=== PATIENT | male | born 1960 | race Caucasian/White ===

== ENCOUNTER 2023-10-31 11:24 | Outpatient (CLI) | payer OTHER, SELFPAY ==
--- OUTSIDE RECORDS SUMMARY | 2023-11-15 22:20 | XMS_ITS | Clinical Summary ---
Author Organization [facility] [employer] Address [address] 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 Last update 11/09/08.Embotics Allergies Active Allergy Reactions Criticality Noted Date Comments Lisinopril Angioedema High 10/31/2023 Penicillins Anaphylaxis High 10/31/2023 Medications * Be aware that medications may not be up to date as of this document. Always verify current medications with patient. Medication Sig Dispensed Refills Start Date End Date Status albuterol (VENTOLIN HFA;PROVENTIL HFA;PROAIR) 108 (90 BASE) mcg/act inhalation inhaler Inhale 2 puffs every 4 hours as needed. 08/24/2023 Suspended amLODIPine (NORVASC) 5 mg oral TABS Take 1 tablet (5 mg) by mouth daily. 08/24/2023 Suspende d metoprolol succinate (TOPROL XL) 50 mg oral XL tablet Take 1 tablet (50 mg) by mouth daily. Suspende d albuterol-ipratrop ium (DUONEB) 2.5-0.5 mg/3 mL inhalation solution vial 3 mL by Nebulization route every 4 hours as needed. Suspended Active Problems Problem Noted Date Diagnosed Date Multiple trauma to chest, initial encounter 10/06 Encounters Date Type Department Care Team Description 11/15/2023 11:59 PM CDT Anesthesia Event OR [facility] [address] [place] [address] Lavon Veliz MD 11/14/2023 Orders Only Unspecified Department [place] Unknown, Provider 11/13/2023 Orders Only Unspecified Department [place] Unknown, Provider 11/12/2023 Orders Only Unspecified Department [place] Unknown, Provider 11/05/2023 Orders Only Unspecified Department [place] Unknown, Provider 11/04/2023 Orders Only Unspecified Department [place] Unknown, Provider 11/03/2023 Orders Only Unspecified Department [place], Provider 11/03/2023 Orders Only Unspecified Department [place], Provider 11/03/2023 Orders Only Unspecified Department [place], Provider 11/02/2023 12:15 PM CDT Anesthesia Event OR [facility] [address] [place] [address] Uvaldo Bryant MD 11/02/2023 12:15 PM CDT - 11/02/2023 12:35 PM CDT Surgery OR [facility] [address] [place], [place] [address] Service, Anesthesia EPIDURAL LUMBAR INJECTION 11/02/2023 Orders Only Unspecified Department [place] Unknown, Provider 11/02/2023 Orders Only [facility] Film Room Radiology Department [facility] [address] [place], [place] [id number] Provider, Outside Referral of patient (Primary Dx) 11/01/2023 Orders Only Unspecified Department [place] Unknown, Provider 10/31/2023 1:08 PM CDT - Present Hospital Encounter [facility] Surgical ICU-[address] [place], [place] [address] Patrice Marcial MD Endorf, MD Tianna Roldan, Yuriy Maxwell MD Multiple trauma to chest, initial encounter 10/31/2023 Travel from Last 3 Months Social History Tobacco Use Types Packs/Day Years Used Date Smoking Tobacco: Never Assessed Humiliation, Afraid, Rape, and Kick questionnair e Answer Date Recorded Within the last year, have y ou been afraid of your partner or ex-partner? No 10/31/2023 Within the last year, have y ou been humiliated or emotionally abused in other ways by your partner or ex-partner? No Within the last year, have y ou been kicked, hit, slapped, or otherwise physically hurt by your partner or ex-partner? No 10/31/2023 Within the last year, have y ou been raped or forced to have any kind of sexual activity by your partner or ex-partner? No 10/31/2023 Overall Financial Resource Strain (CARDIA) Answe r Date Recorded How hard is it for you to pa y for the very basics like food, housing, medical care, and heating? Not hard at all 10/31/2023 Hunger Vital Sign Answer Date Recorded Within the past 12 months, y ou worried that your food would run out before you got the money to buy more. Never true 10/31/19 24 Within the past 12 months, t he food you bought just didn't last and you didn't have money to get more. Never true 10/31/2023 PRAPARE - Transportation Answer Date Re corded In the past 12 months, has l ack of transportation kept you from medical appointments or from getting medications? No 10/06 In the past 12 months, has l ack of transportation kept you from meetings, work, or from getting things needed for daily living? No 10/31/2023 Housing Stability Answer Date Recorded What is your housing situation today? 3 - I have housing 10/31/2023 Sex and Gender Information Value Date Recorded Sex Assigned at Not on file Gender Identity Not on file Sexual Orientation Not on file Last Filed Vital Signs Vital Sign Reading Time Taken Comments Blood Pressure 126/56 11/15/2023 9:00 PM CDT Pulse 92 11/15/2023 9:19 PM CDT Temperature 38 ??C (100.4 ??F) 11/15/2023 9:00 PM CDT Respiratory Rate 19 11/15/2023 9:19 PM CDT Oxygen Saturation 93% 11/15/2023 9:19 PM CDT Inhaled Oxygen Concentration - - Weight 116.7 kg (257 lb 4.4 oz) 11/13/2023 2:00 AM CDT Height 175.3 cm (5' 9.02) 11/15/2023 8:40 AM CD T Body Mass Index 37.98 11/13/2023 2:00 AM CDT Plan of Treatment Upcoming Encounters Date Type Department Care Team (Late st Contact Info) Description 11/17/2023 1:30 PM CDT Nurse Only [facility] [address] [address] Scheduled Discharge Disposition: Discharged to home or self care (routine discharge) Scheduled Procedures Name Priority Associated Diagnoses Date/Ti me THORACOSCOPY Urgent (< 48 hrs) Multiple trauma to chest, initial encounter Health Maintenance Due Date Last Done Comments Asthma Action Plan 1958 Asthma Control Test 1958 CT Colonography 1958 Colonoscopy 1958 Colorectal Cancer Screening 1958 Dental Oral Exam 1958 Dental Prophylaxis 1958 Dental X-Ray: Bitewings 1958 FIT/Cologuard 1958 Hepatitis C Screening 1958 Sigmoidoscopy 1958 iFOB/FIT 1958 Periodontal Maintenance 1972 HIV Screening 1973 Medicare Annual Wellness 1976 HEALTH MAINTENANCE PROTOCOL 1977 COVID-19 Vaccine ( season) 2023 05/12/2023, 03/03/2022, 04/29/2021, Additional history exists Abdominal Aortic Aneurysm (AAA) Screening 2023 PREVENTATIVE VISIT 08/23/2024 08/24/2023, 0 09/18/2021, 02/09/2020 TD/TDAP ADULTS 06/21/2028 06/21/2018, 01/05, 01/15/2009, Additional history exists Lipid Screening 08/23/2028 08/24/2023, 12/05, 09/18/2021, Additional history exists Imm: Pneumonia greater than 65 years Completed 12/22/2022, 03/22/2012 INFLUENZA VACCINE Completed 05/12/2023, , 03/06/2021, Additional history exists HIB Aged Out No longer eligi ble based on patient's age to complete this topic HPV Aged Out No longer eligi ble based on patient's age to complete this topic Imm: HepB Aged Out No longer eligi ble based on patient's age to complete this topic RSV Infant Immunoglobulin Aged Out No longer eligible based on patient's age to complete this topic Medical Devices Implanted Type Area Clinical Research Analyst Device Identifier Shelf Expiration Date Model / Serial / Lot Non-Locking Drainage Catheter- 4 Implanted:Qty: 1 on 11/09/2023 by Rudy Cortez MBBS [facility] 09/18/2026 / / [id number] Procedures The patient is currently admitted. The information in this section might not be complete until the patient is discharged. Procedure Name Priority Date/Time Associated Diagnosis Comments POC GLUCOSE Routine 11/15/2023 6:26 PM CDT POC GLUCOSE Routine 11/15/2023 2:22 PM CDT POC GLUCOSE Routine 11/15/2023 11:35 AM CDT ICU BLOOD GAS Routine 11/15/2023 9:20 AM CDT POC GLUCOSE Routine 11/15/2023 6:46 AM CDT ICU PANEL BASIC METABOLIC (BMP) Routine 11/15/2023 6:31 AM CDT TRIGLYCERIDE Routine 11/15/2023 6:31 AM CDT ICU PHOSPHORUS Routine 11/15/2023 6:31 AM CDT ICU MAGNESIUM Routine 11/15/2023 6:31 AM CDT ICU CBC WITH PLATELET Routine 11/15/2023 6:31 AM CDT CPAP Routine 11/15/2023 5:[address] CHEST WITH IV CONTRAST Timed 11/15/2023 5:11 AM CDT XR CHEST 1 VIEW AP OR PA* Timed 11/15/2023 3:44 AM CDT POC GLUCOSE Routine 11/15/2023 12:22 AM CDT PC BASIC MET PANEL Routine 11/14/2023 10 :36 PM CDT POC GLUCOSE Routine 11/14/2023 5:56 PM CDT POC GLUCOSE Routine 11/14/2023 11:03 AM CDT TELEMETRY STRIPS 11/14/2023 6:10 AM CDT CPAP Routine 11/14/2023 5:30 AM CDT PC GASES,BLOOD,ANY COMB OF PH,PCD2,PO2,CO2,HCO2 Routine 11/14/2023 4:44 AM CDT PC BASIC MET PANEL Routine 11/14/2023 4: 44 AM CDT PC PHOSPHORUS INORGANIC(PHOSPHATE) Routine 11/14/2023 4:44 AM CDT PC MAGNESIUM, SERUM Routine 11/14/2023 4 :44 AM CDT PC LAB CBC/PLT Routine 11/14/2023 4:44 AM CDT PC CREATINE KINASE(CK)CPK;TOTAL Routine 11/14/2023 4:44 AM CDT TC LAB BLOOD DRAW BY VENIPUNCTURE Routine 11/14/2023 4:44 AM CDT XR CHEST 1 VIEW AP OR PA* Routine 11/14/2023 3:56 AM CDT POC GLUCOSE Routine 11/13/2023 11:57 PM CDT POC GLUCOSE Routine 11/13/2023 5:34 PM CDT PC CULTURE,BACTERIAL,DEF INATIVE,AEROBIC;BLOOD Routine 11/13/2023 5:10 PM CDT PC CULTURE,BACTERIAL,DEF INATIVE,AEROBIC;BLOOD Routine 11/13/2023 5:04 PM CDT PC BASIC MET PANEL Routine 11/13/2023 5: 04 PM CDT PC CELL COUNT,MICS.BODY FLUIDS,EXCEPT BLOOD,W-DIFF. CT. Routine 11/13/2023 1:08 PM CDT MISCELLANEOUS BODY FLUID Routine 11/13/2023 1:08 PM CDT MISCELLANEOUS BODY FLUID Routine 11/13/2023 1:08 PM CDT MISCELLANEOUS BODY FLUID Routine 11/13/2023 1:08 PM CDT PC SMEAR, VALDO SOURCE, WITH INTERPRETATION (GRAM STAIN) Routine 11/13/2023 1:08 PM CDT PC CULTURE SPECIMEN, ANAEROBIC Routine 11/13/2023 1:08 PM CDT XR CHEST 1 VIEW AP OR PA* STAT 11/13/2023 11:43 AM CDT POC GLUCOSE Routine 11/13/2023 11:32 AM CDT TELEMETRY STRIPS 11/13/2023 6:25 AM CDT POC GLUCOSE Routine 11/13/2023 6:06 AM CDT CPAP Routine 11/13/2023 5:30 AM CDT XR CHEST 1 VIEW AP OR PA* Routine 11/13/2023 5:16 AM CDT LD (LDH) Routine 11/13/2023 4:06 AM CDT PROTEIN, TOTAL SERUM Routine 11/13/2023 4:06 AM CDT PC GASES,BLOOD,ANY COMB OF PH,PCD2,PO2,CO2,HCO2 Routine 11/13/2023 4:06 AM CDT PC PROCALCITONIN (PCT) Routine 11/13/2023 4:06 AM CDT PC BASIC MET PANEL Routine 11/13/2023 4: 06 AM CDT PC PHOSPHORUS INORGANIC(PHOSPHATE) Routine 11/13/2023 4:06 AM CDT PC MAGNESIUM, SERUM Routine 11/13/2023 4 :06 AM CDT TC LAB BLOOD DRAW BY VENIPUNCTURE Routine 11/13/2023 4:06 AM CDT POC GLUCOSE Routine 11/12/2023 11:42 PM CDT XR ABDOMEN 1 VIEW* Timed 11/12/2023 10 :21 PM CDT PHOSPHORUS Routine 11/12/2023 6:40 PM CDT PC GASES,BLOOD,ANY COMB OF PH,PCD2,PO2,CO2,HCO2 Routine 11/12/2023 6:40 PM CDT TC LAB BLOOD DRAW BY VENIPUNCTURE Routine 11/12/2023 6:40 PM CDT POC GLUCOSE Routine 11/12/2023 6:11 PM CDT POC GLUCOSE Routine 11/12/2023 11:35 AM CDT ECH TRANSTHOR (TTE) COMPLETE WITH CONTRAST Routine 11/12/2023 11:08 AM CDT PC CULTURE,BACTERIAL,DEF INATIVE,AEROBIC;BLOOD Routine 11/12/2023 10:55 AM CDT PC CULTURE,BACTERIAL,DEF INATIVE,AEROBIC;BLOOD Routine 11/12/2023 10:[address] CHEST WITH IV CONTRAST Today 11/12/2023 10:41 AM CDT TELEMETRY STRIPS 11/12/2023 9:39 AM CDT PC PROCALCITONIN (PCT) Routine 11/12/2023 5:40 AM CDT PC BASIC MET PANEL Routine 11/12/2023 5: 40 AM CDT PC PHOSPHORUS INORGANIC(PHOSPHATE) Routine 11/12/2023 5:40 AM CDT PC MAGNESIUM, SERUM Routine 11/12/2023 5 :40 AM CDT PC LAB CBC/PLT Routine 11/12/2023 5:40 AM CDT CPAP Routine 11/12/2023 5:30 AM CDT POC GLUCOSE Routine 11/12/2023 5:23 AM CDT XR CHEST 1 VIEW AP OR PA* Routine 11/12/2023 4:43 AM CDT POC GLUCOSE Routine 11/11/2023 11:47 PM CDT PC BASIC MET PANEL Routine 11/11/2023 7: 03 PM CDT POC GLUCOSE Routine 11/11/2023 5:38 PM CDT POC GLUCOSE Routine 11/11/2023 11:48 AM CDT XR ABDOMEN 1 VIEW* Routine 11/11/2023 9: 41 AM CDT PC GASES,BLOOD,ANY COMB OF PH,PCD2,PO2,CO2,HCO2 Routine 11/11/2023 9:23 AM CDT PC PROCALCITONIN (PCT) Routine 11/11/2023 6:08 AM CDT CPAP Routine 11/11/2023 5:30 AM CDT PC BASIC MET PANEL Routine 11/11/2023 5: 25 AM CDT PC PHOSPHORUS INORGANIC(PHOSPHATE) Routine 11/11/2023 5:25 AM CDT PC MAGNESIUM, SERUM Routine 11/11/2023 5 :25 AM CDT PC LAB CBC/PLT Routine 11/11/2023 5:25 AM CDT PC CREATINE KINASE(CK)CPK;TOTAL Routine 11/11/2023 5:25 AM CDT TC LAB BLOOD DRAW BY VENIPUNCTURE Routine 11/11/2023 5:25 AM CDT XR CHEST 1 VIEW AP OR PA* Routine 11/11/2023 3:54 AM CDT ARTERIAL LINE Routine 11/10/2023 9:56 PM CDT POC GLUCOSE Routine 11/10/2023 8:55 PM CDT PC BASIC MET PANEL Routine 11/10/2023 6: 17 PM CDT POC GLUCOSE Routine 11/10/2023 6:07 PM CDT PC LAB MB MRSA SURVEILLANCE SCREEN Routine 11/10/2023 4:39 PM CDT XR ABDOMEN 1 VIEW* STAT 11/10/2023 3: 46 PM CDT PC CULTURE,BACTERIAL,DEF INATIVE,AEROBIC;BLOOD Routine 11/10/2023 3:27 PM CDT PC CULTURE,BACTERIAL,DEF INATIVE,AEROBIC;BLOOD Routine 11/10/2023 3:24 PM CDT PC LAB MB MRSA SURVEILLANCE SCREEN Routine 11/10/2023 12:58 PM CDT PC GASES,BLOOD,ANY COMB OF PH,PCD2,PO2,CO2,HCO2 Routine 11/10/2023 12:58 PM CDT PC PROCALCITONIN (PCT) Routine 11/10/2023 12:58 PM CDT POC GLUCOSE Routine 11/10/2023 11:55 AM CDT PC LAB RESPIRATORY CULTURE Routine 11/10/2023 9:19 AM CDT NON-BRONCHOSCOPIC ALVEOLAR LAVAGE(BLIND BAL) Routine 11/10/2023 8:58 AM CDT NON-BRONCHOSCOPIC ALVEOLAR LAVAGE(BLIND BAL) Routine 11/10/2023 8:50 AM CDT PANEL HEPATIC FUNCTION Routine 11/10/2023 6:21 AM CDT PC PHOSPHORUS INORGANIC(PHOSPHATE) Routine 11/10/2023 6:21 AM CDT PC MAGNESIUM, SERUM Routine 11/10/2023 6 :21 AM CDT PC LAB CBC/PLT Routine 11/10/2023 6:21 AM CDT PC BASIC MET PANEL Routine 11/10/2023 6: 21 AM CDT POC GLUCOSE Routine 11/10/2023 5:48 AM CDT XR CHEST 1 VIEW AP OR PA* Routine 11/10/2023 5:34 AM CDT CPAP Routine 11/10/2023 5:30 AM CDT POTASSIUM Timed 11/10/2023 2:35 AM CDT POC GLUCOSE Routine 11/09/2023 11:45 PM CDT POTASSIUM STAT 11/09/2023 8:59 PM CDT XR ABDOMEN 1 VIEW* Timed 11/09/2023 8: 58 PM CDT XR CHEST 1 VIEW AP OR PA* STAT 11/09/2023 8:57 PM CDT CENTRAL LINE Routine 11/09/2023 8:35 PM CDT POC GLUCOSE Routine 11/09/2023 6:40 PM CDT PC CULTURE,BACTERIAL,DEF INATIVE,AEROBIC;BLOOD Routine 11/09/2023 6:22 PM CDT PC CULTURE,BACTERIAL,DEF INATIVE,AEROBIC;BLOOD Routine 11/09/2023 6:05 PM CDT PC LAB CBC/PLT STAT 11/09/2023 3:43 PM CDT PANEL BASIC METABOLIC (BMP) STAT 11/09/2023 3:43 PM CDT PROTHROMBIN (PT) & INR STAT 11/09/2023 3:43 PM CDT PC GASES,BLOOD,ANY COMB OF PH,PCD2,PO2,CO2,HCO2 STAT 11/09/2023 3:43 PM CDT MAGNESIUM STAT 11/09/2023 3:43 PM CDT PHOSPHORUS STAT 11/09/2023 3:43 PM CDT PC LACTATE (LACTIC ACID) STAT 11/09/2023 3:43 PM CDT XR CHEST 1 VIEW AP OR PA* STAT 11/09/2023 3:38 PM CDT XR CHEST 1 VIEW AP OR PA* STAT 11/09/2023 3:01 PM CDT XR ABDOMEN 1 VIEW* Routine 11/09/2023 2: 08 PM CDT XR CHEST 1 VIEW AP OR PA* STAT 11/09/2023 2:07 PM CDT PC GASES,BLOOD,ANY COMB OF PH,PCD2,PO2,CO2,HCO2 Routine 11/09/2023 2:07 PM CDT PC LAB CBC/PLT STAT 11/09/2023 2:07 PM CDT PC TROPONIN QUANTITATIVE STAT 11/09/2023 2:07 PM CDT EKG ADULT (12-LEAD) STAT 11/09/2023 2 :04 PM CDT IR CHEST TUBE Routine 11/09/2023 1:07 PM CDT GENERIC HCMC Routine 11/09/2023 1:02 PM CDT ANTI XA ASSAY LMW HEPARIN Timed 11/09/2023 12:22 PM CDT PC LAB COMPLETE UA Routine 11/09/2023 11 :[address] CHEST WITH IV CONTRAST Routine 11/09/2023 11:10 AM CDT XR CHEST 1 VIEW AP OR PA* Routine 11/09/2023 9:37 AM CDT PC LACTATE (LACTIC ACID) STAT 11/09/2023 8:12 AM CDT TC LAB BLOOD DRAW BY VENIPUNCTURE Routine 11/09/2023 8:12 AM CDT CPAP Routine 11/09/2023 5:30 AM CDT POTASSIUM Routine 11/08/2023 7:20 AM CDT PC LAB CBC/PLT Routine 11/08/2023 7:20 AM CDT CPAP Routine 11/08/2023 5:30 AM CDT ANTI XA ASSAY LMW HEPARIN Timed 11/07/2023 1:17 PM CDT TC LAB BLOOD DRAW BY VENIPUNCTURE Routine 11/07/2023 6:44 AM CDT CPAP Routine 11/07/2023 5:30 AM CDT ULT SCROTUM WITH DUPLEX Routine 11/06/2023 7:19 PM CDT PC LAB COMPLETE UA Routine 11/06/2023 3: 59 PM CDT ULT VENOUS UPPER EXT LEFT Routine 11/06/2023 1:42 PM CDT POTASSIUM Routine 11/06/2023 6:52 AM CDT PC LAB CBC/PLT Routine 11/06/2023 6:52 AM CDT CPAP Routine 11/06/2023 5:30 AM CDT MR ABDOMEN W/O + W/CONTRAST Routine 11/05/2023 11:26 PM CDT POC GLUCOSE Routine 11/05/2023 4:27 PM CDT PHOSPHORUS Routine 11/05/2023 6:18 AM CDT MAGNESIUM Routine 11/05/2023 6:18 AM CDT PANEL BASIC METABOLIC (BMP) Routine 11/05/2023 6:18 AM CDT TC LAB BLOOD DRAW BY VENIPUNCTURE Routine 11/05/2023 6:18 AM CDT POC GLUCOSE Routine 11/05/2023 6:11 AM CDT CPAP Routine 11/05/2023 5:30 AM CDT TELEMETRY STRIPS 11/05/2023 2:01 AM CDT POC GLUCOSE Routine 11/04/2023 10:06 PM CDT XR CHEST 1 VIEW AP OR PA* Timed 11/04/2023 4:57 PM CDT POC GLUCOSE Routine 11/04/2023 3:30 PM CDT POC GLUCOSE Routine 11/04/2023 11:13 AM CDT PHOSPHORUS Routine 11/04/2023 8:14 AM CDT MAGNESIUM Routine 11/04/2023 8:14 AM CDT PANEL BASIC METABOLIC (BMP) Routine 11/04/2023 8:14 AM CDT TC LAB BLOOD DRAW BY VENIPUNCTURE Routine 11/04/2023 8:14 AM CDT XR CHEST 1 VIEW AP OR PA* Timed 11/04/2023 6:26 AM CDT POC GLUCOSE Routine 11/04/2023 6:08 AM CDT CPAP Routine 11/04/2023 5:30 AM CDT TELEMETRY STRIPS 11/04/2023 3:49 AM CDT PANEL BASIC METABOLIC (BMP) Routine 11/03/2023 9:30 PM CDT POC GLUCOSE Routine 11/03/2023 9:22 PM CDT TELEMETRY STRIPS 11/03/2023 8:35 PM CDT POC GLUCOSE Routine 11/03/2023 4:45 PM CDT XR CHEST 1 VIEW AP OR PA* Today 11/03/2023 4:30 PM CDT EKG ADULT (12-LEAD) STAT 11/03/2023 3 :59 PM CDT POC GLUCOSE Routine 11/03/2023 11:10 AM CDT POTASSIUM Routine 11/03/2023 9:16 AM CDT TELEMETRY STRIPS 11/03/2023 8:31 AM CDT POC GLUCOSE Routine 11/03/2023 7:50 AM CDT XR CHEST 1 VIEW AP OR PA* Routine 11/03/2023 7:00 AM CDT CPAP Routine 11/03/2023 5:30 AM CDT PHOSPHORUS Routine 11/03/2023 5:09 AM CDT MAGNESIUM Routine 11/03/2023 5:09 AM CDT PANEL BASIC METABOLIC (BMP) Routine 11/03/2023 5:09 AM CDT PC LAB CBC W/DIFF & PLT Routine 11/03/2023 5:09 AM CDT TELEMETRY STRIPS 11/03/2023 3:12 AM CDT TELEMETRY STRIPS 11/02/2023 10:2 2 PM CDT POC GLUCOSE Routine 11/02/2023 8:41 PM CDT POC GLUCOSE Routine 11/02/2023 5:42 PM CDT PF INJX INDWEL CATH DX/THER SBST, INTRLMNR CRV/THRC W/O IMG GDN Routine 11/02/2023 1:17 PM CDT EPIDURAL LUMBAR INJECTION Urgent (< 48 hrs) 11/02/2023 12:15 PM CDT Rib fracture POC GLUCOSE Routine 11/02/2023 11:56 AM CDT POC GLUCOSE Routine 11/02/2023 7:24 AM CDT PC MAGNESIUM, SERUM Routine 11/02/2023 7 :20 AM CDT PC PHOSPHORUS INORGANIC(PHOSPHATE) Routine 11/02/2023 7:20 AM CDT PC BASIC MET PANEL Routine 11/02/2023 7: 20 AM CDT PC LAB CBC/PLT Routine 11/02/2023 7:20 AM CDT PC LAB MB MRSA SURVEILLANCE SCREEN Routine 11/02/2023 5:51 AM CDT CPAP Routine 11/02/2023 5:30 AM CDT XR CHEST 1 VIEW AP OR PA* Routine 11/02/2023 4:57 AM CDT POC GLUCOSE Routine 11/01/2023 8:12 PM CDT TELEMETRY STRIPS 11/01/2023 8:06 PM CDT ULT VENOUS LOWER EXT BILAT Routine 11/01/2023 7:07 PM CDT POC GLUCOSE Routine 11/01/2023 4:49 PM CDT POC GLUCOSE Routine 11/01/2023 3:27 PM CDT POC GLUCOSE Routine 11/01/2023 11:[address] RECONSTRUCT MULTIPLANAR-3D Routine 11/01/2023 6:12 AM CDT POC GLUCOSE Routine 11/01/2023 6:09 AM CDT PC LACTATE (LACTIC ACID) STAT 11/01/2023 5:49 AM CDT PC MAGNESIUM, SERUM Routine 11/01/2023 5 :49 AM CDT PC PHOSPHORUS INORGANIC(PHOSPHATE) Routine 11/01/2023 5:49 AM CDT TC LAB BLOOD DRAW BY VENIPUNCTURE Routine 11/01/2023 5:49 AM CDT PC LAB CBC/PLT Routine 11/01/2023 5:48 AM CDT CPAP Routine 11/01/2023 5:30 AM CDT XR CHEST 1 VIEW AP OR PA* Routine 11/01/2023 3:12 AM CDT POC GLUCOSE Routine 11/01/2023 12:10 AM CDT CPAP Routine 10/31/2023 6:10 PM CDT POC GLUCOSE Routine 10/31/2023 5:58 PM CDT PC LAB CBC/PLT STAT 10/31/2023 5:42 PM CDT PANEL BASIC METABOLIC (BMP) STAT 10/31/2023 5:42 PM CDT PROTHROMBIN (PT) & INR STAT 10/31/2023 5:42 PM CDT MAGNESIUM STAT 10/31/2023 5:42 PM CDT PHOSPHORUS STAT 10/31/2023 5:42 PM CDT PC LACTATE (LACTIC ACID) STAT 10/31/2023 5:42 PM CDT PC TROPONIN QUANTITATIVE Timed 10/31/2023 5:42 PM CDT LUNG AIRWAY CLEARANCE EXPANSION PROTOCOL Routine 10/31/2023 4:[address] CHEST/ABD/PELVIS W/IV CONT STAT 10/31/2023 4:30 PM CDT XR CHEST 1 VIEW AP OR PA* STAT 10/31/2023 3:59 PM CDT XR ELBOW LEFT 2 VIEWS STAT 10/31/2023 3:11 PM CDT XR HAND RIGHT 3 V PA/OBL/LAT* STAT 10/31/2023 3:10 PM CDT XR HAND LEFT 3 V PA/OBL/LAT* STAT 10/31/2023 3:10 PM CDT XR WRIST LEFT 3+ PA/OB/LAT/MT* STAT 10/31/2023 3:10 PM CDT XR CHEST 1 VIEW AP OR PA* STAT 10/31/2023 3:09 PM CDT ED US GUIDED NERVE BLOCK STAT 10/31/2023 3:08 PM CDT ED EKG (12-LEAD) Routine 10/31/2023 2:54 PM CDT EXTRA TUBE - SST Routine 10/31/2023 2:01 PM CDT EXTRA TUBE - LIGHT GREEN Routine 10/31/2023 2:01 PM CDT ETHANOL (ETOH) LEVEL, BLOOD STAT 10/31/2023 2:00 PM CDT PC LAB CBC W/DIFF & PLT STAT 10/31/2023 2:00 PM CDT PRECAUTIONARY TUBE STAT 10/31/2023 1: [address] SPINE LUMBAR NO IV CON STAT 10/31/2023 1:[address] SPINE THORACIC NO IV CON STAT 10/31/2023 1:[address] CHEST/ABD/PELVIS W/IV CONT STAT 10/31/2023 1:[address] SPINE CERVICAL NO IV CON STAT 10/31/2023 1:[address] HEAD NO IV CONTRAST STAT 10/31/2023 1:44 PM CDT XR PELVIS AP* STAT 10/31/2023 1:33 PM CDT XR CHEST 1 VIEW AP OR PA* STAT 10/31/2023 1:33 PM CDT PC TROPONIN QUANTITATIVE STAT 10/31/2023 1:25 PM CDT PC LAB PTT STAT 10/31/2023 1:25 PM CDT PC LAB ED INR STAT 10/31/2023 1:25 PM CDT PC LACTATE (LACTIC ACID) STAT 10/31/2023 1:25 PM CDT FIBRINOGEN STAT 10/31/2023 1:25 PM CDT PANEL HEPATIC FUNCTION STAT 10/31/2023 1:25 PM CDT TC LAB ER STAT TOTAL HGB STAT 10/31/2023 1:25 PM CDT PC ELECTROLYTES PANEL STAT 10/31/2023 1:25 PM CDT PC GASES,BLOOD,ANY COMB OF PH,PCD2,PO2,CO2,HCO2 STAT 10/31/2023 1:25 PM CDT ED US CRITICAL CARE STAT 10/31/2023 1 :09 PM CDT XR CHEST OUTSIDE FILMS Routine 10/31/2023 12:03 PM CDT Referral of patient PANEL LIPID Routine 08/24/2023 7:58 AM CDT from Last 3 Months or Most Recently Relevant to Health Maintenance Results * (ABNORMAL) POC GLUCOSE (11/15/2023 6:26 PM CDT) Only the most recent of45 resultswithin the time period is included. [facility] POC Glucose 135(H) 70 - 100 mg/dL [facility] [facility] Blood 11/15/2023 6:26 PM CDT Patrice Marcial MD LABORATORY [facility] [place] [facility] [facility]INT [facility] CARE [address] [place] [address], * (ABNORMAL) ICU BLOOD GAS (11/15/2023 9:20 AM CDT) Only the most recent of5 resultswithin the time period is included. [facility] Art 7.44 7.35 - 7.45 [facility] PCO2 Art 43 35 - 45 mmHG [facility] PO2 Art 67(L) 75 - 85 mmHG [facility] Bicarb Art 29(H) 22 - 26 mEq/L [facility] O2 Sat Art 94(L) 96 - 99 % [facility] Base Exc Art 4.4(H) -10.0 - 2.0 mmol/L [facility] Blood Arterial 11/15/2023 9: 20 AM CDT 11/15/2023 9:39 AM CDT Carole Montoya APRN, [employer] LABORATORY Performing Organization Address City/[facility]/ZIP Co de Phone Number [address] [address] * ICU MAGNESIUM (11/15/2023 6:31 AM CDT) Only the most recent of8 resultswithin the time period is included. Magnesium 2.4 1.6 - 2.4 mg/dL [facility] Blood 11/15/2023 6:31 AM CDT 11/15/2023 6:40 AM CDT Yuriy Wynn MD LABORATORY Performing Organization Address City/[facility] Co de Phone Number [facility] [address] [address] * ICU PHOSPHORUS (11/15/2023 6:31 AM CDT) Only the most recent of8 resultswithin the time period is included. Phosphorus 3.1 2.5 - 4.5 mg/dL [facility] Blood 11/15/2023 6:31 AM CDT 11/15/2023 6:40 AM CDT Yuriy Wynn MD LABORATORY Performing Organization Address City/[facility] Co de Phone Number [facility] [address] [address] * (ABNORMAL) ICU CBC WITH PLATELET (11/15/2023 6:31 AM CDT) Only the most recent of8 resultswithin the time period is included. WBC 15.39(H) 4.00 - 10.00 k/cmm [facility] RBC 3.46(L) 4.60 - 6.00 m/cmm [facility] Hgb 10.0(L) 13.1 - 17.5 g/dL [facility] Hematocrit 30.9(L) 40.0 - 51.0 % [facility] MCV 89.3 80.0 - 100.0 fL [facility] MCH 28.9 25.0 - 32.0 pg [facility] MCHC 32.4 31.0 - 36.0 g/dL [facility] RDW 13.5 11.5 - 14.5 % [facility] Plt 329 150 - 400 k/cmm [facility] MPV 10.3 6.5 - 12.5 fL [facility] NRBC 0.1(H) 0.0 - 0.0 /100WBC [facility] Blood 11/15/2023 6:31 AM CDT 11/15/2023 6:40 AM CDT Yuriy Wynn MD LABORATORY [facility] [address] [address] * (ABNORMAL) ICU PANEL BASIC METABOLIC (BMP) (11/15/2023 6:31 AM CDT) Only the most recent of13 resultswithin the time period is included. CO2 29 22 - 30 mmol/L [facility] Glucose 144(H) 70 - 100 mg/dL [facility] BUN 33(H) 8 - 23 mg/dL [facility] Creatinine 0.71 0.70 - 1.25 mg/dL [facility] Calcium 8.3(L) 8.8 - 10.2 mg/dL [facility] Sodium 137 135 - 148 mmol/L [facility] Potassium 4.3 3.5 - 5.3 mmol/L [facility] Chloride 100 92 - 108 mmol/L [facility] AnGap 8 8 - 16 mmol/L [facility] eGFR (2020 CKD-EPI) 102 >=60 ml/min/1.7 3m2 [facility] Comment: The estimated glomerular filtration rate (eGFR) was calculated using the CKD-EPI 2020 creatinine equation, which does not include race as a factor. This equation is validated in individuals 18 years of age and older, and eGFR is normalized to a body surface area of 1.73m^2. Blood 11/15/2023 6:31 AM CDT 11/15/2023 6:40 AM CDT Yuriy Wynn MD LABORATORY Performing Organization Address City/[facility] Co de Phone Number [facility] [address] [address] * (ABNORMAL) TRIGLYCERIDE (11/15/2023 6:31 AM CDT) Triglyceride 299(H) <=150 mg/dL [facility] Comment: Interpretive Data <150 Normal 150-199 Borderline high 200-499 High >=500 Very high Blood 11/15/2023 6:31 AM CDT 11/15/2023 6:40 AM CDT Yuriy Wynn MD LABORATORY Performing Organization Address [facility] de Phone Number [address] [address] * CT CHEST WITH IV CONTRAST (11/15/2023 5:11 AM CDT) Only the most recent of3 resultswithin the time period is included. Anatomical Region Laterality Modality Chest Computed Tomogra phy 11/15/2023 5:35 AM CDT Impressions 11/15/2023 11:37 AM CDT IMPRESSION: 1. Decreased size of the small, hyperdense loculated left pleural effusion with basilar chest tube in place. Unchanged small right pleural effusion. 2. Continued basilar atelectasis, decreased in the left lower lobe compared to prior. 3. Slightly increased patchy groundglass opacities in the right upper and middle lobes, suspicious for infectious process. 4. Redemonstration of left-sided rib fractures with slightly increased displacement compared to prior. I have personally reviewed the image(s) and initial interpretation, and I agree with the findings as documented by the resident/fellow. Reading Radiologist: Rudy Cortez Reading Resident: Lucy Patel 11/15/2023 11:37 AM CDT COMPARISON: Chest radiograph from same day, CT chest 11/12/2023 Indication: ??follow up following lytic therapy ? TECHNIQUE: Volumetric helical acquisition of CT images of the chest from the clavicles to the kidneys were acquired after the administration of IV contrast. DOSE: ?Total DLP = 415.2 mGy.cm. ?? FINDINGS: Lungs: ?? Airway: Endotracheal tube tip terminates in the mid thoracic trachea. Lungs: Left posterior lateral approach basilar pigtail chest tube. Decreased size of the small hyperdense left pleural effusion with a few residual foci of gas within the collection and loculated fluid within the fissures. There is subtle left pleural enhancement at the lung base. Small right pleural effusion, similar compared to prior. Streaky opacities in the lower lobes with crowding of the vasculature and airways with homogeneous enhancement, favored to represent atelectasis, decreased in the left lower lobe compared to prior. Redemonstration of patchy groundglass opacity is in the right upper and middle lobes, slightly increased compared to prior. Mediastinum: ?? Thyroid: Normal Vessels: Normal caliber of the aorta and main pulmonary artery. Heart and pericardium: Cardiac size is normal. No pericardial effusion. No significant coronary artery calcium. Lymph nodes: No enlarged thoracic lymph nodes Esophagus: Unremarkable Upper Abdomen: Enteric tube tip terminates in the stomach. Feeding tube tip terminates below the field of view. Bones/Soft tissues: Skeletal structures: Redemonstration of multiple displaced left anterolateral and posterior rib fracture with slightly increased displacement of the anterior fracture segments compared to prior. Degenerative changes of the aorta right shoulder. Soft tissue: Anasarca within the abdominal wall soft tissues. Focal fat stranding and fluid collection of the left lateral chest wall subcutaneous fat, similar compared to prior. Procedure Note Rudy Cortez MBBS - 11/15/2023 COMPARISON: Chest radiograph from same day, CT chest 11/12/2023 Indication: follow up following lytic therapy TECHNIQUE: Volumetric helical acquisition of CT images of the chest fromthe clavicles to the kidneys were acquired after the administration of IVcontrast. DOSE: Total DLP = 415.2 mGy.cm. FINDINGS: Lungs: Airway: Endotracheal tube tip terminates in the mid thoracic trachea. Lungs: Left posterior lateral approach basilar pigtail chest tube.Decreased size of the small hyperdense left pleural effusion with a fewresidual foci of gas within the collection and loculated fluid within thefissures. There is subtle left pleural enhancement at the lung base. Smallright pleural effusion, similar compared to prior. Streaky opacities inthe lower lobes with crowding of the vasculature and airways withhomogeneous enhancement, favored to represent atelectasis, decreased inthe left lower lobe compared to prior. Redemonstration of patchygroundglass opacity is in the right upper and middle lobes, slightlyincreased compared to prior. Mediastinum: Thyroid: Normal Vessels: Normal caliber of the aorta and main pulmonary artery. Heart and pericardium: Cardiac size is normal. No pericardial effusion. Nosignificant coronary artery calcium. Lymph nodes: No enlarged thoracic lymph nodes Esophagus: Unremarkable Upper Abdomen: Enteric tube tip terminates in the stomach. Feeding tube tip terminatesbelow the field of view. Bones/Soft tissues: Skeletal structures: Redemonstration of multiple displaced leftanterolateral and posterior rib fracture with slightly increaseddisplacement of the anterior fracture segments compared to prior.Degenerative changes of the aorta right shoulder. Soft tissue: Anasarca within the abdominal wall soft tissues. Focal fatstranding and fluid collection of the left lateral chest wall subcutaneousfat, similar compared to prior. IMPRESSION IMPRESSION: 1. Decreased size of the small, hyperdense loculated left pleural effusionwith basilar chest tube in place. Unchanged small right pleuraleffusion. 2. Continued basilar atelectasis, decreased in the left lower lobecompared to prior. 3. Slightly increased patchy groundglass opacities in the right upper andmiddle lobes, suspicious for infectious process. 4. Redemonstration of left-sided rib fractures with slightly increaseddisplacement compared to prior. I have personally reviewed the image(s) and initial interpretation, and Iagree with the findings as documented by the resident/fellow. Reading Radiologist: Rudy Cortez Reading Resident: Lucy Patel Yuriy Wynn MD RAD CT BODY * XR CHEST 1 VIEW AP OR PA* (11/15/2023 3:44 AM CDT) Only the most recent of21 resultswithin the time period is included. Anatomical Region Laterality Modality Chest Computed Radiogr aphy 11/15/2023 4:48 AM CDT Impressions 11/15/2023 7:15 AM CDT Impression: 1. Stable support devices. 2. Continued diffuse patchy pulmonary opacities, not significantly changed compared to prior. 3. Bilateral pleural effusions, slightly increased on the right compared to prior. I have personally reviewed the image(s) and initial interpretation, and I agree with the findings as documented by the resident/fellow. Reading Radiologist: Rudy Cortez Reading Resident: Lucy Patel Narrative 11/15/2023 7:15 AM CDT Technique: XR CHEST 1 VIEW AP OR PA* Indication: monitor pleural effusion ?? Comparison: Chest radiograph 11/14/2023 Findings: Single portable upright view of the chest was obtained. Cervical ACDF hardware. Endotracheal tube terminates in the mid thoracic trachea. Feeding tube and enteric tube tips terminate below the field of view. Stable cardiomediastinal silhouette. Continued blunting of the costophrenic angles. Small bilateral pleural effusions, minimally increased on the right compared to prior. Diffuse patchy pulmonary opacities, similar compared to prior with silhouetting of the left hemidiaphragm. Procedure Note Rudy Cortez, RODRI - 11/15/2023 Technique: XR CHEST 1 VIEW AP OR PA* Indication: monitor pleural effusion Comparison: Chest radiograph 11/14/2023 Findings: Single portable upright view of the chest was obtained. CervicalACDF hardware. Endotracheal tube terminates in the mid thoracic trachea.Feeding tube and enteric tube tips terminate below the field of view. Stable cardiomediastinal silhouette. Continued blunting of thecostophrenic angles. Small bilateral pleural effusions, minimallyincreased on the right compared to prior. Diffuse patchy pulmonaryopacities, similar compared to prior with silhouetting of the lefthemidiaphragm. IMPRESSION Impression: 1. Stable support devices. 2. Continued diffuse patchy pulmonary opacities, not significantly changedcompared to prior. 3. Bilateral pleural effusions, slightly increased on the right comparedto prior. I have personally reviewed the image(s) and initial interpretation, and Iagree with the findings as documented by the resident/fellow. Reading Radiologist: Rudy Cortez Reading Resident: Lucy Patel Yuriy Wynn MD RAD XRAY * TELEMETRY STRIPS (11/14/2023 6:10 AM CDT) Only the most recent of10 resultswithin the time period is included. Narrative 11/14/2023 6:10 AM CDT Ordered by an unspecified provider. Provider Unknown RAD ECHO * ICU CK, TOTAL (11/14/2023 4:44 AM CDT) Only the most recent of2 resultswithin the time period is included. Pathologist [facility] CK 51 39 - 308 IU/L [facility] Blood 11/14/2023 4:44 AM CDT 11/14/2023 5:01 AM CDT Yuriy Wynn MD LABORATORY Performing Organization Address [facility] Co de Phone Number [facility] [address] [address] * (ABNORMAL) ICU TRIGLYCERIDE (11/14/2023 4:44 AM CDT) Only the most recent of2 resultswithin the time period is included. [facility] Triglyceride 352(H) <=150 mg/dL [facility] Comment: Interpretive Data <150 Normal 150-199 Borderline high 200-499 High >=500 Very high Blood 11/14/2023 4:44 AM CDT 11/14/2023 5:01 AM CDT Yuriy Wynn MD LABORATORY Performing Organization Address City/[facility]/ZIP Co de Phone Number [facility] [address] [address] * MISCELLANEOUS BODY FLUID (11/13/2023 1:08 PM CDT) Only the most recent of3 resultswithin the time period is included. [facility] Result [id number] [facility] Units BF U/L [facility] Comment:The reference interv al(s) and other method performance specifications have not been established for this body fluid. The test result must be integrated into the clinical context for interpretation. Fluid 11/13/2023 1:08 PM CDT 11/13/2023 2:15 PM CDT Narrative [facility] - 11/13/2023 3:56 PM CDT Left Chest Pleural Fluid Send out test name: LDH Specimen Source->Other- Please comment Yuriy Wynn MD LABORATORY Performing Organization Address [facility] Co de Phone Number [facility] [address] [address] * BODY FLUID CELL COUNT/DIFF (11/13/2023 1:08 PM CDT) Fluid Type PF Pleural [facility] Comment:Normal reference ran ges have not been determined; clinical correlation is recommended. Volume PF 2 mL [facility] Appearance PF Cloudy [facility] Color bf Bloody [facility] RBC PF 60,000 cells/ul [facility] Nuc Ct PF 99,130 cells/ul [facility] Neutrophils PF 81 % [facility] MONO/MACS FL 19 % [facility] Pleural fluid 11/13/2023 1:0 8 PM CDT 11/13/2023 2:47 PM CDT Patrice Marcial MD LABORATORY Performing Organization Address [facility] Co de Phone Number [facility] [address] [address] * (ABNORMAL) BODY FLUID CULTURE:INCLUDES GRAM STAIN (11/13/2023 1:08 PM CDT) Final Report Positive Culture Few Methicillin sensitive Staphylococcus aureus (MSSA) isolated. Methicillin susceptible by PBP2a. Results electronically reported to and acknowledged by: Naheed Blood MD for SICU @ NOV 14, 2023 8:35 AM by Krissy Portillo [place] (POS) [facility] Organism METHICILLIN SENSITIVE STAPHYLOCOCCUS AUREUS (MSSA)(POS) [facility] Gram Stain Report PMN's seen. No organisms seen. [facility] Pleural fluid 11/13/2023 1:0 8 PM CDT 11/13/2023 2:22 PM CDT Narrative Organism Antibiotic Method Susceptibility Methicillin sensitive staphylococcus aureus (mssa) Clindamycin VITEK ANIL NA: Resistant Comment:This isolate is presumed to be resistant based on detection of inducible clindamycin resistance. Methicillin sensitive staphylococcus aureus (mssa) Erythromycin VITEK ANIL >=8: Resistant Methicillin sensitive staphylococcus aureus (mssa) Levofloxacin VITEK ANIL 0.25: Sensitive Methicillin sensitive staphylococcus aureus (mssa) Linezolid VITEK ANIL 1: Sensitive Methicillin sensitive staphylococcus aureus (mssa) Oxacillin VITEK ANIL 0.5: Sensitive Methicillin sensitive staphylococcus aureus (mssa) Tetracycline VITEK ANIL <=1: Sensitive Methicillin sensitive staphylococcus aureus (mssa) Trimethoprim/Sulfamethoxazo le VITEK ANIL <=10: Sensitive Methicillin sensitive staphylococcus aureus (mssa) Vancomycin VITEK ANIL 1: Sensitive Yuriy Wynn MD LAB MICROBIOLOGY Performing Organization Address [facility] Co de Phone Number [facility] [address] [address] * PROCALCITONIN (11/13/2023 4:06 AM CDT) Only the most recent of4 resultswithin the time period is included. Procalcitonin 2.05 ng/mL [facility] Comment: Results <0.50 ng/mL represent a low risk of severe sepsis and/or septic shock. Results >2.0 ng/mL represent a high risk of severe sepsis and/or septic shock. Blood 11/13/2023 4:06 AM CDT 11/13/2023 4:41 AM CDT Carole Montoya APRN, DAYCARE WORKER LABORATORY Performing Organization Address [facility] Co de Phone Number [facility] [address] [address] * (ABNORMAL) PROTEIN, TOTAL SERUM (11/13/2023 4:06 AM CDT) Total Protein 5.7(L) 6.4 - 8.3 g/dL [facility] Blood 11/13/2023 4:06 AM CDT 11/13/2023 2:12 PM CDT Yuriy Wynn MD LABORATORY Performing Organization Address City/[facility]/ZIP Co de Phone Number [facility] [address] [address] * (ABNORMAL) LD (LDH) (11/13/2023 4:06 AM CDT) LD 261(H) 135 - 225 IU/L [facility] Blood 11/13/2023 4:06 AM CDT 11/13/2023 2:12 PM CDT Yuriy Wynn MD LABORATORY Performing Organization Address [facility] Co de Phone Number [facility] [address] [address] * XR ABDOMEN 1 VIEW* (11/12/2023 10:21 PM CDT) Only the most recent of5 resultswithin the time period is included. Anatomical Region Laterality Modality Abdomen Computed Radiogr aphy 11/12/2023 10:2 3 PM CDT Impressions 11/12/2023 10:24 PM CDT Impression: Gaseous distention of the colon which can be seen related to ileus without wall thickening. Reading Radiologist: Main Feliz Narrative 11/12/2023 10:24 PM CDT Technique: XR ABDOMEN 1 VIEW* Indication: Eval bowel gas pattern ?? Comparison: 11/11/2023 Findings: Supine views of the abdomen demonstrate gaseous distention of the colon. No wall thickening is seen. Feeding tube projects in similar position. Procedure Note Main Feliz DO - 11/12/2023 Technique: XR ABDOMEN 1 VIEW* Indication: Eval bowel gas pattern Comparison: 11/11/2023 Findings: Supine views of the abdomen demonstrate gaseous distention ofthe colon. No wall thickening is seen. Feeding tube projects in similarposition. IMPRESSION Impression: Gaseous distention of the colon which can be seen related toileus without wall thickening. Reading Radiologist: Main Feliz Yuriy Wynn MD RAD XRAY * PHOSPHORUS (11/12/2023 6:40 PM CDT) Only the most recent of6 resultswithin the time period is included. Phosphorus 2.7 2.5 - 4.5 mg/dL [facility] Blood 11/12/2023 6:40 PM CDT 11/12/2023 7:14 PM CDT Yuriy Wynn MD LABORATORY [facility] [address] [place] [id number] * ECH TRANSTHOR (TTE) COMPLETE WITH CONTRAST (11/12/2023 11:08 AM CDT) AoV root 3.1 cm [facility] I.elicia sept. 1.61 cm [facility] left atri. 2.3 cm [facility] LV E diast 3.91 cm [facility] LV wall 1.38 cm [facility] LV E syst 2.48 cm [facility] LVEF Calc 59.74 % [facility] LVOT diam 2 cm [facility] LVOT int 24.2 m/s [facility] E wave / A wave 1.14 [facility] MV T 1/2 67 msec [facility] MVA tabatha 0.892 m/s [facility] MVE tabatha 1.02 m/s [facility] mitrl area 3.28 cm2 [facility] TDI E' tabatha 0.087 m/s [facility] FS 36.57 % [facility] LVOT peak 8 mmHg [facility] LVOT mn 4 mmHg [facility] heart rate 84 bpm [facility] BPS 106 mmHg [facility] BPD 56 mmHg [facility] LAvol IDX 21 ml/m2 [facility] 255 True [facility] 480NO True [facility] 456 True [facility] 012SF True [facility] 013 True [facility] 017 True [facility] 009 True [facility] 025 True [facility] 014SF True [facility] 902NO True [facility] 920NO True [facility] PVNWV True [facility] 880NO True [facility] 026SF True [facility] 024SF True [facility] 11/12/2023 Narrative [facility] - 11/12/2023 12:00 AM CDT Report Status:Finalized Transthoracic Echocardiography Report (TTE) Demographics Patient Name ?HAYLEY HERNANDEZ ??Height ?69.02 Inches C Patient Number ?[id number] ? Weight ?255.74 Pounds Date of ? 1960 ?BSA ? 2.29 m^2 Age ? 63 ?Tape Number Gender ?Male ?Study Date ?11/12/2023 09:13 AM Travel Money Advisor ? RB ?Ordering Provider ?? TIANNA Maxwell Referring ? Interpreting ?Ahmet Suarez MD Physician ? Physician ? [id number] Type of Study: TTE procedure: 2D echocardiogram, M-Mode, Doppler , Color Doppler, Contrast study, ECH TRANSTHORACIC ECHO (TTE) HR: 84 bpmBP: 106/56 mmHgPatient Status: Routine Study Location: [id number] Quality: Adequate visualization Contrast Medium: Optison. Amount - 0.5 ml Indications Indications for Study:Endocarditis. CONCLUSIONS SUMMARY The estimated left ventricular ejection fraction is 65 %. Tricuspid regurgitation jet is not adequate for estimation of PA systolic pressure. Normal left ventricular cavity size. Left ventricular hypertrophy concentric Normal estimated left ventricular ejection fraction . Pulmonary vein doppler is normal . Doppler tissue imaging is normal . No wall motion abnormality . Right ventricular prominence Normal right ventricular systolic performance lower limits of normal. ADDITIONAL REMARKS No previous echocardiogram for comparison. No significant valve disease is identified Diastolic indices are c/w normal LV diastolic function Based on IVC geometry, the right atrial pressure is probably normal or low normal (IVC not enlarged in a mechanically ventilated patient) No valvular vegetations were detected on this fair quality transthoracic echocardiogram. There is no evidence of bacterial endocarditis on this transthoracic echocardiogram, but if clinically indicated, transesophageal echo is a more sensitive test. Signature Valves Mitral Valve Area (PHT): 3.28 cm^2 Peak E-Wave: 1 m/s ?Deceleration Time: 228 msec Peak A-Wave: 0.9 m/s Peak Gradient: 4.16 mmHg ?E/A Ratio: 1.14 P1/2t: 67 msec Tissue Doppler E' Medial Velocity: 0.087 m/s E' Lateral Velocity: 0.102 m/s Mitral Valve Summary Normal mitral valve structure without evidence for significant regurgitation. Aortic Valve Aortic Valve Summary Tricuspid Aortic Valve. No evidence for aortic valve insufficiency. The visualized portion of the proximal aorta is normal in size. Nonspecific aortic valve abnormality . Tricuspid Valve Tricuspid Valve Summary Normal tricuspid valve structure with no evidence for significant regurgitation. Pulmonic Valve Pulmonic Valve Summary Pulmonic valve not well visualized. No evidence for pulmonary valve insufficiency. LVOT Peak Velocity: 1.4 m/s ?Mean Velocity: 1 m/s Peak Gradient: 8 mmHg ? Mean Gradient: 4 mmHg LVOT Diameter: 2 cm ? LVOT VTI: 24.2cm Structures Left Atrium LA Dimension: 2.3 cm ?LA Area: 18.1 cm^2 LA/Aorta: 0.74 ?LA Volume Index: 21ml/m^2 Left Atrium Summary Normal left atrial size. Left Ventricle Diastolic Dimension: 3.91 cm ?Systolic Dimension: 2.48 cm Septum Diastolic: 1.61 cm PW Diastolic: 1.38 cm ? Area Systolic: 16.2 cm^2 Area Diastolic: 27 cm^2 EF Calculated: 59.74% ? CI: 2.79 l/min*m^2 CO: 6.38 l/min LV EDV/LV EDV Index: 83.7 ml/37 m^2 FS: 36.57 % ? LV ESV/LV ESV Index: 33.7 ml/15 m^2 LV Length: 6.88 cm LVOT Diameter: 2 cm Stroke Volume: 75.99 ml Left Ventricle Summary Normal left ventricular cavity size. Left ventricular hypertrophy concentric Normal estimated left ventricular ejection fraction . Pulmonary vein doppler is normal . Doppler tissue imaging is normal . No wall motion abnormality . Right Atrium Right Atrium Summary Normal right atrial size. Right Ventricle Right Ventricle Summary Right ventricular prominence Normal right ventricular systolic performance lower limits of normal. Miscellaneous Aorta Aortic Root: 3.1 cm Ascending Aorta: 3.1 cm Asc. Aorta Index:1.35 cm/m^2 LVOT Diameter: 2 cm Vena Cava IVC Maximum: 1.67 cm ? IVC Minimum: 1.5 cm Miscellaneous Summary Inferior vena cava is normal in size without respiratory variation . Pt mechanically ventilated Pericardium Pericardial Effusion Summary No evidence for pericardial effusion. Pleura Pleural Effusion Summary No evidence for pleural effusion. True True True True True Procedure Note Ahmet Suarez MD - 11/12/2023 Report Status:Finalized Transthoracic Echocardiography Report (TTE) Demographics Patient Name HAYLEY HERNANDEZ Height 69.02 Inches C Patient Number [id number] Weight 255.74 Pounds Date of 1960 BSA 2.29 m^2 Age 63 Tape Number Gender Male Study Date 11/12/2023 09:13 AM Travel Money Advisor RB Ordering Provider TIANNA Maxwell Referring Interpreting Ahmet Suarez MD Physician Physician [id number] Type of Study: TTE procedure: 2D echocardiogram, M-Mode, Doppler , Color Doppler, Contrast study, ECH TRANSTHORACIC ECHO (TTE) HR: 84 bpmBP: 106/56 mmHgPatient Status: Routine Study Location: [address] Quality: Adequate visualization Contrast Medium: Optison. Amount - 0.5 ml Indications Indications for Study:Endocarditis. CONCLUSIONS SUMMARY The estimated left ventricular ejection fraction is 65 %. Tricuspid regurgitation jet is not adequate for estimation of PAsystolic pressure. Normal left ventricular cavity size. Left ventricular hypertrophy concentric Normal estimated left ventricular ejection fraction . Pulmonary vein doppler is normal . Doppler tissue imaging is normal . No wall motion abnormality . Right ventricular prominence Normal right ventricular systolic performance lower limits of normal. ADDITIONAL REMARKS No previous echocardiogram for comparison. No significant valve disease is identified Diastolic indices are c/w normal LV diastolic function Based on IVC geometry, the right atrial pressure is probably normal orlow normal (IVC not enlarged in a mechanically ventilated patient) No valvular vegetations were detected on this fair quality transthoracic echocardiogram. There is no evidence of bacterial endocarditis on this transthoracic echocardiogram, but if clinically indicated, transesophageal echo is a more sensitive test. Signature Valves Mitral Valve Area (PHT): 3.28 cm^2 Peak E-Wave: 1 m/s Deceleration Time: 228 msec Peak A-Wave: 0.9 m/s Peak Gradient: 4.16 mmHg E/A Ratio: 1.14 P1/2t: 67 msec Tissue Doppler E' Medial Velocity: 0.087 m/s E' Lateral Velocity: 0.102 m/s Mitral Valve Summary Normal mitral valve structure without evidence for significant regurgitation. Aortic Valve Aortic Valve Summary Tricuspid Aortic Valve. No evidence for aortic valve insufficiency. The visualized portion of the proximal aorta is normal in size. Nonspecific aortic valve abnormality . Tricuspid Valve Tricuspid Valve Summary Normal tricuspid valve structure with no evidence for significant regurgitation. Pulmonic Valve Pulmonic Valve Summary Pulmonic valve not well visualized. No evidence for pulmonary valve insufficiency. LVOT Peak Velocity: 1.4 m/s Mean Velocity: 1 m/s Peak Gradient: 8 mmHg Mean Gradient: 4 mmHg LVOT Diameter: 2 cm LVOT VTI: 24.2cm Structures Left Atrium LA Dimension: 2.3 cm LA Area: 18.1 cm^2 LA/Aorta: 0.74 LA Volume Index: 21ml/m^2 Left Atrium Summary Normal left atrial size. Left Ventricle Diastolic Dimension: 3.91 cm Systolic Dimension: 2.48 cm Septum Diastolic: 1.61 cm PW Diastolic: 1.38 cm Area Systolic: 16.2 cm^2 Area Diastolic: 27 cm^2 EF Calculated: 59.74% CI: 2.79 l/min*m^2 CO: 6.38 l/min LV EDV/LV EDV Index: 83.7 ml/37 m^2 FS: 36.57 % LV ESV/LV ESV Index: 33.7 ml/15 m^2 LV Length: 6.88 cm LVOT Diameter: 2 cm Stroke Volume: 75.99 ml Left Ventricle Summary Normal left ventricular cavity size. Left ventricular hypertrophy concentric Normal estimated left ventricular ejection fraction . Pulmonary vein doppler is normal . Doppler tissue imaging is normal . No wall motion abnormality . Right Atrium Right Atrium Summary Normal right atrial size. Right Ventricle Right Ventricle Summary Right ventricular prominence Normal right ventricular systolic performance lower limits of normal. Miscellaneous Aorta Aortic Root: 3.1 cm Ascending Aorta: 3.1 cm Asc. Aorta Index:1.35 cm/m^2 LVOT Diameter: 2 cm Vena Cava IVC Maximum: 1.67 cm IVC Minimum: 1.5 cm Miscellaneous Summary Inferior vena cava is normal in size without respiratory variation . Pt mechanically ventilated Pericardium Pericardial Effusion Summary No evidence for pericardial effusion. Pleura Pleural Effusion Summary No evidence for pleural effusion. True True True True True Yuriy Wynn MD RAD ECHO [facility] * Arterial Line Rewire (11/10/2023 9:56 PM CDT) Narrative Robe Gracia MD - 11/10/2023 9:56 PM CDT Alejandra Flores MD ? 11/10/2023 ??9:56 PM Arterial Line Rewire Date/Time: 11/10/2023 9:56 PM Performed by: Alejandra Flores MD Authorized by: Robe Gracia MD ??Required items: required blood products, implants, devices, and special equipment available Patient identity confirmed: arm band Time out: Immediately prior to procedure a time out was called to verify the correct patient, procedure, equipment, network support analyst and site/side marked as required. Preparation: Patient was prepped and draped in the usual sterile fashion. Indications: hemodynamic monitoring Location: right radial Anesthesia: local infiltration Anesthesia: Local Anesthetic: lidocaine 1% without epinephrine Anesthetic total: 1 mL Sedation: Patient sedated: yes Sedatives: propofol and see MAR for details Analgesia: fentanyl and see MAR for details Vitals: Vital signs were monitored during sedation. Needle gauge: 20 Seldinger technique: Seldinger technique used Number of attempts: 1 Post-procedure: line sutured and dressing applied Patient tolerance: patient tolerated the procedure well with no immediate complications Robe Gracia MD PROCEDURES * MRSA SURVEILLANCE SCREEN (11/10/2023 4:39 PM CDT) Only the most recent of3 resultswithin the time period is included. Final Report No MRSA isolated. [facility] Swab NASAL STRUCTURE / Unknown 11/10/2023 4:39 PM CDT 11/10/2023 5:00 PM CDT Yuriy Wynn MD LAB MICROBIOLOGY [facility] [address] [address] * (ABNORMAL) BLOOD GASES (11/10/2023 12:58 PM CDT) Only the most recent of4 resultswithin the time period is included. PH Art 7.42 7.35 - 7.45 [facility] PCO2 Art 44 35 - 45 mmHG [facility] PO2 Art 77 75 - 85 mmHG [facility] Bicarb Art 28(H) 22 - 26 mEq/L [facility] O2 Sat Art 96 96 - 99 % [facility] Base Exc Art 3.9(H) -10.0 - 2.0 mmol/L [facility] Blood Arterial 11/10/2023 12 :58 PM CDT 11/10/2023 1:08 PM CDT Carole Montoya APRN, DAYCARE WORKER LABORATORY Performing Organization Address [facility]/ZIP Co de Phone Number [facility] [address] [address] * (ABNORMAL) RESPIRATORY CULTURE (11/10/2023 9:19 AM CDT) Final Report Rare Methicillin sensitive Staphylococcus aureus (MSSA) isolated. Methicillin susceptible by PBP2a. Rare normal oral cain. (POS) [facility] Organism METHICILLIN SENSITIVE STAPHYLOCOCCUS AUREUS (MSSA)(POS) [facility] Gram Stain Report PMN's seen. Gram positive cocci Gram negative bacilli [facility] Bronch Wash 11/10/2023 9:19 AM CDT 11/10/2023 9:34 AM CDT Narrative Organism Antibiotic Method Susceptibility Methicillin sensitive staphylococcus aureus (mssa) Clindamycin VITEK ANIL 0.25: Sensitive Methicillin sensitive staphylococcus aureus (mssa) Erythromycin VITEK ANIL <=0.25: Sensitive Methicillin sensitive staphylococcus aureus (mssa) Levofloxacin VITEK ANIL <=0.12: Sensitive Methicillin sensitive staphylococcus aureus (mssa) Linezolid VITEK ANIL 2: Sensitive Methicillin sensitive staphylococcus aureus (mssa) Oxacillin VITEK ANIL <=0.25: Sensitive Methicillin sensitive staphylococcus aureus (mssa) Tetracycline VITEK ANIL <=1: Sensitive Methicillin sensitive staphylococcus aureus (mssa) Trimethoprim/Sulfamethoxaz ole VITEK ANIL <=10: Sensitive Methicillin sensitive staphylococcus aureus (mssa) Vancomycin VITEK ANIL 1: Sensitive Wendy Mcfarland APRN, CNP LAB MICROBI OLOGY Performing Organization Address [facility] Co de Phone Number [facility] [address] [address] * (ABNORMAL) PANEL HEPATIC FUNCTION (11/10/2023 6:21 AM CDT) Only the most recent of2 resultswithin the time period is included. Total Protein 5.6(L) 6.4 - 8.3 g/dL [facility] Albumin 2.9(L) 3.8 - 5.1 g/dL [facility] Bili Total 1.0 <=1.2 mg/dL [facility] Bili Direct 0.7(H) <=0.3 mg/dL [facility] Alk Phos 79 40 - 129 IU/L [facility] Comment:No reference range e stablished for patients <18 years old. ALT (SGPT) 16 <=41 IU/L [facility] AST(SGOT) 17 5 - 40 IU/L [facility] Blood 11/10/2023 6:21 AM CDT 11/10/2023 6:35 AM CDT Yuriy Wynn MD LABORATORY Performing Organization Address [facility] Co de Phone Number [facility] [address] [address] * POTASSIUM (11/10/2023 2:35 AM CDT) Only the most recent of5 resultswithin the time period is included. Potassium 5.0 3.5 - 5.3 mmol/L [facility] Blood 11/10/2023 2:35 AM CDT 11/10/2023 2:39 AM CDT Yuriy Wynn MD LABORATORY [facility] [address] [address] * Central Line (11/09/2023 8:35 PM CDT) Narrative Tim Steinberg MD - 11/09/2023 8:35 PM CDT Tim Steinberg MD ? 11/10/2023 11:25 AM Central Line Date/Time: 11/09/2023 8:35 PM Performed by: Alejandra Flores MD Authorized by: Tim Steinberg MD ?? Mallory Protocol: ??Required items: Required blood products, implants, devices and special equipment available ?Patient identity confirmed: ??Arm band ??Time out: Immediately prior to the procedure a time out was called to verify the correct patient, procedure, equipment, network support analyst and sit/side marked as required. ?? Indications: ??Indications: ??Vascular access and central pressure monitoring Anesthesia: ??Patient sedated?: Yes ?Sedation: ??See MAR for details and propofol ??Analgesia: ??See MAR for details and fentanyl Procedure details: ??Preparation: ??Skin prepped with 2% chlorhexidine ??Skin prep agent dried: Skin prep agent completely dried prior to procedure ?Sterile barriers: All five maximal sterile barriers used - gloves, gown, cap, mask and large sterile sheet ?Hand hygiene: Hand hygiene performed prior to central venous catheter insertion ?Location: ??Right internal jugular ??Patient position: ??Reverse Trendelenburg ??Catheter type: ??Triple lumen ??Catheter size: ??7 Fr ??Ultrasound guidance: Yes ?Number of attempts: ??1 ??Successful placement: Yes ?? Insertion Checklist: ??Checklist completed: ??No ??Does line need to be changed within 48 hours of insertion: ??No Post-procedure: ??Post-procedure: ??Line sutured and dressing applied ??Assessment: ??Blood return through all parts and free fluid flow ??Patient tolerance: ??Patient tolerated the procedure well with no immediate complications Tim Steinberg MD PROCEDURES * (ABNORMAL) BLOOD AEROBIC/ANAEROBIC CULTURE (11/09/2023 6:22 PM CDT) Only the most recent of2 resultswithin the time period is included. Final Report Positive Blood Culture Gram stain electronically reported to and acknowledged by: Dr. Dyllan Berumen on SICU @ ??11/10/2023 13:30:42 by Jaden Jarvis Methicillin sensitive Staphylococcus aureus (MSSA) isolated. Organism identified 11/10/2023 16:44:38 Methodology: Solid Phase Array Results electronically reported to and acknowledged by: Jacinta Ocampo MD in SICU at 11/10/2023 16:55:58 by Nidia Resendiz MLS Results electronically reported to and acknowledged by: Dr. Opal Ruth, ID, 11/11/2023 08:04:49 by Jaguar Patterson MLS (POS) [facility] Organism METHICILLIN SENSITIVE STAPHYLOCOCCUS AUREUS (MSSA)(POS) [facility] Blood (Peripheral) 11/09/2023 6:22 PM CDT 11/09/2023 7:09 PM CDT Narrative [facility] - 11/12/2023 8:19 AM CDT The Gram positive solid phase array tests for the following organisms and resistance markers: Staphylococcus species ? Staphylococcus aureus ? Staphylococcus epidermidis ? Staphylococcus lugdunensis ? mecA gene ? Streptococcus species ? Group A Streptococcus Group B Streptococcus Streptococcus pneumoniae Streptococcus anginosus group Enterococcus faecalis Enterococcus faecium Fabiola gene vanB gene Listeria species Organism Antibiotic Method Susceptibility Methicillin sensitive staphylococcus aureus (mssa) Clindamycin VITEK ANIL NA: Resistant Comment:This isolate is presumed to be resistant based on detection of inducible clindamycin resistance. Methicillin sensitive staphylococcus aureus (mssa) Erythromycin VITEK ANIL >=8: Resistant Methicillin sensitive staphylococcus aureus (mssa) Levofloxacin VITEK ANIL 0.25: Sensitive Methicillin sensitive staphylococcus aureus (mssa) Linezolid VITEK ANIL 2: Sensitive Methicillin sensitive staphylococcus aureus (mssa) Oxacillin VITEK ANIL 0.5: Sensitive Methicillin sensitive staphylococcus aureus (mssa) Trimethoprim/Sulfamethoxazo le VITEK ANIL <=10: Sensitive Methicillin sensitive staphylococcus aureus (mssa) Vancomycin VITEK ANIL 1: Sensitive Charmaine Anne NIGHT MONITOR, DAYCARE WORKER LAB MICROBIOL OGY Performing Organization Address [facility] Co de Phone Number [facility] [address] [address] * (ABNORMAL) PROTHROMBIN (PT) & INR (11/09/2023 3:43 PM CDT) Only the most recent of2 resultswithin the time period is included. [facility] PT 15.4(H) 9.0 - 12.5 sec [facility] INR 1.4(H) 0.8 - 1.1 [facility] Comment: Warfarin Therapeutic Range: Standard Intensity: 2.0 - 3.0 High Intensity: 2.5 - 3.5 Blood 11/09/2023 3:43 PM CDT 11/09/2023 4:10 PM CDT Yuriy Wynn MD LABORATORY Performing Organization Address [facility] Co de Phone Number [facility] [address] [address] * (ABNORMAL) PANEL BASIC METABOLIC (BMP) (11/09/2023 3:43 PM CDT) Only the most recent of6 resultswithin the time period is included. Pathologist [facility] Calcium 8.9 8.8 - 10.2 mg/dL [facility] Sodium 130(L) 135 - 148 mmol/L [facility] Potassium 5.6(H) 3.5 - 5.3 mmol/L [facility] Chloride 94 92 - 108 mmol/L [facility] CO2 25 22 - 30 mmol/L [facility] AnGap 11 8 - 16 mmol/L [facility] Glucose 140(H) 70 - 100 mg/dL [facility] BUN 28(H) 8 - 23 mg/dL [facility] Creatinine 1.29(H) 0.70 - 1.25 mg/dL [facility] eGFR (2020 CKD-EPI) 62 >=60 ml/min/1.7 3m2 [facility] Comment: The estimated glomerular filtration rate (eGFR) was calculated using the CKD-EPI 2020 creatinine equation, which does not include race as a factor. This equation is validated in individuals 18 years of age and older, and eGFR is normalized to a body surface area of 1.73m^2. Blood 11/09/2023 3:43 PM CDT 11/09/2023 4:10 PM CDT Yuriy Wynn MD LABORATORY Performing Organization Address [facility] Co de Phone Number [address] [address] * MAGNESIUM (11/09/2023 3:43 PM CDT) Only the most recent of5 resultswithin the time period is included. Magnesium 2.0 1.6 - 2.4 mg/dL [facility] Blood 11/09/2023 3:43 PM CDT 11/09/2023 4:10 PM CDT Yuriy Wynn MD LABORATORY Performing Organization Address City/[facility] Co de Phone Number [facility] [address] [address] * LACTATE (LACTIC ACID) (11/09/2023 3:43 PM CDT) Only the most recent of5 resultswithin the time period is included. Lactate 1.5 0.7 - 2.1 mmol/L [facility] Blood 11/09/2023 3:43 PM CDT 11/09/2023 4:09 PM CDT Narrative [facility] - 11/09/2023 4:17 PM CDT Send specimen on ice! Yuriy Wynn MD LABORATORY Performing Organization Address [place]/[facility]/ZIP Co de Phone Number [facility] [address] [address] * (ABNORMAL) CBC WITH PLATELET (11/09/2023 3:43 PM CDT) Only the most recent of6 resultswithin the time period is included. WBC 15.68(H) 4.00 - 10.00 k/cmm [facility] RBC 3.61(L) 4.60 - 6.00 m/cmm [facility] Hgb 10.5(L) 13.1 - 17.5 g/dL [facility] Hematocrit 32.0(L) 40.0 - 51.0 % [facility] MCV 88.6 80.0 - 100.0 fL [facility] MCH 29.1 25.0 - 32.0 pg [facility] MCHC 32.8 31.0 - 36.0 g/dL [facility] RDW 13.0 11.5 - 14.5 % [facility] Plt 169 150 - 400 k/cmm [facility] MPV 11.0 6.5 - 12.5 fL [facility] Blood 11/09/2023 3:43 PM CDT 11/09/2023 4:10 PM CDT Yuriy Wynn MD LABORATORY Performing Organization Address [place]/[facility] Co de Phone Number [facility] [address] [address] * HS TROPONIN (11/09/2023 2:07 PM CDT) Only the most recent of2 resultswithin the time period is included. HS Troponin I <3 <=35 ng/L [facility] Blood 11/09/2023 2:07 PM CDT 11/09/2023 2:20 PM CDT Narrative [facility] - 11/09/2023 2:57 PM CDT First Occurrence of the Troponin order is to be drawn Stat by Nursing staff on the unit. Charmaine Anne APRN, CNP LABORATORY Performing Organization Address [place]/[facility]/ZIP Co de Phone Number [facility] [address] [place] [address] * EKG ADULT (12-LEAD) (11/09/2023 2:04 PM CDT) Only the most recent of2 resultswithin the time period is included. 11/09/2023 2:04 PM CDT Impressions [facility] EKG ORDERS - 11/09/2023 2:04 PM CDT SINUS TACHYCARDIA WITH OCCASIONAL VENTRICULAR PREMATURE COMPLEXES NONSPECIFIC ST & T-WAVE ABNORMALITY ABNORMAL RHYTHM ECG Compared with: 11/03/2023 3:59 PM P-R Interval 152 ms QRS Interval 99 ms QT Interval 305 ms QTC Interval 369 ms P [place] 0 QRS [place] 37 T Wave [place] 74 Narrative Procedure Note Norm Ro III, MD - 11/09/2023 IMPRESSION SINUS TACHYCARDIA WITH OCCASIONAL VENTRICULAR PREMATURE COMPLEXES NONSPECIFIC ST & T-WAVE ABNORMALITY ABNORMAL RHYTHM ECG Compared with: 11/03/2023 3:59 PM P-R Interval 152 ms QRS Interval 99 ms QT Interval 305 ms QTC Interval 369 ms P [place] 0 QRS [place] 37 T Wave [place] 74 Charmaine Anne APRN, CNP EKG Performing Organization Address [facility] Co de Phone Number [facility] EKG ORDERS * IR CHEST TUBE (11/09/2023 1:07 PM CDT) Anatomical Region Laterality Modality Chest X-Ray Angiograph y 11/09/2023 1:11 PM CDT Impressions 11/09/2023 2:18 PM CDT Impression: Successful placement of a 10 belgian J-tipped nonlocking pleural catheter into the left pleural space. Serosanguinous pleural fluid aspirated. My signature attests that I was present for the melchor or critical portion of this procedure. I was immediately available or had arranged immediate staff availability for all the non-critical or non-melchor portions of the entire procedure. I have personally reviewed the image(s) and initial interpretation, and I agree with the findings as documented by the resident/fellow. Reading Radiologist: Rudy Cortez Reading Resident: Radha De La Rosa Narrative 11/09/2023 2:18 PM CDT Procedure 11/09/2023 1:11 PM: 1. Left chest tube placement under ultrasound guidance. Indication: ??large left hemothorax ?? Sedation: No sedation Comparison: Same-day CT chest 11/09/2023 Attending: Ross Cortez MD Fellow: Radha De La Rosa DO Findings/procedure: The patient was brought to the procedural suite and placed upright on the bed. The left flank was prepped and draped in standard sterile fashion. 1% lidocaine was used for local anesthesia of the overlying soft tissues. A small skin incision was made with an 11 blade. A 5 Welsh Yueh centesis needle was advanced into the left pleural space under ultrasound guidance. Once entry into the pleural space was confirmed, the stylet was removed, and a stiff Amplatz guidewire was inserted through the catheter. The catheter was removed over the guidewire. The tract was dilated to 10 Welsh. The dilator was removed and an 10 Welsh J-tipped nonlocking pleural catheter was advanced over the wire. The wire and dilator removed. The tube was placed to an atrium waterseal chamber. There were no immediate complications. Procedure Note Rudy Crotez, RODRI - 11/09/2023 Procedure 11/09/2023 1:11 PM: 1. Left chest tube placement under ultrasound guidance. Indication: large left hemothorax Sedation: No sedation Comparison: Same-day CT chest 11/09/2023 Attending: Ross Cortez MD Fellow: Radha De La Rosa DO Findings/procedure: The patient was brought to the procedural suite and placed upright on thebed. The left flank was prepped and draped in standard sterile fashion. 1%lidocaine was used for local anesthesia of the overlying soft tissues. Asmall skin incision was made with an 11 blade. A 5 Welsh Yueh centesisneedle was advanced into the left pleural space under ultrasound guidance.Once entry into the pleural space was confirmed, the stylet was removed,and a stiff Amplatz guidewire was inserted through the catheter. Thecatheter was removed over the guidewire. The tract was dilated to 10French. The dilator was removed and an 10 Welsh J-tipped nonlockingpleural catheter was advanced over the wire. The wire and dilator removed.The tube was placed to an atrium waterseal chamber. There were noimmediate complications. IMPRESSION Impression: Successful placement of a 10 belgian J-tipped nonlocking pleural catheterinto the left pleural space. Serosanguinous pleural fluid aspirated. My signature attests that I was present for the melchor or critical portion ofthis procedure. I was immediately available or had arranged immediatestaff availability for all the non-critical or non-melchor portions of theentire procedure. I have personally reviewed the image(s) and initial interpretation, and Iagree with the findings as documented by the resident/fellow. Reading Radiologist: Rudy Cortez Reading Resident: Radha De La Rosa Leeanne Montgomery PA-C RAD IR * Generic [facility] (11/09/2023 1:02 PM CDT) Narrative Rudy Cortez MBBS - 11/09/2023 1:02 PM CDT Radha De La Rosa DO ? 11/09/2023 ??1:03 PM [facility] Date/Time: 11/09/2023 1:02 PM Performed by: Radha De La Rosa DO Authorized by: Rudy Cortez MBBS ??Consent: Verbal consent obtained. Written consent obtained. Risks and benefits: risks, benefits and alternatives were discussed Consent given by: patient Patient understanding: patient states understanding of the procedure being performed Patient consent: the patient's understanding of the procedure matches consent given Procedure consent: procedure consent matches procedure scheduled Relevant documents: relevant documents present and verified Test results: test results available and properly labeled Site marked: the operative site was marked Imaging studies: imaging studies available Required items: required blood products, implants, devices, and special equipment available Patient identity confirmed: verbally with patient and arm band Time out: Immediately prior to procedure a time out was called to verify the correct patient, procedure, equipment, network support analyst and site/side marked as required. Preparation: Patient was prepped and draped in the usual sterile fashion. Local anesthesia used: yes Anesthesia: local infiltration Anesthesia: Local anesthesia used: yes Local Anesthetic: lidocaine 1% without epinephrine Anesthetic total: 8 mL Sedation: Patient sedated: no Pre Procedure Diagnosis: Pleural effusion Post Procedure Diagnosis: same 10 Fr left chest tube placed. No immediate complications. Plan -chest tube to -20 cmH2O wall suction -clamp, if >1000ml output in 1 hour No specimens needed to be collected. There were no procedural complications. The estimated blood loss during this procedure was: 0mL Rudy Diego MBBS PROCEDURES * ANTI XA ASSAY LMW HEPARIN (11/09/2023 12:22 PM CDT) Only the most recent of2 resultswithin the time period is included. [facility] Anti XA LMW 0.22 IU/mL [facility] Comment: Anti Xa Assay LMW Heparin Therapeutic Ranges: 0.4-1.1 IU/mL for twice daily 1.0-2.0 IU/mL for once daily Blood 11/09/2023 12:2 2 PM CDT 11/09/2023 12:34 PM CDT Nevaeh EdwardsD LABORATORY [facility] [address] [address] * (ABNORMAL) URINALYSIS,TOTAL (11/09/2023 11:49 AM CDT) Only the most recent of2 resultswithin the time period is included. [facility] Trans Epith 0-5 0 - 5 perHPF [facility] Urinalysis Performed at: [facility] Color YELLOW YELLOW [facility] Appearance CLOUDY(A) CLEAR [facility] Urine Glucose NEGATIVE NEGATIVE mg/dL [facility] Bili UA NEGATIVE NEGATIVE [facility] Ketones NEGATIVE NEGATIVE [facility] Blood Ur LARGE(A) Neg-Trace [facility] PH Urine 5.5 5.0 - 7.0 [facility] Protein Ur 30(A) Neg-Trace [facility] Urobilinogen NORMAL NORMAL EU/dL [facility] Nitrite Ur NEGATIVE NEGATIVE [facility] Leuk Est TRACE Neg-Trace [facility] WBC Ur 21-50(A) 0 - 5 perHPF [facility] RBC Ur >20(A) 0 - 3 perHPF [facility] SQ EPITH 0-5 0 - 5 perHPF [facility] Mucus 1+ perLPF [facility] Hyaline Casts 11-20(A) 0 - 5 perLPF [facility] Cell Cast 0-5(A) perLPF [facility] Specific Bradford 1.020 1.003 - 1.030 [facility] Urine 11/09/2023 11:4 9 AM CDT 11/09/2023 12:07 PM CDT Charmaine Beltran Omid NIGHT MONITOR, DAYCARE WORKER LABORATORY [facility] [address] [address] * (ABNORMAL) CBC WITH PLTS/AUTO DIFF (11/09/2023 8:12 AM CDT) Only the most recent of5 resultswithin the time period is included. WBC 19.60(H) 4.00 - 10.00 k/cmm [facility] RBC 3.99(L) 4.60 - 6.00 m/cmm [facility] Hgb 11.5(L) 13.1 - 17.5 g/dL [facility] Hematocrit 35.9(L) 40.0 - 51.0 % [facility] MCV 90.0 80.0 - 100.0 fL [facility] MCH 28.8 25.0 - 32.0 pg [facility] MCHC 32.0 31.0 - 36.0 g/dL [facility] RDW 13.1 11.5 - 14.5 % [facility] Plt 189 150 - 400 k/cmm [facility] MPV 10.5 6.5 - 12.5 fL [facility] Automated Abs Neutrophil 17.47(H) 1.70 - 6.50 k/cmm [facility] Comment:Preliminary ANC, Fin al Result to Follow Abs Immature Granulocyte 0.15(H) 0.00 - 0.09 k/cmm [facility] Comment:The Immature Granulo cyte Absolute count contains metamyelocytes and myelocytes. Abs Neutrophil 17.47(H) 1.70 - 6.50 k/cmm [facility] Abs Lymphocyte 0.47(L) 0.80 - 4.00 k/cmm [facility] Abs Monocyte 1.42(H) 0.20 - 1.00 k/cmm [facility] Abs Eosinophil 0.05 0.00 - 0.60 k/cmm [facility] Abs Basophil 0.04 0.00 - 0.20 k/cmm [facility] Stippling Slight [facility] Polychromasia Slight [facility] Blood 11/09/2023 8:12 AM CDT 11/09/2023 8:34 AM CDT Chivo Robins MD LABORATORY [facility] [address] [address] * ULT SCROTUM WITH DUPLEX (11/06/2023 7:19 PM CDT) Anatomical Region Laterality Modality Pelvis Ultrasound 11/06/2023 7:16 PM CDT Impressions 11/06/2023 8:01 PM CDT Impression: Normal appearance of the testicles and epididymides bilaterally without post traumatic injury of scrotal contents or torsion. There are small hydroceles of simple fluid echogenicity. Edematous thickening of the scrotum up to 1.2 cm. I have personally reviewed the image(s) and initial interpretation, and I agree with the findings as documented by the resident/fellow. Reading Radiologist: Robert Tamayo Reading Resident: Cole Delgado Narrative 11/06/2023 8:01 PM CDT Indication: new scrotal edema after trauma ?? Comparison: No comparison Technique: ?? 1. ??Marcial-scale imaging of the scrotal contents 2. ??Doppler waveform analysis of arterial flow to the testes. 3. ??Documentation of blood flow within, into and out of the testes. Findings: Right testis: 3.7 x 2.8 x 2.7 cm with normal homogeneous parenchyma and arterial blood flow. Left testis: ??3.6 x 2.6 x 3.4 cm with normal homogeneous parenchyma and low resistance arterial waveforms. There are small hydroceles bilaterally. Normal-appearing right epididymis without hyperemia or edema. The left epididymal head is normal aside from a small 3 mm cyst. Appendix testes on the left. No overt varicocele. Edematous thickening of the scrotal wall measuring nearly 1.2 cm. Procedure Note Robert Tamayo MD - 11/06/2023 Indication: new scrotal edema after trauma Comparison: No comparison Technique: 1. Marcial-scale imaging of the scrotal contents 2. Doppler waveform analysis of arterial flow to the testes. 3. Documentation of blood flow within, into and out of the testes. Findings: Right testis: 3.7 x 2.8 x 2.7 cm with normal homogeneous parenchyma andarterial blood flow. Left testis: 3.6 x 2.6 x 3.4 cm with normal homogeneous parenchyma andlow resistance arterial waveforms. There are small hydroceles bilaterally. Normal-appearing right epididymiswithout hyperemia or edema. The left epididymal head is normal aside froma small 3 mm cyst. Appendix testes on the left. No overt varicocele. Edematous thickening of the scrotal wall measuringnearly 1.2 cm. IMPRESSION Impression: Normal appearance of the testicles and epididymides bilaterally withoutpost traumatic injury of scrotal contents or torsion. There are smallhydroceles of simple fluid echogenicity. Edematous thickening of thescrotum up to 1.2 cm. I have personally reviewed the image(s) and initial interpretation, and Iagree with the findings as documented by the resident/fellow. Reading Radiologist: Robert Tamayo Resident: Cloe Delgado Chivo Robins MD RAD ULT * ULT VENOUS UPPER EXTREMITY LEFT (11/06/2023 1:42 PM CDT) Anatomical Region Laterality Modality Upper Arm Ultrasound 11/06/2023 2:49 PM CDT Impressions 11/06/2023 2:52 PM CDT Impression: ?? 1.No deep vein thrombosis in the left upper extremity. 2.Superficial venous thrombosis of the cephalic vein at the left upper extremity antecubital space. I have personally reviewed the image(s) and initial interpretation, and I agree with the findings as documented by the resident/fellow. Reading Radiologist: Robert Tamayo Resident: Robert Matute Narrative 11/06/2023 2:52 PM CDT Indication: role out DVT ?? Comparison: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 are as follows: T12-L1: No spinal canal or neural foraminal narrowing. L1-L2: ??No spinal canal or neural foraminal narrowing. L2-3: ??No spinal canal or neural foraminal narrowing. ?? L3-4: ??Suspect at least pyhl-fg-kjpflfdp spinal canal/thecal sac narrowing, at least in part related to prominent dorsal epidural fat. There may be mild bilateral neural foraminal narrowing L4-5: Prominent circumferential dural fat results in mild thecal sac narrowing. No neural foraminal narrowing. ?? L5-S1: No spinal canal or neural foraminal narrowing. Degenerative changes of the sacroiliac joints. Benign-appearing foci of sclerosis in the sacrum and left iliac bone Procedure Note Dennis Hernandes, DO - 10/31/2023 Exam: Thoracic and Lumbar Spine CT Reconstructions, 10/31/2023 Indication: Trauma. Comparison: None. Technique: Images of the thoracic and lumbar spine with axial, sagittaland coronal reconstructions were obtained from a CT examination of thechest, abdomen, and pelvis. Images were reviewed in a bone window. This isnot additional radiation; these images are reconstructed from thechest/abdomen/pelvis CT. Findings: Please refer to the chest/abdomen/pelvis CT report for the findings onthose examinations. Multiple left rib fractures. Bilateral parenchymalopacities. Left hemopneumothorax. Thoracic spine: There are 12 rib-bearing thoracic vertebral bodies. No acute fracture ordislocation. ACDF hardware from C5-C7, more fully characterized on theseparately dictated report of a concurrently acquired cervical spine CT.The alignment is unremarkable. Multilevel spondylosis. Benign-appearingfocus of sclerosis in the T10 vertebral body. Presumably degenerativeendplate changes at T10-11. No suspected high-grade spinal canal or neuralforaminal narrowing. Lumbar spine: There are 4 typical lumbar-type vertebral bodies with presumedsacralization of L5. No acute fracture or dislocation. The alignment isunremarkable. There may be mild multilevel disc space narrowing.Multilevel endplate spurring and multilevel degenerative changes of thefacet joints. The findings on a level by level basis are as follows: T12-L1: No spinal canal or neural foraminal narrowing. L1-L2: No spinal canal or neural foraminal narrowing. L2-3: No spinal canal or neural foraminal narrowing. L3-4: Suspect at least vzpb-vc-ocuagalt spinal canal/thecal sacnarrowing, at least in part related to prominent dorsal epidural fat.There may be mild bilateral neural foraminal narrowing L4-5: Prominent circumferential dural fat results in mild thecal sacnarrowing. No neural foraminal narrowing. L5-S1: No spinal canal or neural foraminal narrowing. Degenerative changes of the sacroiliac joints. Benign-appearing foci ofsclerosis in the sacrum and left iliac bone IMPRESSION Impression: No acute fracture or dislocation of the thoracic or lumbar spine. Please refer to the separately dictated report of the CT of the chest,abdomen, pelvis for further details regarding the presence of acutefindings outside of the spine. Reading Radiologist: Dennis Hernandes Patrice Marcial MD RAD CT NEURO * CT SPINE LUMBAR NO IV CON (10/31/2023 1:44 PM CDT) Anatomical Region Laterality Modality Lumbar Spine Computed Tomogra phy 10/31/2023 1:52 PM CDT Impressions 10/31/2023 2:10 PM CDT Impression: No acute fracture or dislocation of the thoracic or lumbar spine. Please refer to the separately dictated report of the CT of the chest, abdomen, pelvis for further details regarding the presence of acute findings outside of the spine. Reading Radiologist: Dennis Hernandes 10/31/2023 2:10 PM CDT Exam: Thoracic and Lumbar Spine CT Reconstructions, 10/31/2023 Indication: ??Trauma. Comparison: ??None. Technique: Images of the thoracic and lumbar spine with axial, sagittal and coronal reconstructions were obtained from a CT examination of the chest, abdomen, and pelvis. Images were reviewed in a bone window. This is not additional radiation; these images are reconstructed from the chest/abdomen/pelvis CT. Findings: Please refer to the chest/abdomen/pelvis CT report for the findings on those examinations. Multiple left rib fractures. Bilateral parenchymal opacities. Left hemopneumothorax. Thoracic spine: There are 12 rib-bearing thoracic vertebral bodies. No acute fracture or dislocation. ACDF hardware from C5-C7, more fully characterized on the separately dictated report of a concurrently acquired cervical spine CT. The alignment is unremarkable. Multilevel spondylosis. Benign-appearing focus of sclerosis in the T10 vertebral body. Presumably degenerative endplate changes at T10-11. No suspected high- grade spinal canal or neural foraminal narrowing. Lumbar spine: There are 4 typical lumbar-type vertebral bodies with presumed sacralization of L5. No acute fracture or dislocation. The alignment is unremarkable. There may be mild multilevel disc space narrowing. Multilevel endplate spurring and multilevel degenerative changes of the facet joints. The findings on a level by level basis are as follows: T12-L1: No spinal canal or neural foraminal narrowing. L1-L2: ??No spinal canal or neural foraminal narrowing. L2-3: ??No spinal canal or neural foraminal narrowing. ?? L3-4: ??Suspect at least bweu-bs-nveoejso spinal canal/thecal sac narrowing, at least in part related to prominent dorsal epidural fat. There may be mild bilateral neural foraminal narrowing L4-5: Prominent circumferential dural fat results in mild thecal sac narrowing. No neural foraminal narrowing. ?? L5-S1: No spinal canal or neural foraminal narrowing. Degenerative changes of the sacroiliac joints. Benign-appearing foci of sclerosis in the sacrum and left iliac bone Procedure Note Dennis Hernandes, DO - 10/31/2023 Exam: Thoracic and Lumbar Spine CT Reconstructions, 10/31/2023 Indication: Trauma. Comparison: None. Technique: Images of the thoracic and lumbar spine with axial, sagittaland coronal reconstructions were obtained from a CT examination of thechest, abdomen, and pelvis. Images were reviewed in a bone window. This isnot additional radiation; these images are reconstructed from thechest/abdomen/pelvis CT. Findings: Please refer to the chest/abdomen/pelvis CT report for the findings onthose examinations. Multiple left rib fractures. Bilateral parenchymalopacities. Left hemopneumothorax. Thoracic spine: There are 12 rib-bearing thoracic vertebral bodies. No acute fracture ordislocation. ACDF hardware from C5-C7, more fully characterized on theseparately dictated report of a concurrently acquired cervical spine CT.The alignment is unremarkable. Multilevel spondylosis. Benign-appearingfocus of sclerosis in the T10 vertebral body. Presumably degenerativeendplate changes at T10-11. No suspected high-grade spinal canal or neuralforaminal narrowing. Lumbar spine: There are 4 typical lumbar-type vertebral bodies with presumedsacralization of L5. No acute fracture or dislocation. The alignment isunremarkable. There may be mild multilevel disc space narrowing.Multilevel endplate spurring and multilevel degenerative changes of thefacet joints. The findings on a level by level basis are as follows: T12-L1: No spinal canal or neural foraminal narrowing. L1-L2: No spinal canal or neural foraminal narrowing. L2-3: No spinal canal or neural foraminal narrowing. L3-4: Suspect at least ldyg-ef-vpowcumw spinal canal/thecal sacnarrowing, at least in part related to prominent dorsal epidural fat.There may be mild bilateral neural foraminal narrowing L4-5: Prominent circumferential dural fat results in mild thecal sacnarrowing. No neural foraminal narrowing. L5-S1: No spinal canal or neural foraminal narrowing. Degenerative changes of the sacroiliac joints. Benign-appearing foci ofsclerosis in the sacrum and left iliac bone IMPRESSION Impression: No acute fracture or dislocation of the thoracic or lumbar spine. Please refer to the separately dictated report of the CT of the chest,abdomen, pelvis for further details regarding the presence of acutefindings outside of the spine. Reading Radiologist: Dennis Hernandes Patrice Marcial MD RAD CT NEURO * CT SPINE CERVICAL NO IV CON (10/31/2023 1:44 PM CDT) Anatomical Region Laterality Modality Cervical Spine Computed Tomogra phy 10/31/2023 1:44 PM CDT Impressions 10/31/2023 2:03 PM CDT Impression: ?? 1. No acute fracture or subluxation of the cervical vertebrae. 2. Multilevel spondylosis results in multilevel spinal canal and neural foraminal narrowing of varying degrees of significance, as described. 3. Mature ACDF at C5-C7. The hardware is intact. Reading Radiologist: Dennis Hernandes Narrative 10/31/2023 2:03 PM CDT Exam: Cervical spine CT without contrast, 10/31/2023 Indication: Trauma. Comparison: ??None. Technique: Using multidetector thin collimation helical acquisition technique, axial, coronal and sagittal reconstructed CT images were obtained through the cervical spine without intravenous contrast. Images were reviewed in bone and soft tissue windows. Radiation dose: ??Total DLP = 306 mGy*cm. ?? Findings: No acute fracture, traumatic malalignment, or abnormal prevertebral soft tissue swelling. Mature ACDF from C5-C7 with anterior plate and screws and interbody grafts and solid interbody fusion. Additional scattered endplate spurring, uncovertebral spurring, and degenerative changes of the facet joints. Atlantodental spurring. Nuchal ligament calcification at the level of C5-6. The findings on a level by level basis are as follows: C2-3: ??Mild right and moderate left neural foraminal narrowing. No convincing spinal canal narrowing. C3-4: ??Mild spinal canal narrowing and at least moderate bilateral neural foraminal narrowing. C4-5: Mwdv-ya-awajjici bilateral neural foraminal narrowing. At least mild, potentially ldcs-av-xaqtwzoj, spinal canal narrowing. C5-6: ??Mild bilateral neural foraminal narrowing. At least mild spinal canal narrowing. C6-7: ??Qpro-kd-msgmbgwj bilateral neural foraminal narrowing, on the left. At least mild spinal canal narrowing. C7-T1: No substantial spinal canal or neural foraminal narrowing. Scattered calcific atherosclerosis. Retropharyngeal course of the bilateral distal common carotid artery. Left first, second, and third rib fractures with adjacent extrapleural hemorrhage. Subcutaneous emphysema about the left neck and left chest wall. Procedure Note Dennis Hernandes, DO - 10/31/2023 Exam: Cervical spine CT without contrast, 10/31/2023 Indication: Trauma. Comparison: None. Technique: Using multidetector thin collimation helical acquisitiontechnique, axial, coronal and sagittal reconstructed CT images wereobtained through the cervical spine without intravenous contrast. Imageswere reviewed in bone and soft tissue windows. Radiation dose: Total DLP = 306 mGy*cm. Findings: No acute fracture, traumatic malalignment, or abnormalprevertebral soft tissue swelling. Mature ACDF from C5-C7 with anteriorplate and screws and interbody grafts and solid interbody fusion.Additional scattered endplate spurring, uncovertebral spurring, anddegenerative changes of the facet joints. Atlantodental spurring. Nuchalligament calcification at the level of C5-6. The findings on a level by level basis are as follows: C2-3: Mild right and moderate left neural foraminal narrowing. Noconvincing spinal canal narrowing. C3-4: Mild spinal canal narrowing and at least moderate bilateral neuralforaminal narrowing. C4-5: Ytbg-uf-xhpixqew bilateral neural foraminal narrowing. At leastmild, potentially ppsx-ic-nrgoiblo, spinal canal narrowing. C5-6: Mild bilateral neural foraminal narrowing. At least mild spinalcanal narrowing. C6-7: Mtqy-ll-lndicuvc bilateral neural foraminal narrowing, on the left.At least mild spinal canal narrowing. C7-T1: No substantial spinal canal or neural foraminal narrowing. Scattered calcific atherosclerosis. Retropharyngeal course of thebilateral distal common carotid artery. Left first, second, and third rib fractures with adjacent extrapleuralhemorrhage. Subcutaneous emphysema about the left neck and left chestwall. IMPRESSION Impression: 1. No acute fracture or subluxation of the cervical vertebrae. 2. Multilevel spondylosis results in multilevel spinal canal and neuralforaminal narrowing of varying degrees of significance, as described. 3. Mature ACDF at C5-C7. The hardware is intact. Reading Radiologist: Dennis Hernandes Patrice Marcial MD RAD CT NEURO * CT HEAD NO IV CONTRAST (10/31/2023 1:44 PM CDT) Anatomical Region Laterality Modality Skull Computed Tomogra phy 10/31/2023 2:03 PM CDT Impressions 10/31/2023 2:08 PM CDT Impression: No acute intracranial pathology. Daniel Traumatic Brain Injury Scale: Diffuse Injury 1 DANIEL DIAGNOSTIC CATEGORIES OF ABNORMALITIES VISUALIZED ON CT SCANNING FOR TRAUMATIC BRAIN INJURY: Diffuse Injury 1: No visible intracranial pathology seen on CT scan. Diffuse Injury 2: Cisterns are present with shift 0-5 mm and/or lesion densities present. No high or mixed density lesion >25ml. May include bone fragments and foreign bodies. Diffuse Injury 3 (swelling): Cisterns compressed or absent with shift 0-5mm. No high or mixed density lesion > 25ml. ? Diffuse Injury 4 (shift): Shift > 5mm. No high or mixed density lesion > 25ml. Evacuated mass lesion: Any surgically evacuated lesion. ?? Non evacuated mass lesion: High or mixed-density lesion > 25ml. Not surgically evacuated. Reading Radiologist: Dennis Hernandes 10/31/2023 2:08 PM CDT Exam: Head CT without contrast, 10/31/2023 Indication: Trauma. Comparison: None. Technique: Thin-section CT images through the brain were obtained from the base of the skull through the vertex without intravenous contrast, reconstructed in axial, coronal, and sagittal planes, and reviewed in brain, bone and subdural windows. Radiation dose: Total DLP = 1021 mGy*cm. Findings: No acute intracranial hemorrhage, mass effect, or abnormal extraaxial fluid collection. The parenchymal volume is probably appropriate for age; the ventricles and sulci are proportional. The marcial-white matter differentiation appears preserved. Asymmetric mineralization of the left globus pallidus, of uncertain etiology and significance. No substantial external soft tissue swelling. The bones of the calvaria and skull base are intact. The paranasal sinuses and mastoid air cells appear clear. No acute or suspicious intraorbital finding. No significant periapical dental disease of the visualized dentition. Calcific atherosclerosis of the carotid siphons. Procedure Note Dennis Hernandes, - 10/31/2023 Exam: Head CT without contrast, 10/31/2023 Indication: Trauma. Comparison: None. Technique: Thin-section CT images through the brain were obtained from thebase of the skull through the vertex without intravenous contrast,reconstructed in axial, coronal, and sagittal planes, and reviewed inbrain, bone and subdural windows. Radiation dose: Total DLP = 1021 mGy*cm. Findings: No acute intracranial hemorrhage, mass effect, or abnormalextraaxial fluid collection. The parenchymal volume is probablyappropriate for age; the ventricles and sulci are proportional. Thegray-white matter differentiation appears preserved. Asymmetricmineralization of the left globus pallidus, of uncertain etiology andsignificance. No substantial external soft tissue swelling. The bones of the calvariaand skull base are intact. The paranasal sinuses and mastoid air cellsappear clear. No acute or suspicious intraorbital finding. No significantperiapical dental disease of the visualized dentition. Calcificatherosclerosis of the carotid siphons. IMPRESSION Impression: No acute intracranial pathology. Daniel Traumatic Brain Injury Scale: Diffuse Injury 1 DANIEL DIAGNOSTIC CATEGORIES OF ABNORMALITIES VISUALIZED ON CT SCANNINGFOR TRAUMATIC BRAIN INJURY: Diffuse Injury 1: No visible intracranial pathology seen on CT scan. Diffuse Injury 2: Cisterns are present with shift 0-5 mm and/or lesiondensities present. No high or mixed density lesion >25ml. May include bonefragments and foreign bodies. Diffuse Injury 3 (swelling): Cisterns compressed or absent with shift0-5mm. No high or mixed density lesion > 25ml. Diffuse Injury 4 (shift): Shift > 5mm. No high or mixed density lesion >25ml. Evacuated mass lesion: Any surgically evacuated lesion. Non evacuated mass lesion: High or mixed-density lesion > 25ml. Notsurgically evacuated. Reading Radiologist: Dennis Hernandes Patrice Marcial MD RAD CT NEURO * XR PELVIS AP* (10/31/2023 1:33 PM CDT) Anatomical Region Laterality Modality Pelvis Computed Radiogr aphy 10/31/2023 1:57 PM CDT Impressions 10/31/2023 1:57 PM CDT Impression: No fracture. Reading Radiologist: Main Feliz 10/31/2023 1:57 PM CDT Technique: XR PELVIS AP* Indication: pi ro fx ?? Comparison: None Findings: Single view the pelvis is negative for fracture. The femoroacetabular and sacroiliac joints are symmetric. The pubic symphysis is within normal limits. Mild degenerative changes involving both hips. Procedure Note Main Feliz, DO - 10/31/2023 Technique: XR PELVIS AP* Indication: pi ro fx Comparison: None Findings: Single view the pelvis is negative for fracture. Thefemoroacetabular and sacroiliac joints are symmetric. The pubic symphysisis within normal limits. Mild degenerative changes involving both hips. IMPRESSION Impression: No fracture. Reading Radiologist: Main Feliz Patrice Marcial MD RAD XRAY * ED INR (10/31/2023 1:25 PM CDT) Pathologist [facility] [place] ED INR 1.0 0.8 - 1.1 [facility] Comment: Warfarin Therapeutic Range: Standard Intensity: 2.0 - 3.0 High Intensity: 2.5 - 3.5 This is a rapid INR screening test which uses whole blood; results may infrequently differ from plasma INR results. If medication adjustments/dosing are required a PT/INR test ([id number]) should be ordered and performed in the main laboratory. Blood 10/31/2023 1:25 PM CDT 10/31/2023 1:36 PM CDT Patrice Marcial MD LABORATORY [facility] [address] [address] * (ABNORMAL) ED CHEMISTRY LABS(NA,K,CL,CO2,GLU,CREAT,CA-IONIZED,ANION GAP) (10/31/2023 1:25 PM CDT) Pathologist [facility] [place] Sodium 141 135 - 148 mmol/L [facility] Chloride 109(H) 92 - 108 mmol/L [facility] AnGap 10 8 - 16 mmol/L [facility] Glucose 211(H) 70 - 100 mg/dL [facility] ICA, Actual 4.74 4.40 - 5.20 mg/dL [facility] ICA, pH Corrected 4.44 4.40 - 5.20 mg/dL [facility] Creatinine 1.00 0.70 - 1.25 mg/dL [facility] BICARB 22 22 - 26 mEq/L [facility] eGFR (2020 CKD-EPI) 84 >=60 ml/min/1.7 3m2 [facility] Comment: The estimated glomerular filtration rate (eGFR) was calculated using the CKD-EPI 2020 creatinine equation, which does not include race as a factor. This equation is validated in individuals 18 years of age and older, and eGFR is normalized to a body surface area of 1.73m^2. Potassium 5.1 3.5 - 5.3 mmol/L [facility] Blood 10/31/2023 1:25 PM CDT 10/31/2023 1:30 PM CDT Patrice Marcial MD LABORATORY Performing Organization Address [facility] Co de Phone Number [address] [address] * ED HEMOGLOBIN TOTAL (ED ONLY) (10/31/2023 1:25 PM CDT) Hgb 15.5 13.1 - 17.5 g/dL [facility] Blood 10/31/2023 1:25 PM CDT 10/31/2023 1:30 PM CDT Patrice Marcial MD LABORATORY Performing Organization Address [facility] Co de Phone Number [facility] [address] [address] * FIBRINOGEN (10/31/2023 1:25 PM CDT) Fibrinogen 311 200 - 400 mg/dL [facility] Blood 10/31/2023 1:25 PM CDT 10/31/2023 2:02 PM CDT Patrice Marcial MD LABORATORY Performing Organization Address [facility] Co de Phone Number [facility] [address] [address] * (ABNORMAL) PTT (APTT) (10/31/2023 1:25 PM CDT) APTT 22.2(L) 25.0 - 37.0 sec [facility] Blood 10/31/2023 1:25 PM CDT 10/31/2023 2:02 PM CDT Patrice Marcial MD LABORATORY [facility] [address] [address] * ED US CRITICAL CARE (10/31/2023 1:09 PM CDT) Anatomical Region Laterality Modality Ultrasound Narrative 10/31/2023 2:26 PM CDT ED Critical Care Resuscitative Ultrasound ED Trauma eFAST Ultrasound Indications: Suspicion of Abdomen Fluid/Blood, Suspicion of Pneumothorax/Hemothorax, and Other general symptoms and signs Window: Cardiac Window, Heptorenal Window, Perisplenic Window, Pelvic Window, and Thoracic Window Findings: No Pericardial Effusion identified, No Free Intraperitoneal Fluid identified, No Pleural Effusion identified, and Lung Sliding Present Bilaterally Impression: No Pericardial Effusion identified though limited views, No Free Intraperitoneal Fluid identified, No Pleural Effusion identified, and No Pneumothorax Identified Sam Silver MD, 10/31/2023 2:18 PM ED Attending Ultrasound Note: I have personally reviewed the image(s) and initial interpretation, and I agree with the findings as documented. Patrice Marcial MD, 10/31/2023 2:26 PM Patrice Marcial MD RAD ED ULT * XR CHEST OUTSIDE FILMS (10/31/2023 12:03 PM CDT) Nabor Garcia-Scheduler - 11/02/2023 6:27 AM CDT Outside Film Only Outside Provider RAD OUTSIDE FILMS from Last 3 Months Advance Directives For more information, please contact: [phone] * Full Code (Latest Code Status on File) Date Activated Date Inactivated Comments 10/31/2023 4:41 PM Question Answer Comments Does the Patient have prefer ences regarding life sustaining measures (these options only apply when the patient has a pulse): No Discussed Code Status With Whom? Not discussed Care Teams Bean Sprout Grower Relationship Specialty Start Date End Date June Hernandez, NIGHT MONITOR, DAYCARE WORKER [address] [place] [address] [place] [id number] PCP - General Family Medicine 11/03/23
--- OUTSIDE RECORDS SUMMARY | 2023-11-15 22:21 | XMS_ITS | Encounter Summary ---
Author Organization [facility] Address [address] [place] [phone] Phone Care Team Providers Care Ladle Repairman Name Role Phone June Hernandez APRN, SUPERVISOR BEATER ROOM Primary Care [facility] Encounter Details Date Type Department Care Team (Late st Contact Info) Description 11/03/2023 Orders Only Unspecified Department [place] Unknown, Provider Social History Tobacco Use Types Packs/Day Years [...] on file Sexual Orientation Not on file documented as of this encounter Plan of Treatment Upcoming Encounters Date Type Department Care Team (Late st Contact Info) Description 11/17/2023 1:30 PM CDT Nurse Only [facility] [address] [place] [address] Scheduled Discharge Disposition: Discharged to home or self care (routine discharge) Scheduled Procedures Name Priority Associated Diagnoses Date/Ti me THORACOSCOPY Urgent (< 48 hrs) Multiple trauma to chest, initial encounter documented as of this encounter Procedures Procedure Name Priority Date/Time Associated Diagnosis Comments TELEMETRY STRIPS 11/03/2023 8:35 PM CDT documented in this encounter Results * TELEMETRY STRIPS (11/03/2023 8:35 PM CDT) Narrative 11/03/2023 8:35 PM CDT Ordered by an unspecified provider. Provider Unknown RAD ECHO documented in this encounter Visit Diagnoses Not on filedocumented in this encounter Care Teams Ladle Repairman Relationship Specialty Start Date End Date June Hernandez, TICKETING CLERK, SUPERVISOR BEATER ROOM [address] [place] [phone] PCP - General Family Medicine 11/03/23 documented as of this encounter
--- OUTSIDE RECORDS SUMMARY | 2023-11-15 22:21 | XMS_ITS | Encounter Summary ---
Author Organization [facility] Address [address] [place] [phone] Phone Care Team Providers Care Preboarder Name Role Phone June Hernandez APRN, SUPERINTENDENT POWER Primary Care [facility] Encounter Details Date Type Department Care Team (Late st Contact Info) Description 11/12/2023 Orders Only Unspecified Department [place] Unknown, [...] Only [facility] [address] [place] [address] Scheduled Discharge Disposition: Discharged to home or self care (routine discharge) Scheduled Procedures Name Priority Associated Diagnoses Date/Ti me THORACOSCOPY Urgent (< 48 hrs) Multiple trauma to chest, initial encounter documented as of this encounter Procedures Procedure Name Priority Date/Time Associated Diagnosis Comments TELEMETRY STRIPS 11/12/2023 9:39 AM CDT documented in this encounter Results * TELEMETRY STRIPS (11/12/2023 9:39 AM CDT) Narrative 11/12/2023 9:39 AM CDT Ordered by an unspecified provider. Provider Unknown RAD ECHO documented in this encounter Visit Diagnoses Not on filedocumented in this encounter Care Teams Preboarder Relationship Specialty Start Date End Date June Hernandez, THERAPEUTIC CONSULTANT, SUPERINTENDENT POWER [address] [place] [phone] PCP - General Family Medicine 11/03/23 documented as of this encounter
--- OUTSIDE RECORDS SUMMARY | 2023-11-15 22:21 | XMS_ITS | Encounter Summary ---
Author Organization [facility] Address [address] [place] [phone] Phone Care Team Providers Care Finisher [employer] Name Role Phone June Hernandez APRN, MOLD YARD SUPERVISOR Primary Care Pro[facility] Encounter Details Date Type Department Care Team (Late st Contact Info) Description 11/02/2023 Orders Only Unspecified Department [place] Unknown, [...] Only [facility] [address] [place] [address] Scheduled Discharge Disposition: Discharged to home or self care (routine discharge) Scheduled Procedures Name Priority Associated Diagnoses Date/Ti me THORACOSCOPY Urgent (< 48 hrs) Multiple trauma to chest, initial encounter documented as of this encounter Procedures Procedure Name Priority Date/Time Associated Diagnosis Comments TELEMETRY STRIPS 11/02/2023 10:2 2 PM CDT documented in this encounter Results * TELEMETRY STRIPS (11/02/2023 10:22 PM CDT) Narrative 11/02/2023 10:22 PM CDT Ordered by an unspecified provider. Provider Unknown RAD ECHO documented in this encounter Visit Diagnoses Not on filedocumented in this encounter Care Teams Finisher [employer] Relationship Specialty Start Date End Date June Hernandez, PRESS OPERATOR, MOLD YARD SUPERVISOR [address] [place] [address] PCP - General Family Medicine 11/03/23 documented as of this encounter
--- OUTSIDE RECORDS SUMMARY | 2023-11-15 22:21 | XMS_ITS | Encounter Summary ---
Author Organization [facility] Address [address] [place] [phone] Phone Care Team Providers Care Wood Chopper Name Role Phone June Hernandez APRN, ELEMENTARY SCHOOL SCIENCE TEACHER Primary Care [facility] Encounter Details Date Type Department Care Team [...] Only [facility] [address] [place] [phone] Scheduled Discharge Disposition: Discharged to home or self care (routine discharge) Scheduled Procedures Name Priority Associated Diagnoses Date/Ti me THORACOSCOPY Urgent (< 48 hrs) Multiple trauma to chest, initial encounter documented as of this encounter Procedures Procedure Name Priority Date/Time Associated Diagnosis Comments TELEMETRY STRIPS 11/03/2023 3:12 AM CDT documented in this encounter Results * TELEMETRY STRIPS (11/03/2023 3:12 AM CDT) Narrative 11/03/2023 3:12 AM CDT Ordered by an unspecified provider. Provider Unknown RAD ECHO documented in this encounter Visit Diagnoses Not on filedocumented in this encounter Care Teams Wood Chopper Relationship Specialty Start Date End Date June Hernandez, VENEER PRESS OPERATOR, ELEMENTARY SCHOOL SCIENCE TEACHER [address] [place] [phone] PCP - General Family Medicine 11/03/23 documented as of this encounter
--- OUTSIDE RECORDS SUMMARY | 2023-11-15 22:21 | XMS_ITS | Encounter Summary ---
Author Organization [facility] Address [address] [facility] [place] [address] Phone Care Team Providers Care Welt Wheeler Name Role Phone Unavailable Primary Care Provider Unavailabl e Reason for Visit * Auth/Cert (Routine) Specialty Diagnoses / Procedures Referred By Misty atkins Referred To Contact SURGICAL CRITICAL CARE Diagnoses Multiple trauma to chest, initial encounter Chivo Robins MD [address] [place] [address] Sicu 1 Surgical Icu [address] [facility] [address] [place] [address] Referral ID Status Reason Start Date Expiration Date Visits Re quested Visits Authorized [id number] 1 1 Encounter Details Date Type Department Care Team (Late st Contact Info) Description 11/02/2023 12:15 PM CDT Anesthesia Event OR P4 [address] [facility] [address] [place], [place] [phone] Uvaldo Bryant MD [address] [facility] [address] [place] [address] Anesthesia Record Procedure Summary Procedure Name Responsible Anesthesiologist Anesthesia Start Time Anesthesia Stop Time EPIDURAL LUMBAR INJECTION Events No events on file. Meds Name Total fentaNYL (SUBLIMAZE) 100 mcg/ 2 mL injec tion 50 mcg phenylephrine 100 mcg/mL syringe 200 mcg ePHEDrine 25 mg/5 mL syringe 10 mg lidocaine-EPINEPHrine (XYLOCAINE-MPF/EPI NEPHRINE) 1.5 %-1:487818 infiltration 5 mL * Agents No agents on file. * Blood No blood administrations on file. Lines, Drains, and Airways Type Details Placement Removal Urinary Catheter 11/05/23; 1427; Urin sandra Retention (Post void volume consistently greater than 350 mL); 10 mL; Placed in Unit; DANILO Rae 11/05/23 1427 by Caryn Winn RN Chest Tube 11/09/23; 1302; Left ; (10 fr); Placed in procedural area 11/09/23 1302 by Sundar Bowman RN Endotracheal Tube: 11/09/23; 1515; oral 11/09/23 1515 by Alf Leyva RT Feeding Tube 11/10/23; 1425; Nasoenteric; Post-pyloric tube in place; Nostril (left); Bedside; 10 Fr 11/10/[address], LD Wound 11/11/23; 1657; Penis 11/11/23 1 657 by Elza Miramontes RN Wound 11/12/23; 1621; Buttock 11/12/23 1621 by Elza Miramontes RN Peripheral IV 11/12/23; 1646; Yes; 20 gauge, 1 3/4 in length; Anterior, Left; Forearm; 1; Placed in Unit 11/12/23 1646 by Bere Dodd RN Naso/Oral Gastric Suction Tube 11/13/23; 0356; Oral; Orogastric; verified by aspirate characteristics; Placed in Unit 11/13/23 0356 by Pernell Tate RN Peripheral IV 11/15/23; 1727; Yes; 20 gauge, 1 3/4 in length; Anterior, Right; Upper Arm; 1; Placed in Unit 11/15/23 1727 by Yanely Lovelace RN documented in this encounter Social History Tobacco Use Types Packs/Day Years [...] on file documented as of this encounter OR Notes * Anesthesia Procedure Notes - Uvaldo Bryant MD - 11/02/2023 1:17 PM CDT Associated Order(s): Epidural/Spinal EPIDURAL (Type: Breen Call) Prep: Betadine, drape, mask and gloves Patient position: Sitting Anthony Precautions Completed: patient identified, surgical consent, pre-op evaluation, timeout performed, IV checked, risks and benefits discussed and monitors and equipment checked Medications lidocaine-EPINEPHrine (XYLOCAINE-MPF/EPINEPHRINE) 1.5 %-1:538205 infiltration - Infiltration 5 mL - 11/02/2023 12:41:00 PM Narrative The Catheter injection was placed at T9-T10 using a midline approach. A other (17G) needle was used. Loss of resistance was captured at 9cm. The catheter is at a skin depth of 15cm and was threaded easily. A test dose ofmL was given at. The test dose was negative Paresthesias: No . There was no blood or CSF return on aspiration Performed by: SCRIPT GIRL:Anesthesiologist: Uvaldo Bryant MD * Anesthesia Preprocedure Evaluation - Uvaldo Bryant MD - 11/02/2023 1:16 PM CDT Anesthesia Pre-Evaluation Summary Statement: This is a 63 y.o. year old patient scheduled for EPIDURAL LUMBAR INJECTION. Anesthesia Evaluation Internal or external H&P reviewed, patient examined and changes and/or additions made as needed Pulmonary - normal exam (+) , sleep apnea on CPAP, , , , , , , , , , Neurological - negative ROS Psychiatric - negative ROS Cardiovascular - negative ROS and normal exam Endo Musculoskeletal (+) fracture ROS comment: Multiple rib fractures HEENT - negative ROS GI (+) obesity Hematologic/Onc (-) anemia and thrombocytopenia ROS comment: Denies bleeding diathesis and/or taking oral anticoaculants /Renal/Lithograph Operator - negative ROS Airway Mallampati: III TM distance: >3 FB Neck ROM: limited Mouth Opening: good Dental - normal exam OB Other Physical Exam Anesthesia Plan ASA 3 epidural (Patient seen and evaluated. Risks, benefits and alternatives to thoracic epidural discussed. Risks include, but are not limited to, bleeding, infection, nerve damage, incomplete pain reliefand the possibility of having to have the epidural replaced. Patient states understanding and wishes to proceed.) Anesthetic plan and risks discussed with patient. Vitals: 11/02/23 1200 BP: Pulse: Resp: Temp: 36.6 ??C (97.8 ??F) SpO2: documented in this encounter Plan of Treatment Upcoming Encounters Date Type Department Care Team (Late st Contact Info) Description 11/17/2023 1:30 PM CDT Nurse Only [facility] [address] [place] [address] Scheduled Discharge Disposition: Discharged to home or self care (routine discharge) Scheduled Procedures Name Priority Associated Diagnoses Date/Ti me THORACOSCOPY Urgent (< 48 hrs) Multiple trauma to chest, initial encounter documented as of this encounter Procedures Procedure Name Priority Date/Time Associated Diagnosis Comments PF INJX INDWEL CATH DX/THER SBST, INTRLMNR CRV/THRC W/O IMG GDN Routine 11/02/2023 1:17 PM CDT documented in this encounter Results * PF INJX INDWEL CATH DX/THER SBST, INTRLMNR CRV/THRC W/O IMG GDN (11/02/2023 1:17 PM CDT) Narrative Uvaldo Bryant MD - 11/02/2023 1:17 PM CDT Uvaldo Bryant MD ? 11/02/2023 ??1:19 PM EPIDURAL (Type: Breen Call) Prep: Betadine, drape, mask and gloves Patient position: Sitting Anthony Precautions Completed: patient identified, surgical consent, pre-op evaluation, timeout performed, IV checked, risks and benefits discussed and monitors and equipment checked Medications lidocaine-EPINEPHrine (XYLOCAINE-MPF/EPINEPHRINE) 1.5 %-1:707341 infiltration - Infiltration 5 mL - 11/02/2023 [...] CSF return on aspiration ?? Performed by: SCRIPT GIRL:Anesthesiologist: Uvaldo Bryant MD Uvaldo Bryant MD PROCEDURES documented in this encounter Visit Diagnoses Not on filedocumented in this encounter Administered Medications Inactive Administered Medications - up to 3 most recent administrations Medication Order MAR Action Action Date Dose Rate Site ephedrine (EMERPHED) 50 mg/ 10 mL injection Intravenous, INTRA-OP PRN ONCE MAY REPEAT, Starting on Wed11/02/23 at 1309, Until Wed11/02/23 at 1329 Given 11/02/2023 1:09 PM CDT 10 mg fentaNYL (SUBLIMAZE) 100 mcg/2mL injection Intravenous, INTRA-OP PRN ONCE MAY REPEAT, Starting on Wed11/02/23 at 1228, Until Wed11/02/23 at 1329 Given 11/02/2023 12:28 PM CDT 50 mcg lidocaine-EPINEPHrine (XYLOCAINE-MPF/EPINEPHRINE) 1.5 %-1:295716 injection Infiltration, Starting on Wed11/02/23 at 1241, Until Wed11/02/23 at 1241 Given 11/02/2023 12:41 PM CDT 5 mL phenylephrine (LORENA-SYNEPHRINE) 1 mg/10mL injection IV Push, INTRA-OP PRN ONCE MAY REPEAT, Starting on Wed11/02/23 at 1302, Until Wed11/02/23 at 1329 Given 11/02/2023 1:06 PM CDT 100 mcg Given 11/02/2023 1:02 PM CDT 100 mcg documented in this encounter
--- OUTSIDE RECORDS SUMMARY | 2023-11-15 22:21 | XMS_ITS | Referral Summary ---
Author Organization [facility] Address [address] [place] [address] Phone Care Team Providers Care Carpet Renovator Name Role Phone June Hernandez APRN, POULTRY KILLER Primary Care Provi gabe Source Comments [employer] is fully rolled out on [employer]. Last update 11/09/08.[place] [facility] Encounters Date Type Department Care Team Description 11/15/2023 11:59 PM CDT Anesthesia Event OR P4 [address] [place] [address] Lavon Veliz MD 11/14/2023 Orders Only Unspecified [...] Department [place] Unknown, Provider 11/02/2023 Orders Only Unspecified Department [place] Unknown, Provider 11/02/2023 12:15 PM CDT Anesthesia Event OR P4 [address] [place], [place] [address] Uvaldo Bryant MD 11/02/2023 12:15 PM CDT - 11/02/2023 12:35 PM CDT Surgery OR [facility]4 [address] [place], [place] [phone] Service, Anesthesia EPIDURAL LUMBAR INJECTION 11/02/2023 Orders Only [facility] Radiology Department [place] [address] [place] [address] Provider, Outside Referral of patient (Primary Dx) 11/01/2023 Orders Only Unspecified Department [place] Unknown, Provider 10/31/2023 Travel 10/31/2023 1:08 PM CDT - Present Hospital Encounter [facility] ICU-[address] [place] [address] Patrice Marcial MD Endorf, Chivo Laughlin MD Lumbard, Yuriy Maxwell MD Multiple trauma to chest, initial encounter from Last 3 Months Allergies Active Allergy Reactions Criticality Noted Date [...] Multiple trauma to chest, initial encounter 10/06 Social History Tobacco Use Types Packs/Day Years [...] [facility] [address] [address] Scheduled Discharge Disposition: Discharged to home or self care (routine discharge) Scheduled Procedures Name Priority Associated Diagnoses Date/Ti me THORACOSCOPY Urgent (< 48 hrs) Multiple trauma to chest, initial encounter Medical Devices Implanted Type Area Banking Pin Adjuster Device Identifier Shelf Expiration Date Model / Serial / Lot Non-Locking Drainage Catheter- Implanted:Qty: 1 on 11/09/2023 by Rudy Cortez [employer] [facility] 09/18/2026 / / [id number] Procedures The patient is currently admitted. The [...] of45 resultswithin the time period is included. POC Glucose 135(H) 70 - 100 mg/dL [facility] Blood 11/15/2023 6:26 PM CDT Patrice Marcial MD LABORATORY Performing Organization Address City/State/[facility] Co de Phone Number [facility] [address] [place] [phone], * (ABNORMAL) ICU BLOOD GAS (11/15/2023 9:20 AM CDT) Only the most recent of5 resultswithin the time period is included. PH Art 7.44 7.35 - 7.45 [facility] PCO2 Art 43 35 - 45 mmHG [facility] PO2 Art 67(L) 75 - 85 mmHG [facility] Bicarb Art 29(H) 22 - 26 mEq/L [facility] O2 Sat Art 94(L) 96 - 99 % [facility] Base Exc Art 4.4(H) -10.0 - 2.0 mmol/L [facility] Blood Arterial 11/15/2023 9: 20 AM CDT 11/15/2023 9:39 AM CDT Carole Montoya APRN, CNP LABORATORY Performing Organization Address [facility] Co de Phone Number [address] [address] * ICU MAGNESIUM (11/15/2023 6:31 AM CDT) Only the most recent of8 resultswithin the time period is included. Magnesium 2.4 1.6 - 2.4 mg/dL [facility] Blood 11/15/2023 6:31 AM CDT 11/15/2023 6:40 AM CDT Yuriy Wynn MD LABORATORY Performing Organization Address [facility] Co de Phone Number [facility] [address] [address] * ICU PHOSPHORUS (11/15/2023 6:31 AM CDT) Only the most recent of8 resultswithin the time period is included. Phosphorus 3.1 2.5 - 4.5 mg/dL [facility] Blood 11/15/2023 6:31 AM CDT 11/15/2023 6:40 AM CDT Yuriy Wynn MD LABORATORY Performing Organization Address City/[facility] Co de Phone Number [facility] [address] [address] * (ABNORMAL) ICU CBC WITH PLATELET (11/15/2023 6:31 AM CDT) Only the most recent of8 resultswithin the time period is included. WBC 15.39(H) 4.00 - 10.00 k/cmm [facility] RBC 3.46(L) 4.60 - 6.00 m/cmm [facility] Hgb 10.0(L) 13.1 - 17.5 g/dL [facility] Hematocrit 30.9(L) 40.0 - 51.0 % [facility] MCV 89.3 80.0 - 100.0 fL [facility] MCH 28.9 25.0 - 32.0 pg [facility] MCHC 32.4 31.0 - 36.0 g/dL [facility] RDW 13.5 11.5 - 14.5 % [facility] Plt 329 150 - 400 k/cmm [facility] MPV 10.3 6.5 - 12.5 fL [facility] NRBC 0.1(H) 0.0 - 0.0 /100WBC [facility] Blood 11/15/2023 6:31 AM CDT 11/15/2023 6:40 AM CDT Yuriy Wynn MD LABORATORY Performing Organization Address City/[facility] Co de Phone Number [facility] [address] [address] * (ABNORMAL) ICU PANEL BASIC METABOLIC (BMP) (11/15/2023 6:31 AM CDT) Only the most recent of13 resultswithin the time period is included. CO2 29 22 - 30 mmol/L [facility] Glucose 144(H) 70 - 100 mg/dL [facility] BUN 33(H) 8 - 23 mg/dL [facility] Creatinine 0.71 0.70 - 1.25 mg/dL [facility] Calcium 8.3(L) 8.8 - 10.2 mg/dL [facility] Sodium 137 135 - 148 mmol/L [facility] Potassium 4.3 3.5 - 5.3 mmol/L [facility] Chloride 100 92 - 108 mmol/L [facility] AnGap 8 8 - 16 mmol/L [facility] eGFR (2020 CKD-EPI) 102 >=60 ml/min/1.7 3m2 [facility] Comment: The estimated glomerular filtration rate (eGFR) was calculated using the CKD-EPI 2020 creatinine equation, which does not include race as a factor. This equation is validated in individuals 18 years of age and older, and eGFR is normalized to a body surface area of 1.73m^2. Blood 11/15/2023 6:31 AM CDT 11/15/2023 6:40 AM CDT Yuriy Wynn MD LABORATORY Performing Organization Address City/[facility] Co de Phone Number [address] [address] * (ABNORMAL) TRIGLYCERIDE (11/15/2023 6:31 AM CDT) Triglyceride 299(H) <=150 mg/dL [facility] Comment: Interpretive Data <150 Normal 150-199 Borderline high 200-499 High >=500 Very high Blood 11/15/2023 6:31 AM CDT 11/15/2023 6:40 AM CDT Yuriy Wynn MD LABORATORY Performing Organization Address City/[facility] Co de Phone Number [address] [address] * CT CHEST WITH IV CONTRAST (11/15/2023 [...] Cortez Reading Resident: Lucy Patel Narrative 11/15/2023 11:37 AM CDT COMPARISON: Chest radiograph [...] fat, similar compared to prior. Procedure Note Diego Rudy, RODRI - 11/15/2023 COMPARISON: Chest radiograph from same [...] of2 resultswithin the time period is included. CK 51 39 - 308 IU/L [facility] Blood 11/14/2023 4:44 AM CDT 11/14/2023 5:01 AM CDT Yuriy Wynn MD LABORATORY Performing Organization Address City/[facility]/ZIP Co de Phone Number [facility] [address] [address] * (ABNORMAL) ICU TRIGLYCERIDE (11/14/2023 4:44 AM CDT) Only the most recent of2 resultswithin the time period is included. Triglyceride 352(H) <=150 mg/dL [facility] Comment: Interpretive Data <150 Normal 150-199 Borderline high 200-499 High >=500 Very high Blood 11/14/2023 4:44 AM CDT 11/14/2023 5:01 AM CDT Yuriy Wynn MD LABORATORY [facility] [address] [address] * MISCELLANEOUS BODY FLUID (11/13/2023 1:08 PM CDT) Only the most recent of3 resultswithin the time period is included. [facility] Result [id number] [facility] Units BF U/L [facility] Comment:The reference interv al(s) and other method performance specifications have not been established for this body fluid. The test result must be integrated into the clinical context for interpretation. Fluid 11/13/2023 1:08 PM CDT 11/13/2023 2:15 PM CDT Narrative [facility] - 11/13/2023 3:56 PM CDT Left Chest Pleural Fluid Send out test name: LDH Specimen Source->Other- Please comment Yuriy Wynn MD LABORATORY Performing Organization Address [facility] Co de Phone Number [facility] [address] [address] * BODY FLUID CELL COUNT/DIFF (11/13/2023 1:08 PM CDT) Fluid Type PF Pleural [facility] Comment:Normal reference ran ges have not been determined; clinical correlation is recommended. Volume PF 2 mL [facility] Appearance PF Cloudy [facility] Color bf Bloody [facility] RBC PF 60,000 cells/ul [facility] Nuc Ct PF 99,130 cells/ul [facility] Neutrophils PF 81 % [facility] MONO/MACS FL 19 % [facility] Pleural fluid 11/13/2023 1:0 8 PM CDT 11/13/2023 2:47 PM CDT Patrice Marcial MD LABORATORY Performing Organization Address City/[facility] Co de Phone Number [facility] [address] [address] * (ABNORMAL) BODY FLUID CULTURE:INCLUDES GRAM STAIN (11/13/2023 1:08 PM CDT) Final Report Positive Culture Few Methicillin sensitive Staphylococcus aureus (MSSA) isolated. Methicillin susceptible by PBP2a. Results electronically reported to and acknowledged by: Naheed Blood MD for SICU @ NOV 14, 2023 8:35 AM by Krissy Portillo [place] (POS) [facility] Organism METHICILLIN SENSITIVE STAPHYLOCOCCUS AUREUS (MSSA)(POS) [facility] Gram Stain Report PMN's seen. No organisms seen. [facility] Pleural fluid 11/13/2023 1:0 8 PM [...] Wynn MD LAB MICROBIOLOGY Performing Organization Address City/[facility]/ZIP Co de Phone Number [facility] [address] [address] * PROCALCITONIN (11/13/2023 4:06 AM CDT) Only the most recent of4 resultswithin the time period is included. Procalcitonin 2.05 ng/mL [facility] Comment: Results <0.50 ng/mL represent a low risk of severe sepsis and/or septic shock. Results >2.0 ng/mL represent a high risk of severe sepsis and/or septic shock. Blood 11/13/2023 4:06 AM CDT 11/13/2023 4:41 AM CDT Carole Montoya APRN, POULTRY KILLER LABORATORY Performing Organization Address City/[facility]/ZIP Co de Phone Number [facility] [address] [address] * (ABNORMAL) PROTEIN, TOTAL SERUM (11/13/2023 4:06 AM CDT) Total Protein 5.7(L) 6.4 - 8.3 g/dL [facility] Blood 11/13/2023 4:06 AM CDT 11/13/2023 2:12 PM CDT Yuriy Wynn MD LABORATORY Performing Organization Address [facility] Co de Phone Number [facility] [address] [address] * (ABNORMAL) LD (LDH) (11/13/2023 4:06 AM CDT) Pathologist [facility] LD 261(H) 135 - 225 IU/L [facility] Blood 11/13/2023 4:06 AM CDT 11/13/2023 2:12 PM CDT Yuriy Wynn MD LABORATORY Performing Organization Address [facility] Co de Phone Number [facility] [address] [address] * XR ABDOMEN 1 VIEW* (11/12/2023 10:21 PM CDT) Only the most recent of5 resultswithin the time period is included. Anatomical Region Laterality Modality Abdomen Computed Radiogr aphy 11/12/2023 10:2 3 PM CDT Impressions 11/12/2023 10:24 PM CDT Impression: Gaseous distention of the colon which can be seen related to ileus without wall thickening. Reading Radiologist: Main Feliz 11/12/2023 10:24 PM CDT Technique: XR ABDOMEN [...] included. Phosphorus 2.7 2.5 - 4.5 mg/dL [facility] Blood 11/12/2023 6:40 PM CDT 11/12/2023 7:14 PM CDT Yuriy Wynn MD LABORATORY [facility] [address] [address] * ECH TRANSTHOR (TTE) COMPLETE WITH CONTRAST (11/12/2023 11:08 AM CDT) [facility] I.elicia sept. 1.61 cm [facility] [...] HERNANDEZ ??Height ?69.02 Inches C Patient Number ?[id number] ? Weight ?255.74 Pounds Date of ? 1960 ?BSA ? 2.29 m^2 Age ? 63 ?Tape Number Gender ?Male ?Study Date ?11/12/2023 09:13 AM Tar Heat Exchanger Cleaner ? RB ?Ordering Provider ?? PRINCESS Maxwell Referring ? Interpreting ?Ahmet Suarez MD Physician ? Physician ? [id number] Type of Study: TTE procedure: 2D echocardiogram, M-Mode, Doppler , Color Doppler, Contrast study, ECH TRANSTHORACIC ECHO (TTE) HR: 84 bpmBP: 106/56 mmHgPatient Status: Routine Study Location: [address] Quality: Adequate visualization Contrast Medium: Optison. [...] Patient Name HAYLEY HERNANDEZ Height 69.02 Inches Alissa Patient Number [id number] Weight 255.74 Pounds Date of 1960 BSA 2.29 m^2 Age 63 Tape Number Gender Male Study Date 11/12/2023 09:13 AM Tar Heat Exchanger Cleaner RB Ordering Provider PRINCESS Maxwell Referring Interpreting Ahmet Suarez MD Physician Physician [id number] Type of Study: TTE procedure: 2D echocardiogram, M-Mode, Doppler , Color Doppler, Contrast study, ECH TRANSTHORACIC ECHO (TTE) HR: 84 bpmBP: 106/56 mmHgPatient Status: Routine Study Location: [address] Quality: Adequate visualization Contrast Medium: Optison. [...] True True Yuriy Wynn MD RAD ECHO [facility] * Arterial Line Rewire (11/10/2023 9:56 [...] to verify the correct patient, procedure, equipment, office support assistant and site/side marked as required. Preparation: Patient [...] is included. Final Report No MRSA isolated. [facility] Swab NASAL STRUCTURE / Unknown 11/10/2023 4:39 PM CDT 11/10/2023 5:00 PM CDT Yuriy Wynn MD LAB MICROBIOLOGY Performing Organization Address [facility] Co de Phone Number [facility] [address] [address] * (ABNORMAL) BLOOD GASES (11/10/2023 12:58 PM CDT) Only the most recent of4 resultswithin the time period is included. PH Art 7.42 7.35 - 7.45 [facility] PCO2 Art 44 35 - 45 mmHG [facility] PO2 Art 77 75 - 85 mmHG [facility] Bicarb Art 28(H) 22 - 26 mEq/L [facility] O2 Sat Art 96 96 - 99 % [facility] Base Exc Art 3.9(H) -10.0 - 2.0 mmol/L [facility] Blood Arterial 11/10/2023 12 :58 PM CDT 11/10/2023 1:08 PM CDT Carole Montoya MOLDER SETTER, POULTRY KILLER LABORATORY Performing Organization Address [facility] Co de Phone Number [facility] [address] [address] * (ABNORMAL) RESPIRATORY CULTURE (11/10/2023 9:19 AM CDT) Final Report Rare Methicillin sensitive Staphylococcus aureus (MSSA) isolated. Methicillin susceptible by PBP2a. Rare normal oral cain. (POS) [facility] Organism METHICILLIN SENSITIVE STAPHYLOCOCCUS AUREUS (MSSA)(POS) [facility] Gram Stain Report PMN's seen. Gram positive cocci Gram negative bacilli [facility] Bronch Wash 11/10/2023 9:19 AM CDT [...] CNP LAB MICROBI OLOGY Performing Organization Address [facility] Co de Phone Number [facility] [address] [address] * (ABNORMAL) PANEL HEPATIC FUNCTION (11/10/2023 6:21 AM CDT) Only the most recent of2 resultswithin the time period is included. Total Protein 5.6(L) 6.4 - 8.3 g/dL [facility] Albumin 2.9(L) 3.8 - 5.1 g/dL [facility] Bili Total 1.0 <=1.2 mg/dL [facility] Bili Direct 0.7(H) <=0.3 mg/dL [facility] Alk Phos 79 40 - 129 IU/L [facility] Comment:No reference range e stablished for patients <18 years old. ALT (SGPT) 16 <=41 IU/L [facility] AST(SGOT) 17 5 - 40 IU/L [facility] Blood 11/10/2023 6:21 AM CDT 11/10/2023 6:35 AM CDT Yuriy Wynn MD LABORATORY Performing Organization Address [facility] Co de Phone Number [facility] [address] [address] * POTASSIUM (11/10/2023 2:35 AM CDT) Only the most recent of5 resultswithin the time period is included. Potassium 5.0 3.5 - 5.3 mmol/L [facility] Blood 11/10/2023 2:35 AM CDT 11/10/2023 2:39 AM CDT Yuriy Wynn MD LABORATORY [facility] [address] [address] * Central Line (11/09/2023 8:35 PM CDT) Narrative Tim Steinberg MD - 11/09/2023 8:35 PM CDT Tim Steinberg MD ? 11/10/2023 11:25 AM Central Line Date/Time: 11/09/2023 8:35 PM Performed by: Alejandra Flores MD Authorized by: Tim Steinberg MD ?? Stanley Protocol: ??Required items: Required blood products, implants, devices and special equipment available ?Patient identity confirmed: ??Arm band ??Time out: Immediately prior to the procedure a time out was called to verify the correct patient, procedure, equipment, office support assistant and sit/side marked as required. ?? Indications: ??Indications: ??Vascular access and central pressure monitoring Anesthesia: ??Patient sedated?: Yes ?Sedation: ??See BANNER for details and propofol ??Analgesia: ??See BANNER for details and fentanyl Procedure details: ??Preparation: [...] to and acknowledged by: Dr. Opal Ruth, LAINA, 11/11/2023 08:04:49 by Jaguar Patterson MLS (POS) [facility] Organism METHICILLIN SENSITIVE STAPHYLOCOCCUS AUREUS (MSSA)(POS) [facility] Blood (Peripheral) 11/09/2023 6:22 PM CDT 11/09/2023 7:09 PM CDT Narrative [facility] - 11/12/2023 8:19 AM CDT The [...] Vancomycin VITEK ANIL 1: Sensitive Charmaine Anne APRN, POULTRY KILLER LAB MICROBIOL OGY Performing Organization Address [facility] Co de Phone Number [facility] [address] [address] * (ABNORMAL) PROTHROMBIN (PT) & INR (11/09/2023 3:43 PM CDT) Only the most recent of2 resultswithin the time period is included. [facility] PT 15.4(H) 9.0 - 12.5 sec [facility] INR 1.4(H) 0.8 - 1.1 [facility] Comment: Warfarin Therapeutic Range: Standard Intensity: 2.0 - 3.0 High Intensity: 2.5 - 3.5 Blood 11/09/2023 3:43 PM CDT 11/09/2023 4:10 PM CDT Yuriy Wynn MD LABORATORY Performing Organization Address [facility] Co de Phone Number [facility] [address] [address] * (ABNORMAL) PANEL BASIC METABOLIC (BMP) (11/09/2023 3:43 PM CDT) Only the most recent of6 resultswithin the time period is included. Calcium 8.9 8.8 - 10.2 mg/dL [facility] Sodium 130(L) 135 - 148 mmol/L [facility] Potassium 5.6(H) 3.5 - 5.3 mmol/L [facility] Chloride 94 92 - 108 mmol/L [facility] CO2 25 22 - 30 mmol/L [facility] AnGap 11 8 - 16 mmol/L [facility] Glucose 140(H) 70 - 100 mg/dL [facility] BUN 28(H) 8 - 23 mg/dL [facility] Creatinine 1.29(H) 0.70 - 1.25 mg/dL [facility] eGFR (2020 CKD-EPI) 62 >=60 ml/min/1.7 3m2 [facility] Comment: The estimated glomerular filtration rate (eGFR) was calculated using the CKD-EPI 2020 creatinine equation, which does not include race as a factor. This equation is validated in individuals 18 years of age and older, and eGFR is normalized to a body surface area of 1.73m^2. Blood 11/09/2023 3:43 PM CDT 11/09/2023 4:10 PM CDT Yuriy Wynn MD LABORATORY [facility] [address] [address] * MAGNESIUM (11/09/2023 3:43 PM CDT) Only the most recent of5 resultswithin the time period is included. Magnesium 2.0 1.6 - 2.4 mg/dL [facility] Blood 11/09/2023 3:43 PM CDT 11/09/2023 4:10 PM CDT Yuriy Wynn MD LABORATORY Performing Organization Address City/[facility]/ZIP Co de Phone Number [facility] [address] [address] * LACTATE (LACTIC ACID) (11/09/2023 3:43 PM CDT) Only the most recent of5 resultswithin the time period is included. Pathologist [facility] Lactate 1.5 0.7 - 2.1 mmol/L [facility] Blood 11/09/2023 3:43 PM CDT 11/09/2023 4:09 PM CDT Narrative [facility] - 11/09/2023 4:17 PM CDT Send specimen on ice! Yuriy Wynn MD LABORATORY Performing Organization Address City/[facility]/ZIP Co de Phone Number [facility] [address] [address] * (ABNORMAL) CBC WITH PLATELET (11/09/2023 3:43 PM CDT) Only the most recent of6 resultswithin the time period is included. Pathologist [facility] WBC 15.68(H) 4.00 - 10.00 k/cmm [facility] RBC 3.61(L) 4.60 - 6.00 m/cmm [facility] Hgb 10.5(L) 13.1 - 17.5 g/dL [facility] Hematocrit 32.0(L) 40.0 - 51.0 % [facility] MCV 88.6 80.0 - 100.0 fL [facility] MCH 29.1 25.0 - 32.0 pg [facility] MCHC 32.8 31.0 - 36.0 g/dL [facility] RDW 13.0 11.5 - 14.5 % [facility] Plt 169 150 - 400 k/cmm [facility] MPV 11.0 6.5 - 12.5 fL [facility] Blood 11/09/2023 3:43 PM CDT 11/09/2023 4:10 PM CDT Yuriy Wynn MD LABORATORY Performing Organization Address City/[facility] Co de Phone Number [facility] [address] [address] * HS TROPONIN (11/09/2023 2:07 PM CDT) Only the most recent of2 resultswithin the time period is included. Pathologist [facility] HS Troponin I <3 <=35 ng/L [facility] Blood 11/09/2023 2:07 PM CDT 11/09/2023 2:20 PM CDT Narrative [facility] - 11/09/2023 2:57 PM CDT First Occurrence of the Troponin order is to be drawn Stat by Nursing staff on the unit. Charmaine Anne APRN, CNP LABORATORY Performing Organization Address City/[facility] Co de Phone Number [facility] [address] [address] * EKG ADULT (12-LEAD) (11/09/2023 2:04 PM CDT) Only the most recent of2 resultswithin the time period is included. 11/09/2023 2:04 PM CDT Impressions [facility] EKG ORDERS - 11/09/2023 2:04 PM CDT SINUS TACHYCARDIA WITH OCCASIONAL VENTRICULAR PREMATURE COMPLEXES NONSPECIFIC ST & T-WAVE ABNORMALITY ABNORMAL RHYTHM ECG Compared with: 11/03/2023 3:59 PM P-R Interval 152 ms QRS Interval 99 ms QT Interval 305 ms QTC Interval 369 ms P Ambridge 0 QRS Ambridge 37 T Wave Ambridge 74 Narrative Procedure Note Norm Ro III, MD - 11/09/2023 IMPRESSION SINUS TACHYCARDIA WITH OCCASIONAL VENTRICULAR PREMATURE COMPLEXES NONSPECIFIC ST & T-WAVE ABNORMALITY ABNORMAL RHYTHM ECG Compared with: 11/03/2023 3:59 PM P-R Interval 152 ms QRS Interval 99 ms QT Interval 305 ms QTC Interval 369 ms P Ambridge 0 QRS Ambridge 37 T Wave Ambridge 74 Charmaine Anne APRN, CNP EKG Performing Organization Address [facility] Co de Phone Number [facility] E[facility] ORDERS * IR CHEST TUBE (11/09/2023 1:07 PM CDT) Anatomical Region Laterality Modality Chest X-Ray Angiograph y 11/09/2023 1:11 PM CDT Impressions 11/09/2023 2:18 PM CDT Impression: Successful placement of a 10 czech J-tipped nonlocking pleural catheter into the left [...] made with an 11 blade. A 5 English Yueh centesis needle was advanced into the left pleural space under ultrasound guidance. Once entry into the pleural space was confirmed, the stylet was removed, and a stiff Amplatz guidewire was inserted through the catheter. The catheter was removed over the guidewire. The tract was dilated to 10 English. The dilator was removed and an 10 English J-tipped nonlocking pleural catheter was advanced over the wire. The wire and dilator removed. The tube was placed to an atrium waterseal chamber. There were no immediate complications. Procedure Note Rudy Cortez, RODRI - 11/09/2023 Procedure 11/09/2023 1:11 PM: [...] made with an 11 blade. A 5 English Yueh centesisneedle was advanced into the left pleural space under ultrasound guidance.Once entry into the pleural space was confirmed, the stylet was removed,and a stiff Amplatz guidewire was inserted through the catheter. Thecatheter was removed over the guidewire. The tract was dilated to 10French. The dilator was removed and an 10 English J-tipped nonlockingpleural catheter was advanced over the wire. The wire and dilator removed.The tube was placed to an atrium waterseal chamber. There were noimmediate complications. IMPRESSION Impression: Successful placement of a 10 czech J-tipped nonlocking pleural catheterinto the left pleural [...] Leeanne Montgomery PA-C RAD IR * Generic [facility] (11/09/2023 1:02 PM CDT) Narrative Rudy Cortez MBBS - 11/09/2023 1:02 PM CDT Radha De La Rosa DO ? 11/09/2023 ??1:03 PM [facility] Date/Time: 11/09/2023 1:02 PM Performed by: Radha [...] to verify the correct patient, procedure, equipment, office support assistant and site/side marked as required. Preparation: Patient [...] loss during this procedure was: 0mL Rudy Irfanullah MBBS PROCEDURES * ANTI XA ASSAY LMW HEPARIN (11/09/2023 12:22 PM CDT) Only the most recent of2 resultswithin the time period is included. Pathologist [facility] Anti XA LMW 0.22 IU/mL [facility] Comment: Anti Xa Assay LMW Heparin Therapeutic Ranges: 0.4-1.1 IU/mL for twice daily 1.0-2.0 IU/mL for once daily Blood 11/09/2023 12:2 2 PM CDT 11/09/2023 12:34 PM CDT Nevaeh EdwardsD LABORATORY [facility] [address] [address] * (ABNORMAL) URINALYSIS,TOTAL (11/09/2023 11:49 AM CDT) Only the most recent of2 resultswithin the time period is included. Trans Epith 0-5 0 - 5 perHPF [facility] Urinalysis Performed at: [facility] Color YELLOW YELLOW [facility] Appearance CLOUDY(A) CLEAR [facility] Urine Glucose NEGATIVE NEGATIVE mg/dL [facility] Bili UA NEGATIVE NEGATIVE [facility] Ketones NEGATIVE NEGATIVE [facility] Blood Ur LARGE(A) Neg-Trace [facility] PH Urine 5.5 5.0 - 7.0 [facility] Protein Ur 30(A) Neg-Trace [facility] Urobilinogen NORMAL NORMAL EU/dL [facility] Nitrite Ur NEGATIVE NEGATIVE [facility] Leuk Est TRACE Neg-Trace [facility] WBC Ur 21-50(A) 0 - 5 perHPF [facility] RBC Ur >20(A) 0 - 3 perHPF [facility] SQ EPITH 0-5 0 - 5 perHPF [facility] Mucus 1+ perLPF [facility] Hyaline Casts 11-20(A) 0 - 5 perLPF [facility] Cell Cast 0-5(A) perLPF [facility] Specific [place] 1.020 1.003 - 1.030 [facility] Urine 11/09/2023 11:4 9 AM CDT 11/09/2023 12:07 PM CDT Charmaine Anne APRN POULTRY KILLER LABORATORY [facility] [address] [address] * (ABNORMAL) CBC WITH PLTS/AUTO DIFF (11/09/2023 8:12 AM CDT) Only the most recent of5 resultswithin the time period is included. WBC 19.60(H) 4.00 - 10.00 k/cmm [facility] RBC 3.99(L) 4.60 - 6.00 m/cmm [facility] Hgb 11.5(L) 13.1 - 17.5 g/dL [facility] Hematocrit 35.9(L) 40.0 - 51.0 % [facility] MCV 90.0 80.0 - 100.0 fL [facility] MCH 28.8 25.0 - 32.0 pg [facility] MCHC 32.0 31.0 - 36.0 g/dL [facility] RDW 13.1 11.5 - 14.5 % [facility] Plt 189 150 - 400 k/cmm [facility] MPV 10.5 6.5 - 12.5 fL [facility] Automated Abs Neutrophil 17.47(H) 1.70 - 6.50 k/cmm [facility] Comment:Preliminary ANC, Fin al Result to Follow Abs Immature Granulocyte 0.15(H) 0.00 - 0.09 k/cmm [facility] Comment:The Immature Granulo cyte Absolute count contains metamyelocytes and myelocytes. Abs Neutrophil 17.47(H) 1.70 - 6.50 k/cmm [facility] Abs Lymphocyte 0.47(L) 0.80 - 4.00 k/cmm [facility] Abs Monocyte 1.42(H) 0.20 - 1.00 k/cmm [facility] Abs Eosinophil 0.05 0.00 - 0.60 k/cmm [facility] Abs Basophil 0.04 0.00 - 0.20 k/cmm [facility] Stippling Slight [facility] Polychromasia Slight [facility] Blood 11/09/2023 8:12 AM CDT 11/09/2023 8:34 AM CDT Chivo Robins MD LABORATORY [facility] [address] [address] * ULT SCROTUM WITH DUPLEX (11/06/2023 7:19 [...] Radiologist: Robert Tamayo Reading Resident: Cole Delgado Chivo Robins MD [...] Radiologist: Robert Tamayo Reading Resident: Robert Matute Narrative 11/06/2023 2:52 PM [...] Normal MRCP images. Reading Radiologist: Robert Tamayo Narrative 11/06/2023 8:05 AM CDT Clinical Indication: Questionable [...] minutes. 3-D reconstructions were created by the electroencephalograph technologist on the MRI scanner and reviewed by [...] 5 minutes. 3-Dreconstructions were created by the electroencephalograph technologist on the MRI scannerand reviewed by the [...] drape, mask and gloves Patient position: Sitting Stanley Precautions Completed: patient identified, surgical consent, pre-op evaluation, timeout performed, IV checked, risks and benefits discussed and monitors and equipment checked Medications lidocaine-EPINEPHrine (XYLOCAINE-MPF/EPINEPHRINE) 1.5 %-1:[id number] infiltration - Infiltration 5 mL - 11/02/2023 [...] CSF return on aspiration ?? Performed by: EVENTS SPECIALIST:Anesthesiologist: Uvaldo Bryant MD Uvaldo Bryant MD PROCEDURES [...] them on grayscale imaging. Procedure Note Main Feliz, DO - 11/01/2023 Indication: trauma screening Comparison: None. Technique: 1. [...] the rib cage were created by the applied technologist on the CT scanner and reviewed [...] PM CDT) 4H Trop 17 <=35 ng/L [facility] 4H Delta na Not Significant [facility] Comment:Unable to calculate delta. Blood 10/31/2023 5:42 PM CDT 10/31/2023 5:53 PM CDT Patrice Marcial MD LABORATORY [facility] [address] [address] * CT CHEST/ABD/PELVIS W/IV CONT (10/31/2023 4:30 [...] fracture. Reading Radiologist: Main Feliz Narrative 10/31/2023 3:18 PM CDT Technique: XR ELBOW LEFT 2 VIEWS Indication: pi ro fx ?? Comparison: None Findings: 3 views of the left elbow are negative for fracture or dislocation. The articular surfaces are smooth. No joint effusion is seen. Procedure Note Main Feliz, - 10/31/2023 Technique: XR ELBOW LEFT 2 VIEWS Indication: pi ro fx Comparison: None Findings: 3 views of the left elbow are negative for fracture ordislocation. The articular surfaces are smooth. No joint effusion isseen. IMPRESSION Impression: No fracture. Reading Radiologist: Main Feliz Patrice Marcial MD RAD XRAY * XR HAND RIGHT 3 V PA/OBL/LAT* (10/31/2023 3:10 PM CDT) Anatomical Region Laterality Modality Hand Computed Radiogr aphy 10/31/2023 3:15 PM CDT Impressions 10/31/2023 3:16 PM CDT Impression: No acute bony abnormality. Reading Radiologist: Main Feliz Narrative 10/31/2023 3:16 PM CDT Technique: XR HAND [...] tissues are grossly unremarkable. Procedure Note Main Feliz DO - 10/31/2023 Technique: XR HAND LEFT 3 [...] No fracture. Reading Radiologist: Main Feliz 10/31/2023 3:15 PM CDT Technique: XR WRIST LEFT 3+ PA/OB/LAT/MT* Indication: pi ro fx ?? Comparison: Same-day hand images Findings: 3 views of the left wrist are negative for fracture or dislocation. The articular surfaces are smooth. Procedure Note Main Feliz DO - 10/31/2023 Technique: XR WRIST LEFT 3+ [...] PM CDT) 10/31/2023 2:54 PM CDT Impressions [facility] E[facility] ORDERS - 10/31/2023 2:54 PM CDT SINUS RHYTHM NONSPECIFIC T-WAVE ABNORMALITY BORDERLINE ECG P-R Interval 191 ms QRS Interval 85 ms QT Interval 351 ms QTC Interval 395 ms P Ambridge 52 QRS Ambridge 34 T Wave Ambridge 91 Narrative Procedure Note Patrice Marcial MD - 10/31/2023 IMPRESSION SINUS RHYTHM NONSPECIFIC T-WAVE ABNORMALITY BORDERLINE ECG P-R Interval 191 ms QRS Interval 85 ms QT Interval 351 ms QTC Interval 395 ms P Ambridge 52 QRS Ambridge 34 T Wave Ambridge 91 Patrice Marcial MD EKG Performing Organization Address City/[facility]/ZIP Co de Phone Number [facility] EKG ORDERS * EXTRA TUBE - LIGHT GREEN (10/31/2023 2:01 PM CDT) LIGHT GREEN TUBE Stored [facility] Comment:Green tubes (Tonsina Heparin) are stored in the lab for 3 days from the collection date. Blood 10/31/2023 2:01 PM CDT 10/31/2023 2:03 PM CDT Patrice Marcial MD LABORATORY [facility] [address] [address] * EXTRA TUBE - SST (10/31/2023 2:01 PM CDT) SST TUBE Stored [facility] Comment:SST tubes (Serum Sep arator) are stored in the lab for 3 days from the collection date. Blood 10/31/2023 2:01 PM CDT 10/31/2023 2:03 PM CDT Patrice Marcial MD LABORATORY Performing Organization Address [facility] Co de Phone Number [address] [address] * ETHANOL (ETOH) LEVEL, BLOOD (10/31/2023 2:00 PM CDT) Ethanol Negative Negative g/dL [facility] Blood 10/31/2023 2:00 PM CDT 10/31/2023 2:15 PM CDT Patrice Marcial MD LABORATORY Performing Organization Address [facility] de Phone Number [address] [address] * PRECAUTIONARY TUBE (10/31/2023 1:58 PM CDT) Prec Tube Precautionary Blood Bank Specimen Received. [facility] Blood 10/31/2023 1:58 PM CDT 10/31/2023 2:16 PM CDT Patrice Marcial MD LAB TRANSFUSION SERV ICES Performing Organization Address [facility] Co de Phone Number [address] [address] * CT SPINE THORACIC NO IV CON [...] foraminal narrowing. ?? L3-4: ??Suspect at least zcei-jt-rngktdxg spinal canal/thecal sac narrowing, at least in [...] neural foraminal narrowing. L3-4: Suspect at least tyrr-ha-rrsfrezz spinal canal/thecal sacnarrowing, at least in part [...] the spine. Reading Radiologist: Dennis Hernandes Patrice O Marcial MD RAD CT NEURO * CT [...] foraminal narrowing. ?? L3-4: ??Suspect at least srov-yt-lphavpvs spinal canal/thecal sac narrowing, at least in [...] neural foraminal narrowing. L3-4: Suspect at least mcqk-iy-dgtcwixg spinal canal/thecal sacnarrowing, at least in part [...] least moderate bilateral neural foraminal narrowing. C4-5: Dubg-cu-ocmalsuf bilateral neural foraminal narrowing. At least mild, potentially arqc-rm-qlufmnlp, spinal canal narrowing. C5-6: ??Mild bilateral neural foraminal narrowing. At least mild spinal canal narrowing. C6-7: ??Lghv-jr-peqocxez bilateral neural foraminal narrowing, on the left. [...] at least moderate bilateral neuralforaminal narrowing. C4-5: Qfgt-hi-bmabqmwy bilateral neural foraminal narrowing. At leastmild, potentially ciwt-ag-hhthoxfw, spinal canal narrowing. C5-6: Mild bilateral neural foraminal narrowing. At least mild spinalcanal narrowing. C6-7: Zfol-mn-akvjkzkn bilateral neural foraminal narrowing, on the left.At [...] Not surgically evacuated. Reading Radiologist: Dennis Hernandes Narrative 10/31/2023 2:08 PM CDT Exam: Head CT [...] of the carotid siphons. Procedure Note Dennis Hernandes DO - 10/31/2023 Exam: Head CT without contrast, [...] PM CDT Impression: No fracture. Reading Radiologist: Mian Feliz Narrative 10/31/2023 1:57 PM CDT Technique: XR PELVIS AP* Indication: pi ro fx ?? Comparison: None Findings: Single view the pelvis is negative for fracture. The femoroacetabular and sacroiliac joints are symmetric. The pubic symphysis is within normal limits. Mild degenerative changes involving both hips. Procedure Note Main Feliz DO - 10/31/2023 Technique: XR PELVIS AP* Indication: pi ro fx Comparison: None Findings: Single view the pelvis is negative for fracture. Thefemoroacetabular and sacroiliac joints are symmetric. The pubic symphysisis within normal limits. Mild degenerative changes involving both hips. IMPRESSION Impression: No fracture. Reading Radiologist: Main Feliz Patrice Marcial MD RAD XRAY * ED INR (10/31/2023 1:25 PM CDT) Pathologist [facility] ED INR 1.0 0.8 - 1.1 [facility] Comment: Warfarin Therapeutic Range: Standard Intensity: 2.0 - 3.0 High Intensity: 2.5 - 3.5 This is a rapid INR screening test which uses whole blood; results may infrequently differ from plasma INR results. If medication adjustments/dosing are required a PT/INR test ([id number]) should be ordered and performed in the main laboratory. Blood 10/31/2023 1:25 PM CDT 10/31/2023 1:36 PM CDT Patrice Marcial MD LABORATORY [facility] [address] [address] * (ABNORMAL) ED CHEMISTRY LABS(NA,K,CL,CO2,GLU,CREAT,CA-IONIZED,ANION GAP) (10/31/2023 1:25 PM CDT) Sodium 141 135 - 148 mmol/L [facility] Chloride 109(H) 92 - 108 mmol/L [facility] AnGap 10 8 - 16 mmol/L [facility] Glucose 211(H) 70 - 100 mg/dL [facility] ICA, Actual 4.74 4.40 - 5.20 mg/dL [facility] ICA, pH Corrected 4.44 4.40 - 5.20 mg/dL [facility] Creatinine 1.00 0.70 - 1.25 mg/dL [facility] BICARB 22 22 - 26 mEq/L [facility] eGFR (2020 CKD-EPI) 84 >=60 ml/min/1.7 3m2 [facility] Comment: The estimated glomerular filtration rate (eGFR) was calculated using the CKD-EPI 2020 creatinine equation, which does not include race as a factor. This equation is validated in individuals 18 years of age and older, and eGFR is normalized to a body surface area of 1.73m^2. Potassium 5.1 3.5 - 5.3 mmol/L [facility] Blood 10/31/2023 1:25 PM CDT 10/31/2023 1:30 PM CDT Patrice Marcial MD LABORATORY [facility] [address] [address] * ED HEMOGLOBIN TOTAL (ED ONLY) (10/31/2023 1:25 PM CDT) Pathologist [facility] Hgb 15.5 13.1 - 17.5 g/dL [facility] Blood 10/31/2023 1:25 PM CDT 10/31/2023 1:30 PM CDT Patrice Marcial MD LABORATORY [facility] [address] [address] * FIBRINOGEN (10/31/2023 1:25 PM CDT) Fibrinogen 311 200 - 400 mg/dL [facility] Blood 10/31/2023 1:25 PM CDT 10/31/2023 2:02 PM CDT Patrice Marcial MD LABORATORY Performing Organization Address City/[facility]/ZIP Co de Phone Number [facility] [address] [address] * (ABNORMAL) PTT (APTT) (10/31/2023 1:25 PM CDT) APTT 22.2(L) 25.0 - 37.0 sec [facility] Blood 10/31/2023 1:25 PM CDT 10/31/2023 2:02 PM CDT Patrice Marcial MD LABORATORY Performing Organization Address [facility] de Phone Number [facility] [address] [address] * ED US CRITICAL CARE (10/31/2023 1:09 [...] CHEST OUTSIDE FILMS (10/31/2023 12:03 PM CDT) Narrative Nabor De La TorreCkeb-Wrhdts-Oevrvuxox - 11/02/2023 6:27 AM CDT Outside Film Only Outside Provider RAD OUTSIDE FILMS from Last 3 Months Advance Directives For more information, please contact: [phone] * Full Code (Latest Code Status on File) Date Activated Date Inactivated Comments 10/31/2023 4:41 PM Question Answer Comments Does the Patient have prefer ences regarding life sustaining measures (these options only apply when the patient has a pulse): No Discussed Code Status With Whom? Not discussed Care Teams Carpet Renovator Relationship Specialty Start Date End Date June Hernandez, MOLDER SETTER, POULTRY KILLER [address] [place], [place] [address] [address] PCP - General Family Medicine 11/03/23
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
--- OUTSIDE RECORDS SUMMARY | 2023-11-15 22:23 | XMS_ITS | Encounter Summary ---
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 at 1400 115 ml. Pt with productive cough. Sx frequently pt does not desat. Family visitedtoday. NPO after midnight. Surgery tomorrow morning needs CCT at 5 am. Neurologic/Cognitive Within Defined Limits HEENT Within Defined Limits Cardiac Assessment Within Defined Limits except for: Visual And Stock Associate - bedside telemetry Lead Monitored: Lead II ECG Rhythm: normal sinus rhythm Pacemaker: Pacemaker: No Respiratory Assessment Within Defined Limits except for: Respiratory Assessment: Respirations: Mechanical device Neurovascular Within Defined Limits Gastrointestinal Assessment Within Defined Limits except for: Abdominal appearance: Distended and rounded Additional GI Signs/Symptoms: diarrhea Stool (unmeasured): 1 (11/13/23 0500) Stool Amount: large (11/13/23 1000) Stool Color: brown (11/13/23 1000) Stool Consistency: liquid (11/13/23 1000) Genitourinary Assessment Within Defined Limits except for: Voiding: Urinary catheter in place Musculoskeletal Within Defined Limits Integumentary Assessment Within Defined Limits except for: Skin Assessment Integrity - abrasion(s) Integrity Location - Right arm Comments: Concern on coccyx Patient Lines/Drains/Airways Status Active LDAs Name Placement date Placement time Site Days Peripheral IV 11/09/23 20 gauge;2 1/2 in length Anterior;Left Upper Arm 11/09/23 1559 -- 4 Peripheral IV 11/12/23 20 gauge;1 3/4 in length Anterior;Left Forearm 11/12/23 1646 -- 1 Naso/Oral Gastric Suction Tube Orogastric 11/13/23 0356 -- 1 Feeding Tube Post-pyloric tube in place Nostril (left) 11/10/23 1425 -- 4 Chest Tube 11/09/23 Left 11/09/23 1302 -- 5 Endotracheal Tube: oral 11/09/23 1515 -- 4 Wound 11/11/23 Penis 11/11/23 1657 Penis 2 Wound 11/12/23 Buttock 11/12/23 1621 Buttock 1 Urinary Catheter Urinary Retention (Post void volume consistently greater than 350 mL) 11/05/23 1427 -- 9 Psychosocial Within Defined Limits Comments: and sons * Nursing Assessment - Yanci Blake RN - 11/14/2023 8:00 AM CDT Nursing Assessment Head to Toe Head to Toe Assessment Shift Summary Pt +FC MCCOY Edematous Lasix [address] Marti inserted medicine into CT pigtail. Will unclamp in 2 hrs per order. Neurologic/Cognitive Within Defined Limits HEENT Within Defined Limits Cardiac Assessment Within Defined Limits except for: Visual And Stock Associate - bedside telemetry Lead Monitored: Lead II ECG Rhythm: normal sinus rhythm Pacemaker: Pacemaker: No Respiratory Assessment Within Defined Limits except for: Respiratory Assessment: Respirations: Mechanical device Neurovascular Within Defined Limits Gastrointestinal Assessment Within Defined Limits except for: Abdominal appearance: Distended and rounded Additional GI Signs/Symptoms: diarrhea Stool (unmeasured): 1 (11/13/23 0500) Stool Amount: large (11/13/23 1000) Stool Color: brown (11/13/23 1000) Stool Consistency: liquid (11/13/23 1000) Genitourinary Assessment Within Defined Limits except for: Voiding: Urinary catheter in place Musculoskeletal Within Defined Limits Integumentary Assessment Within Defined Limits except for: Skin Assessment Integrity - abrasion(s) Integrity Location - Right arm Comments: Concern on coccyx Patient Lines/Drains/Airways Status Active LDAs Name Placement date Placement time Site Days Peripheral IV 11/09/23 20 gauge;2 1/2 in length Anterior;Left Upper Arm 11/09/23 1559 -- 4 Peripheral IV 11/12/23 20 gauge;1 3/4 in length Anterior;Left Forearm 11/12/23 1646 -- 1 Naso/Oral Gastric Suction Tube Orogastric 11/13/23 0356 -- 1 Feeding Tube Post-pyloric tube in place Nostril (left) 11/10/23 1425 -- 3 Chest Tube 11/09/23 Left 11/09/23 1302 -- 4 Endotracheal Tube: oral 11/09/23 1515 -- 4 Wound 11/11/23 Penis 11/11/23 1657 Penis 2 Wound 11/12/23 Buttock 11/12/23 1621 Buttock 1 Urinary Catheter Urinary Retention (Post void volume consistently greater than 350 mL) 11/05/23 1427 -- 8 Psychosocial Within Defined Limits Comments: and sons * Nursing Assessment - Mikal Paige RN - 11/14/2023 3:34 AM CDT Nursing Assessment Head to Toe Head to Toe Assessment Shift Summary Shift Summary Pt remains sedated with Propofol and Fentanyl. Localizes all extremities. PERRL. Coarse lung sounds. Minimal secretions. Frequent coughing requiring suctioning and increase in propofol to 40/hour. Chest tube output 310 from [id number]. No BM overnight. Bowel sounds active. Urine output adequate in askew. +4 scrotal edema. +1/+2 generalized. +2 in x4 extremities. Mikal Paige RN, 11/14/2023 6:37 AM Neurologic/Cognitive Assessment Within Defined Limits except for: Level of Consciousness: Sedated and obtunded Arousal Level: Arouses to voice Speech: Unable to speak, endotracheal tube Motor Response: All Extremities - purposeful/movement localizing HEENT Assessment Within Defined Limits except for: Nose Symptoms: Feeding Tube - left Cardiac Assessment Within Defined Limits except for: Visual And Stock Associate - bedside telemetry Lead Monitored: Lead II ECG Rhythm: normal sinus rhythm ST Segment (mm): Normal T-Wave: Normal Respiratory Assessment Within Defined Limits except for: Respiratory Assessment: Respirations: Tachypnea and mechanical device Mechanical Device: Continuous; Ventilator Cough: Present Frequency: Frequent Type: Productive and weak Sputum: Sputum is Present Amount: Small Color: Clear Consistency: Thin Neurovascular Assessment Within Defined Limits except for: Neurovascular LUE Radial Pulse: 2+ Neurovascular RUE Radial Pulse: 2+ Neurovascular LLE Pedal Pulse: 2+ Neurovascular RLE Pedal Pulse: 2+ Edema Present: Yes Generalized: 2+ Scleral: 1+ Right Upper Extremity: 1+ Left Upper Extremity: 1+ Right Lower Extremity: 1+ Left Lower Extremity: 1+ Scrotal: 3+ Gastrointestinal Assessment Within Defined Limits except for: Abdominal appearance: Distended and rounded Additional GI Signs/Symptoms: fecal incontinence Stool (unmeasured): 1 (11/13/23 0500) Stool Amount: large (11/13/23 1000) Stool Color: brown (11/13/23 1000) Stool Consistency: liquid (11/13/23 1000) Genitourinary Assessment Within Defined Limits except for: Voiding: Urinary catheter in place Urine characteristics: , shayan Musculoskeletal Assessment Within Defined Limits except for: Musculoskeletal Assessment: General Mobility: Moderately impaired Integumentary Assessment Within Defined Limits except for: Skin Assessment Moisture - diaphoretic Integrity - see Avatar LDA documentation Patient Lines/Drains/Airways Status Active LDAs Name Placement date Placement time Site Days Peripheral IV 11/09/23 20 gauge;2 1/2 in length Anterior;Left Upper Arm 11/09/23 1559 -- 4 Peripheral IV 11/12/23 20 gauge;1 3/4 in length Anterior;Left Forearm 11/12/23 1646 -- 1 Naso/Oral Gastric Suction Tube Orogastric 11/13/23 0356 -- less than 1 Feeding Tube Post-pyloric tube in place Nostril (left) 11/10/23 1425 -- 3 Chest Tube 11/09/23 Left 11/09/23 1302 -- 4 Endotracheal Tube: oral 11/09/23 1515 -- 4 Wound 11/11/23 Penis 11/11/23 1657 Penis 2 Wound 11/12/23 Buttock 11/12/23 1621 Buttock 1 Urinary Catheter Urinary Retention (Post void volume consistently greater than 350 mL) 11/05/23 1427 -- 8 Psychosocial Assessment Within Defined Limits except for: Psychosocial Assessment: Family Behavior: not present * Nursing Assessment - Mikal Paige RN - 11/14/2023 12:39 AM CDT Nursing Assessment Head to Toe Head to Toe Assessment Shift Summary Shift Summary Neurologic/Cognitive Assessment Within Defined Limits except for: Level of Consciousness: Sedated and obtunded Arousal Level: Arouses to voice Speech: Unable to speak, endotracheal tube Motor Response: All Extremities - purposeful/movement localizing HEENT Assessment Within Defined Limits except for: Nose Symptoms: Feeding Tube - left Cardiac Assessment Within Defined Limits except for: Visual And Stock Associate - bedside telemetry Lead Monitored: Lead II ECG Rhythm: normal sinus rhythm ST Segment (mm): Normal T-Wave: Normal Respiratory Assessment Within Defined Limits except for: Respiratory Assessment: Respirations: Tachypnea and mechanical device Mechanical Device: Continuous; Ventilator Cough: Present Frequency: Frequent Type: Productive and weak Sputum: Sputum is Present Amount: Small Color: Clear Consistency: Thin Neurovascular Assessment Within Defined Limits except for: Neurovascular LUE Radial Pulse: 2+ Neurovascular RUE Radial Pulse: 2+ Neurovascular LLE Pedal Pulse: 2+ Neurovascular RLE Pedal Pulse: 2+ Edema Present: Yes Generalized: 2+ Scleral: 1+ Right Upper Extremity: 1+ Left Upper Extremity: 1+ Right Lower Extremity: 1+ Left Lower Extremity: 1+ Scrotal: 3+ Gastrointestinal Assessment Within Defined Limits except for: Abdominal appearance: Distended and rounded Additional GI Signs/Symptoms: fecal incontinence Stool (unmeasured): 1 (11/13/23 0500) Stool Amount: large (11/13/23 1000) Stool Color: brown (11/13/23 1000) Stool Consistency: liquid (11/13/23 1000) Genitourinary Assessment Within Defined Limits except for: Voiding: Urinary catheter in place Urine characteristics: , shayan Musculoskeletal Assessment Within Defined Limits except for: Musculoskeletal Assessment: General Mobility: Moderately impaired Integumentary Assessment Within Defined Limits except for: Skin Assessment Moisture - diaphoretic Integrity - see Avatar LDA documentation Patient Lines/Drains/Airways Status Active LDAs Name Placement date Placement time Site Days Peripheral IV 11/09/23 20 gauge;2 1/2 in length Anterior;Left Upper Arm 11/09/23 1559 -- 4 Peripheral IV 11/12/23 20 gauge;1 3/4 in length Anterior;Left Forearm 11/12/23 1646 -- 1 Naso/Oral Gastric Suction Tube Orogastric 11/13/23 0356 -- less than 1 Feeding Tube Post-pyloric tube in place Nostril (left) 11/10/23 1425 -- 3 Chest Tube 11/09/23 Left 11/09/23 1302 -- 4 Endotracheal Tube: oral 11/09/23 1515 -- 4 Wound 11/11/23 Penis 11/11/23 1657 Penis 2 Wound 11/12/23 Buttock 11/12/23 1621 Buttock 1 Urinary Catheter Urinary Retention (Post void volume consistently greater than 350 mL) 11/05/23 1427 -- 8 Psychosocial Assessment Within Defined Limits except for: Psychosocial Assessment: Family Behavior: not present * Nursing Assessment - Bud Roque RN - 11/13/2023 7:28 PM CDT Nursing Assessment Head to Toe Head to Toe Assessment Shift Summary Pt continues to be vented and sedated. Moves all extremities off sedation. On NSr with SBP normotensive. Vent setting of FiO2 30 and PEEP 9. Chest tube with pigtail drained about 250ml ouput total this shift since the lytic was administered prior to this shift. Pt had infrequent coughing with clear secretions. Bowel distended and large. Audible bowel sound. Askew draining adequate UOP. Skin issues ongoing. Prop running at 30mcg/kg/hr and Fentanyl 100mcg/kg/hr. Neurologic/Cognitive Assessment Within Defined Limits except for: Level of Consciousness: Sedated Arousal Level: Arouses to voice and arouses to touch/gentle shaking Speech: Unable to speak, endotracheal tube Motor Response: LUE - purposeful/movement localizing RUE - purposeful/movement localizing LLE - purposeful/movement localizing RLE - purposeful/movement localizing HEENT Assessment Within Defined Limits except for: Nose Symptoms: Feeding Tube - right Cardiac Assessment Within Defined Limits except for: Heart sounds: S1, S2 Visual And Stock Associate - bedside telemetry Lead Monitored: Lead II ECG Rhythm: normal sinus rhythm and sinus tachycardia ST Segment (mm): Normal T-Wave: Normal Respiratory Assessment Within Defined Limits except for: Respiratory Assessment: Mechanical Device: Continuous; Ventilator Cough: Present Frequency: Intermittent Type: Nonproductive Sputum: Sputum is Present Amount: Scant Color: Clear Consistency: Thin Neurovascular Within Defined Limits Gastrointestinal Within Defined Limits Stool (unmeasured): 1 (11/13/23 0500) Stool Amount: large (11/13/23 1000) Stool Color: brown (11/13/23 1000) Stool Consistency: liquid (11/13/23 1000) Genitourinary Assessment Within Defined Limits except for: Voiding: Urinary catheter in place Musculoskeletal Assessment Within Defined Limits except for: Musculoskeletal Assessment: General Mobility: Generalized weakness Integumentary Assessment Within Defined Limits except for: Skin Assessment Integrity - see Avatar LDA documentation Patient Lines/Drains/Airways Status Active LDAs Name Placement date Placement time Site Days Peripheral IV 11/09/23 20 gauge;2 1/2 in length Anterior;Left Upper Arm 11/09/23 1559 -- 4 Peripheral IV 11/12/23 20 gauge;1 3/4 in length Anterior;Left Forearm 11/12/23 1646 -- 1 Naso/Oral Gastric Suction Tube Orogastric 11/13/23 0356 -- less than 1 Feeding Tube Post-pyloric tube in place Nostril (left) 11/10/23 1425 -- 3 Chest Tube 11/09/23 Left 11/09/23 1302 -- 4 Endotracheal Tube: oral 11/09/23 1515 -- 4 Wound 11/11/23 Penis 11/11/23 1657 Penis 2 Wound 11/12/23 Buttock 11/12/23 1621 Buttock 1 Urinary Catheter Urinary Retention (Post void volume consistently greater than 350 mL) 11/05/23 1427 -- 8 Psychosocial Within Defined Limits * Nursing Assessment - Bud Roque RN - 11/13/2023 4:54 PM CDT Nursing Assessment Head to Toe Head to Toe Assessment Shift Summary Shift Summary Neurologic/Cognitive Assessment Within Defined Limits except for: Level of Consciousness: Sedated Arousal Level: Arouses to voice and arouses to touch/gentle shaking Speech: Unable to speak, endotracheal tube Motor Response: LUE - purposeful/movement localizing RUE - purposeful/movement localizing LLE - purposeful/movement localizing RLE - purposeful/movement localizing HEENT Assessment Within Defined Limits except for: Nose Symptoms: Feeding Tube - right Cardiac Assessment Within Defined Limits except for: Heart sounds: S1, S2 Visual And Stock Associate - bedside telemetry Lead Monitored: Lead II ECG Rhythm: normal sinus rhythm and sinus tachycardia ST Segment (mm): Normal T-Wave: Normal Respiratory Assessment Within Defined Limits except for: Respiratory Assessment: Mechanical Device: Continuous; Ventilator Cough: Present Frequency: Intermittent Type: Nonproductive Sputum: Sputum is Present Amount: Scant Color: Clear Consistency: Thin Neurovascular Within Defined Limits Gastrointestinal Within Defined Limits Stool (unmeasured): 1 (11/13/23 0500) Stool Amount: large (11/13/23 1000) Stool Color: brown (11/13/23 1000) Stool Consistency: liquid (11/13/23 1000) Genitourinary Assessment Within Defined Limits except for: Voiding: Urinary catheter in place Musculoskeletal Assessment Within Defined Limits except for: Musculoskeletal Assessment: General Mobility: Generalized weakness Integumentary Assessment Within Defined Limits except for: Skin Assessment Integrity - see Avatar LDA documentation Patient Lines/Drains/Airways Status Active LDAs Name Placement date Placement time Site Days Peripheral IV 11/09/23 20 gauge;2 1/2 in length Anterior;Left Upper Arm 11/09/23 1559 -- 4 Peripheral IV 11/12/23 20 gauge;1 3/4 in length Anterior;Left Forearm 11/12/23 1646 -- 1 Naso/Oral Gastric Suction Tube Orogastric 11/13/23 0356 -- less than 1 Feeding Tube Post-pyloric tube in place Nostril (left) 11/10/23 1425 -- 3 Chest Tube 11/09/23 Left 11/09/23 1302 -- 4 Endotracheal Tube: oral 11/09/23 1515 -- 4 Wound 11/11/23 Penis 11/11/23 1657 Penis 1 Wound 11/12/23 Buttock 11/12/23 1621 Buttock 1 Urinary Catheter Urinary Retention (Post void volume consistently greater than 350 mL) 11/05/23 1427 -- 8 Psychosocial Within Defined Limits * Nursing Assessment - Yanci Blake RN - 11/13/2023 12:00 PM CDT Nursing Assessment Head to Toe Head to Toe Assessment Shift Summary Pt +FC intubated and sedated. visiting. Dr Dominguez treated the Pigtail with medicine. VSS. Neurologic/Cognitive Within Defined Limits HEENT Within Defined Limits Cardiac Assessment Within Defined Limits except for: Visual And Stock Associate - bedside telemetry Lead Monitored: Lead II ECG Rhythm: normal sinus rhythm Pacemaker: Pacemaker: No Respiratory Assessment Within Defined Limits except for: Respiratory Assessment: Respirations: Mechanical device Comments: Peep 12 decreased 10 at 0900 Neurovascular Within Defined Limits Gastrointestinal Assessment Within Defined Limits except for: Additional GI Signs/Symptoms: diarrhea Stool (unmeasured): 1 (11/13/23 0500) Stool Amount: large (11/13/23 1000) Stool Color: brown (11/13/23 1000) Stool Consistency: liquid (11/13/23 1000) Genitourinary Assessment Within Defined Limits except for: Voiding: Urinary catheter in place Musculoskeletal Within Defined Limits Integumentary Within Defined Limits Patient Lines/Drains/Airways Status Active LDAs Name Placement date Placement time Site Days Peripheral IV 11/09/23 20 gauge;2 1/2 in length Anterior;Left Upper Arm 11/09/23 1559 -- 4 Peripheral IV 11/12/23 20 gauge;1 3/4 in length Anterior;Left Forearm 11/12/23 1646 -- less than 1 Naso/Oral Gastric Suction Tube Orogastric 11/13/23 0356 -- less than 1 Feeding Tube Post-pyloric tube in place Nostril (left) 11/10/23 1425 -- 3 Chest Tube 11/09/23 Left 11/09/23 1302 -- 4 Endotracheal Tube: oral 11/09/23 1515 -- 4 Wound 11/11/23 Penis 11/11/23 1657 Penis 1 Wound 11/12/23 Buttock 11/12/23 1621 Buttock less than 1 Urinary Catheter Urinary Retention (Post void volume consistently greater than 350 mL) 11/05/23 1427 -- 8 Psychosocial Within Defined Limits * Nursing Assessment - Yanci Blake RN - 11/13/2023 8:57 AM CDT Nursing Assessment Head to Toe Head to Toe Assessment Shift Summary Shift Summary Neurologic/Cognitive Within Defined Limits HEENT Within Defined Limits Cardiac Assessment Within Defined Limits except for: Visual And Stock Associate - bedside telemetry Lead Monitored: Lead II ECG Rhythm: normal sinus rhythm Pacemaker: Pacemaker: No Respiratory Assessment Within Defined Limits except for: Respiratory Assessment: Respirations: Mechanical device Comments: Peep 12 decreased 10 at 0900 Neurovascular Within Defined Limits Gastrointestinal Assessment Within Defined Limits except for: Additional GI Signs/Symptoms: diarrhea Stool (unmeasured): 1 (11/13/23 0500) Stool Amount: moderate (11/13/23 1000) Stool Color: brown (11/13/23 1000) Stool Consistency: liquid (11/13/23 1000) Genitourinary Assessment Within Defined Limits except for: Voiding: Urinary catheter in place Musculoskeletal Within Defined Limits Integumentary Within Defined Limits Patient Lines/Drains/Airways Status Active LDAs Name Placement date Placement time Site Days Peripheral IV 11/09/23 20 gauge;2 1/2 in length Anterior;Left Upper Arm 11/09/23 1559 -- 3 Peripheral IV 11/12/23 20 gauge;1 3/4 in length Anterior;Left Forearm 11/12/23 1646 -- less than 1 Arterial Line Right Radial 11/10/23 2156 -- 2 Naso/Oral Gastric Suction Tube Orogastric 11/13/23 0356 -- less than 1 Feeding Tube Post-pyloric tube in place Nostril (left) 11/10/23 1425 -- 2 Chest Tube 11/09/23 Left 11/09/23 1302 -- 3 Endotracheal Tube: oral 11/09/23 1515 -- 3 Wound 11/11/23 Penis 11/11/23 1657 Penis 1 Wound 11/12/23 Buttock 11/12/23 1621 Buttock less than 1 Urinary Catheter Urinary Retention (Post void volume consistently greater than 350 mL) 11/05/23 1427 -- 7 Non-Tunneled CVC internal jugular vein, right Triple Lumen 11/09/23 2030 -- 3 Psychosocial Within Defined Limits * Nursing Assessment - Pernell Tate RN - 11/13/2023 7:01 AM CDT Nursing Assessment Head to Toe Head to Toe Assessment Shift Summary Shift Summary FC x4, PERRL. 35 & 12, high peak pressures (30's) at baseline. Scant secretions. SBP < 180, scheduled FATS AND OILS LOADER meds + PRN's given. 4+ edema to scrotum and penis, generalizes 2+ edema. 2 moderate brown liquid BM's, abdomen rigid, OG placed to LIS, little output. Family updated on POC over the phone. Neurologic/Cognitive Assessment Within Defined Limits except for: Cognition: poor judgement/safety awareness and poor attention/concentration Level of Consciousness: Lethargic and sedated Arousal Level: Arouses to voice Speech: Unable to speak, endotracheal tube Comments: FCx4, PERRL HEENT Assessment Within Defined Limits except for: Eye Symptoms: scleral edema - bilateral Nose Symptoms: Feeding Tube - left Comments: R IJ CVC, CorePak, OG to LIS w/ little output Cardiac Assessment Within Defined Limits except for: Visual And Stock Associate - bedside telemetry Lead Monitored: Lead II ECG Rhythm: normal sinus rhythm ST Segment (mm): Normal T-Wave: Normal Pacemaker: Pacemaker: No Comments: SBP < 180 - FATS AND OILS LOADER metoprolol + amlodipine via Feeding tube + PRN hydralazine + labetalolper MAR Respiratory Assessment Within Defined Limits except for: Respiratory Assessment: Respirations: Mechanical device Mechanical Device: Continuous; Ventilator Breath Sounds Normal: Breath sounds normal: No Breath Sounds Assessment: Diminished LLL and RLL Coarse Anterior All Lobes Cough: Present Frequency: Intermittent Type: Productive Sputum: Sputum is Present Amount: Small Color: Espinoza and white Consistency: Thin Comments: 35 & 12, PEEP to remain @ 12 per SICU team, L chest tube to -20 Neurovascular Assessment Within Defined Limits except for: Edema Present: Yes Generalized: 3+ Scleral: 2+ Perineal: 4+ Scrotal: 4+ Gastrointestinal Assessment Within Defined Limits except for: Abdominal appearance: Obese, rounded, distended and taut Palpation rigid - all quadrants Bowel Sounds hyperactive - all quadrants Additional GI Signs/Symptoms: constipation and fecal incontinence Comments: Small BM during day - gave Narcan, Senna, PEG - abd rigid - sicu MD notified. Stool (unmeasured): 1 (11/13/23 0500) Stool Amount: moderate (11/13/23 0500) Stool Color: brown (11/13/23 0500) Stool Consistency: liquid (11/13/23 0500) Genitourinary Assessment Within Defined Limits except for: Voiding: Urinary catheter in place Genitalia signs/symptoms: Penile edema Comments: Adequate UOP Musculoskeletal Assessment Within Defined Limits except for: Musculoskeletal Assessment: General Mobility: Generalized weakness and moderately impaired Integumentary Assessment Within Defined Limits except for: Skin Assessment Color/Characteristics - bruised (ecchymotic) Integrity - abrasion(s) and see Avatar LDA documentation Patient Lines/Drains/Airways Status Active LDAs Name Placement date Placement time Site Days Peripheral IV 11/09/23 20 gauge;2 1/2 in length Anterior;Left Upper Arm 11/09/23 1559 -- 3 Peripheral IV 11/12/23 20 gauge;1 3/4 in length Anterior;Left Forearm 11/12/23 1646 -- less than 1 Arterial Line Right Radial 11/10/23 2156 -- 2 Naso/Oral Gastric Suction Tube Orogastric 11/13/23 0356 -- less than 1 Feeding Tube Post-pyloric tube in place Nostril (left) 11/10/23 1425 -- 2 Chest Tube 11/09/23 Left 11/09/23 1302 -- 3 Endotracheal Tube: oral 11/09/23 1515 -- 3 Wound 11/11/23 Penis 11/11/23 1657 Penis 1 Wound 11/12/23 Buttock 11/12/23 1621 Buttock less than 1 Urinary Catheter Urinary Retention (Post void volume consistently greater than 350 mL) 11/05/23 1427 -- 7 Non-Tunneled CVC internal jugular vein, right Triple Lumen 11/09/232029 -- 3 Psychosocial Within Defined Limits Comments: Family updated on POC over the phone * Nursing Assessment - Pernell Tate RN - 11/13/2023 12:00 AM CDT Nursing Assessment Head to Toe Head to Toe Assessment Shift Summary Shift Summary Neurologic/Cognitive Assessment Within Defined Limits except for: Cognition: poor judgement/safety awareness and poor attention/concentration Level of Consciousness: Lethargic and sedated Arousal Level: Arouses to voice Speech: Unable to speak, endotracheal tube Comments: FCx4, PERRL HEENT Assessment Within Defined Limits except for: Eye Symptoms: scleral edema - bilateral Nose Symptoms: Feeding Tube - left Comments: R IJ CVC, CorePak Cardiac Assessment Within Defined Limits except for: Visual And Stock Associate - bedside telemetry Lead Monitored: Lead II ECG Rhythm: normal sinus rhythm ST Segment (mm): Normal T-Wave: Normal Pacemaker: Pacemaker: No Comments: SBP < 180 - FATS AND OILS LOADER metoprolol + amlodipine via Feeding tube + PRN hydralazine + labetalolper MAR Respiratory Assessment Within Defined Limits except for: Respiratory Assessment: Respirations: Mechanical device Mechanical Device: Continuous; Ventilator Breath Sounds Normal: Breath sounds normal: No Breath Sounds Assessment: Diminished LLL and RLL Coarse Anterior All Lobes Cough: Present Frequency: Intermittent Type: Productive Sputum: Sputum is Present Amount: Small Color: Espinoza and white Consistency: Thin Comments: 35 & 12, PEEP to remain @ 12 per SICU team, L chest tube to -20 Neurovascular Assessment Within Defined Limits except for: Edema Present: Yes Generalized: 3+ Scleral: 2+ Perineal: 4+ Scrotal: 4+ Gastrointestinal Assessment Within Defined Limits except for: Abdominal appearance: Obese, rounded, distended and taut Palpation rigid - all quadrants Bowel Sounds hyperactive - all quadrants Additional GI Signs/Symptoms: constipation and fecal incontinence Comments: Small BM during day - gave Smitha Byrnes PEG - abd rigid - sicu MD notified. Stool (unmeasured): 1 (11/13/23 0500) Stool Amount: moderate (11/13/23 0500) Stool Color: brown (11/13/23 0500) Stool Consistency: liquid (11/13/23 0500) Genitourinary Assessment Within Defined Limits except for: Voiding: Urinary catheter in place Genitalia signs/symptoms: Penile edema Comments: Adequate UOP Musculoskeletal Assessment Within Defined Limits except for: Musculoskeletal Assessment: General Mobility: Generalized weakness and moderately impaired Integumentary Assessment Within Defined Limits except for: Skin Assessment Color/Characteristics - bruised (ecchymotic) Integrity - abrasion(s) and see Avatar LDA documentation Patient Lines/Drains/Airways Status Active LDAs Name Placement date Placement time Site Days Peripheral IV 11/09/23 20 gauge;2 1/2 in length Anterior;Left Upper Arm 11/09/23 1559 -- 3 Peripheral IV 11/12/23 20 gauge;1 3/4 in length Anterior;Left Forearm 11/12/23 1646 -- less than 1 Arterial Line Right Radial 11/10/23 2156 -- 2 Naso/Oral Gastric Suction Tube Orogastric 11/13/23 0356 -- less than 1 Feeding Tube Post-pyloric tube in place Nostril (left) 11/10/23 1425 -- 2 Chest Tube 11/09/23 Left 11/09/23 1302 -- 3 Endotracheal Tube: oral 11/09/23 1515 -- 3 Wound 11/11/23 Penis 11/11/23 1657 Penis 1 Wound 11/12/23 Buttock 11/12/23 1621 Buttock less than 1 Urinary Catheter Urinary Retention (Post void volume consistently greater than 350 mL) 11/05/23 1427 -- 7 Non-Tunneled CVC internal jugular vein, right Triple Lumen 11/09/23 2030 -- 3 Psychosocial Within Defined Limits Comments: Family updated on POC over the phone * Nursing Assessment - Pernell Tate RN - 11/12/2023 8:00 PM CDT Nursing Assessment Head to Toe Head to Toe Assessment Shift Summary Shift Summary Neurologic/Cognitive Assessment Within Defined Limits except for: Cognition: poor judgement/safety awareness and poor attention/concentration Level of Consciousness: Lethargic and sedated Arousal Level: Arouses to voice Speech: Unable to speak, endotracheal tube Comments: FCx4, PERRL HEENT Assessment Within Defined Limits except for: Eye Symptoms: scleral edema - bilateral Nose Symptoms: Feeding Tube - left Comments: R IJ CVC Cardiac Assessment Within Defined Limits except for: Visual And Stock Associate - bedside telemetry Lead Monitored: Lead II ECG Rhythm: normal sinus rhythm ST Segment (mm): Normal T-Wave: Normal Pacemaker: Pacemaker: No Comments: SBP < 180 - FATS AND OILS LOADER metoprolol + amlodipine via Feeding tube + PRN hydralazine + labetalolper MAR Respiratory Assessment Within Defined Limits except for: Respiratory Assessment: Respirations: Mechanical device Mechanical Device: Continuous; Ventilator Breath Sounds Normal: Breath sounds normal: No Breath Sounds Assessment: Diminished LLL and RLL Coarse Anterior All Lobes Cough: Present Frequency: Intermittent Type: Productive Sputum: Sputum is Present Amount: Small Color: Espinoza and white Consistency: Thin Comments: 35 & 12, PEEP to remain @ 12 per SICU team, L chest tube to -20 Neurovascular Assessment Within Defined Limits except for: Edema Present: Yes Generalized: 3+ Scleral: 2+ Perineal: 4+ Scrotal: 4+ Gastrointestinal Assessment Within Defined Limits except for: Abdominal appearance: Obese, rounded, distended and taut Palpation rigid - all quadrants Bowel Sounds hyperactive - all quadrants Additional GI Signs/Symptoms: constipation and fecal incontinence Comments: Small BM today - gave Narcan, Senna, PEG - abd rigid - sicu MD notified. Stool (unmeasured): 1 (11/09/23 0728) Stool Amount: small (11/12/23 1400) Stool Color: brown (11/12/23 1400) Stool Consistency: loose (11/12/23 1400) Genitourinary Assessment Within Defined Limits except for: Voiding: Urinary catheter in place Genitalia signs/symptoms: Penile edema Comments: Adequate UOP Musculoskeletal Assessment Within Defined Limits except for: Musculoskeletal Assessment: General Mobility: Generalized weakness and moderately impaired Integumentary Assessment Within Defined Limits except for: Skin Assessment Color/Characteristics - bruised (ecchymotic) Integrity - abrasion(s) and see Avatar LDA documentation Patient Lines/Drains/Airways Status Active LDAs Name Placement date Placement time Site Days Peripheral IV 11/09/23 20 gauge;2 1/2 in length Anterior;Left Upper Arm 11/09/23 1559 -- 3 Peripheral IV 11/12/23 20 gauge;1 3/4 in length Anterior;Left Forearm 11/12/23 1646 -- less than 1 Arterial Line Right Radial 11/10/236 -- 1 Feeding Tube Post-pyloric tube in place Nostril (left) 11/10/23 1425 -- 2 Chest Tube 11/09/23 Left 11/09/23 1302 -- 3 Endotracheal Tube: oral 11/09/23 1515 -- 3 Wound 11/11/23 Penis 11/11/23 1657 Penis 1 Wound 11/12/23 Buttock 11/12/23 1621 Buttock less than 1 Urinary Catheter Urinary Retention (Post void volume consistently greater than 350 mL) 11/05/23 1427 -- 7 Non-Tunneled CVC internal jugular vein, right Triple Lumen 11/09/232029 -- 3 Psychosocial Within Defined Limits Comments: Family updated on POC over the phone * Nursing Assessment - Elza Miramontes RN - 11/12/2023 4:00 PM CDT Nursing Assessment Head to Toe Head to Toe Assessment Shift Summary Shift Summary Patient sedated, arouses to voice. Follows commands x4, MCCOY. SBP>180, Labetalol given x3 w/ adequate response. Moderate, serosang output from chest tube. PRN Oxy given x2 for pain. Askew w/ auop. Small bm x1. Phos replaced, recheck add- on. Lasix given at end of shift. called, updated. Neurologic/Cognitive Assessment Within Defined Limits except for: Cognition: poor judgement/safety awareness and poor attention/concentration Level of Consciousness: Lethargic and sedated Arousal Level: Arouses to voice Speech: Unable to speak, endotracheal tube Motor Response: All Extremities - purposeful/movement localizing Comments: FCx4, PERRL HEENT Assessment Within Defined Limits except for: Eye Symptoms: scleral edema - bilateral Nose Symptoms: Feeding Tube - left Cardiac Assessment Within Defined Limits except for: Visual And Stock Associate - bedside telemetry Lead Monitored: Lead II ECG Rhythm: normal sinus rhythm ST Segment (mm): Normal T-Wave: Normal Pacemaker: Pacemaker: No Respiratory Assessment Within Defined Limits except for: Respiratory Assessment: Respirations: Mechanical device Mechanical Device: Continuous; Ventilator Breath Sounds Normal: Breath sounds normal: No Breath Sounds Assessment: Diminished LLL and RLL Coarse Anterior All Lobes Cough: Present Frequency: Intermittent Type: Productive Sputum: Sputum is Present Amount: Small Color: Espinoza and white Consistency: Thin Comments: L chest tube Neurovascular Assessment Within Defined Limits except for: Edema Present: Yes Generalized: 3+ Scleral: 2+ Scrotal: 4+ Gastrointestinal Assessment Within Defined Limits except for: Abdominal appearance: Obese, rounded, distended and taut Palpation firm - all quadrants Additional GI Signs/Symptoms: constipation and fecal incontinence Stool (unmeasured): 1 (11/09/23727) Stool Amount: moderate (11/09/23727) Stool Color: light brown (11/09/23727) Stool Consistency: loose (11/09/23727) Genitourinary Assessment Within Defined Limits except for: Voiding: Urinary catheter in place Genitalia signs/symptoms: Penile edema Musculoskeletal Assessment Within Defined Limits except for: Musculoskeletal Assessment: General Mobility: Generalized weakness and moderately impaired Integumentary Assessment Within Defined Limits except for: Skin Assessment Color/Characteristics - bruised (ecchymotic) Integrity - abrasion(s) and see Avatar LDA documentation Patient Lines/Drains/Airways Status Active LDAs Name Placement date Placement time Site Days Peripheral IV 11/09/23 20 gauge;2 1/2 in length Anterior;Left Upper Arm 11/09/23 1559 -- 3 Peripheral IV 11/12/23 20 gauge;1 3/4 in length Anterior;Left Forearm 11/12/23 1646 -- less than 1 Arterial Line Right Radial 11/10/23 2156 -- 1 Feeding Tube Post-pyloric tube in place Nostril (left) 11/10/23 1425 -- 2 Chest Tube 11/09/23 Left 11/09/23 1302 -- 3 Endotracheal Tube: oral 11/09/23 1515 -- 3 Wound 11/11/23 Penis 11/11/23 1657 Penis 1 Wound 11/12/23 Buttock 11/12/23 1621 Buttock less than 1 Urinary Catheter Urinary Retention (Post void volume consistently greater than 350 mL) 11/05/23 1427 -- 7 Non-Tunneled CVC internal jugular vein, right Triple Lumen 11/09/23 2030 -- 2 Psychosocial Within Defined Limits * Nursing Assessment - Elza Miramontes RN - 11/12/2023 12:00 PM CDT Nursing Assessment Head to Toe Head to Toe Assessment Shift Summary Shift Summary Neurologic/Cognitive Assessment Within Defined Limits except for: Cognition: poor judgement/safety awareness and poor attention/concentration Level of Consciousness: Lethargic and sedated Arousal Level: Arouses to voice Speech: Unable to speak, endotracheal tube Motor Response: All Extremities - purposeful/movement localizing Comments: FCx4, PERRL HEENT Assessment Within Defined Limits except for: Eye Symptoms: scleral edema - bilateral Nose Symptoms: Feeding Tube - left Cardiac Assessment Within Defined Limits except for: Visual And Stock Associate - bedside telemetry Lead Monitored: Lead II ECG Rhythm: normal sinus rhythm ST Segment (mm): Normal T-Wave: Normal Pacemaker: Pacemaker: No Respiratory Assessment Within Defined Limits except for: Respiratory Assessment: Respirations: Mechanical device Mechanical Device: Continuous; Ventilator Breath Sounds Normal: Breath sounds normal: No Breath Sounds Assessment: Diminished LLL and RLL Coarse Anterior All Lobes Cough: Present Frequency: Intermittent Type: Productive Sputum: Sputum is Present Amount: Small Color: Espinoza and white Consistency: Thin Comments: L chest tube Neurovascular Assessment Within Defined Limits except for: Edema Present: Yes Generalized: 3+ Scleral: 2+ Scrotal: 4+ Gastrointestinal Assessment Within Defined Limits except for: Abdominal appearance: Obese, rounded, distended and taut Palpation firm - all quadrants Additional GI Signs/Symptoms: constipation and fecal incontinence Stool (unmeasured): 1 (11/09/23727) Stool Amount: moderate (11/09/23727) Stool Color: light brown (11/09/23727) Stool Consistency: loose (11/09/23727) Genitourinary Assessment Within Defined Limits except for: Voiding: Urinary catheter in place Genitalia signs/symptoms: Penile edema Musculoskeletal Assessment Within Defined Limits except for: Musculoskeletal Assessment: General Mobility: Generalized weakness and moderately impaired Integumentary Assessment Within Defined Limits except for: Skin Assessment Color/Characteristics - bruised (ecchymotic) Integrity - abrasion(s) and see Avatar LDA documentation Patient Lines/Drains/Airways Status Active LDAs Name Placement date Placement time Site Days Peripheral IV 11/09/23 20 gauge;2 1/2 in length Anterior;Left Upper Arm 11/09/23 5979 -- 3 Peripheral IV 11/12/23 20 gauge;1 3/4 in length Anterior;Left Forearm 11/12/23 1646 -- less than 1 Arterial Line Right Radial 11/10/23 2156 -- 1 Feeding Tube Post-pyloric tube in place Nostril (left) 11/10/23 1425 -- 2 Chest Tube 11/09/23 Left 11/09/23 1302 -- 3 Endotracheal Tube: oral 11/09/23 1515 -- 3 Wound 11/11/23 Penis 11/11/23 1657 Penis 1 Wound 11/12/23 Buttock 11/12/23 1621 Buttock less than 1 Urinary Catheter Urinary Retention (Post void volume consistently greater than 350 mL) 11/05/23 1427 -- 7 Non-Tunneled CVC internal jugular vein, right Triple Lumen 11/09/232029 -- 2 Psychosocial Within Defined Limits * Nursing Assessment - Elza Miramontes RN - 11/12/2023 8:00 AM CDT Nursing Assessment Head to Toe Head to Toe Assessment Shift Summary Shift Summary Neurologic/Cognitive Assessment Within Defined Limits except for: Cognition: poor judgement/safety awareness and poor attention/concentration Level of Consciousness: Lethargic and sedated Arousal Level: Arouses to voice Speech: Unable to speak, endotracheal tube Motor Response: All Extremities - purposeful/movement localizing Comments: FCx4, PERRL HEENT Assessment Within Defined Limits except for: Eye Symptoms: scleral edema - bilateral Nose Symptoms: Feeding Tube - left Cardiac Assessment Within Defined Limits except for: Visual And Stock Associate - bedside telemetry Lead Monitored: Lead II ECG Rhythm: normal sinus rhythm FL Interval (sec): 0.16 QRS Interval (sec): 0.11 QT Interval: 0.33 QTc Interval: 0.39 ST Segment (mm): Normal T-Wave: Normal Pacemaker: Pacemaker: No Respiratory Assessment Within Defined Limits except for: Respiratory Assessment: Respirations: Mechanical device Mechanical Device: Continuous; Ventilator Breath Sounds Normal: Breath sounds normal: No Breath Sounds Assessment: Diminished LLL and RLL Coarse Anterior All Lobes Cough: Present Frequency: Intermittent Type: Productive Sputum: Sputum is Present Amount: Small Color: Espinoza and white Consistency: Thin Comments: L chest tube Neurovascular Assessment Within Defined Limits except for: Edema Present: Yes Generalized: 3+ Scleral: 2+ Scrotal: 4+ Gastrointestinal Assessment Within Defined Limits except for: Abdominal appearance: Obese, rounded, distended and taut Palpation firm - all quadrants Additional GI Signs/Symptoms: constipation Comments: Last BM 11/08 Stool (unmeasured): 1 (11/09/23727) Stool Amount: moderate (11/09/23727) Stool Color: light brown (11/09/23727) Stool Consistency: loose (11/09/23727) Genitourinary Assessment Within Defined Limits except for: Voiding: Urinary catheter in place Genitalia signs/symptoms: Penile edema Musculoskeletal Assessment Within Defined Limits except for: Musculoskeletal Assessment: General Mobility: Generalized weakness and moderately impaired Integumentary Assessment Within Defined Limits except for: Skin Assessment Color/Characteristics - bruised (ecchymotic) Integrity - abrasion(s) and see Avatar LDA documentation Patient Lines/Drains/Airways Status Active LDAs Name Placement date Placement time Site Days Peripheral IV 11/09/23 20 gauge;2 1/2 in length Anterior;Left Upper Arm 11/09/23 1559 -- 2 Peripheral IV 11/09/23 20 gauge Left Antecubital 11/09/23 1521 -- 2 Arterial Line Right Radial 11/10/23 2156 -- 1 Feeding Tube Post-pyloric tube in place Nostril (left) 11/10/23 1425 -- 1 Chest Tube 11/09/23 Left 11/09/23 1302 -- 2 Endotracheal Tube: oral 11/09/23 1515 -- 2 Wound 11/11/23 Penis 11/11/23 1657 Penis less than 1 Urinary Catheter Urinary Retention (Post void volume consistently greater than 350 mL) 11/05/23 1427 -- 6 Non-Tunneled CVC internal jugular vein, right Triple Lumen 11/09/23 2030 -- 2 Psychosocial Within Defined Limits * Nursing Assessment - Stefany Gray RN - 11/12/2023 4:14 AM CDT Nursing Assessment Head to Toe Head to Toe Assessment Shift Summary Pt remains intubated and sedated on propofol and fentanyl. PRN boluses needed during turns due to coughing on ventilator. PRN oxycodone given x1 for pain, moderate relief seen. NSR and hypertensive overnight with systolics 150-190. PRN Labetalol given x3 for SBP >180 with moderate response. Askew in place with AUO. No BM. Tube feeds ongoing. Pt transferred to SICU at 0730. Report given to Elza White Neurologic/Cognitive Assessment Within Defined Limits except for: Level of Consciousness: Sedated Arousal Level: Arouses to touch/gentle shaking Speech: Unable to speak, endotracheal tube Motor Response: All Extremities - purposeful/movement localizing and medically sedated HEENT Assessment Within Defined Limits except for: Nose Symptoms: Feeding Tube - left Cardiac Assessment Within Defined Limits except for: Visual And Stock Associate - bedside telemetry Lead Monitored: Lead II ECG Rhythm: normal sinus rhythm ST Segment (mm): Normal T-Wave: Normal Respiratory Assessment Within Defined Limits except for: Respiratory Assessment: Respirations: Mechanical device Mechanical Device: Continuous; Ventilator Breath Sounds Normal: Breath sounds normal: No Breath Sounds Assessment: Diminished LLL Coarse Anterior All Lobes Cough: Present Frequency: Intermittent Type: Nonproductive Sputum: Sputum is Present Amount: Small Color: Espinoza and white Consistency: Thin Comments: Chest tube L Neurovascular Assessment Within Defined Limits except for: Edema Present: Yes Generalized: 3+ Right Upper Extremity: 2+ Left Upper Extremity: 2+ Right Lower Extremity: 1+ Left Lower Extremity: 1+ Scrotal: 4+ Gastrointestinal Assessment Within Defined Limits except for: Abdominal appearance: Obese, rounded, distended and taut Palpation firm - all quadrants Bowel Sounds hypoactive - all quadrants Additional GI Signs/Symptoms: constipation Stool (unmeasured): 1 (11/09/23727) Stool Amount: moderate (11/09/23727) Stool Color: light brown (11/09/23727) Stool Consistency: loose (11/09/23727) Genitourinary Assessment Within Defined Limits except for: Voiding: Urinary catheter in place Urine characteristics: , shayan Genitalia signs/symptoms: Penile edema and meatal discharge Musculoskeletal Assessment Within Defined Limits except for: Musculoskeletal Assessment: General Mobility: Moderately impaired Integumentary Assessment Within Defined Limits except for: Skin Assessment Color/Characteristics - bruised (ecchymotic) Integrity - abrasion(s) and see Avatar LDA documentation Patient Lines/Drains/Airways Status Active LDAs Name Placement date Placement time Site Days Peripheral IV 11/09/23 20 gauge;2 1/2 in length Anterior;Left Upper Arm 11/09/23 1559 -- 2 Peripheral IV 11/09/23 20 gauge Left Antecubital 11/09/23 1521 -- 2 Arterial Line Right Radial 11/10/23 2156 -- 1 Feeding Tube Post-pyloric tube in place Nostril (left) 11/10/23 1425 -- 1 Chest Tube 11/09/23 Left 11/09/23 1302 -- 2 Endotracheal Tube: oral 11/09/23 1515 -- 2 Wound 11/11/23 Penis 11/11/23 1657 Penis less than 1 Urinary Catheter Urinary Retention (Post void volume consistently greater than 350 mL) 11/05/23 1427 -- 6 Non-Tunneled CVC internal jugular vein, right Triple Lumen 11/09/232029 -- 2 Psychosocial Assessment Within Defined Limits except for: Psychosocial Assessment: Family Behavior: not present * Nursing Assessment - Stefany Gray RN - 11/12/2023 12:03 AM CDT Nursing Assessment Head to Toe Head to Toe Assessment Shift Summary Shift Summary Neurologic/Cognitive Assessment Within Defined Limits except for: Level of Consciousness: Sedated Arousal Level: Arouses to repeated/vigorous stimulation Speech: Unable to speak, endotracheal tube Motor Response: All Extremities - purposeful/movement localizing and medically sedated HEENT Assessment Within Defined Limits except for: Nose Symptoms: Feeding Tube - left Cardiac Assessment Within Defined Limits except for: Visual And Stock Associate - bedside telemetry Lead Monitored: Lead II ECG Rhythm: normal sinus rhythm FL Interval (sec): 0.20 QRS Interval (sec): 0.10 QT Interval: 0.33 QTc Interval: 0.38 ST Segment (mm): Normal T-Wave: Normal Respiratory Assessment Within Defined Limits except for: Respiratory Assessment: Respirations: Mechanical device Mechanical Device: Continuous; Ventilator Breath Sounds Normal: Breath sounds normal: No Breath Sounds Assessment: Diminished LLL Coarse Anterior All Lobes Cough: Present Frequency: Intermittent Type: Nonproductive Sputum: Sputum is Present Amount: Small Color: Espinoza and white Consistency: Thin Comments: Chest tube L Neurovascular Assessment Within Defined Limits except for: Edema Present: Yes Generalized: 3+ Right Upper Extremity: 2+ Left Upper Extremity: 2+ Right Lower Extremity: 1+ Left Lower Extremity: 1+ Scrotal: 4+ Gastrointestinal Assessment Within Defined Limits except for: Abdominal appearance: Obese, rounded, distended and taut Palpation firm - all quadrants Bowel Sounds hypoactive - all quadrants Additional GI Signs/Symptoms: constipation Stool (unmeasured): 1 (11/09/23727) Stool Amount: moderate (11/09/23727) Stool Color: light brown (11/09/23727) Stool Consistency: loose (11/09/23727) Genitourinary Assessment Within Defined Limits except for: Voiding: Urinary catheter in place Urine characteristics: , shayan Genitalia signs/symptoms: Penile edema and meatal discharge Musculoskeletal Assessment Within Defined Limits except for: Musculoskeletal Assessment: General Mobility: Moderately impaired Integumentary Assessment Within Defined Limits except for: Skin Assessment Color/Characteristics - bruised (ecchymotic) Integrity - abrasion(s) and see Avatar LDA documentation Patient Lines/Drains/Airways Status Active LDAs Name Placement date Placement time Site Days Peripheral IV 11/09/23 20 gauge;2 1/2 in length Anterior;Left Upper Arm 11/09/23 1559 -- 2 Peripheral IV 11/09/23 20 gauge Left Antecubital 11/09/23 1521 -- 2 Arterial Line Right Radial 11/10/23 2156 -- 1 Feeding Tube Post-pyloric tube in place Nostril (left) 11/10/23 1425 -- 1 Chest Tube 11/09/23 Left 11/09/23 1302 -- 2 Endotracheal Tube: oral 11/09/23 1515 -- 2 Wound 11/11/23 Penis 11/11/23 1657 Penis less than 1 Urinary Catheter Urinary Retention (Post void volume consistently greater than 350 mL) 11/05/23 1427 -- 6 Non-Tunneled CVC internal jugular vein, right Triple Lumen 11/09/23 2030 -- 2 Psychosocial Assessment Within Defined Limits except for: Psychosocial Assessment: Family Behavior: not present * Nursing Assessment - Elza Miramontes RN - 11/11/2023 8:00 PM CDT Nursing Assessment Head to Toe Head to Toe Assessment Shift Summary Shift Summary Patient intubated and sedated. Follows commands x4, PERRL. SBP>180, Labetalol given x2 w/ adequate response. PS trial this afternoon for 2 hours. Askew w/ auop. Wound on penis from MD loretta awareand wound consulted. Plan to swap askew tomorrow when urology available if needed. Transferred to MICU 2 @ 4315, all belongings sent with. Neurologic/Cognitive Assessment Within Defined Limits except for: Cognition: poor judgement/safety awareness and poor attention/concentration Level of Consciousness: Lethargic and sedated Arousal Level: Arouses to voice Speech: Unable to speak, endotracheal tube Motor Response: All Extremities - purposeful/movement localizing Comments: FCx4, PERRL HEENT Assessment Within Defined Limits except for: Eye Symptoms: scleral edema - bilateral Nose Symptoms: Feeding Tube - left Cardiac Assessment Within Defined Limits except for: Visual And Stock Associate - bedside telemetry Lead Monitored: Lead II ECG Rhythm: normal sinus rhythm and sinus dysrhythmia ST Segment (mm): Normal T-Wave: Normal Respiratory Assessment Within Defined Limits except for: Respiratory Assessment: Respirations: Mechanical device Mechanical Device: Continuous; Ventilator Breath Sounds Normal: Breath sounds normal: No Breath Sounds Assessment: Diminished LLL Coarse Anterior All Lobes Cough: Present Sputum: Sputum is Present Amount: Small Color: Espinoza and white Consistency: Thin Comments: L chest tube Neurovascular Assessment Within Defined Limits except for: Edema Present: Yes Generalized: 3+ Scleral: 2+ Scrotal: 4+ Gastrointestinal Assessment Within Defined Limits except for: Abdominal appearance: Obese, rounded, distended and taut Palpation firm - Bowel Sounds hypoactive - all quadrants Comments: Last BM 11/08 Stool (unmeasured): 1 (11/09/23727) Stool Amount: moderate (11/09/23727) Stool Color: light brown (11/09/23727) Stool Consistency: loose (11/09/23727) Genitourinary Assessment Within Defined Limits except for: Voiding: Urinary catheter in place Genitalia signs/symptoms: Penile edema Musculoskeletal Assessment Within Defined Limits except for: Musculoskeletal Assessment: General Mobility: Generalized weakness and moderately impaired Integumentary Assessment Within Defined Limits except for: Skin Assessment Color/Characteristics - bruised (ecchymotic) Integrity - abrasion(s) and see Avatar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 7-9/10 that is adequately managedwith scheduled and prn oral medications. Edematous scrotum, elevated on cold pack. Edema in LUE extremity improved from previous night. Askew in place draining adequate amount of concentrated urine. Slept soundly between cares. Neurologic/Cognitive Within Defined Limits Frequent Neuro Assessments have been documented in the flowsheets HEENT Within Defined Limits Cardiac Within Defined Limits Respiratory Assessment Within Defined Limits except for: Respiratory Assessment: Respirations: Shallow and dyspnea on exertion; CPAP Neurovascular Assessment Within Defined Limits except for: Edema Present: Yes Left Upper Extremity: 3+ Scrotal: 4+ Gastrointestinal Within Defined Limits Stool (unmeasured): 1 (11/03/231899) Stool Amount: moderate (11/03/231899) Stool Color: light brown (11/03/231899) Stool Consistency: loose (11/03/231899) Genitourinary Assessment Within Defined Limits except for: Voiding: Urinary catheter in place Musculoskeletal Assessment Within Defined Limits except for: Musculoskeletal Assessment: General Mobility: Generalized weakness and mildly impaired Integumentary Assessment Within Defined Limits except for: Skin Assessment Integrity - see Avatar LDA documentation Patient Lines/Drains/Airways Status Active LDAs Name Placement date Placement time Site Days Peripheral IV 11/03/23 20 gauge;1 3/4 in length Anterior;Right Forearm 11/03/23 1809 -- 4 Peripheral IV 11/04/23 Anterior;Left Forearm 11/04/23 1714 -- 3 Urinary Catheter Urinary Retention (Post void volume consistently greater than 350 mL) 11/05/23 1427 -- 2 Psychosocial Within Defined Limits * Nursing Assessment - Caryn Winn RN - 11/07/2023 10:02 PM CDT Nursing Assessment Head to Toe Head to Toe Assessment Shift Summary Patient is alert and orientated x4. VSS on RA. Pain is semi-controlled with scheduled and PRN medications. 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 Patient was up to the chair for muchof the shift and walked the hallway independently with the FWW. He has generalized edema especiallyin left hand and scrotum, ice and elevation suggested. Askew patent and draining concentrated urine. Patient encouraged to drink more fluids. Patient has his home CPAP for use while sleeping. Patientis able to make his needs known. He is pleasant and compliant with cares. 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 Respiratory Assessment Within Defined Limits except for: Respiratory Assessment: Respirations: Dyspnea on exertion, shallow and shortness of breath, reported Mechanical Device: While sleeping; CPAP Cough: Present Frequency: Intermittent Type: Productive Sputum: Sputum is Present Amount: Small Neurovascular Assessment Within Defined Limits except for: Edema Present: Yes Generalized: 2+ Right Upper Extremity: 2+ Left Upper Extremity: 2+ Scrotal: 2+ Gastrointestinal Assessment Within Defined Limits except for: Abdominal appearance: Distended and obese Additional GI Signs/Symptoms: constipation and abdominal discomfort Stool (unmeasured): 1 (11/03/231899) Stool Amount: moderate (11/03/231899) Stool Color: light brown (11/03/231899) Stool Consistency: loose (11/03/231899) Genitourinary Assessment Within Defined Limits except for: Voiding: Urinary catheter in place Musculoskeletal Assessment Within Defined Limits except for: Musculoskeletal Assessment: General Mobility: Mildly impaired Comments: SBA/FWW Integumentary Assessment Within Defined Limits except for: Skin Assessment Integrity - abrasion(s) and cuts or scratches Integrity Location - LUE Patient Lines/Drains/Airways Status Active LDAs Name Placement date Placement time Site Days Peripheral IV 11/03/23 20 gauge;1 3/4 in length Anterior;Right Forearm 11/03/23 1809 -- 3 Peripheral IV 11/04/23 Anterior;Left Forearm 11/04/23 1714 -- 2 Urinary Catheter Urinary Retention (Post void volume consistently greater than 350 mL) 11/05/23 1427 -- 2 Psychosocial Within Defined Limits * Interval Note Provider - Yamilet Cheung MD - 11/07/2023 5:48 PM CDT Was called to bedside to assess patient after he was in severe pain after a walk. Went to the bedside around 1700. He was sitting in his chair, working hard to breathe. Subjective: Said the pain was slowly getting better. Objective: General: Sitting in chair with eyes closed. Appears uncomfortable Resp: Working hard to breathe on RA, having desats to mid 80s. Abd: Soft, mildly distended Plan: - Ok to give pain medication early due to recent activity - O2 as necessary for desats Yamilet Cheung MD PGY-1 General Surgery Service * Nursing Assessment - Caryn Winn RN - 11/07/2023 2:00 PM CDT Nursing Assessment Head to Toe Head to Toe Assessment Shift Summary Patient is alert and orientated x4. VSS on RA. Pain is semi-controlled with scheduled and PRN medications. 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 Patient was up to the chair for muchof the shift. He has generalized edema especially in left hand and scrotum, ice and elevation suggested. Askew patent and draining concentrated urine. Patient encouraged to drink more fluids. Patienthas his home CPAP for use while sleeping. Patient is able to make his needs known. He is pleasant and compliant with cares. 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 Respiratory Assessment Within Defined Limits except for: Respiratory Assessment: Respirations: Dyspnea on exertion, shallow and shortness of breath, reported Mechanical Device: While sleeping; CPAP Cough: Present Frequency: Intermittent Type: Productive Sputum: Sputum is Present Amount: Small Neurovascular Assessment Within Defined Limits except for: Edema Present: Yes Generalized: 2+ Right Upper Extremity: 2+ Left Upper Extremity: 2+ Scrotal: 2+ Gastrointestinal Assessment Within Defined Limits except for: Abdominal appearance: Distended and obese Additional GI Signs/Symptoms: constipation and abdominal discomfort Stool (unmeasured): 1 (11/03/231899) Stool Amount: moderate (11/03/231899) Stool Color: light brown (11/03/231899) Stool Consistency: loose (11/03/231899) Genitourinary Assessment Within Defined Limits except for: Voiding: Urinary catheter in place Musculoskeletal Assessment Within Defined Limits except for: Musculoskeletal Assessment: General Mobility: Mildly impaired Comments: SBA/FWW Integumentary Assessment Within Defined Limits except for: Skin Assessment Integrity - abrasion(s) and cuts or scratches Integrity Location - LUE Patient Lines/Drains/Airways Status Active LDAs Name Placement date Placement time Site Days Peripheral IV 11/03/23 20 gauge;1 3/4 in length Anterior;Right Forearm 11/03/23 1809 -- 3 Peripheral IV 11/04/23 Anterior;Left Forearm 11/04/23 1714 -- 2 Urinary Catheter Urinary Retention (Post void volume consistently greater than 350 mL) 11/05/23 1427 -- 1 Psychosocial Within Defined Limits * Nursing Assessment - Marlene Cerrato RN - 11/07/2023 6:53 AM CDT Nursing Assessment Head to Toe Head to Toe Assessment Shift Summary Mr. Menendez is alert and oriented x four and able to make his needs known. His vital signs are stable on room air. . He is neurologically intact and unchanging. CMS intact. He reports pain from 5-9/10that is adequately managed with scheduled and prn oral medications. Edematous scrotum, elevated on cold pack. Edema in LUE extremity. Askew in place draining adequate amount of concentrated urine. CPAP during sleep. Slept soundly between cares. Neurologic/Cognitive Within Defined Limits Frequent Neuro Assessments have been documented in the flowsheets HEENT Within Defined Limits Cardiac Within Defined Limits Respiratory Assessment Within Defined Limits except for: Respiratory Assessment: Respirations: Shallow and dyspnea on exertion; CPAP Neurovascular Assessment Within Defined Limits except for: Edema Present: Yes Left Upper Extremity: 3+ Scrotal: 4+ Gastrointestinal Within Defined Limits Stool (unmeasured): 1 (11/03/231899) Stool Amount: moderate (11/03/231899) Stool Color: light brown (11/03/231899) Stool Consistency: loose (11/03/231899) Genitourinary Assessment Within Defined Limits except for: Voiding: Urinary catheter in place Musculoskeletal Assessment Within Defined Limits except for: Musculoskeletal Assessment: General Mobility: Generalized weakness and mildly impaired Integumentary Assessment Within Defined Limits except for: Skin Assessment Integrity - see Avatar LDA documentation Patient Lines/Drains/Airways Status Active LDAs Name Placement date Placement time Site Days Peripheral IV 11/03/23 20 gauge;1 3/4 in length Anterior;Right Forearm 11/03/23 1809 -- 3 Peripheral IV 11/04/23 Anterior;Left Forearm 11/04/23 1714 -- 2 Urinary Catheter Urinary Retention (Post void volume consistently greater than 350 mL) 11/05/23 1427 -- 1 Psychosocial Within Defined Limits * Nursing Assessment - Marlene Cerrtao RN - 11/06/2023 10:33 PM CDT Nursing Assessment Head to Toe Head to Toe Assessment Shift Summary Mr. Menendez is alert and oriented x four and able to make his needs known. His vital signs are stable on room air. He is using incentive spirometer. He is neurologically intact and unchanging. CMS intact. He reports pain from 5-9/10 that is adequately managed with scheduled and prn oral medications.Edematous scrotum, elevated on cold pack. Edema in LUE extremity. Askew in place draining adequate amount of concentrated urine. Pt is most comfortable sitting up and spent the evening in the recliner. CPAP on during sleep. Neurologic/Cognitive Within Defined Limits Frequent Neuro Assessments have been documented in the flowsheets HEENT Within Defined Limits Cardiac Within Defined Limits Respiratory Assessment Within Defined Limits except for: Respiratory Assessment: Respirations: Shallow and dyspnea on exertion; CPAP Neurovascular Assessment Within Defined Limits except for: Edema Present: Yes Left Upper Extremity: 3+ Scrotal: 4+ Gastrointestinal Within Defined Limits Stool (unmeasured): 1 (11/03/231899) Stool Amount: moderate (11/03/231899) Stool Color: light brown (11/03/231899) Stool Consistency: loose (11/03/231899) Genitourinary Assessment Within Defined Limits except for: Voiding: Urinary catheter in place Musculoskeletal Assessment Within Defined Limits except for: Musculoskeletal Assessment: General Mobility: Generalized weakness and mildly impaired Integumentary Assessment Within Defined Limits except for: Skin Assessment Integrity - see Avatar LDA documentation Patient Lines/Drains/Airways Status Active LDAs Name Placement date Placement time Site Days Peripheral IV 11/03/23 20 gauge;1 3/4 in length Anterior;Right Forearm 11/03/23 1809 -- 3 Peripheral IV 11/04/23 Anterior;Left Forearm 11/04/23 1714 -- 2 Urinary Catheter Urinary Retention (Post void volume consistently greater than 350 mL) 11/05/23 1427 -- 1 Psychosocial Within Defined Limits * Nursing Assessment - Juliane Salazar RN - 11/06/2023 4:51 PM CDT Nursing Assessment Head to Toe Head to Toe Assessment Shift Summary Urinalysis collected per orders. Educated pt on ultrasound results. Superficial venous thrombosis. Applied warm compress to hand where swelling most prominent and felt by pt. Awaiting ultrasound of scrotum (edema +3) Neurologic/Cognitive Within Defined Limits HEENT Within Defined Limits Cardiac Within Defined Limits Respiratory Within defined limits Neurovascular Assessment Within Defined Limits except for: Edema Present: Yes Right Upper Extremity: 2+ Left Upper Extremity: 2+ Scrotal: 3+ Gastrointestinal Within Defined Limits Stool (unmeasured): 1 (11/03/231899) Stool Amount: moderate (11/03/231899) Stool Color: light brown (11/03/231899) Stool Consistency: loose (11/03/231899) Genitourinary Assessment Within Defined Limits except for: Voiding: Urinary catheter in place Musculoskeletal Assessment Within Defined Limits except for: Musculoskeletal Assessment: General Mobility: Mildly impaired Integumentary Assessment Within Defined Limits except for: Skin Assessment Integrity - see Avatar LDA documentation Patient Lines/Drains/Airways Status Active LDAs Name Placement date Placement time Site Days Peripheral IV 11/03/23 20 gauge;1 3/4 in length Anterior;Right Forearm 11/03/23 1809 -- 2 Peripheral IV 11/04/23 Anterior;Left Forearm 11/04/23 1714 -- 1 Urinary Catheter Urinary Retention (Post void volume consistently greater than 350 mL) 11/05/23 1427 -- 1 Psychosocial Within Defined Limits * Nursing Assessment - Juliane Salazar RN - 11/06/2023 1:01 PM CDT Nursing Assessment Head to Toe Head to Toe Assessment Shift Summary Pt A&Ox4, able to make needs known, using call light appropriately. Pleasant and cooperative with cares. PO meds whole tolerated well. Up with SBA and walker. Pain 8/10 then up to 10/10 after ambulation. MD ordered 1x .5 dilaudid and increased frequency of oxy dose. Pt L hand reportedly more swollen, MD ordered ultrasound. Askew in place, patent for retention. Urology consult placed. Scrotal edema noted, encouraged elevation. Intermittent cough, pt reported less cough today and breathing better overall, declined nebulizer treatment. Passing gas, no BM. Scattered abrasions scabs, no drainage. IS encouraged, pt reported independent use. Neurologic/Cognitive Within Defined Limits HEENT Within Defined Limits Cardiac Within Defined Limits Respiratory Assessment Within Defined Limits except for: Cough: Present Frequency: Intermittent Type: Productive Neurovascular Assessment Within Defined Limits except for: Edema Present: Yes Right Upper Extremity: 2+ Left Upper Extremity: 2+ Scrotal: 3+ Gastrointestinal Within Defined Limits Stool (unmeasured): 1 (11/03/231899) Stool Amount: moderate (11/03/231899) Stool Color: light brown (11/03/231899) Stool Consistency: loose (11/03/231899) Genitourinary Assessment Within Defined Limits except for: Voiding: Urinary catheter in place Musculoskeletal Assessment Within Defined Limits except for: Musculoskeletal Assessment: General Mobility: Mildly impaired Integumentary Assessment Within Defined Limits except for: Skin Assessment Integrity - see Avatar LDA documentation Patient Lines/Drains/Airways Status Active LDAs Name Placement date Placement time Site Days Peripheral IV 11/03/23 20 gauge;1 3/4 in length Anterior;Right Forearm 11/03/23 1809 -- 2 Peripheral IV 11/04/23 Anterior;Left Forearm 11/04/23 1714 -- 1 Urinary Catheter Urinary Retention (Post void volume consistently greater than 350 mL) 11/05/23 1427 -- less than 1 Psychosocial Within Defined Limits * Nursing Assessment - Marlene Soto RN - 11/06/2023 1:49 AM CDT Nursing Assessment Head to Toe Head to Toe Assessment Shift Summary Pt A/Ox4 and makes needs known using call light appropriately. Neuro and CMS intact. VSS on RA (andCPAP overnight) with the exception of elevated BP. Pain is moderately managed with PRN oxy and dilaudid as well as scheduled meds. Askew intact with adequate UOP. No BM this shift. Pt was NPO for majority of day for MRI which was finally completed around 2329. Pt ambulating independently/with SBA but reports more difficulty with mobility today since having the epidural removed. Pt endorses SOB with movement d/t shallow breathing from the pain. Pt appeared to be sleeping well throughout the night. Will continue to monitor and follow POC. Neurologic/Cognitive Within Defined Limits HEENT Within Defined Limits Cardiac Within Defined Limits Respiratory Within defined limits Respiratory Assessment: Respirations: Shallow and tachypnea Mechanical Device: While sleeping; CPAP Neurovascular Within Defined Limits Gastrointestinal Within Defined Limits Stool (unmeasured): 1 (11/03/231899) Stool Amount: moderate (11/03/231899) Stool Color: light brown (11/03/231899) Stool Consistency: loose (11/03/231899) Genitourinary Within Defined Limits Voiding: Urinary catheter in place Musculoskeletal Within Defined Limits Musculoskeletal Assessment: General Mobility: Mildly impaired Range of Motion: LUE - mildly impaired Integumentary Within Defined Limits Skin Assessment Integrity - abrasion(s) Integrity Location - L arm Patient Lines/Drains/Airways Status Active LDAs Name Placement date Placement time Site Days Peripheral IV 11/03/23 20 gauge;1 3/4 in length Anterior;Right Forearm 11/03/23 1809 -- 2 Peripheral IV 11/04/23 Anterior;Left Forearm 11/04/23 1714 -- 1 Urinary Catheter Urinary Retention (Post void volume consistently greater than 350 mL) 11/05/23 1427 -- less than 1 Psychosocial Within Defined Limits * Nursing Assessment - Caryn Winn RN - 11/05/2023 6:09 PM CDT Nursing Assessment Head to Toe Head to Toe Assessment Shift Summary Patient is alert and orientated x4. VSS on RA. Continuous epidural removed by provider. Pain is better controlled. 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 Patient was up to the chair for much of the shift. He says that his SOB and dyspnea is lessened when he is sitting up. He has generalized edema and says that he feels swollen which is making it more difficult to breath, team is aware. Askew was placed as straight caths were needed for PVR volumes. Patient has his home CPAP foruse while sleeping. is at bedside and is attentive to the patient. Patient is able to make hisneeds known. He is pleasant and compliant with cares. 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 Respiratory Assessment Within Defined Limits except for: Respiratory Assessment: Respirations: Dyspnea on exertion, shallow and shortness of breath, reported Mechanical Device: While sleeping; CPAP Cough: Present Frequency: Intermittent Type: Productive Sputum: Sputum is Present Amount: Small Neurovascular Assessment Within Defined Limits except for: Edema Present: Yes Generalized: 2+ Gastrointestinal Within Defined Limits Stool (unmeasured): 1 (11/03/231899) Stool Amount: moderate (11/03/231899) Stool Color: light brown (11/03/231899) Stool Consistency: loose (11/03/231899) Genitourinary Assessment Within Defined Limits except for: Voiding: Urinary catheter in place Musculoskeletal Assessment Within Defined Limits except for: Musculoskeletal Assessment: General Mobility: Moderately impaired Integumentary Assessment Within Defined Limits except for: Skin Assessment Integrity - abrasion(s) and cuts or scratches Integrity Location - LUE Patient Lines/Drains/Airways Status Active LDAs Name Placement date Placement time Site Days Peripheral IV 11/03/23 20 gauge;1 3/4 in length Anterior;Right Forearm 11/03/23 1809 -- 1 Peripheral IV 11/04/23 Anterior;Left Forearm 11/04/23 1714 -- less than 1 Urinary Catheter Urinary Retention (Post void volume consistently greater than 350 mL) 11/05/23 1427 -- less than 1 Psychosocial Within Defined Limits * Nursing Assessment - Caryn Winn RN - 11/05/2023 2:27 PM CDT Nursing Assessment Head to Toe Head to Toe Assessment Shift Summary Patient is alert and orientated x4. VSS on RA. Continuous epidural removed by provider. Pain is notwell controlled, team notified, and new orders placed. As the shift progressed, pain became a bit more controlled. Patient has been NPO since 09 for abdominal MRI at 1700. Patient is a SBA with theuse of a FWW when ambulating. Patient was up to the chair for much of the shift. He says that his SOB and dyspnea is lessened when he is sitting up. He has generalized edema and says that he feels swollen which is making it more difficult to breath, team is aware, new medication order placed. Patient has been needing intermittent straight caths due to retention, Askew.. is at bedside and is attentive to the patient. Patient is able to make his needs known. He is pleasant and compliant withcares. 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 Respiratory Assessment Within Defined Limits except for: Respiratory Assessment: Respirations: Dyspnea on exertion, shallow and shortness of breath, reported Mechanical Device: Continuous Cough: Present Frequency: Intermittent Type: Productive Sputum: Sputum is Present Amount: Small Neurovascular Assessment Within Defined Limits except for: Edema Present: Yes Generalized: 2+ Gastrointestinal Within Defined Limits Stool (unmeasured): 1 (11/03/231899) Stool Amount: moderate (11/03/231899) Stool Color: light brown (11/03/231899) Stool Consistency: loose (11/03/231899) Genitourinary Assessment Within Defined Limits except for: Voiding: Intermittent straight cath and voiding without difficulty Comments: Urine retention needing intermittent straight caths Musculoskeletal Assessment Within Defined Limits except for: Musculoskeletal Assessment: General Mobility: Moderately impaired Integumentary Assessment Within Defined Limits except for: Skin Assessment Integrity - abrasion(s) and cuts or scratches Integrity Location - LUE Patient Lines/Drains/Airways Status Active LDAs Name Placement date Placement time Site Days Peripheral IV 11/03/23 20 gauge;1 3/4 in length Anterior;Right Forearm 11/03/23 1809 -- 1 Peripheral IV 11/04/23 Anterior;Left Forearm 11/04/23 1714 -- less than 1 Psychosocial Within Defined Limits * Nursing Assessment - Lori Han RN - 11/05/2023 1:17 AM CDT Nursing Assessment Head to Toe Head to Toe Assessment Shift Summary Pt A&O SBA, needs help managing IV pole. Can make needs known, appropriatly asks for PRN pain medications. Rates Pain 8/10 with some relief with PRNs. Epidural in place. 0400: straight cathed 500 mL MRI called, plan to make pt NPO after lunch and have MRI in the evening. Lori Han RN, 11/05/2023 5:10 AM Neurologic/Cognitive Within Defined Limits HEENT Assessment Within Defined Limits except for: Ear Symptoms: hearing decreased - bilateral Cardiac Within Defined Limits Comments: Tele removed, no active orders Respiratory Assessment Within Defined Limits except for: Respiratory Assessment: Respirations: Dyspnea on exertion and dyspneic; CPAP Comments: [place] Neurovascular Assessment Within Defined Limits except for: Edema Present: Yes Generalized: 3+ Gastrointestinal Assessment Within Defined Limits except for: Abdominal appearance: Obese and rounded Stool (unmeasured): 1 (11/03/231899) Stool Amount: moderate (11/03/231899) Stool Color: light brown (11/03/231899) Stool Consistency: loose (11/03/23 1900) Genitourinary Assessment Within Defined Limits except for: Voiding: Hesitancy and intermittent straight cath Genitalia signs/symptoms: Penile edema Musculoskeletal Assessment Within Defined Limits except for: Musculoskeletal Assessment: General Mobility: Generalized weakness and mildly impaired Range of Motion: General - mildly impaired Integumentary Assessment Within Defined Limits except for: Skin Assessment Color/Characteristics - bruised (ecchymotic) Integrity - see Avatar LDA documentation, abrasion(s) and cuts or scratches Comments: Epidural in place Patient Lines/Drains/Airways Status Active LDAs Name Placement date Placement time Site Days Peripheral IV 11/03/23 20 gauge;1 3/4 in length Anterior;Right Forearm 11/03/23 1809 -- 1 Peripheral IV 11/04/23 Anterior;Left Forearm 11/04/23 1714 -- less than 1 Psychosocial Within Defined Limits Psychosocial Assessment: Family Behavior: at bedside and attentive to patient * Nursing Assessment - Caryn Winn RN - 11/04/2023 6:00 PM CDT Nursing Assessment Head to Toe Head to Toe Assessment Shift Summary Patient is alert and orientated x4. VSS on 1 L NC. Patient's pain is better controlled with PRN medications and continuous epidural increased. Patient had a chest tube on the left that was removed bythe provider. 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 Patient was up to the chair for much of the shift. He says that his SOB and dyspnea is lessened when he is sitting up. Patient's was visiting for a portion of the shift and was helpful to the patient. Patient is able to makehis needs known. He is pleasant and compliant with cares. 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 Respiratory Assessment Within Defined Limits except for: Respiratory Assessment: Respirations: Dyspnea on exertion, shallow and shortness of breath, reported Mechanical Device: Continuous Cough: Present Frequency: Intermittent Type: Productive Sputum: Sputum is Present Amount: Small Comments: 1 L NC, chest tube removed Neurovascular Within Defined Limits Gastrointestinal Assessment Within Defined Limits except for: Additional GI Signs/Symptoms: diarrhea Comments: Refused bowel meds Stool (unmeasured): 1 (11/03/231899) Stool Amount: moderate (11/03/231899) Stool Color: light brown (11/03/231899) Stool Consistency: loose (11/03/231899) Genitourinary Within Defined Limits Musculoskeletal Assessment Within Defined Limits except for: Musculoskeletal Assessment: General Mobility: Moderately impaired Integumentary Assessment Within Defined Limits except for: Skin Assessment Integrity - abrasion(s) and cuts or scratches Integrity Location - LUE Patient Lines/Drains/Airways Status Active LDAs Name Placement date Placement time Site Days Peripheral IV 11/02/23 20 gauge;2 1/2 in length Anterior;Right Upper Arm 11/02/23 1605 -- 1 Peripheral IV 11/03/23 20 gauge;1 3/4 in length Anterior;Right Forearm 11/03/23 1809 -- less than 1 Psychosocial Within Defined Limits * Nursing Assessment - Caryn Winn RN - 11/04/2023 1:29 PM CDT Nursing Assessment Head to Toe Head to Toe Assessment Shift Summary Patient is alert and orientated x4. VSS on 1 L NC. Patient's pain is semi- controlled with PRN medications, DIPPER AND BAKER discontinued, and continuous epidural increased. Patient had a chest tube on the left that was removed by the provider. 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 Patient was up to the chair for much of the shift. He says that his SOB and dyspnea is lessened when he is sitting up. Askew was removed at 1045. Patient is able to make his needs known. He is pleasant and compliant with cares. 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 Respiratory Assessment Within Defined Limits except for: Respiratory Assessment: Respirations: Dyspnea on exertion, shallow and shortness of breath, reported Mechanical Device: Continuous Cough: Present Frequency: Intermittent Type: Productive Sputum: Sputum is Present Amount: Small Comments: 1 L NC, chest tube removed Neurovascular Within Defined Limits Gastrointestinal Assessment Within Defined Limits except for: Additional GI Signs/Symptoms: diarrhea Comments: Refused bowel meds Stool (unmeasured): 1 (11/03/231899) Stool Amount: moderate (11/03/231899) Stool Color: light brown (11/03/231899) Stool Consistency: loose (11/03/231899) Genitourinary Within Defined Limits Comments: Askew removed at 1045 Musculoskeletal Assessment Within Defined Limits except for: Musculoskeletal Assessment: General Mobility: Moderately impaired Integumentary Assessment Within Defined Limits except for: Skin Assessment Integrity - abrasion(s) and cuts or scratches Integrity Location - LUE Patient Lines/Drains/Airways Status Active LDAs Name Placement date Placement time Site Days Peripheral IV 11/02/23 20 gauge;2 1/2 in length Anterior;Right Upper Arm 11/02/23 1605 -- 1 Peripheral IV 11/03/23 20 gauge;1 3/4 in length Anterior;Right Forearm 11/03/23 1809 -- less than 1 Chest Tube Left lateral 10/31/23 -- -- 4 Urinary Catheter Urinary retention (PVR consistent >350ml) 10/31/23 1700 -- 3 Psychosocial Within Defined Limits * Interval Note Provider - Felipe Snowden MS - 11/04/2023 12:49 PM CDT Chest Tube Removal Left Chest Tube dressing removed and sutures removed. Chest Tube removed on breath hold. Chest tubeintact. No acute distress. Sats WNL on RA. Pt denies acute CP or SOB. Occlusive dressing applied, to remain intact for 72 hours. Repeat chest XR ordered at 1700. Felipe Snowden MS, 11/04/2023 12:50 PM [facility] * Discharge non-MD/non-VANI Summaries - Jimenez Martinez - 11/04/2023 12:43 PM CDT Summary: DC Home Care Coordination Discharge Note Expected DC Date: 11/06/2023 Expected DC Time: TBD Final Discharge Destination: HOME Address and demographics confirmed. [facility] P: [phone], F: [phone] Patient may need to DC home this wknd with oxygen. DME orders written. Message sent to Wally/Cortney via Kindful. Pending response. Summary: Patient is NOT medically ready to DC home. Patient will need to have chest tube out and pain controlled before being medically ready to DC. * Provider Note - Charmaine Anen APRN, CNP - 11/04/2023 11:29 AM CDT SURGERY PROVIDER NOTE Oxygen Use Justification I certify that this patient, Leo Menendez has been under my care and that I, or a nurse practitioner or physician's press assistant working with me had a [id number] encounter that meets [id number] encounter requirements with this patient on 11/04/2023. Leo Menendez is now in a chronic stable state and continues to require supplemental oxygen due tocontinued oxygen desaturation. This patient has been treated in part or in whole for the following medical condition(s) requiring home oxygen: posterior left 1-7 and anterolateral left 2- 6 rib fractures with hemopneumothorax . Treatments tried and failed or ruled out to treat hypoxemia include: weaning supplemental oxygen, nebulizer and IS. All of the following questions need to be answered with an explanation to qualify the patient for supplemental oxygen 1. The patient has a severe lung disease or hypoxia-related symptoms that might be expected to improve with oxygen therapy? Yes 2. The qualifying blood gas or arterial saturation was obtained under the following conditions: Inpatient stay within two days of discharge. 3. The patient will require oxygen under the following conditions? Continuous Oxygen saturation testing for continuous oxygen use performed while resting. Oxygen saturation at rest on room air %: 88 (must be 88% or below to qualify for home oxygen therapy) Portable oxygen concentrator (POC) is needed for activities inside and outside the home. POC will be adjusted to ensure oxygen saturation of at least 92% during six minute walk test. 4. Was the patient prescribed more than 4 LPM? No 5. The patient is mobile in his own home. Charmaine Anne APRN, CNP, 11/04/2023 11:29 AM [facility]- Trauma/General Surgery Pager: via telemediq Electronically signed by Charmaine Anne, HEAD STOCK TRANSFER CLERK, AFTER SCHOOL CAREGIVER at 11/04/2023 11:30 AM CDT * Discharge non-MD/non-VANI Summaries - Annelise Tyler, OTR/L - 11/04/2023 9:54 AM CDT [facility] Occupational Therapy Discharge Summary Leo Menendez 11/04/2023 OT Discharge Recommendations Discharge Recommendations: If supervision/assistance is available, safe to discharge to home/community/prior residence. Barriers to Discharge (OT): None - Patient is safe to DC from OT standpoint. Post Discharge Follow-up: No OT follow-up needs after discharge Supervision / Assistance Recommended (for home DC): Supervision / Assistance recommended for Home DC (OT): Yes Physical assistance recommended for (OT): IADL's;Lower body dressing;Bathing Anticipated duration of physical assistance (OT): * (as ROM improves in L side 2/2 ribs) Equipment Recommended: None - Pt has all equipment needed Plan: DC Inpatient OT as patient has met OT goals and no further inpatient OT services are indicated. Patient Name: Leo Menendez MR#: [id number] Date of : 1960 Age: 63 y.o. Hospital Admit date: 10/31/2023 Restrictions / Precautions at Discharge: Activity Level: Up with Assist (11/04/23 0900) Spinal Precautions: C.T. and L.Spines Clear (11/04/23 0900) Current Medical History / Hospital Course: See MD DC summary for details. Patient Active Problem List Diagnosis Multiple trauma to chest, initial encounter Past Medical History: No past medical history on file. 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[employer]) (11/03/23 1000) Transportation: at baseline patient: pt drives (11/03/23999) Mobility equipment currently available/used: none (11/03/23 1000) ADL Equipment currently available/used: none (11/03/23999) Prior Level of Function (FATS AND OILS LOADER): ADLs/IADLs: No assistance required (Independent or modified independent) (11/03/23 1000) Functional Mobility: Independent without assistive device (11/03/23 1000) Functional Status at Discharge: Activities of Daily Living Eating: Modified independence (11/04/23899) Toileting: Moderate assist (50% patient effort) (11/03/23 1000) Toileting Comments: edu on bottom cristine and where to purchase for asst with wiping after BM (11/04/23899) Upper Body Dressing: Maximal assist (25% patient effort) (11/03/23 1000) Upper Body Dressing Comments: can't raise arms above head (11/03/23999) Lower Body Dressing: Dependent (less than 25% patient effort) (11/04/23899) Lower Body Dressing Comments: will have asst at home; also has radiology aide that he can use. plans to wear slip on shoes (11/04/23899) Lower Body Dressing Techniques & Equipment: Patient Ed (11/04/23899) Functional Mobility Sit to/from Stand : Modified independence (11/04/23899) Sit to/from Stand - Method: From standard seat height;w/ Assistive device (FWW) (11/04/23899) Bed to/from Chair: Supervision/Stand by assist (11/03/23999) Bed to Bathroom: Modified independence (asst for lines) (11/04/23899) Bed to Bathroom- Method: Front wheeled walker (11/04/23899) Functional Mobility in Room- Task Done: ambulated lap in unit (11/04/23899) Functional Mobility in Room: Modified independence (asst for lines) (11/04/23899) Functional Mobility in Room- Method: Front wheeled walker (11/04/23899) Cognition Mental Status: Alert;Oriented x 3;Cooperative (11/04/23899) Delirium Assessment: Delirium Assessment - CAM Short (Confusion Assessment Method) Acute onset OR fluctuating course: No (11/04/23899) CAM result: Negative (11/04/23 09) See Care Plan for progress towards goals. Occupational Therapist: G[facility] Solares/[facility] OT Department * Nursing Assessment - La Hernandez RN - 11/04/2023 3:22 AM CDT Nursing Assessment Head to Toe Head to Toe Assessment Shift Summary Shift Summary 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 Respiratory Assessment Within Defined Limits except for: Respiratory Assessment: Respirations: Dyspnea on exertion, shallow and shortness of breath, reported; CPAP Cough: Present Frequency: Intermittent Type: Productive Comments: 2L NC while awake, CPAP at night. Chest tube to water seal. Neurovascular Within Defined Limits Gastrointestinal Assessment Within Defined Limits except for: Additional GI Signs/Symptoms: diarrhea Stool (unmeasured): 1 (11/03/231899) Stool Amount: moderate (11/03/231899) Stool Color: light brown (11/03/231899) Stool Consistency: loose (11/03/231899) Genitourinary Assessment Within Defined Limits except for: Voiding: Urinary catheter in place Musculoskeletal Assessment Within Defined Limits except for: Musculoskeletal Assessment: General Mobility: Moderately impaired Integumentary Assessment Within Defined Limits except for: Skin Assessment Integrity - abrasion(s) Integrity Location - LUE Patient Lines/Drains/Airways Status Active LDAs Name Placement date Placement time Site Days Peripheral IV 11/02/23 20 gauge;2 1/2 in length Anterior;Right Upper Arm 11/02/23 1605 -- 1 Peripheral IV 11/03/23 20 gauge;1 3/4 in length Anterior;Right Forearm 11/03/23 1809 -- less than 1 Chest Tube Left lateral 10/31/23 -- -- 4 Urinary Catheter Urinary retention (PVR consistent >350ml) 10/31/23 1700 -- 3 Psychosocial Within Defined Limits * Nursing Assessment - Joe Junior RN - 11/03/2023 4:31 PM CDT Nursing Assessment Head to Toe Head to Toe Assessment Shift Summary Pt. A/O x4 and Pain is well controlled with current meds. Up in chair most of the day and pt becamehypotensive and somnolent after walking to bathroom and paged primary team and anesthesia. Patient is lethargic but alert and oriented.Primary team and anesthesia at bedside and STAT EKG, chest-xray and fluid bolus ordered as well as epidural rate low to 4cc/hr. BP slight improved after administering fluids and albumin.Will continue to monitor. Neurologic/Cognitive Within Defined Limits HEENT Within Defined Limits Cardiac Assessment Within Defined Limits except for: Visual And Stock Associate - remote telemetry Pacemaker: Pacemaker: No Respiratory Assessment Within Defined Limits except for: Respiratory Assessment: Respirations: Dyspnea on exertion Mechanical Device: While sleeping; CPAP Breath Sounds Normal: Breath sounds normal: No Breath Sounds Assessment: Diminished Lateral LLL and SARA Cough: Present Frequency: Intermittent Type: Productive Sputum: Sputum is Present Amount: Small Color: Espinoza Consistency: Thick Neurovascular Within Defined Limits Gastrointestinal Within Defined Limits Genitourinary Assessment Within Defined Limits except for: Voiding: Urinary catheter in place Musculoskeletal Assessment Within Defined Limits except for: Musculoskeletal Assessment: General Mobility: Generalized weakness Integumentary Assessment Within Defined Limits except for: Skin Assessment Color/Characteristics - bruised (ecchymotic) Color/Characteristics Location - LUE Integrity - abrasion(s) Integrity Location - Left forearm and Left hand Patient Lines/Drains/Airways Status Active LDAs Name Placement date Placement time Site Days Peripheral IV 11/02/23 20 gauge;2 1/2 in length Anterior;Right Upper Arm 11/02/23 1605 -- 1 Chest Tube Left lateral 10/31/23 -- -- 3 Urinary Catheter Urinary retention (PVR consistent >350ml) 10/31/23 1700 -- 2 Psychosocial Within Defined Limits * Interval Note Provider - Leatha Louise MD - 11/03/2023 3:51 PM CDT Patient with new hypotension and dizziness when trying to sit up. Patient alert and responsive and no complaints at this time. Anesthesia seen and adjusted rate of epidural. Plan for 1L NS and albumin bolus. EKG, CXR, CBC, BMP, VBG Frequent vitals. Leatha Louise MD, 11/03/2023 3:53 PM * Nursing Assessment - Joe Junior RN - 11/03/2023 10:23 AM CDT Nursing Assessment Head to Toe Head to Toe Assessment Shift Summary Pt is A&OX4 and can make needs known. Neuro and CMS intact and denied numbness and tingling. C/o ribs pain 10/10 and prn clinical bolus 0.5mg given and increased ropivacaine dose from 6 to 8 ml/hr by anesthesiologist, pt reports partial pain relief after prn dose.Chest tube to suctions water seal per order and reports mild SOB with activity and saturating well on 2L via NC and using IS with encouragement. Chest tube site dressing is C/D/I. Up in chair most of the day. Askew is patent with adequately urine output and no BM yet but passing gas. Eating and drinking adequately. Vital sign WNL. Will continue to monitor. Neurologic/Cognitive Within Defined Limits HEENT Within Defined Limits Cardiac Assessment Within Defined Limits except for: Visual And Stock Associate - remote telemetry Pacemaker: Pacemaker: No Respiratory Assessment Within Defined Limits except for: Respiratory Assessment: Respirations: Dyspnea on exertion Mechanical Device: While sleeping; CPAP Breath Sounds Normal: Breath sounds normal: No Breath Sounds Assessment: Diminished Lateral LLL and SARA Cough: Present Frequency: Intermittent Type: Productive Sputum: Sputum is Present Amount: Small Color: Espinoza Consistency: Thick Neurovascular Within Defined Limits Gastrointestinal Within Defined Limits Genitourinary Assessment Within Defined Limits except for: Voiding: Urinary catheter in place Musculoskeletal Assessment Within Defined Limits except for: Musculoskeletal Assessment: General Mobility: Generalized weakness Integumentary Assessment Within Defined Limits except for: Skin Assessment Color/Characteristics - bruised (ecchymotic) Color/Characteristics Location - LUE Integrity - abrasion(s) Integrity Location - Left forearm and Left hand Patient Lines/Drains/Airways Status Active LDAs Name Placement date Placement time Site Days Peripheral IV 10/31/23 18 gauge Left Antecubital 10/31/23 -- -- 3 Peripheral IV 11/02/23 20 gauge Anterior;Left Forearm 11/02/23 1542 -- less than 1 Peripheral IV 11/02/23 20 gauge;2 1/2 in length Anterior;Right Upper Arm 11/02/23 1605 -- less than1 Chest Tube Left lateral 10/31/23 -- -- 3 Urinary Catheter Urinary retention (PVR consistent >350ml) 10/31/23 1700 -- 2 Psychosocial Within Defined Limits * Nursing Assessment - La Hernandez RN - 11/03/2023 12:18 AM CDT Nursing Assessment Head to Toe Head to Toe Assessment Shift Summary Pt making needs known, call light within reach. NAEO. 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 Respiratory Assessment Within Defined Limits except for: Respiratory Assessment: Respirations: Dyspnea on exertion, shallow and shortness of breath, reported; CPAP Cough: Present Frequency: Intermittent Type: Productive Comments: 2L NC while awake, CPAP at night Neurovascular Within Defined Limits Gastrointestinal Assessment Within Defined Limits except for: Additional GI Signs/Symptoms: constipation Genitourinary Assessment Within Defined Limits except for: Voiding: Urinary catheter in place Musculoskeletal Assessment Within Defined Limits except for: Musculoskeletal Assessment: General Mobility: Moderately impaired Integumentary Assessment Within Defined Limits except for: Skin Assessment Integrity - abrasion(s) Integrity Location - LUE Patient Lines/Drains/Airways Status Active LDAs Name Placement date Placement time Site Days Peripheral IV 10/31/23 18 gauge Right Antecubital 10/31/23 -- -- 3 Peripheral IV 10/31/23 18 gauge Left Antecubital 10/31/23 -- -- 3 Peripheral IV 10/31/23 18 gauge Posterior;Right Hand 10/31/23 1530 -- 2 Peripheral IV 11/02/23 20 gauge Anterior;Left Forearm 11/02/23 1542 -- less than 1 Peripheral IV 11/02/23 20 gauge;2 1/2 in length Anterior;Right Upper Arm 11/02/23 1605 -- less than1 Chest Tube Left lateral 10/31/23 -- -- 3 Urinary Catheter Urinary retention (PVR consistent >350ml) 10/31/23 1700 -- 2 Psychosocial Within Defined Limits Psychosocial Assessment: Family Behavior: at bedside, attentive to patient and participating in care * Nursing Assessment - Joe Junior RN - 11/02/2023 6:16 PM CDT Nursing Assessment Head to Toe Head to Toe Assessment Shift Summary Pt is A&OX4 and can make needs known. Neuro and CMS intact and denied numbness and tingling. Pain is well controlled with current pain medications( CADD and ropivacaine). Chest tube to suctions-20 and no output and reports mild SOB with activity and saturating well on 2L via NC, Dressing is C/D/I. Askew is patent with adequately urine output. Vital sign WNL. Will continue to monitor. Neurologic/Cognitive Within Defined Limits HEENT Within Defined Limits Cardiac Assessment Within Defined Limits except for: Visual And Stock Associate - remote telemetry Pacemaker: Pacemaker: No Respiratory Assessment Within Defined Limits except for: Respiratory Assessment: Respirations: Dyspnea on exertion Mechanical Device: While sleeping; CPAP Breath Sounds Normal: Breath sounds normal: No Breath Sounds Assessment: Diminished Lateral LLL and SARA Cough: Present Frequency: Intermittent Type: Productive Sputum: Sputum is Present Amount: Small Color: Espinoza Consistency: Thick Neurovascular Within Defined Limits Gastrointestinal Within Defined Limits Genitourinary Assessment Within Defined Limits except for: Voiding: Urinary catheter in place Musculoskeletal Assessment Within Defined Limits except for: Musculoskeletal Assessment: General Mobility: Generalized weakness Integumentary Assessment Within Defined Limits except for: Skin Assessment Color/Characteristics - bruised (ecchymotic) Color/Characteristics Location - LUE Integrity - abrasion(s) Integrity Location - Left forearm and Left hand Patient Lines/Drains/Airways Status Active LDAs Name Placement date Placement time Site Days Peripheral IV 10/31/23 18 gauge Right Antecubital 10/31/23 -- -- 2 Peripheral IV 10/31/23 18 gauge Left Antecubital 10/31/23 -- -- 2 Peripheral IV 10/31/23 18 gauge Posterior;Right Hand 10/31/23 1530 -- 2 Peripheral IV 11/02/23 20 gauge Anterior;Left Forearm 11/02/23 1542 -- less than 1 Peripheral IV 11/02/23 20 gauge;2 1/2 in length Anterior;Right Upper Arm 11/02/23 1605 -- less than1 Chest Tube Left lateral 10/31/23 -- -- 2 Urinary Catheter Urinary retention (PVR consistent >350ml) 10/31/23 1700 -- 2 Psychosocial Within Defined Limits * Transfer - Joe Junior RN - 11/02/2023 6:04 PM CDT Images from the original note were not included. TRANSFER IN NOTE D: Patient transferred in to [facility] from SICU at 1750. Patient condition on arrival: stable Patient Belonging 11/01/2023 1800 Items Needing Securement: -- Family took pt wallet home. Cell phone at pt bedside. Amount: -- family took home Type: -- family took home Quantity: -- cell phone in pt room A: Settled patient in to new room: oriented to room, VS done, and assessment done. Property sheet checked in by: [facility]. Orders needing update, team notified. R: pt.is resting conferrable in bed and family at bedside P: Commence with cares per Care Plan and orders. Upon transfer, a Four Eyes Skin Inspection was completed with Willard CARRASCO (Name & Title). Skin injuries were present, and skin breakdown needing further assessment will be added to Avatar. Will implement interventions from Skin INJURY Bundle as appropriate. * Nursing Assessment - Jose Enirque Fatima RN - 11/02/2023 12:00 PM CDT Nursing Assessment Head to Toe Head to Toe Assessment Shift Summary Pt is AOX4. Follows commands and moves all extremities. Breathing is regular and non labored at rest. SOB with exertion. Saturating > 92%. Pt on oxygen 2 liter NC, but at night CPAP on 35% FiO2. Left chest tube continues to suction.Dressing is C/D/I. Dilaudid DIPPER AND BAKER for pain. Neurologic/Cognitive Within Defined Limits HEENT Within Defined Limits Cardiac Assessment Within Defined Limits except for: Visual And Stock Associate - bedside telemetry ECG Rhythm: normal sinus rhythm ST Segment (mm): Normal T-Wave: Normal Pacemaker: Pacemaker: No Respiratory Assessment Within Defined Limits except for: Respiratory Assessment: Respirations: Dyspnea on exertion Mechanical Device: While sleeping; CPAP Breath Sounds Normal: Breath sounds normal: No Breath Sounds Assessment: Diminished Lateral LLL and SARA Cough: Present Frequency: Intermittent Type: Productive Sputum: Sputum is Present Amount: Small Color: Espinoza Consistency: Thick Neurovascular Within Defined Limits Gastrointestinal Within Defined Limits Genitourinary Assessment Within Defined Limits except for: Voiding: Urinary catheter in place Musculoskeletal Assessment Within Defined Limits except for: Musculoskeletal Assessment: General Mobility: Generalized weakness Integumentary Assessment Within Defined Limits except for: Skin Assessment Color/Characteristics - bruised (ecchymotic) Color/Characteristics Location - LUE Integrity - abrasion(s) Integrity Location - Left forearm and Left hand Patient Lines/Drains/Airways Status Active LDAs Name Placement date Placement time Site Days Peripheral IV 10/31/23 18 gauge Right Antecubital 10/31/23 -- -- 2 Peripheral IV 10/31/23 18 gauge Left Antecubital 10/31/23 -- -- 2 Peripheral IV 10/31/23 18 gauge Posterior;Right Hand 10/31/23 1530 -- 1 Chest Tube Left lateral 10/31/23 -- -- 2 Urinary Catheter Urinary retention (PVR consistent >350ml) 10/31/23 1700 -- 1 Psychosocial Within Defined Limits * Nursing Assessment - Jose Enrique Fatima RN - 11/02/2023 8:15 AM CDT Nursing Assessment Head to Toe Head to Toe Assessment Shift Summary Pt is AOX4. Follows commands and moves all extremities. Breathing is regular and non labored at rest. SOB with exertion. Saturating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 PM CDT POC GLUCOSE Routine 11/03/2023 9:22 PM CDT POC GLUCOSE Routine 11/03/2023 4:45 PM CDT XR CHEST 1 VIEW AP OR PA* Today 11/03/2023 4:30 PM CDT EKG ADULT (12-LEAD) STAT 11/03/2023 3 :59 PM CDT POC GLUCOSE Routine 11/03/2023 11:10 AM CDT POTASSIUM Routine 11/03/2023 9:16 AM CDT POC GLUCOSE Routine 11/03/2023 7:50 AM CDT XR CHEST 1 VIEW AP OR PA* Routine 11/03/2023 7:00 AM CDT CPAP Routine 11/03/2023 5:30 AM CDT PC LAB CBC W/DIFF & PLT Routine 11/03/2023 5:09 AM CDT PHOSPHORUS Routine 11/03/2023 5:09 AM CDT PANEL BASIC METABOLIC (BMP) Routine 11/03/2023 5:09 AM CDT MAGNESIUM Routine 11/03/2023 5:09 AM CDT POC GLUCOSE Routine 11/02/2023 8:41 PM CDT POC GLUCOSE Routine 11/02/2023 5:42 PM CDT EPIDURAL LUMBAR INJECTION Urgent (< 48 hrs) 11/02/2023 12:15 PM CDT Rib fracture POC GLUCOSE Routine 11/02/2023 11:56 AM CDT POC GLUCOSE Routine 11/02/2023 7:24 AM CDT PC MAGNESIUM, SERUM Routine 11/02/2023 7 :20 AM CDT PC PHOSPHORUS INORGANIC(PHOSPHATE) Routine 11/02/2023 7:20 AM CDT PC LAB CBC/PLT Routine 11/02/2023 7:20 AM CDT PC BASIC MET PANEL Routine 11/02/2023 7: 20 AM CDT PC LAB MB MRSA SURVEILLANCE SCREEN Routine 11/02/2023 5:51 AM CDT CPAP Routine 11/02/2023 5:30 AM CDT XR CHEST 1 VIEW AP OR PA* Routine 11/02/2023 4:57 AM CDT POC GLUCOSE Routine 11/01/2023 8:12 PM CDT ULT VENOUS LOWER EXT BILAT Routine 11/01/2023 7:07 PM CDT POC GLUCOSE Routine 11/01/2023 4:49 PM CDT POC GLUCOSE Routine 11/01/2023 3:27 PM CDT POC GLUCOSE Routine 11/01/2023 11:[address] RECONSTRUCT MULTIPLANAR-3D Routine 11/01/2023 6:12 AM CDT POC GLUCOSE Routine 11/01/2023 6:09 AM CDT PC MAGNESIUM, SERUM Routine 11/01/2023 5 :49 AM CDT PC PHOSPHORUS INORGANIC(PHOSPHATE) Routine 11/01/2023 5:49 AM CDT TC LAB BLOOD DRAW BY VENIPUNCTURE Routine 11/01/2023 5:49 AM CDT PC LACTATE (LACTIC ACID) STAT 11/01/2023 5:49 AM CDT PC LAB CBC/PLT Routine 11/01/2023 5:48 AM CDT CPAP Routine 11/01/2023 5:30 AM CDT XR CHEST 1 VIEW AP OR PA* Routine 11/01/2023 3:12 AM CDT POC GLUCOSE Routine 11/01/2023 12:10 AM CDT CPAP Routine 10/31/2023 6:10 PM CDT POC GLUCOSE Routine 10/31/2023 5:58 PM CDT PC TROPONIN QUANTITATIVE Timed 10/31/2023 5:42 PM CDT PROTHROMBIN (PT) & INR STAT 10/31/2023 5:42 PM CDT PHOSPHORUS STAT 10/31/2023 5:42 PM CDT PANEL BASIC METABOLIC (BMP) STAT 10/31/2023 5:42 PM CDT MAGNESIUM STAT 10/31/2023 5:42 PM CDT PC LACTATE (LACTIC ACID) STAT 10/31/2023 5:42 PM CDT PC LAB CBC/PLT STAT 10/31/2023 5:42 PM CDT LUNG AIRWAY CLEARANCE [...] 10/31/2023 2:54 PM CDT EXTRA TUBE - LIGHT GREEN Routine 10/31/2023 2:01 PM CDT EXTRA TUBE - SST Routine 10/31/2023 2:01 PM CDT PC LAB CBC W/DIFF & PLT STAT 10/31/2023 2:00 PM CDT ETHANOL (ETOH) LEVEL, BLOOD STAT 10/31/2023 2:00 PM CDT PRECAUTIONARY TUBE STAT 10/31/2023 1: [address] SPINE THORACIC NO IV CON STAT 10/31/2023 1:[address] SPINE LUMBAR NO IV CON STAT 10/31/2023 1:[address] SPINE CERVICAL NO IV CON STAT 10/31/2023 1:[address] HEAD NO IV CONTRAST STAT 10/31/2023 1:[address] CHEST/ABD/PELVIS W/IV CONT STAT 10/31/2023 1:44 PM CDT XR PELVIS AP* STAT 10/31/2023 1:33 PM CDT XR CHEST 1 VIEW AP OR PA* STAT 10/31/2023 1:33 PM CDT PC LAB ED INR STAT 10/31/2023 1:25 PM CDT PC TROPONIN QUANTITATIVE STAT 10/31/2023 1:25 PM CDT PC ELECTROLYTES PANEL STAT 10/31/2023 1:25 PM CDT TC LAB ER STAT TOTAL HGB STAT 10/31/2023 1:25 PM CDT PANEL HEPATIC FUNCTION STAT 10/31/2023 1:25 PM CDT PC LACTATE (LACTIC ACID) STAT 10/31/2023 1:25 PM CDT PC GASES,BLOOD,ANY COMB OF PH,PCD2,PO2,CO2,HCO2 STAT 10/31/2023 1:25 PM CDT FIBRINOGEN STAT 10/31/2023 1:25 PM CDT PC LAB PTT STAT 10/31/2023 1:25 PM CDT ED US CRITICAL CARE STAT 10/31/2023 1 :09 PM CDT documented in this encounter Results * (ABNORMAL) POC GLUCOSE (11/15/2023 6:26 PM CDT) POC Glucose 135(H) 70 - 100 mg/dL [facility] POINT OF CARE Blood 11/15/2023 6:26 PM CDT Patrice Marcial MD LABORATORY Performing Organization Address [facility] Co de Phone Number [facility] POINT OF CARE [address] [place] [address], [place] * (ABNORMAL) POC GLUCOSE (11/15/2023 2:22 PM CDT) POC Glucose 123(H) 70 - 100 mg/dL [facility] POINT OF CARE Blood 11/15/2023 2:22 PM CDT Patrice Marcial MD LABORATORY Performing Organization Address [facility] Co de Phone Number [facility] POINT OF CARE [address] [place] [address], [place] * (ABNORMAL) POC GLUCOSE (11/15/2023 11:35 AM CDT) POC Glucose 140(H) 70 - 100 mg/dL [facility] POINT OF CARE Blood 11/15/2023 11:3 5 AM CDT Patrice Marcial MD LABORATORY Performing Organization Address [facility] Co de Phone Number [facility] POINT OF CARE [address] [place] [address], [place] * (ABNORMAL) ICU BLOOD GAS (11/15/2023 9:20 AM CDT) Pathologist [facility] PH Art 7.44 7.35 - 7.45 [facility] PCO2 Art 43 35 - 45 mmHG [facility] PO2 Art 67(L) 75 - 85 mmHG [facility] Bicarb Art 29(H) 22 - 26 mEq/L [facility] O2 Sat Art 94(L) 96 - 99 % [facility] Base Exc Art 4.4(H) -10.0 - 2.0 mmol/L [facility] Blood Arterial 11/15/2023 9: 20 AM CDT 11/15/2023 9:39 AM CDT Carole Montoya HEAD STOCK TRANSFER CLERK, [employer] CAREGIVER LABORATORY [facility] [place] [address] * (ABNORMAL) POC GLUCOSE (11/15/2023 6:46 AM CDT) [facility] POC Glucose 119(H) 70 - 100 mg/dL [facility] POINT [facility] CARE Blood 11/15/2023 6:46 AM CDT Patrice Marcial MD LABORATORY [facility]ARE [address] [place] [address] * (ABNORMAL) ICU PANEL BASIC METABOLIC (BMP) (11/15/2023 6:31 AM CDT) Pathologist [facility] CO2 29 22 - 30 mmol/L [facility] Glucose 144(H) 70 - 100 mg/dL [facility] BUN 33(H) 8 - 23 mg/dL [facility] Creatinine 0.71 0.70 - 1.25 mg/dL [facility] Calcium 8.3(L) 8.8 - 10.2 mg/dL [facility] Sodium 137 135 - 148 mmol/L [facility] Potassium 4.3 3.5 - 5.3 mmol/L [facility] Chloride 100 92 - 108 mmol/L [facility] AnGap 8 8 - 16 mmol/L [facility] eGFR (2020 CKD-EPI) 102 >=60 ml/min/1.7 3m2 [facility] Comment: The estimated glomerular filtration rate (eGFR) was calculated using the CKD-EPI 2020 creatinine equation, which does not include race as a factor. This equation is validated in individuals 18 years of age and older, and eGFR is normalized to a body surface area of 1.73m^2. Blood 11/15/2023 6:31 AM CDT 11/15/2023 6:40 AM CDT Yuriy Wynn MD LABORATORY [facility] [address] [address] * (ABNORMAL) TRIGLYCERIDE (11/15/2023 6:31 AM CDT) Triglyceride 299(H) <=150 mg/dL [facility] Comment: Interpretive Data <150 Normal 150-199 Borderline high 200-499 High >=500 Very high Blood 11/15/2023 6:31 AM CDT 11/15/2023 6:40 AM CDT Yuriy yWnn MD LABORATORY Performing Organization Address City/[facility] Co de Phone Number [facility] [address] [address] * ICU PHOSPHORUS (11/15/2023 6:31 AM CDT) Phosphorus 3.1 2.5 - 4.5 mg/dL [facility] Blood 11/15/2023 6:31 AM CDT 11/15/2023 6:40 AM CDT Yuriy Wynn MD LABORATORY Performing Organization Address [facility] Co de Phone Number [facility] [address] [address] * ICU MAGNESIUM (11/15/2023 6:31 AM CDT) Magnesium 2.4 1.6 - 2.4 mg/dL [facility] Blood 11/15/2023 6:31 AM CDT 11/15/2023 6:40 AM CDT Yuriy Wynn MD LABORATORY Performing Organization Address [facility] Co de Phone Number [facility] [address] [address] * (ABNORMAL) ICU CBC WITH PLATELET (11/15/2023 6:31 AM CDT) WBC 15.39(H) 4.00 - 10.00 k/cmm [facility] RBC 3.46(L) 4.60 - 6.00 m/cmm [facility] Hgb 10.0(L) 13.1 - 17.5 g/dL [facility] Hematocrit 30.9(L) 40.0 - 51.0 % [facility] MCV 89.3 80.0 - 100.0 fL [facility] MCH 28.9 25.0 - 32.0 pg [facility] MCHC 32.4 31.0 - 36.0 g/dL [facility] RDW 13.5 11.5 - 14.5 % [facility] Plt 329 150 - 400 k/cmm [facility] MPV 10.3 6.5 - 12.5 fL [facility] NRBC 0.1(H) 0.0 - 0.0 /100WBC [facility] Blood 11/15/2023 6:31 AM CDT 11/15/2023 6:40 AM CDT Yuriy Wynn MD LABORATORY Performing Organization Address [facility] Co de Phone Number [facility] [address] [address] * CT CHEST WITH IV CONTRAST (11/15/2023 5:11 AM CDT) Anatomical Region Laterality Modality Chest Computed Tomogra [...] AP OR PA* (11/15/2023 3:44 AM CDT) Anatomical Region Laterality Modality Chest Computed Radiogr [...] Patel Yuriy Wynn MD RAD XRAY * (ABNORMAL) POC GLUCOSE (11/15/2023 12:22 AM CDT) POC Glucose 203(H) 70 - 100 mg/dL [facility] POINT [facility] CARE Blood 11/15/2023 12:2 2 AM CDT Patrice Marcial MD LABORATORY [facility]ARE [address] [place] [address], * (ABNORMAL) ICU PANEL BASIC METABOLIC (BMP) (11/14/2023 10:36 PM CDT) Sodium 139 135 - 148 mmol/L [facility] Potassium 3.9 3.5 - 5.3 mmol/L [facility] Chloride 102 92 - 108 mmol/L [facility] CO2 28 22 - 30 mmol/L [facility] AnGap 9 8 - 16 mmol/L [facility] Glucose 247(H) 70 - 100 mg/dL [facility] BUN 35(H) 8 - 23 mg/dL [facility] Creatinine 0.87 0.70 - 1.25 mg/dL [facility] Calcium 7.9(L) 8.8 - 10.2 mg/dL [facility] eGFR (2020 CKD-EPI) 96 >=60 ml/min/1.7 3m2 [facility] Comment: The estimated glomerular filtration rate (eGFR) was calculated using the CKD-EPI 2020 creatinine equation, which does not include race as a factor. This equation is validated in individuals 18 years of age and older, and eGFR is normalized to a body surface area of 1.73m^2. Blood 11/14/2023 10:3 6 PM CDT 11/14/2023 10:56 PM CDT Yuriy Wynn MD LABORATORY [facility] [address] [place] [address] * (ABNORMAL) POC GLUCOSE (11/14/2023 5:56 PM CDT) POC Glucose 271(H) 70 - 100 mg/dL [facility] POINT OF CARE Blood 11/14/2023 5:56 PM CDT Patrice Marcial MD LABORATORY Performing Organization Address City/[facility] Co de Phone Number [facility] [place] [address], [place] * (ABNORMAL) POC GLUCOSE (11/14/2023 11:03 AM CDT) POC Glucose 237(H) 70 - 100 mg/dL [facility] Blood 11/14/2023 11:0 3 AM CDT Patrice Marcial MD LABORATORY Performing Organization Address [facility] [place] [address], [place] * (ABNORMAL) ICU BLOOD GAS (11/14/2023 4:44 AM CDT) PH Art 7.50(H) 7.35 - 7.45 [facility] PCO2 Art 35 35 - 45 mmHG [facility] PO2 Art 75 75 - 85 mmHG [facility] Bicarb Art 27(H) 22 - 26 mEq/L [facility] O2 Sat Art 97 96 - 99 % [facility] Base Exc Art 3.9(H) -10.0 - 2.0 mmol/L [facility] Blood Arterial 11/14/2023 4: 44 AM CDT 11/14/2023 4:52 AM CDT Carole M Lammer HEAD STOCK TRANSFER CLERK, [employer] CAREGIVER LABORATORY Performing Organization Address [facility] Co de Phone Number [facility] [address] [address] * (ABNORMAL) ICU PANEL BASIC METABOLIC (BMP) (11/14/2023 4:44 AM CDT) CO2 24 22 - 30 mmol/L [facility] Glucose 266(H) 70 - 100 mg/dL [facility] BUN 32(H) 8 - 23 mg/dL [facility] Creatinine 0.85 0.70 - 1.25 mg/dL [facility] Calcium 8.2(L) 8.8 - 10.2 mg/dL [facility] Sodium 132(L) 135 - 148 mmol/L [facility] Potassium 4.5 3.5 - 5.3 mmol/L [facility] Chloride 98 92 - 108 mmol/L [facility] AnGap 10 8 - 16 mmol/L [facility] eGFR (2020 CKD-EPI) 96 >=60 ml/min/1.7 3m2 [facility] Comment: The estimated glomerular filtration rate (eGFR) was calculated using the CKD-EPI 2020 creatinine equation, which does not include race as a factor. This equation is validated in individuals 18 years of age and older, and eGFR is normalized to a body surface area of 1.73m^2. Blood 11/14/2023 4:44 AM CDT 11/14/2023 5:01 AM CDT Yuriy Wynn MD LABORATORY Performing Organization Address [facility] Co de Phone Number [facility] [address] [address] * (ABNORMAL) ICU PHOSPHORUS (11/14/2023 4:44 AM CDT) Phosphorus 2.3(L) 2.5 - 4.5 mg/dL [facility] Blood 11/14/2023 4:44 AM CDT 11/14/2023 5:01 AM CDT Yuriy Wynn MD LABORATORY Performing Organization Address [facility] Co de Phone Number [facility] [address] [place] [address] * ICU MAGNESIUM (11/14/2023 4:44 AM CDT) Pathologist [facility] Magnesium 2.2 1.6 - 2.4 mg/dL [facility] Blood 11/14/2023 4:44 AM CDT 11/14/2023 5:01 AM CDT Yuriy Wynn MD LABORATORY [facility] [address] [address] * (ABNORMAL) ICU CBC WITH PLATELET (11/14/2023 4:44 AM CDT) Pathologist [facility] WBC 14.34(H) 4.00 - 10.00 k/cmm [facility] RBC 3.50(L) 4.60 - 6.00 m/cmm [facility] Hgb 10.1(L) 13.1 - 17.5 g/dL [facility] Hematocrit 31.8(L) 40.0 - 51.0 % [facility] MCV 90.9 80.0 - 100.0 fL [facility] MCH 28.9 25.0 - 32.0 pg [facility] MCHC 31.8 31.0 - 36.0 g/dL [facility] RDW 13.5 11.5 - 14.5 % [facility] Plt 322 150 - 400 k/cmm [facility] MPV 10.6 6.5 - 12.5 fL [facility] NRBC 0.1(H) 0.0 - 0.0 /100WBC [facility] Blood 11/14/2023 4:44 AM CDT 11/14/2023 5:01 AM CDT Yuriy Wynn MD LABORATORY [facility] [address] [address] * ICU CK, TOTAL (11/14/2023 4:44 AM CDT) Pathologist [facility] CK 51 39 - 308 IU/L [facility] Blood 11/14/2023 4:44 AM CDT 11/14/2023 5:01 AM CDT Yuriy Wynn MD LABORATORY [facility] [address] [address] * (ABNORMAL) ICU TRIGLYCERIDE (11/14/2023 4:44 AM CDT) Triglyceride 352(H) <=150 mg/dL [facility] Comment: Interpretive Data <150 Normal 150-199 Borderline high 200-499 High >=500 Very high Blood 11/14/2023 4:44 AM CDT 11/14/2023 5:01 AM CDT Yuriy Wynn MD LABORATORY Performing Organization Address [facility] Co de Phone Number [address] [address] * XR CHEST 1 VIEW AP OR PA* (11/14/2023 3:56 AM CDT) Anatomical Region Laterality Modality Chest Computed Radiogr aphy 11/14/2023 5:31 AM CDT Impressions 11/14/2023 7:57 AM CDT Impression: 1. Slight increased aeration of the left lung. Otherwise no significant change in the diffuse lung opacities and moderate left pleural effusion. 2. Right IJ CVC not visualized on radiograph, presumed interval removal. I have personally reviewed the image(s) and initial interpretation, and I agree with the findings as documented by the resident/fellow. Reading Radiologist: Rudy Cortez Reading Resident: Vladimir Scott Narrative 11/14/2023 7:57 AM CDT Technique: XR CHEST 1 VIEW AP OR PA* Indication: hemothorax and pneumonia ?? Comparison: X-ray chest 11/13/2023, multiple priors. Findings: Stable surgical changes of ACDF. Stable placement of endotracheal tube, enteric tube, gastric tube. Interval removal right IJ central venous catheter. Stable heart size and shape. Slight increase in aeration of the left lung. Continued left greater than right diffuse opacities. Continued moderate left effusion, trace right pleural effusion. No pneumothorax. Procedure Note Rudy Cortez, RODRI - 11/14/2023 Technique: XR CHEST 1 VIEW AP OR PA* Indication: hemothorax and pneumonia Comparison: X-ray chest 11/13/2023, multiple priors. Findings: Stable surgical changes of ACDF. Stable placement ofendotracheal tube, enteric tube, gastric tube. Interval removal right IJcentral venous catheter. Stable heart size and shape. Slight increase in aeration of the left lung.Continued left greater than right diffuse opacities. Continued moderateleft effusion, trace right pleural effusion. No pneumothorax. IMPRESSION Impression: 1. Slight increased aeration of the left lung. Otherwise no significantchange in the diffuse lung opacities and moderate left pleural effusion. 2. Right IJ CVC not visualized on radiograph, presumed interval removal. I have personally reviewed the image(s) and initial interpretation, and Iagree with the findings as documented by the resident/fellow. Reading Radiologist: Rudy Cortez Reading Resident: Vladimir Scott Glynn Ford MD RAD XRAY * (ABNORMAL) POC GLUCOSE (11/13/2023 11:57 PM CDT) POC Glucose 209(H) 70 - 100 mg/dL [facility]INT [facility] C[facility] Blood 11/13/2023 11:5 7 PM CDT Patrice Marcial MD LABORATORY Performing Organization Address [facility] Co de Phone Number [facility] POINT OF CARE [address] [place] [address], * (ABNORMAL) POC GLUCOSE (11/13/2023 5:34 PM CDT) POC Glucose 244(H) 70 - 100 mg/dL [facility] POINT OF CARE Blood 11/13/2023 5:34 PM CDT Patrice Marcial MD LABORATORY Performing Organization Address [facility] Co de Phone Number [facility] POINT OF CARE [address] [place] [address], * (ABNORMAL) ICU PANEL BASIC METABOLIC (BMP) (11/13/2023 5:04 PM CDT) CO2 26 22 - 30 mmol/L [facility] Glucose 255(H) 70 - 100 mg/dL [facility] BUN 33(H) 8 - 23 mg/dL [facility] Creatinine 0.85 0.70 - 1.25 mg/dL [facility] Calcium 7.4(L) 8.8 - 10.2 mg/dL [facility] Sodium 133(L) 135 - 148 mmol/L [facility] Potassium 4.5 3.5 - 5.3 mmol/L [facility] Chloride 100 92 - 108 mmol/L [facility] AnGap 7(L) 8 - 16 mmol/L [facility] eGFR (2020 CKD-EPI) 96 >=60 ml/min/1.7 3m2 [facility] Comment: The estimated glomerular filtration rate (eGFR) was calculated using the CKD-EPI 2020 creatinine equation, which does not include race as a factor. This equation is validated in individuals 18 years of age and older, and eGFR is normalized to a body surface area of 1.73m^2. Blood 11/13/2023 5:04 PM CDT 11/13/2023 5:17 PM CDT Yuriy Wynn MD LABORATORY [facility] [address] [id number] * BODY FLUID CELL COUNT/DIFF (11/13/2023 1:08 PM CDT) Fluid Type PF Pleural [facility] Comment:Normal reference ran ges have not been determined; clinical correlation is recommended. Volume PF 2 mL [facility] Appearance PF Cloudy [facility] Color bf Bloody [facility] RBC PF 60,000 cells/ul [facility] Nuc Ct PF 99,130 cells/ul [facility] Neutrophils PF 81 % [facility] MONO/MACS FL 19 % [facility] Pleural fluid 11/13/2023 1:0 8 PM CDT 11/13/2023 2:47 PM CDT Patrice Marcial MD LABORATORY Performing Organization Address City/[facility]/ZIP Co de Phone Number [facility] [address] [address] * (ABNORMAL) BODY FLUID CULTURE:INCLUDES GRAM STAIN (11/13/2023 1:08 PM CDT) Final Report Positive Culture Few Methicillin sensitive Staphylococcus aureus (MSSA) isolated. Methicillin susceptible by PBP2a. Results electronically reported to and acknowledged by: Naheed Blood MD for SICU @ NOV 14, 2023 8:35 AM by Krissy Portillo MT (POS) [facility] Organism METHICILLIN SENSITIVE STAPHYLOCOCCUS AUREUS (MSSA)(POS) [facility] Gram Stain Report PMN's seen. No organisms seen. [facility] Pleural fluid 11/13/2023 1:0 8 PM [...] Wynn MD LAB MICROBIOLOGY Performing Organization Address City/[facility]/ZIP Co de Phone Number [facility] [address] [address] * MISCELLANEOUS BODY FLUID (11/13/2023 1:08 PM CDT) [facility] Result [id number] [facility] Units BF U/L [facility] Comment:The reference interv al(s) and other method performance specifications have not been established for this body fluid. The test result must be integrated into the clinical context for interpretation. Fluid 11/13/2023 1:08 PM CDT 11/13/2023 2:15 PM CDT Narrative [facility] - 11/13/2023 3:56 PM CDT Left Chest Pleural Fluid Send out test name: LDH Specimen Source->Other- Please comment Yuriy Wynn MD LABORATORY Performing Organization Address [facility] Co de Phone Number [address] [address] * MISCELLANEOUS BODY FLUID (11/13/2023 1:08 PM CDT) Pathologist [facility] Result <2 [facility] Units BF mg/dL [facility] Comment:The reference interv al(s) and other method performance specifications have not been established for this body fluid. The test result must be integrated into the clinical context for interpretation. Fluid 11/13/2023 1:08 PM CDT 11/13/2023 2:15 PM CDT Narrative [facility] - 11/13/2023 3:27 PM CDT Left Chest Pleural Fluid Send out test name: Glucose Specimen Source->Other- Please comment Yuriy Wynn MD LABORATORY Performing Organization Address [facility] de Phone Number [address] [address] * MISCELLANEOUS BODY FLUID (11/13/2023 1:08 PM CDT) Pathologist [facility] Result 4.2 [facility] Units BF g/dL [facility] Comment:The reference interv al(s) and other method performance specifications have not been established for this body fluid. The test result must be integrated into the clinical context for interpretation. Fluid 11/13/2023 1:08 PM CDT 11/13/2023 2:15 PM CDT Narrative [facility] - 11/13/2023 3:26 PM CDT Left Chest Pleural Fluid Send out test name: Fluid Protein Specimen Source->Other- Please comment Yuriy Wynn MD LABORATORY [facility] [address] [place] [address] * XR CHEST 1 VIEW AP OR PA* (11/13/2023 11:43 AM CDT) Anatomical Region Laterality Modality Chest Computed Radiogr aphy 11/13/2023 12:0 0 PM CDT Impressions 11/13/2023 12:02 PM CDT Impression: Moderate left pleural effusion with persistent left lung predominant airspace opacities of consolidation and atelectasis Reading Radiologist: Carrington Jalloh Narrative 11/13/2023 12:02 PM CDT Technique: XR CHEST 1 VIEW AP OR PA* Indication: pleural effusion ?? Comparison: 11/13/2023 Findings: Endotracheal tube tip is over the midtrachea. Right IJ CVC with tip over the low SVC. Enteric tube tips below diaphragm. Likely moderate left pleural effusion persistent left lung airspace opacities. Pulmonary vascular congestion. Procedure Note Carrington Jalloh, DO - 11/13/2023 Technique: XR CHEST 1 VIEW AP OR PA* Indication: pleural effusion Comparison: 11/13/2023 Findings: Endotracheal tube tip is over the midtrachea. Right IJ CVC withtip over the low SVC. Enteric tube tips below diaphragm. Likely moderateleft pleural effusion persistent left lung airspace opacities. Pulmonaryvascular congestion. IMPRESSION Impression: Moderate left pleural effusion with persistent left lung predominantairspace opacities of consolidation and atelectasis Reading Radiologist: Carrington Jalloh Glynn Ford MD RAD XRAY * (ABNORMAL) POC GLUCOSE (11/13/2023 11:32 AM CDT) POC Glucose 239(H) 70 - 100 mg/dL [facility] Blood 11/13/2023 11:3 2 AM CDT Patrice Marcial MD LABORATORY [facility] [address] [place] [address], [place] * (ABNORMAL) POC GLUCOSE (11/13/2023 6:06 AM CDT) POC Glucose 175(H) 70 - 100 mg/dL [facility] Blood 11/13/2023 6:06 AM CDT Patrice Marcial MD LABORATORY [facility] [address] [facility] [place] [address], [place] * XR CHEST 1 VIEW AP OR PA* (11/13/2023 5:16 AM CDT) Anatomical Region Laterality Modality Chest Computed Radiogr aphy 11/13/2023 5:24 AM CDT Impressions 11/13/2023 7:42 AM CDT Impression: 1 Overall no significant change from prior x-ray of the chest. Continued complex left pleural effusion with atelectasis and patchy left lower lobe predominant consolidation suspicious for infectious inflammatory etiology. 2. Stable support devices, endotracheal tube tip is 4 cm above the erasmo. I have personally reviewed the image(s) and initial interpretation, and I agree with the findings as documented by the resident/fellow. Reading Radiologist: Carrington Jalloh Reading Resident: Vladimir Scott Narrative 11/13/2023 7:42 AM CDT Technique: XR CHEST 1 VIEW AP OR PA* Indication: eval opacities ?? Comparison: X-ray chest 11/12/2023, CT chest 11/12/2023. Findings: Endotracheal tube tip is in the midthoracic trachea, 4 cm above the erasmo. Stable placement of the enteric tube, and right IJ central venous catheter. No significant change in the diffuse pulmonary opacities, low lung volumes greater on the left. Stable moderate left pleural effusion with areas of likely loculation and compressive atelectasis. Patchy opacities of the right lung, seen on same-day CT. Small right pleural effusion and basilar atelectasis. Remainder of exam stable Procedure Note Carrington Jalloh DO - 11/13/2023 Technique: XR CHEST 1 VIEW AP OR PA* Indication: eval opacities Comparison: X-ray chest 11/12/2023, CT chest 11/12/2023. Findings: Endotracheal tube tip is in the midthoracic trachea, 4 cm abovethe erasmo. Stable placement of the enteric tube, and right IJ centralvenous catheter. No significant change in the diffuse pulmonary opacities, low lung volumesgreater on the left. Stable moderate left pleural effusion with areas oflikely loculation and compressive atelectasis. Patchy opacities of theright lung, seen on same-day CT. Small right pleural effusion and basilaratelectasis. Remainder of exam stable IMPRESSION Impression: 1 Overall no significant change from prior x-ray of the chest. Continuedcomplex left pleural effusion with atelectasis and patchy left lower lobepredominant consolidation suspicious for infectious inflammatoryetiology. 2. Stable support devices, endotracheal tube tip is 4 cm above thecarina. I have personally reviewed the image(s) and initial interpretation, and Iagree with the findings as documented by the resident/fellow. Reading Radiologist: Carrington Jalloh Reading Resident: Vladimir Scott Yuriy Wynn MD RAD XRAY * (ABNORMAL) LD (LDH) (11/13/2023 4:06 AM CDT) Pathologist [facility] LD 261(H) 135 - 225 IU/L [facility] Blood 11/13/2023 4:06 AM CDT 11/13/2023 2:12 PM CDT Yuriy Wynn MD LABORATORY [facility] [address] [address] * (ABNORMAL) PROTEIN, TOTAL SERUM (11/13/2023 4:06 AM CDT) [facility] Total Protein 5.7(L) 6.4 - 8.3 g/dL [facility] Blood 11/13/2023 4:06 AM CDT 11/13/2023 2:12 PM CDT Yuriy Wynn MD LABORATORY Performing Organization Address [facility] Co de Phone Number [facility] [address] [address] * (ABNORMAL) ICU BLOOD GAS (11/13/2023 4:06 AM CDT) PH Art 7.43 7.35 - 7.45 [facility] PCO2 Art 42 35 - 45 mmHG [facility] PO2 Art 119(H) 75 - 85 mmHG [facility] Bicarb Art 27(H) 22 - 26 mEq/L [facility] O2 Sat Art 99 96 - 99 % [facility] Base Exc Art 2.8(H) -10.0 - 2.0 mmol/L [facility] Blood Arterial 11/13/2023 4: 06 AM CDT 11/13/2023 4:39 AM CDT Carole Montoya APRN, [employer] CAREGIVER LABORATORY Performing Organization Address [facility] Co de Phone Number [facility] [address] [address] * (ABNORMAL) ICU PANEL BASIC METABOLIC (BMP) (11/13/2023 4:06 AM CDT) CO2 25 22 - 30 mmol/L [facility] Glucose 202(H) 70 - 100 mg/dL [facility] BUN 30(H) 8 - 23 mg/dL [facility] Creatinine 0.84 0.70 - 1.25 mg/dL [facility] Calcium 8.0(L) 8.8 - 10.2 mg/dL [facility] Sodium 134(L) 135 - 148 mmol/L [facility] Potassium 4.2 3.5 - 5.3 mmol/L [facility] Chloride 98 92 - 108 mmol/L [facility] AnGap 11 8 - 16 mmol/L [facility] eGFR (2020 CKD-EPI) 97 >=60 ml/min/1.7 3m2 [facility] Comment: The estimated glomerular filtration rate (eGFR) was calculated using the CKD-EPI 2020 creatinine equation, which does not include race as a factor. This equation is validated in individuals 18 years of age and older, and eGFR is normalized to a body surface area of 1.73m^2. Blood 11/13/2023 4:06 AM CDT 11/13/2023 4:41 AM CDT Yuriy Wynn MD LABORATORY Performing Organization Address City/[facility] Co de Phone Number [facility] [address] [address] * PROCALCITONIN (11/13/2023 4:06 AM CDT) Procalcitonin 2.05 ng/mL [facility] Comment: Results <0.50 ng/mL represent a low risk of severe sepsis and/or septic shock. Results >2.0 ng/mL represent a high risk of severe sepsis and/or septic shock. Blood 11/13/2023 4:06 AM CDT 11/13/2023 4:41 AM CDT Carole Montoya APRN, CNP LABORATORY Performing Organization Address [facility] Co de Phone Number [facility] [address] [address] * ICU PHOSPHORUS (11/13/2023 4:06 AM CDT) Phosphorus 2.8 2.5 - 4.5 mg/dL [facility] Blood 11/13/2023 4:06 AM CDT 11/13/2023 4:41 AM CDT Yuriy Wynn MD LABORATORY Performing Organization Address City/[facility] Co de Phone Number [facility] [address] [address] * ICU MAGNESIUM (11/13/2023 4:06 AM CDT) Magnesium 2.3 1.6 - 2.4 mg/dL [facility] Blood 11/13/2023 4:06 AM CDT 11/13/2023 4:41 AM CDT Yuriy Wynn MD LABORATORY Performing Organization Address City/[facility] Co de Phone Number [facility] [address] [place] [phone] * (ABNORMAL) ICU CBC WITH PLATELET (11/13/2023 4:06 AM CDT) WBC 13.60(H) 4.00 - 10.00 k/cmm [facility] RBC 3.21(L) 4.60 - 6.00 m/cmm [facility] Hgb 9.3(L) 13.1 - 17.5 g/dL [facility] Hematocrit 28.2(L) 40.0 - 51.0 % [facility] MCV 87.9 80.0 - 100.0 fL [facility] MCH 29.0 25.0 - 32.0 pg [facility] MCHC 33.0 31.0 - 36.0 g/dL [facility] RDW 13.4 11.5 - 14.5 % [facility] Plt 239 150 - 400 k/cmm [facility] MPV 11.0 6.5 - 12.5 fL [facility] NRBC 0.1(H) 0.0 - 0.0 /100WBC [facility] Blood 11/13/2023 4:06 AM CDT 11/13/2023 4:40 AM CDT Yuriy Wynn MD LABORATORY Performing Organization Address [facility] Co de Phone Number [facility] [address] [address] * (ABNORMAL) POC GLUCOSE (11/12/2023 11:42 PM CDT) Pathologist [facility] POC Glucose 207(H) 70 - 100 mg/dL [facility] Blood 11/12/2023 11:4 2 PM CDT Patrice Marcial MD LABORATORY Performing Organization Address [facility]/ZIP Co de Phone Number [facility] [address] [place] [id number], [place] * XR ABDOMEN 1 VIEW* (11/12/2023 10:21 PM CDT) Anatomical Region Laterality Modality Abdomen Computed Radiogr [...] projects in similar position. Procedure Note Main Feliz, DO - 11/12/2023 Technique: XR ABDOMEN 1 [...] XRAY * PHOSPHORUS (11/12/2023 6:40 PM CDT) Phosphorus 2.7 2.5 - 4.5 mg/dL [facility] Blood 11/12/2023 6:40 PM CDT 11/12/2023 7:14 PM CDT Yuriy Wynn MD LABORATORY [facility] [address] [address] * (ABNORMAL) ICU BLOOD GAS (11/12/2023 6:40 PM CDT) PH Art 7.41 7.35 - 7.45 [facility] PCO2 Art 43 35 - 45 mmHG [facility] PO2 Art 89(H) 75 - 85 mmHG [facility] Bicarb Art 27(H) 22 - 26 mEq/L [facility] O2 Sat Art 97 96 - 99 % [facility] Base Exc Art 2.7(H) -10.0 - 2.0 mmol/L [facility] Blood Arterial 11/12/2023 6: 40 PM CDT 11/12/2023 6:52 PM CDT Carole Montoya APRN, CNP LABORATORY [facility] [address] [address] * (ABNORMAL) ICU PANEL BASIC METABOLIC (BMP) (11/12/2023 6:40 PM CDT) Sodium 134(L) 135 - 148 mmol/L [facility] Potassium 4.2 3.5 - 5.3 mmol/L [facility] Chloride 99 92 - 108 mmol/L [facility] CO2 25 22 - 30 mmol/L [facility] AnGap 10 8 - 16 mmol/L [facility] Glucose 195(H) 70 - 100 mg/dL [facility] BUN 27(H) 8 - 23 mg/dL [facility] Creatinine 0.84 0.70 - 1.25 mg/dL [facility] Calcium 8.3(L) 8.8 - 10.2 mg/dL [facility] eGFR (2020 CKD-EPI) 97 >=60 ml/min/1.7 3m2 [facility] Comment: The estimated glomerular filtration rate (eGFR) was calculated using the CKD-EPI 2020 creatinine equation, which does not include race as a factor. This equation is validated in individuals 18 years of age and older, and eGFR is normalized to a body surface area of 1.73m^2. Blood 11/12/2023 6:40 PM CDT 11/12/2023 6:52 PM CDT Yuriy Wynn MD LABORATORY [facility] [address] [address] * (ABNORMAL) POC GLUCOSE (11/12/2023 6:11 PM CDT) POC Glucose 188(H) 70 - 100 mg/dL [facility] Blood 11/12/2023 6:11 PM CDT Patrice Marcial MD LABORATORY [facility] [address] [place] [address], * (ABNORMAL) POC GLUCOSE (11/12/2023 11:35 AM CDT) POC Glucose 192(H) 70 - 100 mg/dL [facility] Blood 11/12/2023 11:3 5 AM CDT Patrice Marcial MD LABORATORY [facility] [address] [place] [address], [place] * ECH TRANSTHOR (TTE) COMPLETE WITH CONTRAST (11/12/2023 11:08 AM CDT) AoV root 3.1 cm [facility] I.alex sept. 1.61 cm [facility] left atri. [...] HERNANDEZ ??Height ?69.02 Inches C Patient Number ?[id number] ? Weight ?255.74 Pounds Date of ? 1960 ?BSA ? 2.29 m^2 Age ? 63 ?Tape Number Gender ?Male ?Study Date ?11/12/2023 09:13 AM Repair Department Manager ? RB ?Ordering Provider ?? PRINCESS Maxwell Referring ? Interpreting ?Ahmet Suarez MD Physician ? Physician ? [id number] Type of Study: TTE procedure: 2D echocardiogram, M-Mode, Doppler , Color Doppler, Contrast study, ECH TRANSTHORACIC ECHO (TTE) HR: 84 bpmBP: 106/56 mmHgPatient Status: Routine Study Location: [id number] Quality: Adequate visualization Contrast Medium: Optison. Amount [...] HERNANDEZ Height 69.02 Inches C Patient Number [id number] Weight 255.74 Pounds Date of 1960 BSA 2.29 m^2 Age 63 Tape Number Gender Male Study Date 11/12/2023 09:13 AM Repair Department Manager RB Ordering Provider PRINCESS Maxwell Referring Interpreting Ahmet Suarez MD Physician Physician [id number] Type of Study: TTE procedure: 2D echocardiogram, M-Mode, Doppler , Color Doppler, Contrast study, ECH TRANSTHORACIC ECHO (TTE) HR: 84 bpmBP: 106/56 mmHgPatient Status: Routine Study Location: [address] Quality: Adequate visualization Contrast Medium: Optison. [...] True True Yuriy Wynn MD RAD ECHO [facility] * CT CHEST WITH IV CONTRAST (11/12/2023 10:41 AM CDT) Anatomical Region Laterality Modality Chest Computed Tomogra phy 11/12/2023 10:2 7 AM CDT Impressions 11/12/2023 11:50 AM CDT IMPRESSION: 1.New multifocal groundglass opacities and worsening atelectasis of the right lung concerning for pneumonia. 2.New small right-sided pleural effusion. 3.Improved aeration of the left lung with decreased now moderate layering pleural effusion. Trace pneumothorax with chest tube in place. 4.Decreasing inflammation and fluid in the left chest wall soft tissues. 5.Remaining findings are unchanged compared to prior. I have personally reviewed the image(s) and initial interpretation, and I agree with the findings as documented by the resident/fellow. Reading Radiologist: Yoselin Sellers Resident: Connie Sanon Narrative 11/12/2023 11:50 AM CDT COMPARISON: CT chest 11/09/2023, same day chest x-ray INDICATION: Pneumonia, complication suspected, xray done ?? TECHNIQUE: Volumetric helical acquisition of CT images of the chest from the clavicles to the kidneys were acquired with IV contrast. DOSE: ?Total DLP = 338.4 mGy.cm. ?? FINDINGS: Lines and tubes: Right IJ catheter which terminates in the low SVC. Pigtail chest catheter in the left lower pleural space. Endotracheal tube terminates proximal to 0.5 cm above the erasmo. Partially visualized feeding tube. Lungs: Consolidation again seen in the posterior left lower lobe, similar to prior. Improved aeration of the left lower lobe. Unchanged atelectasis in the left upper lobe. New, multifocal groundglass opacities through the right upper and middle lobe. New Right lower lobe atelectasis/consolidation. Airway: Patent Pleura: New small right-sided simple pleural effusion. Decreasing, layering, now moderately sized left pleural effusion with increasing foci of gas throughout the collection, likely related to interval pigtail catheter placement. Thoracic aorta and great vessels: Unremarkable. Pulmonary arteries: Unremarkable. Heart and pericardium: Nonenlarged. No pericardial effusion. Lymph nodes: No enlarged thoracic lymph nodes Visualized upper abdomen: ??No acute abnormality. Bones and soft tissues: Unchanged displaced anterolateral left rib 2-7 fractures. Partially visualized hardware in the cervical spine. The previously seen trace subcutaneous emphysema along the left chest wall has resolved and there is decreasing fat stranding and fluid along the left anterior superior and lateral chest wall. Procedure Note Yoselin Sellers MD - 11/12/2023 COMPARISON: CT chest 11/09/2023, same day chest x-ray INDICATION: Pneumonia, complication suspected, xray done TECHNIQUE: Volumetric helical acquisition of CT images of the chest fromthe clavicles to the kidneys were acquired with IV contrast. DOSE: Total DLP = 338.4 mGy.cm. FINDINGS: Lines and tubes: Right IJ catheter which terminates in the low SVC.Pigtail chest catheter in the left lower pleural space. Endotracheal tubeterminates proximal to 0.5 cm above the erasmo. Partially visualizedfeeding tube. Lungs: Consolidation again seen in the posterior left lower lobe, similar toprior. Improved aeration of the left lower lobe. Unchanged atelectasis in the left upper lobe. New, multifocal groundglass opacities through the right upper and middlelobe. New Right lower lobe atelectasis/consolidation. Airway: Patent Pleura: New small right-sided simple pleural effusion. Decreasing, layering, now moderately sized left pleural effusion withincreasing foci of gas throughout the collection, likely related tointerval pigtail catheter placement. Thoracic aorta and great vessels: Unremarkable. Pulmonary arteries: Unremarkable. Heart and pericardium: Nonenlarged. No pericardial effusion. Lymph nodes: No enlarged thoracic lymph nodes Visualized upper abdomen: No acute abnormality. Bones and soft tissues: Unchanged displaced anterolateral left rib 2-7 fractures. Partially visualized hardware in the cervical spine. The previously seen trace subcutaneous emphysema along the left chest wallhas resolved and there is decreasing fat stranding and fluid along theleft anterior superior and lateral chest wall. IMPRESSION IMPRESSION: 1.New multifocal groundglass opacities and worsening atelectasis of theright lung concerning for pneumonia. 2.New small right-sided pleural effusion. 3.Improved aeration of the left lung with decreased now moderate layeringpleural effusion. Trace pneumothorax with chest tube in place. 4.Decreasing inflammation and fluid in the left chest wall soft tissues. 5.Remaining findings are unchanged compared to prior. I have personally reviewed the image(s) and initial interpretation, and Iagree with the findings as documented by the resident/fellow. Reading Radiologist: Yoselin Sellers Resident: Connie Sanon Yuriy Wynn MD RAD CT BODY * (ABNORMAL) ICU PANEL BASIC METABOLIC (BMP) (11/12/2023 5:40 AM CDT) Sodium 132(L) 135 - 148 mmol/L [facility] Potassium 4.2 3.5 - 5.3 mmol/L [facility] Chloride 97 92 - 108 mmol/L [facility] CO2 26 22 - 30 mmol/L [facility] AnGap 9 8 - 16 mmol/L [facility] Glucose 194(H) 70 - 100 mg/dL [facility] BUN 25(H) 8 - 23 mg/dL [facility] Creatinine 0.92 0.70 - 1.25 mg/dL [facility] Calcium 8.1(L) 8.8 - 10.2 mg/dL [facility] eGFR (2020 CKD-EPI) 92 >=60 ml/min/1.7 3m2 [facility] Comment: The estimated glomerular filtration rate (eGFR) was calculated using the CKD-EPI 2020 creatinine equation, which does not include race as a factor. This equation is validated in individuals 18 years of age and older, and eGFR is normalized to a body surface area of 1.73m^2. Blood 11/12/2023 5:40 AM CDT 11/12/2023 5:57 AM CDT Yuriy Wynn MD LABORATORY Performing Organization Address [facility] Co de Phone Number [facility] [address] [address] * PROCALCITONIN (11/12/2023 5:40 AM CDT) Procalcitonin 2.13 ng/mL [facility] Comment: Results <0.50 ng/mL represent a low risk of severe sepsis and/or septic shock. Results >2.0 ng/mL represent a high risk of severe sepsis and/or septic shock. Blood 11/12/2023 5:40 AM CDT 11/12/2023 5:57 AM CDT Carole Montoya APRN, CNP LABORATORY Performing Organization Address [facility] Co de Phone Number [facility] [address] [address] * (ABNORMAL) ICU PHOSPHORUS (11/12/2023 5:40 AM CDT) Phosphorus 2.4(L) 2.5 - 4.5 mg/dL [facility] Blood 11/12/2023 5:40 AM CDT 11/12/2023 5:57 AM CDT Yuriy Wynn MD LABORATORY Performing Organization Address [facility] Co de Phone Number [facility] [address] [address] * ICU MAGNESIUM (11/12/2023 5:40 AM CDT) Magnesium 2.2 1.6 - 2.4 mg/dL [facility] Blood 11/12/2023 5:40 AM CDT 11/12/2023 5:57 AM CDT Yuriy Wynn MD LABORATORY Performing Organization Address [facility] Co de Phone Number [facility] [address] [address] * (ABNORMAL) ICU CBC WITH PLATELET (11/12/2023 5:40 AM CDT) WBC 13.42(H) 4.00 - 10.00 k/cmm [facility] RBC 3.30(L) 4.60 - 6.00 m/cmm [facility] Hgb 9.6(L) 13.1 - 17.5 g/dL [facility] Hematocrit 29.0(L) 40.0 - 51.0 % [facility] MCV 87.9 80.0 - 100.0 fL [facility] MCH 29.1 25.0 - 32.0 pg [facility] MCHC 33.1 31.0 - 36.0 g/dL [facility] RDW 13.6 11.5 - 14.5 % [facility] Plt 205 150 - 400 k/cmm [facility] MPV 10.8 6.5 - 12.5 fL [facility] NRBC 0.2(H) 0.0 - 0.0 /100WBC [facility] Blood 11/12/2023 5:40 AM CDT 11/12/2023 5:57 AM CDT [place] [address] * (ABNORMAL) POC GLUCOSE (11/12/2023 5:23 AM CDT) POC Glucose 181(H) 70 - 100 mg/dL [facility] Blood 11/12/2023 5:23 AM CDT Patrice Marcial MD LABORATORY [facility] [address] [place] [address], * XR CHEST 1 VIEW AP OR PA* (11/12/2023 4:43 AM CDT) Anatomical Region Laterality Modality Chest Computed Radiogr aphy 11/12/2023 5:26 AM CDT Impressions 11/12/2023 9:07 AM CDT Impression: 1. Endotracheal tube tip is not definitively visualized, however the lung apices are not within the field of view. Correlate with patient clinical exam. 2. Unchanged large left pleural effusion and associated atelectasis of the left lung. 3. Stable to slightly increased diffuse lung opacities. I have personally reviewed the image(s) and initial interpretation, and I agree with the findings as documented by the resident/fellow. Reading Radiologist: Conrad Oviedo Reading Resident: Vladimir Scott 11/12/2023 9:07 AM CDT Technique: XR CHEST 1 VIEW AP OR PA* Indication: eval pleural effusion ?? Comparison: X-ray chest 11/11/2023, multiple priors. Findings: Endotracheal tube tip is not definitively visualized, however the lung apices are out of the [id number]. Stable placement right IJ CVC, enteric tube, left basilar chest tube. Heart size and shape stable. Continue the lung volumes, stable to slightly increased opacities greater on the left. Large left pleural effusion, associated compressive atelectasis. No definitive pneumothorax, no significant right effusion. Procedure Note Conrad Oviedo MBBS - 11/12/2023 Technique: XR CHEST 1 VIEW AP OR PA* Indication: eval pleural effusion Comparison: X-ray chest 11/11/2023, multiple priors. Findings: Endotracheal tube tip is not definitively visualized, howeverthe lung apices are out of the [id number]. Stable placement right IJCVC, enteric tube, left basilar chest tube. Heart size and shape stable. Continue the lung volumes, stable to slightlyincreased opacities greater on the left. Large left pleural effusion,associated compressive atelectasis. No definitive pneumothorax, nosignificant right effusion. IMPRESSION Impression: 1. Endotracheal tube tip is not definitively visualized, however the lungapices are not within the field of view. Correlate with patient clinicalexam. 2. Unchanged large left pleural effusion and associated atelectasis of theleft lung. 3. Stable to slightly increased diffuse lung opacities. I have personally reviewed the image(s) and initial interpretation, and Iagree with the findings as documented by the resident/fellow. Reading Radiologist: Conrad Oviedo Reading Resident: Vladimir Scott Carole Ruyb Montoya HEAD STOCK TRANSFER CLERK, AFTER SCHOOL CAREGIVER RAD XRAY * (ABNORMAL) POC GLUCOSE (11/11/2023 11:47 PM CDT) POC Glucose 161(H) 70 - 100 mg/dL [facility] Blood 11/11/2023 11:4 7 PM CDT Patrice Marcial MD LABORATORY Performing Organization Address [facility]/ZIP Co de Phone Number [facility] [address] [place] [address], * (ABNORMAL) ICU PANEL BASIC METABOLIC (BMP) (11/11/2023 7:03 PM CDT) Sodium 131(L) 135 - 148 mmol/L [facility] Potassium 4.5 3.5 - 5.3 mmol/L [facility] Chloride 97 92 - 108 mmol/L [facility] CO2 24 22 - 30 mmol/L [facility] AnGap 10 8 - 16 mmol/L [facility] Glucose 152(H) 70 - 100 mg/dL [facility] BUN 25(H) 8 - 23 mg/dL [facility] Creatinine 0.88 0.70 - 1.25 mg/dL [facility] Calcium 8.5(L) 8.8 - 10.2 mg/dL [facility] eGFR (2020 CKD-EPI) 95 >=60 ml/min/1.7 3m2 [facility] Comment: The estimated glomerular filtration rate (eGFR) was calculated using the CKD-EPI 2020 creatinine equation, which does not include race as a factor. This equation is validated in individuals 18 years of age and older, and eGFR is normalized to a body surface area of 1.73m^2. Blood 11/11/2023 7:03 PM CDT 11/11/2023 7:25 PM CDT Yuriy Wynn MD LABORATORY [facility] [address] [address] * (ABNORMAL) POC GLUCOSE (11/11/2023 5:38 PM CDT) POC Glucose 134(H) 70 - 100 mg/dL [facility] Blood 11/11/2023 5:38 PM CDT Patrice Marcial MD LABORATORY Performing Organization Address [facility] Co de Phone Number [facility] POINT OF [facility] [address] [place] [address], [place] * (ABNORMAL) POC GLUCOSE (11/11/2023 11:48 AM CDT) POC Glucose 159(H) 70 - 100 mg/dL [facility] Blood 11/11/2023 11:4 8 AM CDT Patrice Marcial MD LABORATORY Performing Organization Address [facility] de Phone Number [facility] POINT [facility] [address] [place] [address], [place] * XR ABDOMEN 1 VIEW* (11/11/2023 9:41 AM CDT) Anatomical Region Laterality Modality Abdomen Computed Radiogr aphy 11/11/2023 9:55 AM CDT Impressions 11/11/2023 9:56 AM CDT Impression: Nonobstructive bowel gas pattern. No free air detected. Drainage catheter in the left upper quadrant. Enteric tube tip overlies the fourth portion of the duodenum. See same day chest x-ray for findings of that region. Reading Radiologist: Yoselin Sellers Narrative 11/11/2023 9:56 AM CDT Technique: XR ABDOMEN 1 VIEW* Indication: checking feeding tube placement ?? Comparison:11/10/2023, 10/31/2023 Findings/ Procedure Note Yoselin Sellers MD - 11/11/2023 Technique: XR ABDOMEN 1 VIEW* Indication: checking feeding tube placement Comparison:11/10/2023, 10/31/2023 Findings/ IMPRESSION Impression: Nonobstructive bowel gas pattern. No free air detected. Drainage catheter in the left upper quadrant. Enteric tube tip overlies the fourth portion of the duodenum. See same day chest x-ray for findings of that region. Reading Radiologist: Yoselin Sellers Carole Montoya APRN, CNP RAD XRAY * (ABNORMAL) ICU BLOOD GAS (11/11/2023 9:23 AM CDT) PH Art 7.45 7.35 - 7.45 [facility] PCO2 Art 37 35 - 45 mmHG [facility] PO2 Art 109(H) 75 - 85 mmHG [facility] Bicarb Art 25 22 - 26 mEq/L [facility] O2 Sat Art 99 96 - 99 % [facility] Base Exc Art 1.7 -10.0 - 2.0 mmol/L [facility] Blood Arterial 11/11/2023 9: 23 AM CDT 11/11/2023 9:29 AM CDT Carole Montoya APRN, CNP LABORATORY Performing Organization Address [facility]/ZIP Co de Phone Number [facility] [address] [address] * PROCALCITONIN (11/11/2023 6:08 AM CDT) Procalcitonin 2.64 ng/mL [facility] Comment: Results <0.50 ng/mL represent a low risk of severe sepsis and/or septic shock. Results >2.0 ng/mL represent a high risk of severe sepsis and/or septic shock. Blood 11/11/2023 6:08 AM CDT 11/11/2023 6:32 AM CDT Carole Montoya APRN, CNP LABORATORY Performing Organization Address City/[facility]/ZIP Co de Phone Number [facility] [address] [address] * (ABNORMAL) ICU PANEL BASIC METABOLIC (BMP) (11/11/2023 5:25 AM CDT) CO2 24 22 - 30 mmol/L [facility] Glucose 129(H) 70 - 100 mg/dL [facility] BUN 23 8 - 23 mg/dL [facility] Creatinine 1.00 0.70 - 1.25 mg/dL [facility] Calcium 8.2(L) 8.8 - 10.2 mg/dL [facility] Sodium 131(L) 135 - 148 mmol/L [facility] Potassium 4.6 3.5 - 5.3 mmol/L [facility] Chloride 97 92 - 108 mmol/L [facility] AnGap 10 8 - 16 mmol/L [facility] eGFR (2020 CKD-EPI) 84 >=60 ml/min/1.7 3m2 [facility] Comment: The estimated glomerular filtration rate (eGFR) was calculated using the CKD-EPI 2020 creatinine equation, which does not include race as a factor. This equation is validated in individuals 18 years of age and older, and eGFR is normalized to a body surface area of 1.73m^2. Blood 11/11/2023 5:25 AM CDT 11/11/2023 5:51 AM CDT Yuriy Wynn MD LABORATORY Performing Organization Address City/[facility] Co de Phone Number [facility] [place] [phone] * ICU PHOSPHORUS (11/11/2023 5:25 AM CDT) Phosphorus 2.6 2.5 - 4.5 mg/dL [facility] Blood 11/11/2023 5:25 AM CDT 11/11/2023 5:51 AM CDT Yuriy Wynn MD LABORATORY Performing Organization Address City/[facility] Co de Phone Number [facility] [address] [address] * ICU MAGNESIUM (11/11/2023 5:25 AM CDT) Magnesium 2.3 1.6 - 2.4 mg/dL [facility] Blood 11/11/2023 5:25 AM CDT 11/11/2023 5:51 AM CDT Yuriy Wynn MD LABORATORY Performing Organization Address City/[facility]/ZIP Co de Phone Number [facility] [address] [address] * (ABNORMAL) ICU CBC WITH PLATELET (11/11/2023 5:25 AM CDT) Pathologist [facility] WBC 13.78(H) 4.00 - 10.00 k/cmm [facility] RBC 3.31(L) 4.60 - 6.00 m/cmm [facility] Hgb 9.6(L) 13.1 - 17.5 g/dL [facility] Hematocrit 29.2(L) 40.0 - 51.0 % [facility] MCV 88.2 80.0 - 100.0 fL [facility] MCH 29.0 25.0 - 32.0 pg [facility] MCHC 32.9 31.0 - 36.0 g/dL [facility] RDW 13.5 11.5 - 14.5 % [facility] Plt 180 150 - 400 k/cmm [facility] MPV 11.1 6.5 - 12.5 fL [facility] NRBC 0.1(H) 0.0 - 0.0 /100WBC [facility] Blood 11/11/2023 5:25 AM CDT 11/11/2023 5:51 AM CDT Yuriy Wynn MD LABORATORY [facility] [address] [address] * ICU CK, TOTAL (11/11/2023 5:25 AM CDT) [facility] CK 85 39 - 308 IU/L [facility] Blood 11/11/2023 5:25 AM CDT 11/11/2023 5:51 AM CDT Yuriy Wynn MD LABORATORY [facility] [address] [address] * (ABNORMAL) ICU TRIGLYCERIDE (11/11/2023 5:25 AM CDT) Pathologist [facility] Triglyceride 262(H) <=150 mg/dL [facility] Comment: Interpretive Data <150 Normal 150-199 Borderline high 200-499 High >=500 Very high Blood 11/11/2023 5:25 AM CDT 11/11/2023 5:51 AM CDT Yuriy Wynn MD LABORATORY [facility] [address] [address] * XR CHEST 1 VIEW AP OR PA* (11/11/2023 3:54 AM CDT) Anatomical Region Laterality Modality Chest Computed Radiogr aphy 11/11/2023 6:54 AM CDT Impressions 11/11/2023 7:56 AM CDT Impression: 1. Stable support devices. 2. Slight increased size of the moderate to large layering left pleural effusion although the left lung base is incompletely imaged. 3. Unchanged opacities throughout the left lung with likely some degree of compressive atelectasis on the left given effusion. I have personally reviewed the image(s) and initial interpretation, and I agree with the findings as documented by the resident/fellow. Reading Radiologist: Yoselin Sellers Reading Resident: Vladimir Scott Narrative 11/11/2023 7:56 AM CDT Technique: XR CHEST 1 VIEW AP OR PA* Indication: eval opacities ?? Comparison: X-ray chest 11/25/2023, multiple priors. Findings: Endotracheal tube tip is in the high thoracic trachea. Right IJ CVC tip terminates in the low SVC. Enteric tube courses below the diaphragm with tip out of the field of view. Stable surgical changes of anterior cervical fusion. Cardiac silhouette is stable. Continued low lung volumes. Similar to slightly increased size of the moderate to large layering effusion the left. Similar- appearing basilar streaky opacities and retrocardiac opacity. No pneumothorax, trace blunting of the right costophrenic angle. Procedure Note Yoselin Sellers MD - 11/11/2023 Technique: XR CHEST 1 VIEW AP OR PA* Indication: eval opacities Comparison: X-ray chest 11/25/2023, multiple priors. Findings: Endotracheal tube tip is in the high thoracic trachea. Right IJCVC tip terminates in the low SVC. Enteric tube courses below thediaphragm with tip out of the field of view. Stable surgical changes ofanterior cervical fusion. Cardiac silhouette is stable. Continued low lung volumes. Similar toslightly increased size of the moderate to large layering effusion theleft. Similar- appearing basilar streaky opacities and retrocardiacopacity. No pneumothorax, trace blunting of the right costophrenicangle. IMPRESSION Impression: 1. Stable support devices. 2. Slight increased size of the moderate to large layering left pleuraleffusion although the left lung base is incompletely imaged. 3. Unchanged opacities throughout the left lung with likely some degree ofcompressive atelectasis on the left given effusion. I have personally reviewed the image(s) and initial interpretation, and Iagree with the findings as documented by the resident/fellow. Reading Radiologist: Yoselin Sellers Reading Resident: Vladimir Scott Carole Montyoa HEAD STOCK TRANSFER CLERK, AFTER SCHOOL CAREGIVER RAD XRAY * Arterial Line Rewire (11/10/2023 9:56 PM [...] to verify the correct patient, procedure, equipment, postal support employee and site/side marked as required. Preparation: Patient [...] immediate complications Robe Gracia MD PROCEDURES * (ABNORMAL) POC GLUCOSE (11/10/2023 8:55 PM CDT) POC Glucose 122(H) 70 - 100 mg/dL [facility] Blood 11/10/2023 8:55 PM CDT Patrice Marcial MD LABORATORY Performing Organization Address [facility] Co de Phone Number [facility]ARE [address] [place] [address] * (ABNORMAL) ICU PANEL BASIC METABOLIC (BMP) (11/10/2023 6:17 PM CDT) Sodium 129(L) 135 - 148 mmol/L [facility] Potassium 4.9 3.5 - 5.3 mmol/L [facility] Chloride 93 92 - 108 mmol/L [facility] CO2 25 22 - 30 mmol/L [facility] AnGap 11 8 - 16 mmol/L [facility] Glucose 141(H) 70 - 100 mg/dL [facility] BUN 26(H) 8 - 23 mg/dL [facility] Creatinine 1.02 0.70 - 1.25 mg/dL [facility] Calcium 8.6(L) 8.8 - 10.2 mg/dL [facility] eGFR (2020 CKD-EPI) 82 >=60 ml/min/1.7 3m2 [facility] Comment: The estimated glomerular filtration rate (eGFR) was calculated using the CKD-EPI 2020 creatinine equation, which does not include race as a factor. This equation is validated in individuals 18 years of age and older, and eGFR is normalized to a body surface area of 1.73m^2. Blood 11/10/2023 6:17 PM CDT 11/10/2023 6:38 PM CDT Yuriy Wynn MD LABORATORY Performing Organization Address [facility]/ZIP Co de Phone Number [facility] [address] [address] * (ABNORMAL) POC GLUCOSE (11/10/2023 6:07 PM CDT) POC Glucose 108(H) 70 - 100 mg/dL [facility] Blood 11/10/2023 6:07 PM CDT Patrice Marcial MD LABORATORY Performing Organization Address [facility]/ZIP Co de Phone Number [facility] [address] [place] [address], * MRSA SURVEILLANCE SCREEN (11/10/2023 4:39 PM CDT) Final Report No MRSA isolated. [facility] Swab NASAL STRUCTURE / Unknown 11/10/2023 4:39 PM CDT 11/10/2023 5:00 PM CDT Yuriy Wynn MD LAB MICROBIOLOGY Performing Organization Address [facility] Co de Phone Number [facility] [address] [address] * XR ABDOMEN 1 VIEW* (11/10/2023 3:46 PM CDT) Anatomical Region Laterality Modality Abdomen Computed Radiogr aphy 11/10/2023 4:03 PM CDT Impressions 11/10/2023 4:04 PM CDT Impression: Feeding tube tip is favored to be in the distal duodenum, although questionably coiled in stomach. Consider confirmation by injecting a small amount of contrast and repeating the radiograph. Reading Radiologist: Royce Smith Narrative 11/10/2023 4:04 PM CDT Indication: Feeding Tube placement check ?? Comparison: None Procedure Note Royce Smith MD - 11/10/2023 Indication: Feeding Tube placement check Comparison: None IMPRESSION Impression: Feeding tube tip is favored to be in the distal duodenum,although questionably coiled in stomach. Consider confirmation byinjecting a small amount of contrast and repeating the radiograph. Reading Radiologist: Royce Smith Carole Montoya HEAD STOCK TRANSFER CLERK, AFTER SCHOOL CAREGIVER RAD XRAY * MRSA SURVEILLANCE SCREEN (11/10/2023 12:58 PM CDT) Final Report No MRSA isolated. [facility] Swab NASAL STRUCTURE / Unknown 11/10/2023 12:58 PM CDT 11/10/2023 2:26 PM CDT Wendy Mcfarland APRN, CNP LAB MICROBI OLOGY Performing Organization Address [facility]/ZIP Co de Phone Number [facility] [address] [address] * (ABNORMAL) BLOOD GASES (11/10/2023 12:58 PM CDT) Pathologist [facility] PH Art 7.42 7.35 - 7.45 [facility] PCO2 Art 44 35 - 45 mmHG [facility] PO2 Art 77 75 - 85 mmHG [facility] Bicarb Art 28(H) 22 - 26 mEq/L [facility] O2 Sat Art 96 96 - 99 % [facility] Base Exc Art 3.9(H) -10.0 - 2.0 mmol/L [facility] Blood Arterial 11/10/2023 12 :58 PM CDT 11/10/2023 1:08 PM CDT Carole Montoya APRN, CNP LABORATORY Performing Organization Address [facility] Co de Phone Number [facility] [address] [address] * PROCALCITONIN (11/10/2023 12:58 PM CDT) Pathologist [facility] Procalcitonin 3.56 ng/mL [facility] Comment: Results <0.50 ng/mL represent a low risk of severe sepsis and/or septic shock. Results >2.0 ng/mL represent a high risk of severe sepsis and/or septic shock. Blood 11/10/2023 12:5 8 PM CDT 11/10/2023 1:08 PM CDT Carole Montoya APRN, CNP LABORATORY Performing Organization Address City/[facility]/ZIP Co de Phone Number [facility] [address] [address] * (ABNORMAL) POC GLUCOSE (11/10/2023 11:55 AM CDT) POC Glucose 144(H) 70 - 100 mg/dL [facility] Blood 11/10/2023 11:5 5 AM CDT Patrice Marcial MD LABORATORY Performing Organization Address [facility] Co de Phone Number [facility] [address] [place] [phone], * (ABNORMAL) RESPIRATORY CULTURE (11/10/2023 9:19 AM CDT) Final Report Rare Methicillin sensitive Staphylococcus aureus (MSSA) isolated. Methicillin susceptible by PBP2a. Rare normal oral cain. (POS) [facility] Organism METHICILLIN SENSITIVE STAPHYLOCOCCUS AUREUS (MSSA)(POS) [facility] Gram Stain Report PMN's seen. Gram positive cocci Gram negative bacilli [facility] Bronch Wash 11/10/2023 9:19 AM CDT [...] CNP LAB MICROBI OLOGY Performing Organization Address [facility]/ZIP Co de Phone Number [facility] [address] [address] * (ABNORMAL) PANEL HEPATIC FUNCTION (11/10/2023 6:21 AM CDT) Total Protein 5.6(L) 6.4 - 8.3 g/dL [facility] Albumin 2.9(L) 3.8 - 5.1 g/dL [facility] Bili Total 1.0 <=1.2 mg/dL [facility] Bili Direct 0.7(H) <=0.3 mg/dL [facility] Alk Phos 79 40 - 129 IU/L [facility] Comment:No reference range e stablished for patients <18 years old. ALT (SGPT) 16 <=41 IU/L [facility] AST(SGOT) 17 5 - 40 IU/L [facility] Blood 11/10/2023 6:21 AM CDT 11/10/2023 6:35 AM CDT Yuriy Wynn MD LABORATORY [facility] [address] [address] * (ABNORMAL) ICU PANEL BASIC METABOLIC (BMP) (11/10/2023 6:21 AM CDT) Sodium 130(L) 135 - 148 mmol/L [facility] Potassium 4.9 3.5 - 5.3 mmol/L [facility] Chloride 95 92 - 108 mmol/L [facility] CO2 26 22 - 30 mmol/L [facility] AnGap 9 8 - 16 mmol/L [facility] Glucose 134(H) 70 - 100 mg/dL [facility] BUN 24(H) 8 - 23 mg/dL [facility] Creatinine 1.08 0.70 - 1.25 mg/dL [facility] Calcium 8.7(L) 8.8 - 10.2 mg/dL [facility] eGFR (2020 CKD-EPI) 76 >=60 ml/min/1.7 3m2 [facility] Comment: The estimated glomerular filtration rate (eGFR) was calculated using the CKD-EPI 2020 creatinine equation, which does not include race as a factor. This equation is validated in individuals 18 years of age and older, and eGFR is normalized to a body surface area of 1.73m^2. Blood 11/10/2023 6:21 AM CDT 11/10/2023 6:35 AM CDT Yuriy Wynn MD LABORATORY Performing Organization Address City/[facility] Co de Phone Number [facility] [address] [address] * ICU PHOSPHORUS (11/10/2023 6:21 AM CDT) Phosphorus 2.6 2.5 - 4.5 mg/dL [facility] Blood 11/10/2023 6:21 AM CDT 11/10/2023 6:35 AM CDT Yuriy Wynn MD LABORATORY Performing Organization Address [facility] de Phone Number [facility] [address] [address] * ICU MAGNESIUM (11/10/2023 6:21 AM CDT) Magnesium 2.0 1.6 - 2.4 mg/dL [facility] Blood 11/10/2023 6:21 AM CDT 11/10/2023 6:35 AM CDT Yuriy Wynn MD LABORATORY Performing Organization Address [facility] de Phone Number [facility] [address] [address] * (ABNORMAL) ICU CBC WITH PLATELET (11/10/2023 6:21 AM CDT) WBC 13.02(H) 4.00 - 10.00 k/cmm [facility] RBC 3.25(L) 4.60 - 6.00 m/cmm [facility] Hgb 9.6(L) 13.1 - 17.5 g/dL [facility] Hematocrit 28.4(L) 40.0 - 51.0 % [facility] MCV 87.4 80.0 - 100.0 fL [facility] MCH 29.5 25.0 - 32.0 pg [facility] MCHC 33.8 31.0 - 36.0 g/dL [facility] RDW 13.3 11.5 - 14.5 % [facility] Plt 153 150 - 400 k/cmm [facility] MPV 10.9 6.5 - 12.5 fL [facility] Blood 11/10/2023 6:21 AM CDT 11/10/2023 6:35 AM CDT Yuriy Wynn MD LABORATORY Performing Organization Address City/[facility]/ZIP Co de Phone Number [facility] [address] [place] [address] * POC GLUCOSE (11/10/2023 5:48 AM CDT) POC Glucose 93 70 - 100 mg/dL [facility] Blood 11/10/2023 5:48 AM CDT Patrice Marcial MD LABORATORY Performing Organization Address [facility] Co de Phone Number [facility] [address] [place] [address], * XR CHEST 1 VIEW AP OR PA* (11/10/2023 5:34 AM CDT) Anatomical Region Laterality Modality Chest Computed Radiogr aphy 11/10/2023 5:34 AM CDT Impressions 11/10/2023 6:38 AM CDT Impression: 1. Stable layering left pleural effusion with interstitial and airspace opacification. 2. Stable support devices. ?? I have personally reviewed the image(s) and initial interpretation, and I agree with the findings as documented by the resident/fellow. Reading Radiologist: Jaxson Pathak Reading Resident: Jonathan Salas Narrative 11/10/2023 6:38 AM CDT Technique: XR CHEST 1 VIEW AP OR PA* Indication: eval opacities, chest tube ?? Comparison: 11/09/2023 Findings: Right IJ central venous catheter tip projecting over mid SVC. Enteric tube tip beyond the [id number]. ET tube stable. Left inferior chest tube. ACDF hardware. Cardiac silhouette is stable, remains partially obscured. Left pleural effusion and associated pulmonary opacities are unchanged. No pneumothorax. Procedure Note Jaxson Pathak MD - 11/10/2023 Technique: XR CHEST 1 VIEW AP OR PA* Indication: eval opacities, chest tube Comparison: 11/09/2023 Findings: Right IJ central venous catheter tip projecting over mid SVC.Enteric tube tip beyond the [id number]. ET tube stable. Left inferiorchest tube. ACDF hardware. Cardiac silhouette is stable, remains partiallyobscured. Left pleural effusion and associated pulmonary opacities areunchanged. No pneumothorax. IMPRESSION Impression: 1. Stable layering left pleural effusion with interstitial and airspaceopacification. 2. Stable support devices. I have personally reviewed the image(s) and initial interpretation, and Iagree with the findings as documented by the resident/fellow. Reading Radiologist: Jaxson Pathak Reading Resident: Jonathan Salas Yuriy Wynn MD RAD XRAY * POTASSIUM (11/10/2023 2:35 AM CDT) [facility] Potassium 5.0 3.5 - 5.3 mmol/L [facility] Blood 11/10/2023 2:35 AM CDT 11/10/2023 2:39 AM CDT Yuriy Wynn MD LABORATORY Performing Organization Address [facility] Co de Phone Number [facility] [address] [address] * (ABNORMAL) POC GLUCOSE (11/09/2023 11:45 PM CDT) [facility] POC Glucose 126(H) 70 - 100 mg/dL [facility] Blood 11/09/2023 11:4 5 PM CDT Patrice Marcial MD LABORATORY Performing Organization Address City/[facility]/ZIP Co de Phone Number [facility] [address] [place] [phone], * POTASSIUM (11/09/2023 8:59 PM CDT) Potassium 5.2 3.5 - 5.3 mmol/L [facility] Blood 11/09/2023 8:59 PM CDT 11/09/2023 9:09 PM CDT Yuriy Wynn MD LABORATORY [facility] [address] [place] [id number] * XR ABDOMEN 1 VIEW* (11/09/2023 8:58 PM CDT) Anatomical Region Laterality Modality Abdomen Computed Radiogr aphy 11/09/2023 9:01 PM CDT Impressions 11/09/2023 9:01 PM CDT impression: Enteric tube tip projecting over pylorus. Stable position of presumed left basilar chest tube. Reading Radiologist: Amador Kwok 11/09/2023 9:01 PM CDT Technique: XR ABDOMEN 1 VIEW* Indication: eval OG position ?? Comparison: 11/09/2023 Findings/ Procedure Note Amador Kwok MD - 11/09/2023 Technique: XR ABDOMEN 1 VIEW* Indication: eval OG position Comparison: 11/09/2023 Findings/ IMPRESSION impression: Enteric tube tip projecting over pylorus. Stable position ofpresumed left basilar chest tube. Reading Radiologist: Amador Kwok Yuriy Wynn MD RAD XRAY * XR CHEST 1 VIEW AP OR PA* (11/09/2023 8:57 PM CDT) Anatomical Region Laterality Modality Chest Computed Radiogr aphy 11/09/2023 9:00 PM CDT Impressions 11/09/2023 9:01 PM CDT Impression: Right IJ line tip projecting over mid SVC. Reading Radiologist: Amador Kwok Narrative 11/09/2023 9:01 PM CDT Technique: XR CHEST 1 VIEW AP OR PA* Indication: s/p line placement ?? Comparison: Earlier today Findings: Right IJ central venous catheter tip projecting over mid SVC. New enteric tube tip beyond the rifml-zw-prgo. ET tube again seen. Cardiac silhouette is stable. Lungs are stable. No pneumothorax appreciated. Procedure Note Amaodr Kwok MD - 11/09/2023 Technique: XR CHEST 1 VIEW AP OR PA* Indication: s/p line placement Comparison: Earlier today Findings: Right IJ central venous catheter tip projecting over mid SVC.New enteric tube tip beyond the [id number]-gd-[id number]. ET tube again seen. Cardiacsilhouette is stable. Lungs are stable. No pneumothorax appreciated. IMPRESSION Impression: Right IJ line tip projecting over mid SVC. Reading Radiologist: Amador Kwok Yuriy Wynn MD RAD XRAY * Central Line (11/09/2023 8:35 PM CDT) Narrative Tim Steinberg MD - 11/09/2023 8:35 PM CDT Tim Steinberg MD ? 11/10/2023 11:25 AM Central Line Date/Time: 11/09/2023 8:35 PM Performed by: Alejandra Flores MD Authorized by: Tim Steinberg MD ?? Cecilia Protocol: ??Required items: Required blood products, implants, devices and special equipment available ?Patient identity confirmed: ??Arm band ??Time out: Immediately prior to the procedure a time out was called to verify the correct patient, procedure, equipment, postal support employee and sit/side marked as required. ?? Indications: ??Indications: ??Vascular access and central pressure monitoring Anesthesia: ??Patient sedated?: Yes ?Sedation: ??See [facility] for details and propofol ??Analgesia: ??See [facility] for details and fentanyl Procedure details: ??Preparation: [...] complications Tim Steinberg MD PROCEDURES * (ABNORMAL) POC GLUCOSE (11/09/2023 6:40 PM CDT) POC Glucose 128(H) 70 - 100 mg/dL [facility] Blood 11/09/2023 6:40 PM CDT Patrice Marcial MD LABORATORY [facility] [address] [phone], * (ABNORMAL) BLOOD AEROBIC/ANAEROBIC CULTURE (11/09/2023 6:22 PM CDT) Final Report Positive Blood Culture Gram stain [...] 11/11/2023 08:04:49 by Jaguar Patterson MLS (POS) [facility] Organism METHICILLIN SENSITIVE STAPHYLOCOCCUS AUREUS (MSSA)(POS) [facility] Blood (Peripheral) 11/09/2023 6:22 PM CDT 11/09/2023 7:09 PM CDT Narrative [facility] - 11/12/2023 8:19 AM CDT The [...] Vancomycin VITEK ANIL 1: Sensitive Charmaine Anne HEAD STOCK TRANSFER CLERK, AFTER SCHOOL CAREGIVER LAB MICROBIOL OGY [facility] [address] [address] * (ABNORMAL) BLOOD AEROBIC/ANAEROBIC CULTURE (11/09/2023 6:05 PM CDT) Final Report Positive Blood Culture Previous positive called. Methicillin sensitive Staphylococcus aureus (MSSA) isolated. Methicillin susceptible by PBP2a. Organism identified 11/11/2023 11:24:37 For susceptibility, see previous report on culture from 11/09/2023 (POS) [facility] Organism METHICILLIN SENSITIVE STAPHYLOCOCCUS AUREUS (MSSA)(POS) [facility] Blood (Peripheral) 11/09/2023 6:05 PM CDT 11/09/2023 7:09 PM CDT Charmaine Anne APRN, GERMAN LAB MICROBIOL OGY Performing Organization Address [facility] Co de Phone Number [facility] [address] [address] * (ABNORMAL) CBC WITH PLATELET (11/09/2023 3:43 PM CDT) WBC 15.68(H) 4.00 - 10.00 k/cmm [facility] RBC 3.61(L) 4.60 - 6.00 m/cmm [facility] Hgb 10.5(L) 13.1 - 17.5 g/dL [facility] Hematocrit 32.0(L) 40.0 - 51.0 % [facility] MCV 88.6 80.0 - 100.0 fL [facility] MCH 29.1 25.0 - 32.0 pg [facility] MCHC 32.8 31.0 - 36.0 g/dL [facility] RDW 13.0 11.5 - 14.5 % [facility] Plt 169 150 - 400 k/cmm [facility] MPV 11.0 6.5 - 12.5 fL [facility] Blood 11/09/2023 3:43 PM CDT 11/09/2023 4:10 PM CDT Yuriy Wynn MD LABORATORY Performing Organization Address [facility] Co de Phone Number [facility] [address] [address] * (ABNORMAL) PANEL BASIC METABOLIC (BMP) (11/09/2023 3:43 PM CDT) Calcium 8.9 8.8 - 10.2 mg/dL [facility] Sodium 130(L) 135 - 148 mmol/L [facility] Potassium 5.6(H) 3.5 - 5.3 mmol/L [facility] Chloride 94 92 - 108 mmol/L [facility] CO2 25 22 - 30 mmol/L [facility] AnGap 11 8 - 16 mmol/L [facility] Glucose 140(H) 70 - 100 mg/dL [facility] BUN 28(H) 8 - 23 mg/dL [facility] Creatinine 1.29(H) 0.70 - 1.25 mg/dL [facility] eGFR (2020 CKD-EPI) 62 >=60 ml/min/1.7 3m2 [facility] Comment: The estimated glomerular filtration rate (eGFR) was calculated using the CKD-EPI 2020 creatinine equation, which does not include race as a factor. This equation is validated in individuals 18 years of age and older, and eGFR is normalized to a body surface area of 1.73m^2. Blood 11/09/2023 3:43 PM CDT 11/09/2023 4:10 PM CDT Yuriy Wynn MD LABORATORY Performing Organization Address [facility] Co de Phone Number [facility] [address] [address] * (ABNORMAL) PROTHROMBIN (PT) & INR (11/09/2023 3:43 PM CDT) PT 15.4(H) 9.0 - 12.5 sec [facility] INR 1.4(H) 0.8 - 1.1 [facility] Comment: Warfarin Therapeutic Range: Standard Intensity: 2.0 - 3.0 High Intensity: 2.5 - 3.5 Blood 11/09/2023 3:43 PM CDT 11/09/2023 4:10 PM CDT Yuriy Wynn MD LABORATORY Performing Organization Address City/[facility] Co de Phone Number [facility] [address] [address] * (ABNORMAL) BLOOD GASES (11/09/2023 3:43 PM CDT) PH Art 7.35 7.35 - 7.45 [facility] PCO2 Art 51(H) 35 - 45 mmHG [facility] PO2 Art 102(H) 75 - 85 mmHG [facility] Bicarb Art 27(H) 22 - 26 mEq/L [facility] O2 Sat Art 98 96 - 99 % [facility] Base Exc Art 1.3 -10.0 - 2.0 mmol/L [facility] Blood Arterial 11/09/2023 3: 43 PM CDT 11/09/2023 4:09 PM CDT Yuriy Wynn MD LABORATORY Performing Organization Address [facility] Co de Phone Number [facility] [address] [address] * MAGNESIUM (11/09/2023 3:43 PM CDT) Magnesium 2.0 1.6 - 2.4 mg/dL [facility] Blood 11/09/2023 3:43 PM CDT 11/09/2023 4:10 PM CDT Yuriy Wynn MD LABORATORY Performing Organization Address [facility] de Phone Number [facility] [address] [address] * PHOSPHORUS (11/09/2023 3:43 PM CDT) Phosphorus 4.1 2.5 - 4.5 mg/dL [facility] Blood 11/09/2023 3:43 PM CDT 11/09/2023 4:10 PM CDT Yuriy Wynn MD LABORATORY Performing Organization Address [facility] Co de Phone Number [facility] [address] [address] * LACTATE (LACTIC ACID) (11/09/2023 3:43 PM CDT) Lactate 1.5 0.7 - 2.1 mmol/L [facility] Blood 11/09/2023 3:43 PM CDT 11/09/2023 4:09 PM CDT Narrative [facility] - 11/09/2023 4:17 PM CDT Send specimen on ice! Yuriy Wynn MD LABORATORY [facility] [id number] [place] [address] * XR CHEST 1 VIEW AP OR PA* (11/09/2023 3:38 PM CDT) Anatomical Region Laterality Modality Chest Computed Radiogr aphy 11/09/2023 3:41 PM CDT Impressions 11/09/2023 3:42 PM CDT Impression: ET tube about 3.8 cm from erasmo. Reading Radiologist: Amador Kwok Narrative 11/09/2023 3:42 PM CDT Technique: XR CHEST 1 VIEW AP OR PA* Indication: eval repositioning of ETT ?? Comparison: 11/09/2023 Findings: ET tube tip about 3.8 cm from the erasmo. Cardiac silhouette is stable. Improved lung volumes. Lungs are otherwise stable. Rib fractures again seen. No definite pneumothorax. Procedure Note Amador Kwok MD - 11/09/2023 Technique: XR CHEST 1 VIEW AP OR PA* Indication: eval repositioning of ETT Comparison: 11/09/2023 Findings: ET tube tip about 3.8 cm from the erasmo. Cardiac silhouette isstable. Improved lung volumes. Lungs are otherwise stable. Rib fracturesagain seen. No definite pneumothorax. IMPRESSION Impression: ET tube about 3.8 cm from erasmo. Reading Radiologist: Amador Kwok Yuriy Wynn MD RAD XRAY * XR CHEST 1 VIEW AP OR PA* (11/09/2023 3:01 PM CDT) Anatomical Region Laterality Modality Chest Computed Radiogr aphy 11/09/2023 3:05 PM CDT Impressions 11/09/2023 3:05 PM CDT Impression: ET tube about 6 cm from the erasmo. Low lung volumes. Reading Radiologist: Amador Kwok Narrative 11/09/2023 3:05 PM CDT Technique: XR CHEST 1 VIEW AP OR PA* Indication: Increased respiratory requirements ?? Comparison: 11/09/2023 Findings: ET tube in place tip about 6 cm from the erasmo. Cardiac silhouette is partially obscured. Lung volume is low. No significant change of left-sided pulmonary opacities. No pneumothorax. Procedure Note Amador Kwok MD - 11/09/2023 Technique: XR CHEST 1 VIEW AP OR PA* Indication: Increased respiratory requirements Comparison: 11/09/2023 Findings: ET tube in place tip about 6 cm from the erasmo. Cardiacsilhouette is partially obscured. Lung volume is low. No significantchange of left-sided pulmonary opacities. No pneumothorax. IMPRESSION Impression: ET tube about 6 cm from the erasmo. Low lung volumes. Reading Radiologist: Amador Kwok Yuriy C Lumbard RAD XRAY * XR ABDOMEN 1 VIEW* (11/09/2023 2:08 PM CDT) Anatomical Region Laterality Modality Abdomen Computed Radiogr aphy 11/09/2023 2:13 PM CDT Impressions 11/09/2023 2:14 PM CDT IMPRESSION: No bowel distention to suggest obstruction. Reading Radiologist: Jimmy García Narrative 11/09/2023 2:14 PM CDT Indication: abd distention ?? Comparison: None FINDINGS: Left lower chest tube projects over the left lung base/left upper quadrant of the abdomen. No bowel distention to suggest obstruction. Procedure Note Jimmy García MD - 11/09/2023 Indication: abd distention Comparison: None FINDINGS: Left lower chest tube projects over the left lung base/leftupper quadrant of the abdomen. No bowel distention to suggestobstruction. IMPRESSION IMPRESSION: No bowel distention to suggest obstruction. Reading Radiologist: Jimmy García Charmaine Anne HEAD STOCK TRANSFER CLERK, AFTER SCHOOL CAREGIVER RAD XRAY * XR CHEST 1 VIEW AP OR PA* (11/09/2023 2:07 PM CDT) Anatomical Region Laterality Modality Chest Computed Radiogr aphy 11/09/2023 2:11 PM CDT Impressions 11/09/2023 2:13 PM CDT IMPRESSION: Interval placement of left lower chest tube with decrease in size of previously seen left pleural effusion. Possible hydropneumothorax at the left lung base with an air-fluid level seen in this region. Reading Radiologist: Jimmy García Narrative 11/09/2023 2:13 PM CDT Indication: increased distress s/p chest tube placement ?? Comparison: Chest x-ray 11/09/2023 FINDINGS: Interval placement of left lower chest tube with decrease in size of previously seen left pleural effusion. Possible hydropneumothorax at the left lung base with an air-fluid level seen in this region. Cardiac silhouette is enlarged. Postsurgical hardware in the lower cervical spine. Procedure Note Jimmy García MD - 11/09/2023 Indication: increased distress s/p chest tube placement Comparison: Chest x-ray 11/09/2023 FINDINGS: Interval placement of left lower chest tube with decrease insize of previously seen left pleural effusion. Possible hydropneumothoraxat the left lung base with an air-fluid level seen in this region. Cardiacsilhouette is enlarged. Postsurgical hardware in the lower cervicalspine. IMPRESSION IMPRESSION: Interval placement of left lower chest tube with decrease insize of previously seen left pleural effusion. Possible hydropneumothoraxat the left lung base with an air-fluid level seen in this region. Reading Radiologist: Jimmy García Charmaine Anne APRN, CNP RAD XRAY * (ABNORMAL) BLOOD GASES (11/09/2023 2:07 PM CDT) PH Alex 7.24(L) 7.32 - 7.42 [facility] PCO2 Alex 75(H) 41 - 51 mmHG [facility] PO2 Alex 31 25 - 40 mmHG [facility] Bicarb Alex 31(H) 24 - 28 mEq/L [facility] O2 Sat Alex 47 % [facility] Base Exc Alex 1.3 -10.0 - 2.0 mmol/L [facility] Blood Venous 11/09/2023 2:07 PM CDT 11/09/2023 2:14 PM CDT Charmaine Anne APRN, CNP LABORATORY [facility] [address] [address] * (ABNORMAL) CBC WITH PLATELET (11/09/2023 2:07 PM CDT) WBC 17.10(H) 4.00 - 10.00 k/cmm [facility] RBC 3.73(L) 4.60 - 6.00 m/cmm [facility] Hgb 11.0(L) 13.1 - 17.5 g/dL [facility] Hematocrit 33.1(L) 40.0 - 51.0 % [facility] MCV 88.7 80.0 - 100.0 fL [facility] MCH 29.5 25.0 - 32.0 pg [facility] MCHC 33.2 31.0 - 36.0 g/dL [facility] RDW 13.2 11.5 - 14.5 % [facility] Plt 170 150 - 400 k/cmm [facility] MPV 10.6 6.5 - 12.5 fL [facility] Blood 11/09/2023 2:07 PM CDT 11/09/2023 2:20 PM CDT Charmaine Anne APRN, CNP LABORATORY [facility] [address] [address] * HS TROPONIN (11/09/2023 2:07 PM CDT) Pathologist [facility] HS Troponin I <3 <=35 ng/L [facility] Blood 11/09/2023 2:07 PM CDT 11/09/2023 2:20 PM CDT Narrative [facility] - 11/09/2023 2:57 PM CDT First Occurrence of the Troponin order is to be drawn Stat by Nursing staff on the unit. Charmaine Anne APRN, CNP LABORATORY [address] [address] * EKG ADULT (12-LEAD) (11/09/2023 2:04 PM CDT) 11/09/2023 2:04 PM CDT Impressions [facility] CVIS EKG ORDERS - 11/09/2023 2:04 PM CDT SINUS TACHYCARDIA WITH OCCASIONAL VENTRICULAR PREMATURE COMPLEXES NONSPECIFIC ST & T-WAVE ABNORMALITY ABNORMAL RHYTHM ECG Compared with: 11/03/2023 3:59 PM P-R Interval 152 ms QRS Interval 99 ms QT Interval 305 ms QTC Interval 369 ms P Aurora 0 QRS Aurora 37 T Wave Aurora 74 Narrative Procedure Note Norm Ro III, MD - 11/09/2023 IMPRESSION SINUS TACHYCARDIA WITH OCCASIONAL VENTRICULAR PREMATURE COMPLEXES NONSPECIFIC ST & T-WAVE ABNORMALITY ABNORMAL RHYTHM ECG Compared with: 11/03/2023 3:59 PM P-R Interval 152 ms QRS Interval 99 ms QT Interval 305 ms QTC Interval 369 ms P Aurora 0 QRS Aurora 37 T Wave Aurora 74 Charmaine Ruby Anne HEAD STOCK TRANSFER CLERK, AFTER SCHOOL CAREGIVER EKG [facility] CVIS EKG ORDERS * IR CHEST TUBE (11/09/2023 1:07 PM CDT) Anatomical Region Laterality Modality Chest X-Ray Angiograph y 11/09/2023 1:11 PM CDT Impressions 11/09/2023 2:18 PM CDT Impression: Successful placement of a 10 yoruba J-tipped nonlocking pleural catheter into the left [...] made with an 11 blade. A 5 [place] Islander Yueh centesis needle was advanced into the left pleural space under ultrasound guidance. Once entry into the pleural space was confirmed, the stylet was removed, and a stiff Amplatz guidewire was inserted through the catheter. The catheter was removed over the guidewire. The tract was dilated to 10 [place] Islander. The dilator was removed and an 10 [place] Islander J-tipped nonlocking pleural catheter was advanced over [...] made with an 11 blade. A 5 [place] Island[place] Yueh centesisneedle was advanced into the left pleural space under ultrasound guidance.Once entry into the pleural space was confirmed, the stylet was removed,and a stiff Amplatz guidewire was inserted through the catheter. Thecatheter was removed over the guidewire. The tract was dilated to 10French. The dilator was removed and an 10 [place] Islander J-tipped nonlockingpleural catheter was advanced over the wire. The wire and dilator removed.The tube was placed to an atrium waterseal chamber. There were noimmediate complications. IMPRESSION Impression: Successful placement of a 10 yoruba J-tipped nonlocking pleural catheterinto the left pleural [...] Leeanne Montgomery PA-C RAD IR * Generic [facility] (11/09/2023 1:02 PM CDT) Narrative Rudy Cortez MBBS - 11/09/2023 1:02 PM CDT Radha De La Rosa, ? 11/09/2023 ??1:03 PM Generic [facility] Date/Time: 11/09/2023 1:02 PM Performed by: Radha [...] to verify the correct patient, procedure, equipment, postal support employee and site/side marked as required. Preparation: Patient [...] loss during this procedure was: 0mL Rudy MACE PROCEDURES * ANTI XA ASSAY LMW HEPARIN (11/09/2023 12:22 PM CDT) [facility] Anti XA LMW 0.22 IU/mL [facility] Comment: Anti Xa Assay LMW Heparin Therapeutic Ranges: 0.4-1.1 IU/mL for twice daily 1.0-2.0 IU/mL for once daily Blood 11/09/2023 12:2 2 PM CDT 11/09/2023 12:34 PM CDT Nevaeh Perez PharmD LABORATORY Performing Organization Address [facility] Co de Phone Number [facility] [address] [address] * (ABNORMAL) URINALYSIS,TOTAL (11/09/2023 11:49 AM CDT) [facility] Trans Epith 0-5 0 - 5 perHPF [facility] Urinalysis Performed at: [facility] Color YELLOW YELLOW [facility] Appearance CLOUDY(A) CLEAR [facility] Urine Glucose NEGATIVE NEGATIVE mg/dL [facility] Bili UA NEGATIVE NEGATIVE [facility] Ketones NEGATIVE NEGATIVE [facility] Blood Ur LARGE(A) Neg-Trace [facility] PH Urine 5.5 5.0 - 7.0 [facility] Protein Ur 30(A) Neg-Trace [facility] Urobilinogen NORMAL NORMAL EU/dL [facility] Nitrite Ur NEGATIVE NEGATIVE [facility] Leuk Est TRACE Neg-Trace [facility] WBC Ur 21-50(A) 0 - 5 perHPF [facility] RBC Ur >20(A) 0 - 3 perHPF [facility] SQ EPITH 0-5 0 - 5 perHPF [facility] Mucus 1+ perLPF [facility] Hyaline Casts 11-20(A) 0 - 5 perLPF [facility] Cell Cast 0-5(A) perLPF [facility] Specific [place] 1.020 1.003 - 1.030 [facility] Urine 11/09/2023 11:4 9 AM CDT 11/09/2023 12:07 PM CDT Charmaine Anne HEAD STOCK TRANSFER CLERK, AFTER SCHOOL CAREGIVER LABORATORY Performing Organization Address [facility]/ZIP Co de Phone Number [facility] [address] [address] * CT CHEST WITH IV CONTRAST (11/09/2023 11:10 AM CDT) Anatomical Region Laterality Modality Chest Computed Tomogra phy 11/09/2023 10:4 8 AM CDT Impressions 11/09/2023 11:27 AM CDT IMPRESSION: 1. Large left simple appearing loculated pleural effusion with confluent opacities involving the left upper and lower lobes, favored to represent compressive atelectasis; however, cannot exclude infectious process. 2. Similar appearance of the displaced left anterior lateral and posterior rib fractures. 3. Small hematoma along the tract of the prior left sided chest tube. Result was communicated to Charmaine Anne by Dr. Patel at 11:05 AM on 11/09/2023. I have personally reviewed the image(s) and initial interpretation, and I agree with the findings as documented by the resident/fellow. Reading Radiologist: Sandra Hope Reading Resident: Lucy Patel 11/09/2023 11:27 AM CDT COMPARISON: Chest radiograph from same day Indication: ??eval for hemothorax vs infectious process ? TECHNIQUE: Volumetric helical acquisition of CT images of the chest from the clavicles to the kidneys were acquired with IV contrast. DOSE: ?Total DLP = 1021.8 mGy.cm. ?? FINDINGS: Lungs: ?? Airway: Patent Lungs: Large left simple appearing pleural effusion with associated confluent opacities in the posterior left upper lobe and involving the majority of the left lower lobe. There is loculated fluid within the fissures and adjacent to the mediastinum, as well as a tiny focus of gas within the fluid. The uninvolved portions of the left upper and lower lobes are clear without focal opacities. Mediastinum: ?? Thyroid: Normal Vessels: Normal caliber of the aorta and main pulmonary artery. Heart and pericardium: Cardiac size is normal. No pericardial effusion. No significant coronary artery calcium. Lymph nodes: No enlarged thoracic lymph nodes Esophagus: Unremarkable Upper Abdomen: Limited evaluation of the upper abdomen is within normal limits. Bones/Soft tissues: Skeletal structures: Redemonstration of displaced left anterolateral second through sixth and posterior first through seventh rib fractures. C5-C7 ACDF. Soft tissue: Fat stranding with a small hyperdense collection along the tract of the prior left-sided chest tube, likely small hematoma. Trace subcutaneous emphysema along the left anterior chest wall. Mild fat stranding along the left anterior superior chest wall Procedure Note Sandra Hope MD - 11/09/2023 COMPARISON: Chest radiograph from same day Indication: eval for hemothorax vs infectious process TECHNIQUE: Volumetric helical acquisition of CT images of the chest fromthe clavicles to the kidneys were acquired with IV contrast. DOSE: Total DLP = 1021.8 mGy.cm. FINDINGS: Lungs: Airway: Patent Lungs: Large left simple appearing pleural effusion with associatedconfluent opacities in the posterior left upper lobe and involving themajority of the left lower lobe. There is loculated fluid within thefissures and adjacent to the mediastinum, as well as a tiny focus of gaswithin the fluid. The uninvolved portions of the left upper and lowerlobes are clear without focal opacities. Mediastinum: Thyroid: Normal Vessels: Normal caliber of the aorta and main pulmonary artery. Heart and pericardium: Cardiac size is normal. No pericardial effusion. Nosignificant coronary artery calcium. Lymph nodes: No enlarged thoracic lymph nodes Esophagus: Unremarkable Upper Abdomen: Limited evaluation of the upper abdomen is within normal limits. Bones/Soft tissues: Skeletal structures: Redemonstration of displaced left anterolateralsecond through sixth and posterior first through seventh rib fractures.C5-C7 ACDF. Soft tissue: Fat stranding with a small hyperdense collection along thetract of the prior left-sided chest tube, likely small hematoma. Tracesubcutaneous emphysema along the left anterior chest wall. Mild fatstranding along the left anterior superior chest wall IMPRESSION IMPRESSION: 1. Large left simple appearing loculated pleural effusion with confluentopacities involving the left upper and lower lobes, favored to representcompressive atelectasis; however, cannot exclude infectious process. 2. Similar appearance of the displaced left anterior lateral and posteriorrib fractures. 3. Small hematoma along the tract of the prior left sided chest tube. Result was communicated to Charmaine Anne by Dr. Patel at 11:05 AM on11/09/2023. I have personally reviewed the image(s) and initial interpretation, and Iagree with the findings as documented by the resident/fellow. Reading Radiologist: Sandra Hope Reading Resident: Lucy Patel Charmaine Anne HEAD STOCK TRANSFER CLERK, AFTER SCHOOL CAREGIVER RAD CT BODY * XR CHEST 1 VIEW AP OR PA* (11/09/2023 9:37 AM CDT) Anatomical Region Laterality Modality Chest Computed Radiogr aphy 11/09/2023 9:49 AM CDT Impressions 11/09/2023 9:50 AM CDT IMPRESSION: Moderate to large left pleural effusion with adjacent airspace opacities in the left lung, which may represent atelectasis versus pneumonia. Reading Radiologist: Jimmy García Narrative 11/09/2023 9:50 AM CDT Indication: increase oxygen need, concern for pna ?? Comparison: Chest x-ray 11/04/2023 FINDINGS: Moderate to large left pleural effusion with adjacent airspace opacities in the left lung, which may represent atelectasis versus pneumonia. Partially visualized postsurgical hardware in lower cervical spine. Left lateral heart border is obscured. No evidence of pneumonia on the right. Procedure Note Jimmy García MD - 11/09/2023 Indication: increase oxygen need, concern for pna Comparison: Chest x-ray 11/04/2023 FINDINGS: Moderate to large left pleural effusion with adjacent airspaceopacities in the left lung, which may represent atelectasis versuspneumonia. Partially visualized postsurgical hardware in lower cervicalspine. Left lateral heart border is obscured. No evidence of pneumonia onthe right. IMPRESSION IMPRESSION: Moderate to large left pleural effusion with adjacent airspaceopacities in the left lung, which may represent atelectasis versuspneumonia. Reading Radiologist: Jimmy García Charmaine Anne HEAD STOCK TRANSFER CLERK, AFTER SCHOOL CAREGIVER RAD XRAY * LACTATE (LACTIC ACID) (11/09/2023 8:12 AM CDT) Lactate 1.7 0.7 - 2.1 mmol/L [facility] Blood 11/09/2023 8:12 AM CDT 11/09/2023 8:39 AM CDT Narrative [facility] - 11/09/2023 8:51 AM CDT Send specimen on ice! Chivo Robins MD LABORATORY [facility] [address] [address] * (ABNORMAL) CBC WITH PLTS/AUTO DIFF (11/09/2023 8:12 AM CDT) WBC 19.60(H) 4.00 - 10.00 k/cmm [facility] RBC 3.99(L) 4.60 - 6.00 m/cmm [facility] Hgb 11.5(L) 13.1 - 17.5 g/dL [facility] Hematocrit 35.9(L) 40.0 - 51.0 % [facility] MCV 90.0 80.0 - 100.0 fL [facility] MCH 28.8 25.0 - 32.0 pg [facility] MCHC 32.0 31.0 - 36.0 g/dL [facility] RDW 13.1 11.5 - 14.5 % [facility] Plt 189 150 - 400 k/cmm [facility] MPV 10.5 6.5 - 12.5 fL [facility] Automated Abs Neutrophil 17.47(H) 1.70 - 6.50 k/cmm [facility] Comment:Preliminary ANC, Fin al Result to Follow Abs Immature Granulocyte 0.15(H) 0.00 - 0.09 k/cmm [facility] Comment:The Immature Granulo cyte Absolute count contains metamyelocytes and myelocytes. Abs Neutrophil 17.47(H) 1.70 - 6.50 k/cmm [facility] Abs Lymphocyte 0.47(L) 0.80 - 4.00 k/cmm [facility] Abs Monocyte 1.42(H) 0.20 - 1.00 k/cmm [facility] Abs Eosinophil 0.05 0.00 - 0.60 k/cmm [facility] Abs Basophil 0.04 0.00 - 0.20 k/cmm [facility] Stippling Slight [facility] Polychromasia Slight [facility] Blood 11/09/2023 8:12 AM CDT 11/09/2023 8:34 AM CDT Chivo Robins MD LABORATORY [facility] [address] [address] * POTASSIUM (11/08/2023 7:20 AM CDT) Potassium 4.4 3.5 - 5.3 mmol/L [facility] Blood 11/08/2023 7:20 AM CDT 11/08/2023 7:38 AM CDT Chivo Robins MD LABORATORY Performing Organization Address City/[facility]/ZIP Co de Phone Number [facility] [address] [address] * (ABNORMAL) CBC WITH PLATELET (11/08/2023 7:20 AM CDT) WBC 10.56(H) 4.00 - 10.00 k/cmm [facility] RBC 4.11(L) 4.60 - 6.00 m/cmm [facility] Hgb 12.1(L) 13.1 - 17.5 g/dL [facility] Hematocrit 35.8(L) 40.0 - 51.0 % [facility] MCV 87.1 80.0 - 100.0 fL [facility] MCH 29.4 25.0 - 32.0 pg [facility] MCHC 33.8 31.0 - 36.0 g/dL [facility] RDW 13.2 11.5 - 14.5 % [facility] Plt 182 150 - 400 k/cmm [facility] MPV 10.4 6.5 - 12.5 fL [facility] Blood 11/08/2023 7:20 AM CDT 11/08/2023 7:38 AM CDT Charmaine Anne APRN, CNP LABORATORY [facility] [address] [address] * ANTI XA ASSAY LMW HEPARIN (11/07/2023 1:17 PM CDT) Pathologist [facility] Anti XA LMW 0.14 IU/mL [facility] Comment: Anti Xa Assay LMW Heparin Therapeutic Ranges: 0.4-1.1 IU/mL for twice daily 1.0-2.0 IU/mL for once daily Blood 11/07/2023 1:17 PM CDT 11/07/2023 1:36 PM CDT Yoder PharmD LABORATORY Performing Organization Address City/[facility]/ZIP Co de Phone Number [facility] [address] [address] * (ABNORMAL) CBC WITH PLATELET (11/07/2023 6:44 AM CDT) [facility] WBC 8.13 4.00 - 10.00 k/cmm [facility] RBC 4.13(L) 4.60 - 6.00 m/cmm [facility] Hgb 12.2(L) 13.1 - 17.5 g/dL [facility] Hematocrit 36.2(L) 40.0 - 51.0 % [facility] MCV 87.7 80.0 - 100.0 fL [facility] MCH 29.5 25.0 - 32.0 pg [facility] MCHC 33.7 31.0 - 36.0 g/dL [facility] RDW 13.1 11.5 - 14.5 % [facility] Plt 170 150 - 400 k/cmm [facility] MPV 11.0 6.5 - 12.5 fL [facility] Blood 11/07/2023 6:44 AM CDT 11/07/2023 7:20 AM CDT Charmaine Anne HEAD STOCK TRANSFER CLERK, AFTER SCHOOL CAREGIVER LABORATORY Performing Organization Address City/[facility]/ZIP Co de Phone Number [facility] [address] [address] * ULT SCROTUM WITH DUPLEX (11/06/2023 7:19 [...] Radiologist: Robert Tamayo Reading Resident: Cole Delgado 11/06/2023 8:01 PM CDT Indication: new scrotal [...] Delgado Chivo Robins MD RAD ULT * (ABNORMAL) URINALYSIS,TOTAL (11/06/2023 3:59 PM CDT) Color YELLOW YELLOW [facility] Appearance CLEAR CLEAR [facility] Urine Glucose 100(A) NEGATIVE mg/dL [facility] Bili UA NEGATIVE NEGATIVE [facility] Ketones TRACE(A) NEGATIVE [facility] Specific [place] 1.031(A) 1.003 - 1.030 [facility] Blood Ur LARGE(A) Neg-Trace [facility] PH Urine 5.5 5.0 - 7.0 [facility] Protein Ur 30(A) Neg-Trace [facility] Urobilinogen NORMAL NORMAL EU/dL [facility] Nitrite Ur NEGATIVE NEGATIVE [facility] Leuk Est MODERATE(A) Neg-Trace [facility] WBC Ur 11-20(A) 0 - 5 perHPF [facility] RBC Ur >20(A) 0 - 3 perHPF [facility] Urinalysis Performed at: [facility] Urine 11/06/2023 3:59 PM CDT 11/06/2023 4:02 PM CDT Chivo Robins MD LABORATORY [facility] [address] [address] * ULT VENOUS UPPER EXTREMITY LEFT (11/06/2023 [...] Matute Chivo Robins MD RAD ULT * POTASSIUM (11/06/2023 6:52 AM CDT) Potassium 4.1 3.5 - 5.3 mmol/L [facility] Blood 11/06/2023 6:52 AM CDT 11/06/2023 7:22 AM CDT Chivo Robins MD LABORATORY Performing Organization Address City/[facility]/ZIP Co de Phone Number [facility] [address] [address] * (ABNORMAL) CBC WITH PLATELET (11/06/2023 6:52 AM CDT) WBC 7.72 4.00 - 10.00 k/cmm [facility] RBC 4.10(L) 4.60 - 6.00 m/cmm [facility] Hgb 12.0(L) 13.1 - 17.5 g/dL [facility] Hematocrit 35.4(L) 40.0 - 51.0 % [facility] MCV 86.3 80.0 - 100.0 fL [facility] MCH 29.3 25.0 - 32.0 pg [facility] MCHC 33.9 31.0 - 36.0 g/dL [facility] RDW 12.8 11.5 - 14.5 % [facility] Plt 171 150 - 400 k/cmm [facility] MPV 10.8 6.5 - 12.5 fL [facility] Blood 11/06/2023 6:52 AM CDT 11/06/2023 7:22 AM CDT Charmaine Anne APRN, [facility] LABORATORY Performing Organization Address City/[facility]/ZIP Co de Phone Number [facility] [address] [address] * MR ABDOMEN W/O + W/CONTRAST (11/05/2023 [...] minutes. 3-D reconstructions were created by the ct technologist on the MRI scanner and reviewed [...] 5 minutes. 3-Dreconstructions were created by the ct technologist on the MRI scannerand reviewed by [...] Chivo Robins MD RAD MR BODY * (ABNORMAL) POC GLUCOSE (11/05/2023 4:27 PM CDT) POC Glucose 103(H) 70 - 100 mg/dL [facility] Blood 11/05/2023 4:27 PM CDT Patrice Marcial MD LABORATORY [facility] [address] [place] [address], * PHOSPHORUS (11/05/2023 6:18 AM CDT) Phosphorus 3.8 2.5 - 4.5 mg/dL [facility] Blood 11/05/2023 6:18 AM CDT 11/05/2023 7:38 AM CDT Chivo Robins MD LABORATORY Performing Organization Address [facility] de Phone Number [facility] [address] [address] * MAGNESIUM (11/05/2023 6:18 AM CDT) Magnesium 1.9 1.6 - 2.4 mg/dL [facility] Blood 11/05/2023 6:18 AM CDT 11/05/2023 7:38 AM CDT Chivo Robins MD LABORATORY Performing Organization Address [facility] de Phone Number [facility] [address] [address] * (ABNORMAL) PANEL BASIC METABOLIC (BMP) (11/05/2023 6:18 AM CDT) Sodium 136 135 - 148 mmol/L [facility] Potassium 3.9 3.5 - 5.3 mmol/L [facility] Chloride 100 92 - 108 mmol/L [facility] CO2 28 22 - 30 mmol/L [facility] Glucose 124(H) 70 - 100 mg/dL [facility] BUN 15 8 - 23 mg/dL [facility] Creatinine 0.72 0.70 - 1.25 mg/dL [facility] [facility] Calcium 8.7(L) 8.8 - 10.2 mg/dL [facility] AnGap 8 8 - 16 mmol/L [facility] eGFR (2020 CKD-EPI) 101 >=60 ml/min/1.7 3m2 [facility] Comment: The estimated glomerular filtration rate (eGFR) was calculated using the CKD-EPI 2020 creatinine equation, which does not include race as a factor. This equation is validated in individuals 18 years of age and older, and eGFR is normalized to a body surface area of 1.73m^2. Blood 11/05/2023 6:18 AM CDT 11/05/2023 7:38 AM CDT Chivo Robins MD LABORATORY [facility] [address] [address] * (ABNORMAL) CBC WITH PLTS/AUTO DIFF (11/05/2023 6:18 AM CDT) WBC 6.13 4.00 - 10.00 k/cmm [facility] RBC 4.04(L) 4.60 - 6.00 m/cmm [facility] Hgb 12.0(L) 13.1 - 17.5 g/dL [facility] Hematocrit 36.1(L) 40.0 - 51.0 % [facility] MCV 89.4 80.0 - 100.0 fL [facility] MCH 29.7 25.0 - 32.0 pg [facility] MCHC 33.2 31.0 - 36.0 g/dL [facility] RDW 13.0 11.5 - 14.5 % [facility] Plt 118(L) 150 - 400 k/cmm [facility] MPV 11.6 6.5 - 12.5 fL [facility] Automated Abs Neutrophil 4.07 1.70 - 6.50 k/cmm [facility] Comment:Preliminary ANC, Fin al Result to Follow Abs Immature Granulocyte 0.09 0.00 - 0.09 k/cmm [facility] Comment:The Immature Granulo cyte Absolute count contains metamyelocytes and myelocytes. Abs Neutrophil 4.07 1.70 - 6.50 k/cmm [facility] Abs Lymphocyte 0.93 0.80 - 4.00 k/cmm [facility] Abs Monocyte 0.77 0.20 - 1.00 k/cmm [facility] Abs Eosinophil 0.23 0.00 - 0.60 k/cmm [facility] Abs Basophil 0.04 0.00 - 0.20 k/cmm [facility] Blood 11/05/2023 6:18 AM CDT 11/05/2023 7:38 AM CDT Chivo Robins MD LABORATORY Performing Organization Address City/[facility]/ZIP Co de Phone Number [facility] [address] [place] [phone] * (ABNORMAL) POC GLUCOSE (11/05/2023 6:11 AM CDT) POC Glucose 134(H) 70 - 100 mg/dL [facility] Blood 11/05/2023 6:11 AM CDT Patrice Marcial MD LABORATORY Performing Organization Address [facility] Co de Phone Number [facility] POINT OF [facility] [address] [place] [phone], * (ABNORMAL) POC GLUCOSE (11/04/2023 10:06 PM CDT) POC Glucose 144(H) 70 - 100 mg/dL [facility] POINT OF CARE Blood 11/04/2023 10:0 6 PM CDT Patrice Marcial MD LABORATORY Performing Organization Address [facility] de Phone Number [facility] [address] [place] [phone], [place] * XR CHEST 1 VIEW AP OR PA* (11/04/2023 4:57 PM CDT) Anatomical Region Laterality Modality Chest Computed Radiogr aphy 11/04/2023 4:59 PM CDT Impressions 11/04/2023 4:59 PM CDT Impression: No pneumothorax after removal of left chest tube. Reading Radiologist: Robert Tamayo Narrative 11/04/2023 4:59 PM CDT Technique: XR CHEST 1 VIEW AP OR PA* Indication: follow up CT pull ?? Comparison: 11/04/2023, earlier Findings: Multiple left rib fractures. Left chest tube removed. No pneumothorax. Right lung clear. Procedure Note Robert Tamayo MD - 11/04/2023 Technique: XR CHEST 1 VIEW AP OR PA* Indication: follow up CT pull Comparison: 11/04/2023, earlier Findings: Multiple left rib fractures. Left chest tube removed. Nopneumothorax. Right lung clear. IMPRESSION Impression: No pneumothorax after removal of left chest tube. Reading Radiologist: Robert Tamayo Charmaine Anne HEAD STOCK TRANSFER CLERK, AFTER SCHO[employer] CAREGIVER RAD XRAY * (ABNORMAL) POC GLUCOSE (11/04/2023 3:30 PM CDT) POC Glucose 160(H) 70 - 100 mg/dL [facility] POINT OF CARE Blood 11/04/2023 3:30 PM CDT Patrice Marcial MD LABORATORY Performing Organization Address [facility] Co de Phone Number [facility] POINT OF [address] * (ABNORMAL) POC GLUCOSE (11/04/2023 11:13 AM CDT) POC Glucose 158(H) 70 - 100 mg/dL [facility] POINT OF CARE Blood 11/04/2023 11:1 3 AM CDT Patrice Marcial MD LABORATORY Performing Organization Address [facility] Co de Phone Number [facility] [place] [address], * PHOSPHORUS (11/04/2023 8:14 AM CDT) Phosphorus 2.6 2.5 - 4.5 mg/dL [facility] Blood 11/04/2023 8:14 AM CDT 11/04/2023 8:31 AM CDT Chivo Robins MD LABORATORY Performing Organization Address City/[facility] Co de Phone Number [facility] [place] [address] * MAGNESIUM (11/04/2023 8:14 AM CDT) Magnesium 1.7 1.6 - 2.4 mg/dL [facility] Blood 11/04/2023 8:14 AM CDT 11/04/2023 8:31 AM CDT Chivo Robins MD LABORATORY Performing Organization Address [facility] Co de Phone Number [facility] [address] [address] * (ABNORMAL) PANEL BASIC METABOLIC (BMP) (11/04/2023 8:14 AM CDT) Sodium 138 135 - 148 mmol/L [facility] Potassium 4.2 3.5 - 5.3 mmol/L [facility] Chloride 100 92 - 108 mmol/L [facility] CO2 30 22 - 30 mmol/L [facility] AnGap 8 8 - 16 mmol/L [facility] Glucose 151(H) 70 - 100 mg/dL [facility] BUN 12 8 - 23 mg/dL [facility] Creatinine 0.77 0.70 - 1.25 mg/dL [facility] Calcium 8.8 8.8 - 10.2 mg/dL [facility] eGFR (2020 CKD-EPI) 99 >=60 ml/min/1.7 3m2 [facility] Comment: The estimated glomerular filtration rate (eGFR) was calculated using the CKD-EPI 2020 creatinine equation, which does not include race as a factor. This equation is validated in individuals 18 years of age and older, and eGFR is normalized to a body surface area of 1.73m^2. Blood 11/04/2023 8:14 AM CDT 11/04/2023 8:31 AM CDT Chivo Robins MD LABORATORY Performing Organization Address [facility] Co de Phone Number [facility] [address] [address] * (ABNORMAL) CBC WITH PLTS/AUTO DIFF (11/04/2023 8:14 AM CDT) WBC 7.37 4.00 - 10.00 k/cmm [facility] RBC 4.13(L) 4.60 - 6.00 m/cmm [facility] Hgb 12.2(L) 13.1 - 17.5 g/dL [facility] Hematocrit 37.0(L) 40.0 - 51.0 % [facility] MCV 89.6 80.0 - 100.0 fL [facility] MCH 29.5 25.0 - 32.0 pg [facility] MCHC 33.0 31.0 - 36.0 g/dL [facility] RDW 12.7 11.5 - 14.5 % [facility] Plt 128(L) 150 - 400 k/cmm [facility] MPV 11.1 6.5 - 12.5 fL [facility] Automated Abs Neutrophil 5.69 1.70 - 6.50 k/cmm [facility] Comment:Preliminary ANC, Fin al Result to Follow Abs Immature Granulocyte 0.04 0.00 - 0.09 k/cmm [facility] Comment:The Immature Granulo cyte Absolute count contains metamyelocytes and myelocytes. Abs Neutrophil 5.69 1.70 - 6.50 k/cmm [facility] Abs Lymphocyte 0.82 0.80 - 4.00 k/cmm [facility] Abs Monocyte 0.49 0.20 - 1.00 k/cmm [facility] Abs Eosinophil 0.30 0.00 - 0.60 k/cmm [facility] Abs Basophil 0.03 0.00 - 0.20 k/cmm [facility] Blood 11/04/2023 8:14 AM CDT 11/04/2023 8:31 AM CDT Chivo Robins MD LABORATORY [facility] [address] [address] * XR CHEST 1 VIEW AP OR PA* (11/04/2023 6:26 AM CDT) Anatomical Region Laterality Modality Chest Computed Radiogr aphy 11/04/2023 6:56 AM CDT Impressions 11/04/2023 8:07 AM CDT IMPRESSION: No significant change compared to earlier exam. I have personally reviewed the image(s) and initial interpretation, and I agree with the findings as documented by the resident/fellow. Reading Radiologist: Carrington Jalloh Reading Resident: Cole Delgado Narrative 11/04/2023 8:07 AM CDT Indication: chest tube to water seal ?? Comparison: Chest x-ray 11/03/2023 FINDINGS: Left upper chest tube is unchanged in position. No appreciable pneumothorax. Soft tissue gas in the left chest wall. Unchanged left basilar airspace opacities with probable small left pleural effusion. Unchanged rib fractures. Postsurgical changes in the cervical spine. Procedure Note Carrington Jalloh DO - 11/04/2023 Indication: chest tube to water seal Comparison: Chest x-ray 11/03/2023 FINDINGS: Left upper chest tube is unchanged in position. No appreciablepneumothorax. Soft tissue gas in the left chest wall. Unchanged leftbasilar airspace opacities with probable small left pleural effusion.Unchanged rib fractures. Postsurgical changes in the cervical spine. IMPRESSION IMPRESSION: No significant change compared to earlier exam. I have personally reviewed the image(s) and initial interpretation, and Iagree with the findings as documented by the resident/fellow. Reading Radiologist: Carrington Jalloh Reading Resident: Cole Delgado Charmaine Anne HEAD STOCK TRANSFER CLERK, AFTER SCHOOL CAREGIVER RAD XRAY * (ABNORMAL) POC GLUCOSE (11/04/2023 6:08 AM CDT) Pathologist [facility] POC Glucose 124(H) 70 - 100 mg/dL [facility] Blood 11/04/2023 6:08 AM CDT Patrice Marcial MD LABORATORY [facility] [address] [place] [address], * (ABNORMAL) PANEL BASIC METABOLIC (BMP) (11/03/2023 9:30 PM CDT) Pathologist [facility] AnGap 13 8 - 16 mmol/L [facility] Calcium 9.0 8.8 - 10.2 mg/dL [facility] Chloride 102 92 - 108 mmol/L [facility] CO2 22 22 - 30 mmol/L [facility] Glucose 163(H) 70 - 100 mg/dL [facility] Creatinine 0.88 0.70 - 1.25 mg/dL [facility] eGFR (2020 CKD-EPI) 95 >=60 ml/min/1.7 3m2 [facility] [place] Comment: The estimated glomerular filtration rate (eGFR) was calculated using the CKD-EPI 2020 creatinine equation, which does not include race as a factor. This equation is validated in individuals 18 years of age and older, and eGFR is normalized to a body surface area of 1.73m^2. BUN 19 8 - 23 mg/dL [facility] Sodium 137 135 - 148 mmol/L [facility] [place] Potassium na 3.5 - 5.3 [facility] Comment:K = 5.1. Accuracy of result suspect due to hemolysis. Blood 11/03/2023 9:30 PM CDT 11/03/2023 9:35 PM CDT Chivo Robins MD LABORATORY Performing Organization Address [facility] de Phone Number [facility] [address] [address] * (ABNORMAL) POC GLUCOSE (11/03/2023 9:22 PM CDT) POC Glucose 186(H) 70 - 100 mg/dL [facility] Blood 11/03/2023 9:22 PM CDT Patrice Marcial MD LABORATORY Performing Organization Address [facility] de Phone Number [facility] POINT OF CARE [address] [place] [phone], [place] * (ABNORMAL) POC GLUCOSE (11/03/2023 4:45 PM CDT) POC Glucose 133(H) 70 - 100 mg/dL [facility] Blood 11/03/2023 4:45 PM CDT Patrice Marcial MD LABORATORY Performing Organization Address [facility] Co de Phone Number [facility] POINT OF CARE [address] [place] [phone], [place] * XR CHEST 1 VIEW AP OR PA* (11/03/2023 4:30 PM CDT) Anatomical Region Laterality Modality Chest Computed Radiogr aphy 11/03/2023 4:31 PM CDT Impressions 11/03/2023 4:39 PM CDT IMPRESSION: Soft tissue gas within the left chest wall has mildly improved compared to earlier chest x-ray 11/03/2023. No other significant change compared to earlier exam. Reading Radiologist: Jimmy García Narrative 11/03/2023 4:39 PM CDT Indication: new hypotension ?? Comparison: Chest x-ray 11/03/2023 FINDINGS: Left upper chest tube is unchanged in position. No appreciable pneumothorax. Soft tissue gas in the left chest wall, mildly improved compared to 11/03/2023. Unchanged left basilar airspace opacities with probable small left pleural effusion. Unchanged rib fractures. Postsurgical changes in the cervical spine. Procedure Note Jimmy García MD - 11/03/2023 Indication: new hypotension Comparison: Chest x-ray 11/03/2023 FINDINGS: Left upper chest tube is unchanged in position. No appreciablepneumothorax. Soft tissue gas in the left chest wall, mildly improvedcompared to 11/03/2023. Unchanged left basilar airspace opacities withprobable small left pleural effusion. Unchanged rib fractures.Postsurgical changes in the cervical spine. IMPRESSION IMPRESSION: Soft tissue gas within the left chest wall has mildly improved compared toearlier chest x-ray 11/03/2023. No other significant change compared toearlier exam. Reading Radiologist: Jimmy García Chivo Robins MD RAD XRAY * EKG ADULT (12-LEAD) (11/03/2023 3:59 PM CDT) 11/03/2023 3:59 PM CDT Impressions [facility] CVIS EKG ORDERS - 11/03/2023 3:59 PM CDT SINUS RHYTHM NONSPECIFIC T-WAVE ABNORMALITY BORDERLINE ECG P-R Interval 186 ms QRS Interval 102 ms QT Interval 391 ms QTC Interval 400 ms P Aurora 24 QRS Aurora 46 T Wave Aurora 89 Narrative Procedure Note Kishore Solorio MD - 11/03/2023 IMPRESSION SINUS RHYTHM NONSPECIFIC T-WAVE ABNORMALITY BORDERLINE ECG P-R Interval 186 ms QRS Interval 102 ms QT Interval 391 ms QTC Interval 400 ms P Aurora 24 QRS Aurora 46 T Wave Aurora 89 Chivo Robins MD EKG Performing Organization Address City/[facility] Co de Phone Number [facility] [place] CVIS EKG ORDERS * (ABNORMAL) POC GLUCOSE (11/03/2023 11:10 AM CDT) POC Glucose 161(H) 70 - 100 mg/dL [facility] Blood 11/03/2023 11:1 0 AM CDT Patrice Marcial MD LABORATORY Performing Organization Address City/[facility]/ZIP Co de Phone Number [facility] POINT OF CARE [address] [place] [phone], [place] * POTASSIUM (11/03/2023 9:16 AM CDT) Potassium 4.3 3.5 - 5.3 mmol/L [facility] Blood 11/03/2023 9:16 AM CDT 11/03/2023 9:39 AM CDT Chivo Robins MD LABORATORY Performing Organization Address [facility] Co de Phone Number [facility] [address] [address] * (ABNORMAL) POC GLUCOSE (11/03/2023 7:50 AM CDT) POC Glucose 163(H) 70 - 100 mg/dL [facility] POINT OF CARE Blood 11/03/2023 7:50 AM CDT Patrice Marcial MD LABORATORY [facility] POINT OF CARE [address] [place] [phone], [place] * XR CHEST 1 VIEW AP OR PA* (11/03/2023 7:00 AM CDT) Anatomical Region Laterality Modality Chest Computed Radiogr aphy 11/03/2023 7:33 AM CDT Impressions 11/03/2023 7:33 AM CDT Impression: No significant change. Reading Radiologist: Robert Tamayo Narrative 11/03/2023 7:33 AM CDT Technique: XR CHEST 1 VIEW AP OR PA* Indication: chest tube in place ?? Comparison: 11/02/2023 Findings: Left chest tube in place. Subcutaneous emphysema in the left chest wall. No change in appearance of the lungs, no increased/recurrent pneumothorax. Cervical spine fusion. Procedure Note Robert Tamayo MD - 11/03/2023 Technique: XR CHEST 1 VIEW AP OR PA* Indication: chest tube in place Comparison: 11/02/2023 Findings: Left chest tube in place. Subcutaneous emphysema in the leftchest wall. No change in appearance of the lungs, no increased/recurrentpneumothorax. Cervical spine fusion. IMPRESSION Impression: No significant change. Reading Radiologist: Robert Tamayo Chivo Robins MD RAD XRAY * PHOSPHORUS (11/03/2023 5:09 AM CDT) Phosphorus 3.1 2.5 - 4.5 mg/dL [facility] Blood 11/03/2023 5:09 AM CDT 11/03/2023 5:15 AM CDT Chivo Robins MD LABORATORY [facility] [address] [address] * MAGNESIUM (11/03/2023 5:09 AM CDT) Magnesium 1.8 1.6 - 2.4 mg/dL [facility] [place] Blood 11/03/2023 5:09 AM CDT 11/03/2023 5:15 AM CDT Chivo Robins MD LABORATORY [facility] [address] [address] * (ABNORMAL) PANEL BASIC METABOLIC (BMP) (11/03/2023 5:09 AM CDT) Sodium 135 135 - 148 mmol/L [facility] Potassium 4.1 3.5 - 5.3 mmol/L [facility] Chloride 101 92 - 108 mmol/L [facility] CO2 27 22 - 30 mmol/L [facility] AnGap 7(L) 8 - 16 mmol/L [facility] Glucose 144(H) 70 - 100 mg/dL [facility] BUN 14 8 - 23 mg/dL [facility] Creatinine 0.89 0.70 - 1.25 mg/dL [facility] Calcium 8.7(L) 8.8 - 10.2 mg/dL [facility] eGFR (2020 CKD-EPI) 95 >=60 ml/min/1.7 3m2 [facility] Comment: The estimated glomerular filtration rate (eGFR) was calculated using the CKD-EPI 2020 creatinine equation, which does not include race as a factor. This equation is validated in individuals 18 years of age and older, and eGFR is normalized to a body surface area of 1.73m^2. Blood 11/03/2023 5:09 AM CDT 11/03/2023 5:15 AM CDT Chivo Robins MD LABORATORY [facility] [address] [address] * (ABNORMAL) CBC WITH PLTS/AUTO DIFF (11/03/2023 5:09 AM CDT) WBC 8.62 4.00 - 10.00 k/cmm [facility] RBC 4.07(L) 4.60 - 6.00 m/cmm [facility] Hgb 11.9(L) 13.1 - 17.5 g/dL [facility] Hematocrit 36.6(L) 40.0 - 51.0 % [facility] MCV 89.9 80.0 - 100.0 fL [facility] MCH 29.2 25.0 - 32.0 pg [facility] MCHC 32.5 31.0 - 36.0 g/dL [facility] RDW 13.1 11.5 - 14.5 % [facility] Plt 116(L) 150 - 400 k/cmm [facility] MPV 11.0 6.5 - 12.5 fL [facility] Automated Abs Neutrophil 6.28 1.70 - 6.50 k/cmm [facility] Comment:Preliminary ANC, Fin al Result to Follow Abs Immature Granulocyte 0.06 0.00 - 0.09 k/cmm [facility] Comment:The Immature Granulo cyte Absolute count contains metamyelocytes and myelocytes. Abs Neutrophil 6.28 1.70 - 6.50 k/cmm [facility] Abs Lymphocyte 1.18 0.80 - 4.00 k/cmm [facility] Abs Monocyte 0.84 0.20 - 1.00 k/cmm [facility] Abs Eosinophil 0.22 0.00 - 0.60 k/cmm [facility] Abs Basophil 0.04 0.00 - 0.20 k/cmm [facility] Blood 11/03/2023 5:09 AM CDT 11/03/2023 5:15 AM CDT Chivo Robins MD LABORATORY [facility] [place] [address] * (ABNORMAL) POC GLUCOSE (11/02/2023 8:41 PM CDT) POC Glucose 147(H) 70 - 100 mg/dL [facility] Blood 11/02/2023 8:41 PM CDT Patrice Marcial MD LABORATORY [facility] POINT OF CARE [address] [place] [address] * (ABNORMAL) POC GLUCOSE (11/02/2023 5:42 PM CDT) POC Glucose 165(H) 70 - 100 mg/dL [facility] Blood 11/02/2023 5:42 PM CDT Patrice Marcial MD LABORATORY [address] [address], * (ABNORMAL) POC GLUCOSE (11/02/2023 11:56 AM CDT) POC Glucose 199(H) 70 - 100 mg/dL [facility] POINT OF CARE Blood 11/02/2023 11:5 6 AM CDT Patrice Marcial MD LABORATORY Performing Organization Address City/[facility]/ZIP Co de Phone Number [address] [address], [place] * (ABNORMAL) POC GLUCOSE (11/02/2023 7:24 AM CDT) POC Glucose 134(H) 70 - 100 mg/dL [facility] Blood 11/02/2023 7:24 AM CDT Patrice Marcial MD LABORATORY Performing Organization Address City/[facility] Co de Phone Number [address] [address], [place] * ICU MAGNESIUM (11/02/2023 7:20 AM CDT) Magnesium 1.9 1.6 - 2.4 mg/dL [facility] Blood 11/02/2023 7:20 AM CDT 11/02/2023 7:35 AM CDT Chivo Robins MD LABORATORY Performing Organization Address City/[facility]/ZIP Co de Phone Number [facility] [address] [address] * (ABNORMAL) ICU PHOSPHORUS (11/02/2023 7:20 AM CDT) Phosphorus 2.1(L) 2.5 - 4.5 mg/dL [facility] Blood 11/02/2023 7:20 AM CDT 11/02/2023 7:35 AM CDT Chivo Robins MD LABORATORY Performing Organization Address [facility] Co de Phone Number [facility] [address] [address] * (ABNORMAL) ICU PANEL BASIC METABOLIC (BMP) (11/02/2023 7:20 AM CDT) Sodium 136 135 - 148 mmol/L [facility] Potassium 4.3 3.5 - 5.3 mmol/L [facility] Chloride 104 92 - 108 mmol/L [facility] CO2 23 22 - 30 mmol/L [facility] [facility] [place] [facility] AnGap 9 8 - 16 mmol/L [facility] Glucose 147(H) 70 - 100 mg/dL [facility] BUN 18 8 - 23 mg/dL [facility] Creatinine 0.87 0.70 - 1.25 mg/dL [facility] Calcium 8.6(L) 8.8 - 10.2 mg/dL [facility] eGFR (2020 CKD-EPI) 96 >=60 ml/min/1.7 3m2 [facility] Comment: The estimated glomerular filtration rate (eGFR) was calculated using the CKD-EPI 2020 creatinine equation, which does not include race as a factor. This equation is validated in individuals 18 years of age and older, and eGFR is normalized to a body surface area of 1.73m^2. Blood 11/02/2023 7:20 AM CDT 11/02/2023 7:35 AM CDT Chivo Robins MD LABORATORY Performing Organization Address City/[facility]/ZIP Co de Phone Number [facility] [address] [address] * (ABNORMAL) ICU CBC WITH PLATELET (11/02/2023 7:20 AM CDT) WBC 9.67 4.00 - 10.00 k/cmm [facility] RBC 4.06(L) 4.60 - 6.00 m/cmm [facility] Hgb 12.0(L) 13.1 - 17.5 g/dL [facility] Hematocrit 36.4(L) 40.0 - 51.0 % [facility] MCV 89.7 80.0 - 100.0 fL [facility] MCH 29.6 25.0 - 32.0 pg [facility] MCHC 33.0 31.0 - 36.0 g/dL [facility] RDW 13.2 11.5 - 14.5 % [facility] Plt 120(L) 150 - 400 k/cmm [facility] MPV 11.7 6.5 - 12.5 fL [facility] Blood 11/02/2023 7:20 AM CDT 11/02/2023 7:35 AM CDT Chivo Robins MD LABORATORY Performing Organization Address City/[facility]/ZIP Co de Phone Number [address] [address] * MRSA SURVEILLANCE SCREEN (11/02/2023 5:51 AM CDT) Final Report No MRSA isolated. [facility] Swab NASAL STRUCTURE / Unknown 11/02/2023 5:51 AM CDT 11/02/2023 6:04 AM CDT Narrative [facility] - 11/04/2023 7:51 AM CDT Post Admission Screening on day 3 of admission to ICU - Discontinue MRSA order if patient becomes positive or is no longer in ICU. Patrice Marcial MD LAB MICROBIOLOGY Performing Organization Address City/[facility] Co de Phone Number [address] [address] * XR CHEST 1 VIEW AP OR PA* (11/02/2023 4:57 AM CDT) Anatomical Region Laterality Modality Chest Computed Radiogr aphy 11/02/2023 5:09 AM CDT Impressions 11/02/2023 7:45 AM CDT Impression: Unchanged small left effusion without pneumothorax. I have personally reviewed the image(s) and initial interpretation, and I agree with the findings as documented by the resident/fellow. Reading Radiologist: Sandra Hope Reading Resident: Azael Segura Narrative 11/02/2023 7:45 AM CDT Technique: XR CHEST 1 VIEW AP OR PA* Indication: Chest tube ?? Comparison: 11/01/2023 Findings: Left-sided chest tube in place. Left-sided rib fractures. No pneumothorax. Unchanged small left pleural effusion. Procedure Note Sandra Hope MD - 11/02/2023 Technique: XR CHEST 1 VIEW AP OR PA* Indication: Chest tube Comparison: 11/01/2023 Findings: Left-sided chest tube in place. Left-sided rib fractures. Nopneumothorax. Unchanged small left pleural effusion. IMPRESSION Impression: Unchanged small left effusion without pneumothorax. I have personally reviewed the image(s) and initial interpretation, and Iagree with the findings as documented by the resident/fellow. Reading Radiologist: Sandra Hope Resident: Azael Segura Chivo Robins MD RAD XRAY * (ABNORMAL) POC GLUCOSE (11/01/2023 8:12 PM CDT) POC Glucose 158(H) 70 - 100 mg/dL [facility] Blood 11/01/2023 8:12 PM CDT Patrice Marcial MD LABORATORY [facility] [address] [place] [address], [place] * ULT VENOUS LOWER EXTREMITY BILAT (11/01/2023 [...] Reading Radiologist: Main Feliz Resident: Cole Delgado Narrative 11/01/2023 7:31 PM CDT Indication: trauma screening [...] imaging. Procedure Note Main Feliz DO - 11/01/2023 Indication: trauma screening Comparison: [...] resident/fellow. Reading Radiologist: Main Feliz Reading Resident: Cole Delgado Chivo Robins MD RAD ULT * (ABNORMAL) POC GLUCOSE (11/01/2023 4:49 PM CDT) POC Glucose 152(H) 70 - 100 mg/dL [facility] Blood 11/01/2023 4:49 PM CDT Patrice Marcial MD LABORATORY Performing Organization Address [facility] Co de Phone Number [facility] POINT OF [facility] [address] [place] [address], [place] * (ABNORMAL) POC GLUCOSE (11/01/2023 3:27 PM CDT) POC Glucose 165(H) 70 - 100 mg/dL [facility] Blood 11/01/2023 3:27 PM CDT Patrice Marcial MD LABORATORY Performing Organization Address [facility] Co de Phone Number [facility] [address] [place] [address], [place] * (ABNORMAL) POC GLUCOSE (11/01/2023 11:39 AM CDT) POC Glucose 166(H) 70 - 100 mg/dL [facility] POINT [facility] Blood 11/01/2023 11:3 9 AM CDT Patrice Marcial MD LABORATORY Performing Organization Address [facility] de Phone Number [facility] [address] [place] [address], [place] * CT RECONSTRUCT MULTIPLANAR-3D (11/01/2023 6:12 AM [...] the rib cage were created by the histology technologist on the CT scanner and reviewed [...] Chivo Robins MD RAD CT NEURO * (ABNORMAL) POC GLUCOSE (11/01/2023 6:09 AM CDT) POC Glucose 171(H) 70 - 100 mg/dL [facility] Blood 11/01/2023 6:09 AM CDT Patrice Marcial MD LABORATORY Performing Organization Address City/State/[facility] Co de Phone Number [facility] [address] [place] [address], * (ABNORMAL) LACTATE (LACTIC ACID) (11/01/2023 5:49 AM CDT) Lactate 2.6(H) 0.7 - 2.1 mmol/L [facility] Blood 11/01/2023 5:49 AM CDT 11/01/2023 5:58 AM CDT Narrative [facility] - 11/01/2023 6:20 AM CDT Send specimen on ice! Chivo Robins MD LABORATORY Performing Organization Address City/[facility]/ZIP Co de Phone Number [facility] [address] [address] * ICU MAGNESIUM (11/01/2023 5:49 AM CDT) Magnesium 1.8 1.6 - 2.4 mg/dL [facility] Blood 11/01/2023 5:49 AM CDT 11/01/2023 5:58 AM CDT Chivo Robins MD LABORATORY Performing Organization Address City/[facility] Co de Phone Number [facility] [address] [address] * ICU PHOSPHORUS (11/01/2023 5:49 AM CDT) Phosphorus 3.7 2.5 - 4.5 mg/dL [facility] Blood 11/01/2023 5:49 AM CDT 11/01/2023 5:58 AM CDT Chivo Robins MD LABORATORY Performing Organization Address [facility] Co de Phone Number [facility] [address] [address] * (ABNORMAL) ICU PANEL BASIC METABOLIC (BMP) (11/01/2023 5:49 AM CDT) Sodium 135 135 - 148 mmol/L [facility] Potassium 4.7 3.5 - 5.3 mmol/L [facility] Chloride 105 92 - 108 mmol/L [facility] CO2 20(L) 22 - 30 mmol/L [facility] [place] [facility] AnGap 10 8 - 16 mmol/L [facility] Glucose 177(H) 70 - 100 mg/dL [facility] [place] BUN 19 8 - 23 mg/dL [facility] Creatinine 0.90 0.70 - 1.25 mg/dL [facility] Calcium 8.0(L) 8.8 - 10.2 mg/dL [facility] eGFR (2020 CKD-EPI) 95 >=60 ml/min/1.7 3m2 [facility] Comment: The estimated glomerular filtration rate (eGFR) was calculated using the CKD-EPI 2020 creatinine equation, which does not include race as a factor. This equation is validated in individuals 18 years of age and older, and eGFR is normalized to a body surface area of 1.73m^2. Blood 11/01/2023 5:49 AM CDT 11/01/2023 5:58 AM CDT Chivo Robins MD LABORATORY Performing Organization Address City/[facility]/ZIP Co de Phone Number [facility] [address] [address] * (ABNORMAL) ICU CBC WITH PLATELET (11/01/2023 5:48 AM CDT) [facility] Signature WBC 12.17(H) 4.00 - 10.00 k/cmm [facility] RBC 4.15(L) 4.60 - 6.00 m/cmm [facility] Hgb 12.2(L) 13.1 - 17.5 g/dL [facility] Hematocrit 36.2(L) 40.0 - 51.0 % [facility] MCV 87.2 80.0 - 100.0 fL [facility] MCH 29.4 25.0 - 32.0 pg [facility] MCHC 33.7 31.0 - 36.0 g/dL [facility] RDW 13.1 11.5 - 14.5 % [facility] Plt 151 150 - 400 k/cmm [facility] MPV 11.5 6.5 - 12.5 fL [facility] Blood 11/01/2023 5:48 AM CDT 11/01/2023 5:58 AM CDT Chivo Robins MD LABORATORY Performing Organization Address City/[facility]/ZIP Co de Phone Number [facility] [address] [address] * XR CHEST 1 VIEW AP OR PA* (11/01/2023 3:12 AM CDT) Anatomical Region Laterality Modality Chest Computed Radiogr aphy 11/01/2023 3:57 AM CDT Impressions 11/01/2023 8:02 AM CDT Impression: Unchanged left effusion without pneumothorax. Left chest tube in place. I have personally reviewed the image(s) and initial interpretation, and I agree with the findings as documented by the resident/fellow. Reading Radiologist: Jaxson Pathak Reading Resident: Azael Segura Narrative 11/01/2023 8:02 AM CDT Indication: follow left pneumothorax ?? Comparison: CT as well as chest x-ray 10/31/2023 Findings: Left apically directed chest tube in place. No pneumothorax. Unchanged left effusion. The included right lung is relatively clear. Decreased left chest wall subcutaneous emphysema. Left-sided rib fractures are again seen. Procedure Note Jaxson Pathak MD - 11/01/2023 Indication: follow left pneumothorax Comparison: CT as well as chest x-ray 10/31/2023 Findings: Left apically directed chest tube in place. No pneumothorax.Unchanged left effusion. The included right lung is relatively clear.Decreased left chest wall subcutaneous emphysema. Left-sided rib fracturesare again seen. IMPRESSION Impression: Unchanged left effusion without pneumothorax. Left chest tube in place. I have personally reviewed the image(s) and initial interpretation, and Iagree with the findings as documented by the resident/fellow. Reading Radiologist: Jaxson Pathak Reading Resident: Azael Segura Chivo Robins MD RAD XRAY * (ABNORMAL) POC GLUCOSE (11/01/2023 12:10 AM CDT) POC Glucose 200(H) 70 - 100 mg/dL [facility] Blood 11/01/2023 12:1 0 AM CDT Patrice Marcial MD LABORATORY [facility] [address] [place] [address], * (ABNORMAL) POC GLUCOSE (10/31/2023 5:58 PM CDT) POC Glucose 160(H) 70 - 100 mg/dL [facility] Blood 10/31/2023 5:58 PM CDT Patrice Marcial MD LABORATORY Performing Organization Address City/[facility]/ZIP Co de Phone Number [facility] [address] [place] [address], * (ABNORMAL) CBC WITH PLATELET (10/31/2023 5:42 PM CDT) WBC 17.56(H) 4.00 - 10.00 k/cmm [facility] RBC 4.62 4.60 - 6.00 m/cmm [facility] Hgb 13.6 13.1 - 17.5 g/dL [facility] Hematocrit 40.2 40.0 - 51.0 % [facility] MCV 87.0 80.0 - 100.0 fL [facility] MCH 29.4 25.0 - 32.0 pg [facility] MCHC 33.8 31.0 - 36.0 g/dL [facility] RDW 12.9 11.5 - 14.5 % [facility] Plt 147(L) 150 - 400 k/cmm [facility] MPV 11.1 6.5 - 12.5 fL [facility] Blood 10/31/2023 5:42 PM CDT 10/31/2023 5:53 PM CDT Chivo Robins MD LABORATORY [facility] [address] [address] * (ABNORMAL) PANEL BASIC METABOLIC (BMP) (10/31/2023 5:42 PM CDT) Sodium 139 135 - 148 mmol/L [facility] Potassium 5.3 3.5 - 5.3 mmol/L [facility] Chloride 108 92 - 108 mmol/L [facility] CO2 22 22 - 30 mmol/L [facility] AnGap 9 8 - 16 mmol/L [facility] Glucose 188(H) 70 - 100 mg/dL [facility] BUN 16 8 - 23 mg/dL [facility] Creatinine 0.76 0.70 - 1.25 mg/dL [facility] Calcium 8.2(L) 8.8 - 10.2 mg/dL [facility] eGFR (2020 CKD-EPI) 100 >=60 ml/min/1.7 3m2 [facility] Comment: The estimated glomerular filtration rate (eGFR) was calculated using the CKD-EPI 2020 creatinine equation, which does not include race as a factor. This equation is validated in individuals 18 years of age and older, and eGFR is normalized to a body surface area of 1.73m^2. Blood 10/31/2023 5:42 PM CDT 10/31/2023 6:00 PM CDT Chivo Robins MD LABORATORY Performing Organization Address City/[facility]/ZIP Co de Phone Number [facility] [address] [address] * PROTHROMBIN (PT) & INR (10/31/2023 5:42 PM CDT) PT 11.8 9.0 - 12.5 sec [facility] INR 1.1 0.8 - 1.1 [facility] Comment: Warfarin Therapeutic Range: Standard Intensity: 2.0 - 3.0 High Intensity: 2.5 - 3.5 Blood 10/31/2023 5:42 PM CDT 10/31/2023 5:53 PM CDT Chivo Robins MD LABORATORY Performing Organization Address City/[facility] Co de Phone Number [facility] [address] [address] * MAGNESIUM (10/31/2023 5:42 PM CDT) Magnesium 1.6 1.6 - 2.4 mg/dL [facility] Blood 10/31/2023 5:42 PM CDT 10/31/2023 6:00 PM CDT Chivo Robins MD LABORATORY Performing Organization Address City/[facility]/ZIP Co de Phone Number [facility] [address] [address] * PHOSPHORUS (10/31/2023 5:42 PM CDT) Phosphorus 3.3 2.5 - 4.5 mg/dL [facility] Blood 10/31/2023 5:42 PM CDT 10/31/2023 6:00 PM CDT Chivo Robins MD LABORATORY Performing Organization Address [facility] Co de Phone Number [facility] [address] [address] * (ABNORMAL) LACTATE (LACTIC ACID) (10/31/2023 5:42 PM CDT) Lactate 2.7(H) 0.7 - 2.1 mmol/L [facility] Blood 10/31/2023 5:42 PM CDT 10/31/2023 5:54 PM CDT Narrative [facility] - 10/31/2023 6:10 PM CDT Send specimen on ice! Chivo Robins MD LABORATORY Performing Organization Address [facility]/ZIP Co de Phone Number [facility] [address] [address] * TROP 4H (10/31/2023 5:42 PM CDT) Pathologist [facility] 4H Trop 17 <=35 ng/L [facility] 4H Delta na Not Significant [facility] Comment:Unable to calculate delta. Blood 10/31/2023 5:42 PM CDT 10/31/2023 5:53 PM CDT Patrice Marcial MD LABORATORY Performing Organization Address [facility] Co de Phone Number [facility] [address] [address] * CT CHEST/ABD/PELVIS W/IV CONT (10/31/2023 4:30 PM CDT) Anatomical Region Laterality Modality Chest Computed Tomogra [...] Radiologist: Main Feliz Reading Resident: Dyllan Freedman Guilherme Mccann MD RAD CT BODY * XR CHEST 1 VIEW AP OR PA* (10/31/2023 3:59 PM CDT) Anatomical Region Laterality Modality Chest Computed Radiogr aphy 10/31/2023 4:03 PM CDT Impressions 10/31/2023 4:04 PM CDT Impression: No pneumothorax identified. Reading Radiologist: Main Feliz 10/31/2023 4:04 PM CDT Technique: XR CHEST 1 VIEW AP OR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 11/14/2023 8:32 AM CDT 17 g propofol (DIPRIVAN) 10 mg/mL BOLUS from infusion 50 mg 50 mg (0.5 mg/kg ? 100 kg Order-specific weight), Intravenous, BOLUS FROM INFUSION, Starting on Wed11/09/23 at 1453, Until Discontinued, Other (specify), q10min PRN Life threatening agitation Bolus from Infusion 11/15/2023 12:43 PM CDT 20 mg Bolus from Infusion 11/15/2023 7:27 AM CDT 25 mg Bolus from Infusion 11/14/2023 4:14 PM CDT 25 mg propofol 10 mg/mL Infusion Start infusion at (mcg/kg/min): 5, Titration? Titrate to Goal RASS, CONTINUOUS, Starting on Wed11/09/23 at 1455, Until Discontinued, Intravenous Infusing 11/15/2023 9:00 PM CDT 5 mcg/kg/min 3 mL/ hr Infusing 11/15/2023 8:00 PM CDT 5 mcg/kg/min 3 mL/hr Rate changed 11/15/2023 7:13 PM CDT 5 mcg/kg/min 3 mL/hr protein supplement (PROSOURCE TF) for Feeding Tube only 1 packet 1 packet, Feeding Tube, BID, First dose on Wed11/11/23 at 0800, Until Discontinued Given 11/15/2023 8:34 PM CDT 1 pac ket Given 11/15/2023 9:13 AM CDT 1 packet Given 11/14/2023 8:01 PM CDT 1 packet Richter Agitation Sedation Scale (RASS) Goal Choose Goal RASS to titrate to: 0 or -1 (Mild Sedation), CONTINUOUS, Starting on Wed11/09/23 at 1455, Until Discontinued sennosides-docusate sodium (STOOL SOFTENER/LAXATIVE) 8.6-50 mg tablet 2 tablet 2 tablet, Feeding Tube, BID, First dose (after last modification) on Wed11/10/23 at 0800, Until Discontinued Given 11/15/2023 9:13 AM CDT 2 tablets Given 11/14/2023 8:01 PM CDT 2 tablets Given 11/14/2023 8:32 AM CDT 2 tablets sodium chloride tablet 1 g 1 g, Feeding Tube, QID, First dose (after last modification) on Wed11/15/23 at 1200, Until Discontinued Given 11/15/2023 8:33 PM CDT 1 g Given 11/15/2023 5:06 PM CDT 1 g Given 11/15/2023 12:44 PM CDT 1 g VTE Anti Xa Monitoring Does not apply, PROTOCOL, Starting on Wed11/15/23 at 1222, Until Discontinued water oral liquid 30 mL 30 mL, Feeding Tube, Q4H, First dose on Wed11/11/23 at 0600, Until Discontinued Given 11/15/2023 6:00 PM CDT 30 mL Given 11/15/2023 2:00 PM CDT 30 mL Given 11/15/2023 10:00 AM CDT 30 mL documented in this encounter Active and Recently Administered Medications Times are shown in CDT. Scheduled Medication Order 11/13/2023 11/14/2023 11/15/2023 acetaminophen (TYLENOL) tablet 975 mg 975 mg, Feeding Tube, TID, First dose (after last modification) on Wed11/10/23 at 0800, Until Discontinued 0837 (Given - Provider: Yanci Blake, RN)0838 (Canceled Entry - Provider: Yanci Blake RN)1437 (Given - Provider: Yanci Blake, DANILO)2010 (Given - Provider: Bud Roque, DANILO) 0832 (Given - Provider: Yanci Blake RN)1420 (Given - Provider: Yanci Blake RN)2000 (Given - Provider: Tyrel Wilson RN) 0913 (Given - Provider: Bud Loya RN)1343 (Given - Provider: Elza Miramontes RN)2034 (Given - Provider: Hannah Vera RN) acetylcysteine inhalation (MUCOMYST) 20% inhalation solution 800 mg, Nebulization, QID, First dose (after last modification) on Wed11/10/23 at 1200, Until Discontinued 0800 (Given - Provider: RT Julia)1116 (Given - Provider: RT Mikey)1629 (Given - Provider: Verito Victoria RT)195 (Given - Provider: Noemy Soria RT) 0823 (Given - Provider: RT Mikey)1238 (Given - Provider: RT Mikey)1614 (Given - Provider: RT Mikey)2011 (Given - Provider: Noemy Soria RT) 0845 (Given - Provider: Noemy Slade RT)1200 (Canceled Entry - Provider: Mahi Lees RT - Comment: unkn if given)1627 (Given - Provider: Noemy Slade RT)2120 (Given - Provider: Mahi Lees RT) alteplase (CATHFLO ACTIVASE) 10 mg in NaCl 0.9% 30 mL intrapleural injection (COMPLETED) 10 mg, Intrapleural, ONE TIME, 1 dose, On Wed11/13/23 at 1100 1445 (Given - Provider: Yanci Blake RN) alteplase (CATHFLO ACTIVASE) 10 mg in NaCl 0.9% 30 mL intrapleural injection (COMPLETED) 10 mg, Intrapleural, ONE TIME, 1 dose, On Wed11/14/23 at 0855 0940 (Given - Provider: Yanci Blake, DANILO) amLODIPine (NORVASC) tablet 10 mg 10 mg, Feeding Tube, DAILY, First dose (after last modification) on Wed11/12/23 at 0800, Until Discontinued 0837 (Given - Provider: Yanci Blake RN) 0832 (Given - Provider: Yanci Blake RN) 0914 (Given - Provider: Bud Loya, DANILO) bacitracin 500 unit/g external ointment Topical, DAILY, First dose on Wed11/09/23 at 0900, Until Discontinued 1240 (Given - Provider: Yanci Blake RN) 0832 (Given - Provider: Yanci Blake RN) 0913 (Given - Provider: Bud Loya, DANILO) bisacodyl (DULCOLAX) suppository 10 mg 10 mg, Rectal, DAILY, First dose (after last modification) on Wed11/12/23 at 0800, Until Discontinued 0836 (Given - Provider: Yanci Blake RN) 0832 (Not Given (removes Due time) - Provider: Yanci Blake RN - Reason: Held per nurse - Comment: Liquid BM) 0913 (Given - Provider: Bud Loya, DANILO) ceFAZolin (ANCEF) IVPB 2 g 2 g, Indication (Select One): Infection - Confirmed, SITE (Select all that apply): Lower Respiratory, Cultures Ordered? Yes, Intravenous, Q 8H, First dose on Wed11/15/23 at 1400, Until Discontinued 1355 (New Bag - Provider: Elza Miramontes, DANILO)1425 (Due: Infusion completed - Provider: Elza Miramontes, DANILO)2200 (Due) cefEPIME (MAXIPIME) 2,000 mg in NaCl 0.9% IVPB (COMPLETED) 2,000 mg (2 g), Indication (Select One): Infection - Suspected, SITE (Select all that apply): Lower Respiratory, Cultures Ordered? Yes, Intravenous, Q 8H, 15 doses, First dose on Wed11/10/23 at 1300, Last dose on Wed11/15/23 at 0600 0532 (New Bag - Provider: Pernell Tate, DANILO)0610 (Infusion completed - Provider: Pernell Tate RN)1439 (New Bag - Provider: Yanci Blake RN)1509 (Infusion completed - Provider: Yanci Blake RN)2154 (New Bag - Provider: Bud Roque, DANILO)2224 (Infusion completed - Provider: Bud Roque RN) 0544 (New Bag - Provider: Mikal Paige RN)0634 (Infusion completed - Provider: Mikal Paige, DANILO)1420 (New Bag - Provider: Yanci Blake RN)1450 (Infusion completed - Provider: Cortney Smith RN)2226 (New Bag - Provider: Tyrel Wilson RN)2249 (Infusion completed - Provider: Tyrel Wilson RN) 0636 (New Bag - Provider: Tyrel Wilson RN)0706 (Infusion completed - Provider: Bud Loya, DANILO) cyclobenzaprine (FLEXERIL) tablet 10 mg 10 mg, Feeding Tube, TID, First dose (after last modification) on Wed11/10/23 at 0800, Until Discontinued 0836 (Given - Provider: Yanci Blake RN)1437 (Given - Provider: Yanci Blake RN)2010 (Given - Provider: Bud Roque RN) 0832 (Given - Provider: Yanci Blake RN)1420 (Given - Provider: Yanci Blake RN)2000 (Given - Provider: Tyrel Wilson RN) 0913 (Given - Provider: Bud Loya RN)1343 (Given - Provider: Elza Miramontes RN)2032 (Given - Provider: Hannah Vera RN) dornase dio (PULMOZYME) 5 mg intrapleural injection (COMPLETED) 5 mg, Intrapleural, ONE TIME, 1 dose, On 11/13/23 at 1140 1445 (Given - Provider: Yanci Blake, DANILO) dornase dio (PULMOZYME) 5 mg intrapleural injection (COMPLETED) 5 mg, Intrapleural, ONE TIME, 1 dose, On 11/14/23 at 0850 0940 (Given - Provider: Yanci Blake, DANILO) enoxaparin (LOVENOX) 40 mg/0.4 mL injection 40 mg (CANCELED) 40 mg, Subcutaneous, Q12H, First dose (after last reorder) on 11/07/23 at 2000, Until Discontinued 0836 (Given - Provider: Yanci Blake, DANILO)2009 (Given - Provider: Bud Roque RN) 0832 (Given - Provider: Yanci Blake RN)2001 (Given - Provider: Tyrel Wilsno RN) enoxaparin (LOVENOX) 40 mg/0.4 mL injection 40 mg 40 mg, Subcutaneous, Q12H, First dose on Wed11/15/23 at 1225, Until Discontinued 1343 (Given - Provider: Elza Miramontes, DANILO)2033 (Given - Provider: Hannah Vera, DANILO) famotidine (PEPCID) tablet 20 mg 20 mg, Feeding Tube, BID, First dose on Wed11/10/23 at 0800, Until Discontinued 0837 (Given - Provider: Yanci Blake RN)2009 (Given - Provider: Bud Roque, DANILO) 0832 (Given - Provider: Yanci Blake RN)2000 (Given - Provider: Tyrel Wilson RN) 912 (Given - Provider: Bud Loya RN)2035 (Given - Provider: Hannah Vera, DANILO) furosemide (LASIX) injection 40 mg (COMPLETED) 40 mg, IV Push, Once, 1 dose, On 11/13/23 at 1135 1239 (Given - Provider: Yanci Blake RN) furosemide (LASIX) injection 40 mg (COMPLETED) 40 mg, IV Push, Once, 1 dose, On 11/14/23 at 0935 0943 (Given - Provider: Yanci Blake RN) furosemide (LASIX) injection 40 mg (COMPLETED) 40 mg, IV Push, ONE TIME, 1 dose, On 11/15/23 at 0610 0632 (Given - Provider: Tyrel Wilson RN) GABApentin (NEURONTIN) 250 mg/5 mL oral solution 600 mg 600 mg, Feeding Tube, TID, First dose on Wed11/09/23 at 2015, Until Discontinued 0836 (Given - Provider: Yanci Blake, RN)1437 (Given - Provider: Yanci Blake, DANILO)2009 (Given - Provider: Bud Roque RN) 0832 (Given - Provider: Yanci Blake, DANILO)1420 (Given - Provider: Yanci Blake, RN)2003 (Given - Provider: Tyrel Wilson RN) 0913 (Given - Provider: Bud Loya RN)1342 (Given - Provider: Elza Miramontes RN)203 (Given - Provider: Hannah Vera RN) hydrALAZINE (APRESOLINE) 20 mg/mL injection 10 mg (COMPLETED) 10 mg, IV Push, ONE TIME, 1 dose, On 11/13/23 at 0645 0646 (Given - Provider: Pernell Tate RN) insulin ASPART (NovoLOG) FlexPen Insulin Order Mode: Carb Based Dose, WITH Breakfast dose (Units/Carb Choice): 0, WITH Noon meal dose (Units/Carb Choice): 0, WITH Evening meal dose (Units/Carb Choice): 0, Glucose 130-150 (Units): 0, Glucose 151-200 (Units): 2, Glucose 201-250 (Units): 4, Glucose 251-300 (Units): 6, Glucose 301-350 (Units): 8, Glucose 351-400 (Units): 10, Glucose 401-500 (Units): 12, Glucose GREATER THAN 501 (Units): 14, Glucose GREATER THAN 501 instructions: Call Provider, Subcutaneous, Q6H, First dose (after last modification) on Leatha 11/11/23 at 0000, Until Discontinued 0109 (Given - Provider: Pernell Tate RN - Comment: bg 207)0614 (Given - Provider: Pernell Tate RN - Comment: bg 175)1247 (Given - Provider: Yanci Blake RN)1750 (Given - Provider: Bud Roque RN)2358 (Given - Provider: Mikal Paige, DANILO - Comment: 209) 0544 (Given - Provider: Mikal Paige RN - Comment: [phone] (Dual Sign-Off - Provider: Yanci Blake RN)1359 (Given - Provider: Yanci Blake RN)1758 (Given - Provider: Cortney Smith RN) 0023 (Given - Provider: Tyrel Wilson RN)0649 (Not Given (removes Due time) - Provider: Tyrel Wilson RN - Reason: Held per order)1238 (Not Given (removes Due time) - Provider: Bud Loya RN - Reason: Held per order)1830 (Not Given (removes Due time) - Provider: Hannah Vera RN - Reason: Held per order) insulin NPH (HumuLIN N) Tube Fed/TPN - KwikPen Dose Frequency: Three Times Daily, Morning Dose (units): 18, Afternoon Dose (units): 18, Evening Dose (units): 18, Subcutaneous, Q 8H, First dose on 11/13/23 at 1550, Until Discontinued, Do not give insulin if tube feeds or TPN are held or canceled. Hold for blood glucose less than 100. 1750 (Given - Provider: Bud Roque RN)2154 (Given - Provider: Bud Roque RN) 0544 (Given - Provider: Mikal Paige RN)1359 (Dual Sign-Off - Provider: Yanci Blake RN)1400 (Given - Provider: Yanci Blake RN)2226 (Given - Provider: Tyrel Wilson RN) 0649 (Given - Provider: Tyrel Wilson RN)1400 (Not Given (removes Due time) - Provider: Elza Miramontes RN - Reason: Other (must enter a comment) - Comment: per pharm)2200 (Due) iohexol (OMNIPAQUE) 350 mg/mL injection (COMPLETED) IV Push, RAD ONE TIME AUTO ACKNOWLEDGE, 1 dose, On 11/15/23 at 0515 0512 (Given - Provider: Marlene Chris, RT) metoprolol tartrate (LOPRESSOR) tablet 25 mg 25 mg, Feeding Tube, BID, First dose on Leatha 11/11/23 at 0840, Until Discontinued 0838 (Given - Provider: Yanci Blake RN)2010 (Given - Provider: Bud Roque RN) 0832 (Given - Provider: Yanci Blake RN)2000 (Given - Provider: Tyrel Wilson RN) 913 (Given - Provider: Bud Loya RN)2033 (Given - Provider: Hannah Vera RN) naloxone (NARCAN) 1 mg/mL oral suspension 4 mg (COMPLETED) 4 mg, Feeding Tube, BID, 2 doses, First dose on Wed11/12/23 at 2000, Last dose on Wed11/13/23 at 0800 0836 (Given - Provider: Yanci Blake RN) polyethylene glycol 3350 (MIRALAX;GLYCOLAX) packet 17 g 17 g, Feeding Tube, BID, First dose (after last modification) on Wed11/10/23 at 0800, Until Discontinued 36 (Given - Provider: Yanci Blake RN)2009 (Given - Provider: Bud Roque RN) 08 (Given - Provider: Yanci Blake RN)2000 (Given - Provider: Tyrel Wilson RN) 912 (Given - Provider: Bud Loya RN)2035 (Not Given (removes Due time) - Provider: Hannah Vera RN - Reason: Held per nurse - Comment: Multiple large BM's today) protein supplement (PROSOURCE TF) for Feeding Tube only 1 packet 1 packet, Feeding Tube, BID, First dose on Leatha 11/11/23 at 0800, Until Discontinued 0836 (Given - Provider: Yanci Blake RN)2009 (Given - Provider: Bud Roque RN) 0832 (Given - Provider: Yanci Blake RN)2000 (Given - Provider: Tyrel Wilson RN) 912 (Given - Provider: Bud Loya RN)2033 (Given - Provider: Hannah Vera RN) sennosides-docusate sodium (STOOL SOFTENER/LAXATIVE) 8.6-50 mg tablet 2 tablet 2 tablet, Feeding Tube, BID, First dose (after last modification) on Wed11/10/23 at 0800, Until Discontinued 0836 (Given - Provider: Yanci Blake RN)2009 (Given - Provider: Bud Roque RN) 0832 (Given - Provider: Yanci Blake RN)2000 (Given - Provider: Tyrel Wilson RN) 09 (Given - Provider: Bud Loya, DANILO)2035 (Not Given (removes Due time) - Provider: Hannah Vera RN - Reason: Held per nurse - Comment: Multiple loose BM's today) sodium chloride tablet 1 g 1 g, Feeding Tube, QID, First dose (after last modification) on Wed11/15/23 at 1200, Until Discontinued 1244 (Given - Provider: Bud Loya RN)1706 (Given - Provider: Hannah Vera RN)2032 (Given - Provider: Hannah Vera RN) sodium chloride tablet 2 g (CANCELED) 2 g, Feeding Tube, QID, First dose on Wed11/14/23 at 1200, Until Discontinued 1244 (Given - Provider: Yanci Blake RN)1758 (Given - Provider: Cortney Smith, DANILO)2001 (Given - Provider: Tyrel Wilson RN) 09 (Given - Provider: Bud Loya RN) sodium phosphate 15 mmol in dextrose 5% IVPB (COMPLETED) 15 mmol, Intravenous, ONE TIME, On Wed11/14/23 at 0930 1244 (New Bag - Provider: Yanci Blake RN) VTE Anti Xa Monitoring Does not apply, PROTOCOL, Starting on Wed11/15/23 at 1222, Until Discontinued water oral liquid 30 mL 30 mL, Feeding Tube, Q4H, First dose on Leatha 11/11/23 at 0600, Until Discontinued 0200 (Given - Provider: Pernell Tate, DANILO)0600 (Given - Provider: Pernell Tate, DANILO)1000 (Given - Provider: Yanci Blake, DANILO)1400 (Given - Provider: Yanci Blake, DANILO)1800 (Given - Provider: Bud Roque RN)2200 (Given - Provider: Bud Roque RN) 0200 (Given - Provider: Mikal Paige, RN)0600 (Given - Provider: Mikal Paige, RN)1000 (Given - Provider: Yanci Blake, DANILO)1400 (Given - Provider: Yanci Blake, DANILO)1759 (Given - Provider: Cortney Smith, RN)2226 (Given - Provider: Tyrel Wilson RN) 0213 (Given - Provider: Tyrel Wilson RN)0650 (Given - Provider: Tyrel Wilson RN)1000 (Given - Provider: Bud Loya, DANILO)1400 (Given - Provider: Elza Miramontes RN)1800 (Given - Provider: Hannah Vera RN)2200 (Due) Continuous Medication Order 11/13/2023 11/14/2023 11/15/2023 Critical Care Pain Observation Tool (CPOT) Goal Choose Goal CPOT to titrate to: 2 - 3 (mild pain), CONTINUOUS, Starting on Wed11/09/23 at 1455, Until Discontinued fentaNYL 50 mcg/mL (SUBLIMAZE) CADD 25-100 mcg/hr (0.5-2 mL/hr), Start Infusion at: 50 mcg/hr, Titrate? Titrate to goal CPOT, Intravenous, CONTINUOUS, Starting on Wed11/09/23 at 1455, Until Discontinued 0000 (Infusing - Provider: Pernell Tate RN)0100 (Infusing - Provider: Pernell Tate RN)0200 (Infusing - Provider: Pernell Tate RN)0300 (Infusing - Provider: Pernell Tate RN)0400 (Infusing - Provider: Pernell Tate RN)0500 (Infusing - Provider: Pernell Tate RN)0600 (Infusing - Provider: Pernell Tate RN)0700 (Rate changed - Provider: Yanci Blake RN)0800 (Infusing - Provider: Yanci Blake RN - Comment: [Action automatically changed])0900 (Infusing - Provider: Yanci Blake RN - Comment: [Action automatically changed])1000 (Infusing - Provider: Yanci Blake RN)1100 (Infusing - Provider: Yanci Blake RN)1234 (Infusing - Provider: Yanci Blake, DANILO)1241 (Rate changed - Provider: Yanci Blake RN)1437 (New Bag - Provider: Yanci Blake, DANILO)1500 (Infusing - Provider: Bud Roque, RN)1600 (Infusing - Provider: Bud Roque, RN)1700 (Infusing - Provider: Bud Roque, RN)1800 (Infusing - Provider: Bud Roque, RN)1900 (Infusing - Provider: Bud Roque, RN)2000 (Infusing - Provider: Bud Roque, RN)2100 (Infusing - Provider: Bud Roque, RN)2200 (Infusing - Provider: Bud Roque, RN)2300 (Infusing - Provider: Bud Roque, RN) 0000 (Infusing - Provider: Mikal Paige RN)0100 (Infusing - Provider: Mikal Paige RN)0200 (Infusing - Provider: Mikal Paige, RN)0300 (Infusing - Provider: Mikal Paige RN - Comment: [Action automatically changed])0400 (Infusing - Provider: Mikal Paige RN)0500 (Infusing - Provider: Mikal Paige RN)0600 (Infusing - Provider: Mikal Paige, DANILO)0700 (Infusing - Provider: Yanci Blake, DANILO)0800 (Infusing - Provider: Yanci Blake RN)0900 (Infusing - Provider: Yanci Blake RN)1000 (Infusing - Provider: Yanci Blake RN)1100 (Infusing - Provider: Yanci Blake, DANILO)1200 (Infusing - Provider: Yanci Blake, DANILO)1300 (Infusing - Provider: Yanci Blake, DANILO)1400 (Infusing - Provider: Yanci Blake, DANILO)1453 (New Bag - Provider: Yanci Blake, DANILO)1500 (Infusing - Provider: Cortney Smith, DANILO)1600 (Infusing - Provider: Cortney SmithDANILO)1700 (Infusing - Provider: Cortney Smith RN)1800 (Infusing - Provider: Cortney Smith RN)1900 (Infusing - Provider: Cortney Smith RN)2000 (Infusing - Provider: Tyrel Wilson RN)2100 (Infusing - Provider: Tyrel Wilson RN)2200 (Infusing - Provider: Tyrel Wilson, RN)2300 (Infusing - Provider: Tyrel Wilson RN) 0000 (Infusing - Provider: Tyrel Wilson RN)0100 (Infusing - Provider: Tyrel Wilson, RN)0200 (Infusing - Provider: Tyrel Wilson RN)0300 (Infusing - Provider: Tyrel Wilson RN)0400 (Infusing - Provider: Tyrel Wilson RN - Comment: [Action automatically changed])0500 (Infusing - Provider: Tyrel Wilson RN)0700 (Infusing - Provider: Elza Miramontes RN)0800 (Infusing - Provider: Bud Loya RN)0900 (Infusing - Provider: Bud Loya RN)1000 (Infusing - Provider: Bud Loya RN)1100 (Infusing - Provider: Bud Loya RN)1200 (Infusing - Provider: Bud Loya RN)1300 (Infusing - Provider: Bud Loya RN)1400 (Infusing - Provider: Bud Loya RN)1500 (Infusing - Provider: Bud Loya RN)1512 (New Bag - Provider: Hannah Vera RN)1600 (Infusing - Provider: Hannah Vera RN)1700 (Infusing - Provider: Hannah Vera RN)1800 (Infusing - Provider: Hannah Vera RN - Comment: [Action automatically changed])1832 (Rate changed - Provider: Hannah Vera RN)1900 (Infusing - Provider: Hannah Vera RN)1913 (Rate changed - Provider: Hannah Vera, DANILO)2000 (Infusing - Provider: Hannah Vera RN)2100 (Infusing - Provider: Hannah Vera RN)2121 (Rate changed - Provider: Hannah Vera RN)2200 (Infusing - Provider: Hannah Vera RN) propofol 10 mg/mL Infusion(Linked Group 1) Start infusion at (mcg/kg/min): 5, Titration? Titrate to Goal RASS, CONTINUOUS, Starting on Wed11/09/23 at 1455, Until Discontinued, Intravenous 0000 (Infusing - Provider: Pernell Tate RN)0035 (New Bag - Provider: Rickey King RN)0100 (Infusing - Provider: Pernell Tate RN)0200 (Infusing - Provider: Pernell Tate RN)0300 (Infusing - Provider: Pernell Tate RN)0336 (New Bag - Provider: Pernell Tate RN)0400 (Rate changed - Provider: Pernell Tate RN)0500 (Infusing - Provider: Pernell Tate RN)0600 (Infusing - Provider: Pernell Tate RN)0700 (Infusing - Provider: Pernell Tate RN)0735 (New Bag - Provider: Rickey King RN)0800 (Infusing - Provider: Yanci Blake RN)0817 (Rate changed - Provider: Yanci Blake RN)0900 (Rate changed - Provider: Yanci Blake RN)1000 (Rate changed - Provider: Yanci Blake, DANILO)1100 (Infusing - Provider: Yanci Blake RN)1239 (New Bag - Provider: Yanci Blake RN)1600 (Infusing - Provider: Bud Roque RN)1638 (New Bag - Provider: Bud Roque, RN)1700 (Infusing - Provider: Bud Roque, RN)1800 (Infusing - Provider: Bud Roque, RN)1900 (Infusing - Provider: Bud Roque, RN)2000 (Infusing - Provider: Bud Roque, RN)2100 (Infusing - Provider: Bud Roque, RN)2154 (New Bag - Provider: Bud Roque, DANILO)2200 (Infusing - Provider: Bud Roque, DANILO)2300 (Infusing - Provider: Bud Roque, DANILO) 0000 (Infusing - Provider: Mikal Paige, RN)0034 (Rate changed - Provider: Mikal Paige, RN)0100 (Infusing - Provider: Mikal Paige, RN)0152 (New Bag - Provider: Mikal Paige, RN)0200 (Infusing - Provider: Mikal Paige, RN)0300 (Infusing - Provider: Mikal Paige, RN)0400 (Infusing - Provider: Mikal Paige, RN)0500 (Infusing - Provider: Mikal Paige, RN)0515 (New Bag - Provider: Mikal Paige, RN)0600 (Infusing - Provider: Mikal Paige, RN)0700 (Infusing - Provider: Yanci Blake RN)0800 (Infusing - Provider: Yanci Blake RN)0901 (Infusing - Provider: Yanci Blake RN)0940 (New Bag - Provider: Yanci Blake RN)1000 (Infusing - Provider: Yanci Blake RN)1100 (Infusing - Provider: Yanci Blake RN)1244 (New Bag - Provider: Yanci Blake RN)1300 (Infusing - Provider: Yanci Blake RN)1400 (Infusing - Provider: Yanci Blake RN)1500 (Infusing - Provider: Cortney Smith RN)1600 (Infusing - Provider: Cortney Smith RN)1705 (New Bag - Provider: Cortney Smith RN)1800 (Infusing - Provider: Cortney Smith RN)1900 (Infusing - Provider: Cortney Smith, DANILO)2000 (Infusing - Provider: Tyrel Wilson RN)2043 (New Bag - Provider: Tyrel Wilson RN)2100 (Infusing - Provider: Tyrel Wilson RN)2200 (Infusing - Provider: Tyrel Wilson, RN)2300 (Infusing - Provider: Tyrel Wilson, RN) 0000 (Infusing - Provider: Tyrel Wilson RN - Comment: [Action automatically changed])0030 (New Bag - Provider: Tyrel Wilson RN)0100 (Infusing - Provider: Tyrel Wilson, RN)0200 (Infusing - Provider: Tyrel Wilson, RN)0309 (New Bag - Provider: Tyrel Wilson, RN)0400 (Infusing - Provider: Tyrel Wilson, RN)0500 (Infusing - Provider: Tyrel Wilson, RN)0650 (New Bag - Provider: Tyrel Wilson RN)0800 (Infusing - Provider: Bud Loya RN)0900 (Infusing - Provider: Bud Loya RN)0918 (New Bag - Provider: Bud Loya RN)0953 (Rate changed - Provider: Elza Miramontes RN)1000 (Infusing - Provider: Bud Loya RN)1100 (Infusing - Provider: Bud Loya RN)1200 (Infusing - Provider: Bud Loya RN)1300 (Infusing - Provider: Bud Loya RN)1317 (Rate changed - Provider: Bud Loya RN - Comment: [Action automatically changed])1324 (New Bag - Provider: Elza Miramontes RN)1400 (Infusing - Provider: Elza Miramontes RN)1420 (Rate changed - Provider: Elza Miramontes RN)1600 (Infusing - Provider: Hannah Vrea RN)1700 (Infusing - Provider: Hannah Vera RN)1706 (New Bag - Provider: Hannah Vera RN)1730 (Rate changed - Provider: Hannah Vera RN)1800 (Infusing - Provider: Hannah Vera RN)1831 (Rate changed - Provider: Hannah Vera, RN)1900 (Rate changed - Provider: Hannah Vera, RN)1913 (Rate changed - Provider: Hannah Vera, RN)2000 (Infusing - Provider: Hannah Vera RN)2100 (Infusing - Provider: Hannah Vera, RN)2121 (Stopped - Provider: Hannah Vera, RN)2200 (Stopped - Provider: Hannah Vera RN) Richter Agitation Sedation Scale (RASS) Goal Choose Goal RASS to titrate to: 0 or -1 (Mild Sedation), CONTINUOUS, Starting on Wed11/09/23 at 1455, Until Discontinued PRN Medication Order 11/13/2023 11/14/2023 11/15/2023 albuterol (ACCUNEB;VENTOLIN) 2.5 mg/3 mL inhalation solution 2.5 mg 2.5 mg, Inhalation, Q4H PRN, Starting on Wed11/12/23 at 1524, Until Discontinued, Wheezing 0800 (Given - Provider: Verito Victoria, RT)1116 (Given - Provider: Yocasta Minor, RT)1629 (Given - Provider: Verito Victoria, RT)1955 (Given - Provider: Noemy Soria, RT) 0823 (Given - Provider: Yocasta Minor RT)1238 (Given - Provider: Yocasta Minor RT)1614 (Given - Provider: Yocasta Minor RT)2011 (Given - Provider: Noemy Soria RT) 0845 (Given - Provider: Noemy Slade, RT)1627 (Given - Provider: Noemy Slade, RT)2121 (Given - Provider: Mahi Lees, RT) fentaNYL CADD (SUBLIMAZE) 50 mcg/mL clinician activated bolus for ICU sedation 25 mcg, Intravenous, Q1H PRN, Starting on Wed11/09/23 at 1453, Until Discontinued, Other (specify), CPOT over 3 0930 (Clinician Bolus - Provider: Yanci Blake RN)1406 (Clinician Bolus - Provider: Yanci Blake RN) 1243 (Bolus from Infusion - Provider: Bud Loya RN)1715 (Bolus from Infusion - Provider: Hannah Vera RN) hydrALAZINE (APRESOLINE) 20 mg/mL injection 10-20 mg (CANCELED) 10-20 mg, IV Push, Q1H PRN, Starting on Leatha 11/11/23 at 1833, Until 11/13/23 at 0643, SBP greater than 180 mmHg, DBP greater than 105 mmHg 0148 (See Alternative - Provider: Pernell Tate RN)0529 (See Alternative - Provider: Pernell Tate RN)0609 (Given - Provider: Pernell Tate RN)0634 (See Alternative - Provider: Pernell Tate RN) hydrALAZINE (APRESOLINE) 20 mg/mL injection 10-20 mg(Linked Group 2) 10-20 mg, IV Push, Q1H PRN, Starting on 11/13/23 at 0643, Until Discontinued, SBP greater than 180 mmHg, DBP greater than 105 mmHg 0646 (See Alternative - Provider: Pernell Tate RN) labetalol (NORMODYNE;TRANDATE) 5 mg/mL injection 10 mg (CANCELED) 10 mg, IV Push, Q1H PRN, Starting on Leatha 11/11/23 at 1833, Until 11/13/23 at 0643, SBP greater than 180 mmHg, DBP greater than 105 mmHg 0148 (Given - Provider: Pernell Tate RN)0529 (Given - Provider: Pernell Tate RN)0609 (See Alternative - Provider: Pernell Tate RN)0634 (Given - Provider: Pernell Tate RN) labetalol (NORMODYNE;TRANDATE) 5 mg/mL injection 10-20 mg(Linked Group 2) 10-20 mg, IV Push, Q1H PRN, Starting on 11/13/23 at 0643, Until Discontinued, SBP greater than 180 mmHg, DBP greater than 105 mmHg 0646 (Given - Provider: Pernell Tate RN) normal saline flush 0.9 % solution 10 mL 10 mL, IV Push, Q30 MIN PRN, Starting on Wed11/09/23 at 2036, Until Discontinued, IV Line Flush, Per venous access protocol ondansetron (ZOFRAN) 4 mg/2 mL injection 4 mg 4 mg, IV Push, Q 8H PRN, Starting on Wed11/01/23 at 2357, Until Discontinued, Nausea/Vomiting (Use First) oxyCODONE (ROXICODONE) tablet 5-10 mg 5-10 mg, Feeding Tube, Q4H PRN, Starting on Wed11/09/23 at 2009, Until Discontinued, Moderate Pain (Use First) 0205 (Given - Provider: Pernell P Lea, RN)0609 (Given - Provider: Pernell Tate RN)1111 (Given - Provider: Yanci Blake, DANILO)2009 (Given - Provider: Bud Roque RN) 0913 (Given - Provider: Bud Loya RN)1343 (Given - Provider: Elza Miramontes, DANILO)203 (Given - Provider: Hannah Vera RN) propofol (DIPRIVAN) 10 mg/mL BOLUS from infusion 50 mg(Linked Group 1) 50 mg (0.5 mg/kg ? 100 kg Order-specific weight), Intravenous, BOLUS FROM INFUSION, Starting on Wed11/09/23 at 1453, Until Discontinued, Other (specify), q10min PRN Life threatening agitation 0035 (Bolus from Infusion - Provider: Rickey King RN) 0930 (Bolus from Infusion - Provider: Yanci Blake, DANILO)1614 (Bolus from Infusion - Provider: Cortney Smith, DANILO) 0727 (Bolus from Infusion - Provider: Elza Miramontes, DANILO)1243 (Bolus from Infusion - Provider: Bud Loya RN) Linked Groups Order Group 1: propofol 10 mg/mL InfusionJump to med Start infusion at (mcg/kg/min): 5, Titration? Titrate to Goal RASS, CONTINUOUS, Starting on Wed11/09/23 at 1455, Until Discontinued, Intravenous And propofol (DIPRIVAN) 10 mg/mL BOLUS from infusion 50 mgJump to med 50 mg (0.5 mg/kg ? 100 kg Order-specific weight), Intravenous, BOLUS FROM INFUSION, Starting on Wed11/09/23 at 1453, Until Discontinued, Other (specify), q10min PRN Life threatening agitation And ICU TRIGYCERIDE Routine, Lab Collect, Q72H, First occurrence on [place] 11/11/23 at 0600, Until Specified And ICU CK, TOTAL Routine, Lab Collect, Q72H, First occurrence on [place] 11/11/23 at 0600, Until Specified Group 2: hydrALAZINE (APRESOLINE) 20 mg/mL injection 10-20 mgJump to med 10-20 mg, IV Push, Q1H PRN, Starting on Wed11/13/23 at 0643, Until Discontinued, SBP greater than 180 mmHg, DBP greater than 105 mmHg Or labetalol (NORMODYNE;TRANDATE) 5 mg/mL injection 10-20 mgJump to med 10-20 mg, IV Push, Q1H PRN, Starting on 11/13/23 at 0643, Until Discontinued, SBP greater than 180 mmHg, DBP greater than 105 mmHg documented in this encounter
--- OUTSIDE RECORDS SUMMARY | 2023-11-15 22:24 | XMS_ITS | Encounter Summary ---
Author Organization [facility] Address [address] [place] [phone] Phone Care Team Providers Care Computer Aided Design Drafter Name Role Phone Unavailable Primary Care Provider Unavailabl e Encounter Details Date Type Department Care Team (Latest Contact Info) Description 10/31/2023 Travel Social History Tobacco Use Types Packs/Day Years [...] medical appointments or from getting medications? No 05/11/2023 In the past 12 months, has l [...] [facility] [address] [place] [id number] Scheduled Discharge Disposition: Discharged to home or self care (routine discharge) Scheduled Procedures Name Priority Associated Diagnoses Date/Ti me THORACOSCOPY Urgent (< 48 hrs) Multiple trauma to chest, initial encounter documented as of this encounter Visit Diagnoses Not on filedocumented in this encounter
--- OUTSIDE RECORDS SUMMARY | 2023-11-15 22:24 | XMS_ITS | Encounter Summary ---
Author Organization [facility] Address [address] [place] [phone] Phone Care Team Providers Care Quality Coordinator Name Role Phone June Hernandez APRN, SLEEVE SEPARATOR Primary Care Provi [facility] Encounter Details Date Type Department Care Team (Late st Contact Info) Description 11/01/2023 Orders Only Unspecified Department [place] Unknown, [...] Only [facility] [address] [place] [phone] Scheduled Discharge Disposition: Discharged to home or self care (routine discharge) Scheduled Procedures Name Priority Associated Diagnoses Date/Ti me THORACOSCOPY Urgent (< 48 hrs) Multiple trauma to chest, initial encounter documented as of this encounter Procedures Procedure Name Priority Date/Time Associated Diagnosis Comments TELEMETRY STRIPS 11/01/2023 8:06 PM CDT documented in this encounter Results * TELEMETRY STRIPS (11/01/2023 8:06 PM CDT) Narrative 11/01/2023 8:06 PM CDT Ordered by an unspecified provider. Provider Unknown RAD ECHO documented in this encounter Visit Diagnoses Not on filedocumented in this encounter Care Teams Quality Coordinator Relationship Specialty Start Date End Date June Hernandez, PAINTER ORDNANCE, SLEEVE SEPARATOR [address] [place] [id number] PCP - General Family Medicine 11/03/23 documented as of this encounter
--- OUTSIDE RECORDS SUMMARY | 2023-11-15 22:24 | XMS_ITS | Encounter Summary ---
Author Organization [facility] Address [address] [place] [address] Phone Care Team Providers Care Credit Collections Analyst Name Role Phone June Hernandez APRN, MEMORIAL ADVISER Primary Care Provi gabe Encounter Details Date Type Department Care Team (Late st Contact Info) Description 11/02/2023 Orders Only [facility] Film Room [facility] Radiology Department [place] [address] [id number] Provider, [place] [address] Referral of patient (Primary Dx) Social History Tobacco Use Types Packs/Day Years [...] Only [facility] [address] [place] [phone] Scheduled Discharge Disposition: Discharged to home or self care (routine discharge) Scheduled Procedures Name Priority Associated Diagnoses Date/Ti me THORACOSCOPY Urgent (< 48 hrs) Multiple trauma to chest, initial encounter documented as of this encounter Results * XR CHEST OUTSIDE FILMS (10/31/2023 12:03 PM CDT) Narrative User, [id number] - 11/02/2023 6:27 AM CDT Outside Film Only Outside Provider RAD OUTSIDE FILMS documented in this encounter Visit Diagnoses Diagnosis Referral of patient- Primary Referral of patient without examination or treatment documented in this encounter Care Teams Credit Collections Analyst Relationship Specialty Start Date End Date June Hernandez, ROTARY CUTTER, MEMORIAL ADVISER [address] [place] [phone] PCP - General Family Medicine 11/03/23 documented as of this encounter
--- OUTSIDE RECORDS SUMMARY | 2023-11-15 22:26 | XMS_ITS | Encounter Summary ---
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 Analyst - bedside telemetry Lead Monitored: Lead II [...] Cardiac Assessment Within Defined Limits except for: Public Relations Analyst - bedside telemetry Lead Monitored: Lead II [...] 11/09/232029 -- 3 Psychosocial Within Defined Limits * Nursing Assessment - Pernell Tate RN - 11/13/2023 7:01 AM CDT Nursing Assessment Head to Toe Head to Toe Assessment Shift Summary Shift Summary FC x4, PERRL. 35 & 12, high peak pressures (30's) at baseline. Scant secretions. SBP < 180, scheduled TUMBLING MACHINE OPERATOR meds + PRN's given. 4+ edema to [...] Cardiac Assessment Within Defined Limits except for: Public Relations Analyst - bedside telemetry Lead Monitored: Lead II ECG Rhythm: normal sinus rhythm ST Segment (mm): Normal T-Wave: Normal Pacemaker: Pacemaker: No Comments: SBP < 180 - TUMBLING MACHINE OPERATOR metoprolol + amlodipine via Feeding tube + [...] Cardiac Assessment Within Defined Limits except for: Public Relations Analyst - bedside telemetry Lead Monitored: Lead II ECG Rhythm: normal sinus rhythm ST Segment (mm): Normal T-Wave: Normal Pacemaker: Pacemaker: No Comments: SBP < 180 - TUMBLING MACHINE OPERATOR metoprolol + amlodipine via Feeding tube + [...] Cardiac Assessment Within Defined Limits except for: Public Relations Analyst - bedside telemetry Lead Monitored: Lead II ECG Rhythm: normal sinus rhythm ST Segment (mm): Normal T-Wave: Normal Pacemaker: Pacemaker: No Comments: SBP < 180 - TUMBLING MACHINE OPERATOR metoprolol + amlodipine via Feeding tube + [...] Cardiac Assessment Within Defined Limits except for: Public Relations Analyst - bedside telemetry Lead Monitored: Lead II [...] Cardiac Assessment Within Defined Limits except for: Public Relations Analyst - bedside telemetry Lead Monitored: Lead II [...] Cardiac Assessment Within Defined Limits except for: Public Relations Analyst - bedside telemetry Lead Monitored: Lead II ECG Rhythm: normal sinus rhythm OH Interval (sec): 0.16 QRS Interval (sec): 0.11 [...] Cardiac Assessment Within Defined Limits except for: Public Relations Analyst - bedside telemetry Lead Monitored: Lead II [...] Cardiac Assessment Within Defined Limits except for: Public Relations Analyst - bedside telemetry Lead Monitored: Lead II ECG Rhythm: normal sinus rhythm OH Interval (sec): 0.20 QRS Interval (sec): 0.10 [...] if needed. Transferred to MICU 2 @ 2215, all belongings sent with. Neurologic/Cognitive Assessment Within [...] Cardiac Assessment Within Defined Limits except for: Public Relations Analyst - bedside telemetry Lead Monitored: Lead II [...] Cardiac Assessment Within Defined Limits except for: Public Relations Analyst - bedside telemetry Lead Monitored: Lead II [...] Limits except for: Heart sounds: S1, S2 Public Relations Analyst - bedside telemetry Lead Monitored: Lead II [...] Color: light brown (11/09/23727) Stool Consistency: loose (11/09/23 07) Genitourinary Assessment [...] Limits except for: Heart sounds: S1, S2 Public Relations Analyst - bedside telemetry Lead Monitored: Lead II [...] Limits except for: Heart sounds: S1, S2 Public Relations Analyst - bedside telemetry Lead Monitored: Lead II [...] (unmeasured): 1 (11/09/23727) Stool Amount: moderate (11/09/23 07) Stool Color: light brown (11/09/23 07) Stool Consistency: loose (11/09/23 07) Genitourinary Assessment [...] Limits except for: Heart sounds: S1, S2 Public Relations Analyst - bedside telemetry Lead Monitored: Lead II [...] Color: light brown (11/09/23727) Stool Consistency: loose (11/09/23 0728) Genitourinary Assessment [...] Limits except for: Heart sounds: S1, S2 Public Relations Analyst - bedside telemetry Lead Monitored: Lead II [...] Cardiac Assessment Within Defined Limits except for: Public Relations Analyst - bedside telemetry ECG Rhythm: normal sinus [...] Limits except for: Heart sounds: S1, S2 Public Relations Analyst - bedside telemetry Lead Monitored: Lead II [...] Limits except for: Heart sounds: S1, S2 Public Relations Analyst - bedside telemetry Lead Monitored: Lead II [...] Limits except for: Heart sounds: S1, S2 Public Relations Analyst - bedside telemetry Lead Monitored: Lead II [...] Limits except for: Heart sounds: S1, S2 Public Relations Analyst - bedside telemetry Lead Monitored: Lead II [...] present * Nursing Assessment - James Hood, RN - 11/09/2023 8:00 PM CDT Nursing Assessment [...] Urine output adequate via askew. James Hood, RN, 11/09/2023 11:28 PM Neurologic/Cognitive Assessment Within Defined Limits except for: Level of Consciousness: Sedated Arousal Level: Unresponsive Speech: Unable to speak, endotracheal tube Mood/Behavior: Calm Motor Response: All Extremities - no response to stimuli Comments: Unable to assess orientation/cognition. HEENT Within Defined Limits Cardiac Assessment Within Defined Limits except for: Heart sounds: S1, S2 Public Relations Analyst - bedside telemetry Lead Monitored: Lead II [...] Defined Limits * Nursing Assessment - James Hood, DANILO - 11/09/2023 5:00 PM CDT Nursing Assessment [...] Limits except for: Heart sounds: S1, S2 Public Relations Analyst - bedside telemetry Lead Monitored: Lead II [...] with patient * Nursing Assessment - Juliane Salazar RN - 11/09/2023 2:50 PM CDT Nursing Assessment [...] Cardiac Assessment Within Defined Limits except for: Public Relations Analyst - bedside telemetry Respiratory Assessment Within Defined [...] Behaviors: Restless * Provider Note - Charmaine Anne, MOHAN, HYBRID DERIVATIVES TRADER - 11/09/2023 2:00 PM CDT TRAUMA PROVIDER NOTE The patient returned from interventional radiology after left chest tube placement. Procedure documented without any complications 1000 mL of output drained within 1 hour chest tube was clamped and patient transferred up to STN floor. Paged by RN @ 1841 that patient appears lethargic and fidgeting. On exam patient is lethargic. He awakens briefly with stimuli and endorses chest pain. Urinalysis obtained earlier positive and could be a component of delirium. VBG with Co2 75. He is in respiratory distress and having severe hypercapnia. There is concern for possible reexpansion pulmonary edema. Chief resident post secondary professional at bedside and patient moved rapidly to [...] by and discussed with Surgery Chief Resident Dr. CaittCharmaine Harmon APRN, CNP, 11/09/2023 2:58 PM GERMAN- Trauma/General Surgery Pager: via [employer] * Provider Note - Charmaine Anne APRN, [...] (L) 11/09/2023 0812 PLT 189 11/09/2023 0812 Plan: -Consult to IR for chest tube placement -NPO for anticipated procedure -Continue aggressive pulmonary toilet -LACE, IS -urinalysis ordered -Continue pulse oximetry Plan discussed with Chief Surgery resident Charmaine Talamantes APRN, CNP, 11/09/2023 11:13 AM GERMAN- Trauma/General Surgery Pager: via [employer] * Nursing Assessment - Jayne Hylton RN [...] reported. 2L via NC to maintain SpO2. ordered0.2 dilaudid one time for pain. Provider [...] Within Defined Limits Cardiac Within Defined Limits Public Relations Analyst - remote telemetry Respiratory Assessment Within Defined [...] Within Defined Limits Cardiac Within Defined Limits Public Relations Analyst - remote telemetry Respiratory Assessment Within Defined [...] gauge;1 3/4 in length Anterior;Right Forearm 11/03/23 180 -- 3 Peripheral IV 11/04/23 Anterior;Left Forearm [...] Nursing Assessment - Marlene Cerrato RN - 11/06/2023 10:33 PM CDT Nursing [...] Defined Limits * Nursing Assessment - Juliane Salazar, DANILO - 11/06/2023 4:51 PM CDT Nursing Assessment [...] Within Defined Limits Cardiac Within Defined Limits Public Relations Analyst - remote telemetry Respiratory Assessment Within Defined [...] more controlled. Patient has been NPO since 929 for abdominal MRI at 1700. Patient is [...] Within Defined Limits Cardiac Within Defined Limits Public Relations Analyst - remote telemetry Respiratory Assessment Within Defined [...] Within Defined Limits Cardiac Within Defined Limits Public Relations Analyst - remote telemetry Respiratory Assessment Within Defined [...] pain is semi- controlled with PRN medications, EPIDEMIOLOGY INVESTIGATOR discontinued, and continuous epidural increased. Patient had [...] Within Defined Limits Cardiac Within Defined Limits Public Relations Analyst - remote telemetry Respiratory Assessment Within Defined [...] 1700. Felipe Snowden MS, 11/04/2023 12:50 PM [facility] Surgery Service * Discharge non-MD/non-VANI Summaries - Jimenez Martinez - 11/04/2023 12:43 PM CDT Summary: DC Home Care Coordination Discharge Note Expected DC Date: 11/06/2023 Expected DC Time: TBD Final Discharge Destination: HOME Address and demographics confirmed. Home [facility] P: [phone], F: [phone] Patient may need to DC home this wknd with oxygen. DME orders written. Message sent to Wally/Cortney via [employer]. Pending response. Summary: Patient is NOT medically ready to DC home. Patient will need to have chest tube out and pain controlled before being medically ready to DC. * Provider Note - Charmaine Anne APRN, CNP - 11/04/2023 11:29 AM CDT SURGERY PROVIDER NOTE Oxygen Use Justification I certify that this patient, Leo Menendez has been under my care and that I, or a nurse practitioner or physician's senior court office assistant working with me had a [id number] encounter that meets [id number] encounter requirements with this patient on 11/04/2023. [...] Charmaine Anne APRN, CNP, 11/04/2023 11:29 AM HYBRID DERIVATIVES TRADER- Trauma/General Surgery Pager: via [employer] * Discharge non-MD/non-VANI Summaries - Annelise Tyler OTR/Tayla - 11/04/2023 9:54 AM CDT [facility] Occupational Therapy Discharge Summary Leo Menendez 11/04/2023 [...] are indicated. Patient Name: Leo Menendez MR#: [id number] Date of : 1960 Age: 63 y.o. Hospital Admit date: 10/31/2023 Restrictions / Precautions at Discharge: Activity Level: Up with Assist (11/04/23 0900) Spinal Precautions: C.T. and L.Spines Clear (11/04/23 09) Current Medical History / Hospital Course: See MD BENAVIDEZ summary for details. Patient Active Problem List Diagnosis Multiple trauma to chest, initial encounter Past Medical History: No past medical history on file. 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[employer]) (11/03/23999) Transportation: at baseline patient: pt drives (11/03/23999) Mobility equipment currently available/used: none (11/03/23999) ADL Equipment currently available/used: none (11/03/23999) Prior Level of Function (TUMBLING MACHINE OPERATOR): ADLs/IADLs: No assistance required (Independent or modified independent) (11/03/23999) Functional Mobility: Independent without assistive device (11/03/23999) Functional Status at Discharge: Activities of Daily Living Eating: Modified independence (11/04/23899) Toileting: Moderate assist (50% patient effort) (11/03/23999) Toileting Comments: edu on bottom cristine and where to purchase for asst with wiping after BM (11/04/23899) Upper Body Dressing: Maximal assist (25% patient effort) (11/03/23999) Upper Body Dressing Comments: can't raise arms above head (11/03/23999) Lower Body Dressing: Dependent (less than 25% patient effort) (11/04/23899) Lower Body Dressing Comments: will have asst at home; also has project controls specialist that he can use. plans to wear [...] fluctuating course: No (11/04/23899) CAM result: Negative (11/04/23899) See Care Plan for progress towards goals. Occupational Therapist: GABY Solares/Tayla OT Department * Nursing Assessment - La Hernandez RN - 11/04/2023 3:22 AM CDT Nursing Assessment Head to Toe Head to Toe Assessment Shift Summary Shift Summary Neurologic/Cognitive Within Defined Limits HEENT Within Defined Limits Cardiac Within Defined Limits Public Relations Analyst - remote telemetry Respiratory Assessment Within Defined [...] Cardiac Assessment Within Defined Limits except for: Public Relations Analyst - remote telemetry Pacemaker: Pacemaker: No Respiratory [...] Cardiac Assessment Within Defined Limits except for: Public Relations Analyst - remote telemetry Pacemaker: Pacemaker: No Respiratory [...] Within Defined Limits Cardiac Within Defined Limits Public Relations Analyst - remote telemetry Respiratory Assessment Within Defined [...] Cardiac Assessment Within Defined Limits except for: Public Relations Analyst - remote telemetry Pacemaker: Pacemaker: No Respiratory [...] as appropriate. * Nursing Assessment - Jose Enrique Fatima RN - 11/02/2023 12:00 PM CDT Nursing Assessment Head to Toe Head to Toe Assessment Shift Summary Pt is AOX4. Follows commands and moves all extremities. Breathing is regular and non labored at rest. SOB with exertion. Saturating > 92%. Pt on oxygen 2 liter NC, but at night CPAP on 35% FiO2. Left chest tube continues to suction.Dressing is C/D/I. Dilaudid EPIDEMIOLOGY INVESTIGATOR for pain. Neurologic/Cognitive Within Defined Limits HEENT Within Defined Limits Cardiac Assessment Within Defined Limits except for: Public Relations Analyst - bedside telemetry ECG Rhythm: normal sinus [...] tube continues to suction.Dressing is C/D/I. Dilaudid EPIDEMIOLOGY INVESTIGATOR for pain. Neurologic/Cognitive Within Defined Limits HEENT Within Defined Limits Cardiac Assessment Within Defined Limits except for: Public Relations Analyst - bedside telemetry ECG Rhythm: normal sinus [...] No output noted. Dressing is C/D/I. Dilaudid EPIDEMIOLOGY INVESTIGATOR for pain. Discussed are with pt. Neurologic/Cognitive Within Defined Limits HEENT Within Defined Limits Cardiac Assessment Within Defined Limits except for: Public Relations Analyst - bedside telemetry ECG Rhythm: normal sinus [...] Cardiac Assessment Within Defined Limits except for: Public Relations Analyst - bedside telemetry ECG Rhythm: normal sinus [...] Cardiac Assessment Within Defined Limits except for: Public Relations Analyst - bedside telemetry ECG Rhythm: normal sinus [...] Cardiac Assessment Within Defined Limits except for: Public Relations Analyst - bedside telemetry Lead Monitored: Lead II [...] Cardiac Assessment Within Defined Limits except for: Public Relations Analyst - bedside telemetry ECG Rhythm: normal sinus [...] Cardiac Assessment Within Defined Limits except for: Public Relations Analyst - bedside telemetry ECG Rhythm: normal sinus [...] Defined Limits Jose Enrique Fatima RN, 11/01/2023 10:53 AM * Trauma Tertiary [...] respond yes above should be given the Mongolian or Danish version of the Alcohol Use and Your health document found at this link: https://infooncall/Departments/TraumaServices/Alcoho lScreeningEducation/index.htm CAGE Screen: If patient answers Yes to 1 CAGE question, print and provide them with the Alcohol Use and Your Health document found at this link: https://infooncall/Departments/TraumaServices/AlcoholScreeningEduc ation/index.htm If patient answers Yes to 2 or more questions. Provide the Addiction Medicine Resources handout found at link below and place an Addiction Medicine Consult Order if patient is interested. [email or web address] [email or web address]/[email or web address]/TraumaServices/AlcoholScreeningEducation/index.htm 1. In the past year: Have you felt you should cut down on your drinking? no 2. In the past year: Have people annoyed you by criticizing your drinking? no 3. In the past year: Have you felt bad or guilty about your drinking? no 4. In the past year: Have you had an eye bandmill operator first thing in the morning to steady [...] following life limiting illnesses?: Heart Disease Consult [employer] for: [employer] consult not indicated at this time Mental [...] on guard, watchful, or easily startled? yes [place] numb or detached from others, activities, or [...] monitor K Wound care plans(s): Not applicable Suture/Shelby: None Antibiotics: None Drains Present: Left sided [...] report and provider assessment, with above analgesics, EPIDEMIOLOGY INVESTIGATOR pump to be ordered with appropriate dosing and likely discontinuation of other narcotic analgesics based on provider assessment - Muscle relaxants - Cyclobenzaprine 5 mg PO every 8hrs as needed or scheduled - Consider other pharmacologic modalities such as pregabalin or gabapentin and/or hydroxyzine (Vistaril??) - Possible paravertebral block or alternative regional anesthesia Elias Mercado MD, 11/01/2023 6:20 AM General Surgery, PGY-5 P: [phone] * Nursing Assessment - Cat Feldman RN - 11/01/2023 4:30 AM CDT Nursing Assessment Head to Toe Head to Toe Assessment Shift Summary Shift Summary Neurologic/Cognitive Within Defined Limits HEENT Within Defined Limits Cardiac Assessment Within Defined Limits except for: Public Relations Analyst - bedside telemetry ECG Rhythm: normal sinus [...] Cardiac Assessment Within Defined Limits except for: Public Relations Analyst - bedside telemetry ECG Rhythm: normal sinus [...] Limits except for: Heart sounds: S1, S2 Public Relations Analyst - bedside telemetry ECG Rhythm: normal sinus [...] Defined Limits * ED Faculty Note - Guilherme Mccann MD - 10/31/2023 4:05 PM CDT Images [...] disability, shock, multisystem organ failure, and . Guilherme Mccann MD, 10/31/2023 4:05 PM * ED Stabilization Note - Sam Silver MD - 10/31/2023 1:32 PM CDT Emergency Medicine Stabilization Room Note Leo Menendez 1960 Sex: male Patient Arrival Date and Time: 10/31/2023 1:08 PM Emergency Medicine Faculty Aniket EM Stabilization Resident Sam Silver MD, 10/31/2023 [...] Sun October 31, 2023 1337 Nsgy paged [phone] Rads prelim: L sah vs calcification, small [...] [facility] [address] [place] [address] [id number] Scheduled Discharge Disposition: Discharged to home or [...] POC Glucose 135(H) 70 - 100 mg/dL [facility] - POINT OF CARE Blood 11/15/2023 6:26 PM CDT Patrice Marcial MD LABORATORY Performing Organization Address [facility] Co de Phone Number [facility] [address] [place] [address], [place] * (ABNORMAL) POC GLUCOSE (11/15/2023 2:22 PM CDT) POC Glucose 123(H) 70 - 100 mg/dL [facility] - POINT [facility] CARE Blood 11/15/2023 2:22 PM CDT Patrice Marcial MD LABORATORY Performing Organization Address [facility] Co de Phone Number [facility] [address] [place] [address], [place] * (ABNORMAL) POC GLUCOSE (11/15/2023 11:35 AM CDT) POC Glucose 140(H) 70 - 100 mg/dL [facility] - POINT OF CARE Blood 11/15/2023 11:3 5 AM CDT Patrice Marcial MD LABORATORY Performing Organization Address [facility] Co de Phone Number [facility] [place] [address], * (ABNORMAL) ICU BLOOD GAS (11/15/2023 9:20 AM CDT) PH Art 7.44 7.35 - 7.45 [facility] PCO2 Art 43 35 - 45 mmHG [facility] PO2 Art 67(L) 75 - 85 mmHG [facility] Bicarb Art 29(H) 22 - 26 mEq/L [facility] O2 Sat Art 94(L) 96 - 99 % [facility] Base Exc Art 4.4(H) -10.0 - 2.0 mmol/L [facility] Blood Arterial 11/15/2023 9: 20 AM CDT 11/15/2023 9:39 AM CDT Carole Montoya APRN, CNP LABORATORY Performing Organization Address [facility] Co de Phone Number [facility] [address] [address] * (ABNORMAL) POC GLUCOSE (11/15/2023 6:46 AM CDT) POC Glucose 119(H) 70 - 100 mg/dL [facility] POINT [facility] Blood 11/15/2023 6:46 AM CDT Patrice Marcial MD LABORATORY Performing Organization Address City/[facility] Co de Phone Number [facility] [place] [address], * (ABNORMAL) ICU PANEL BASIC METABOLIC (BMP) (11/15/2023 6:31 AM CDT) CO2 29 22 - 30 mmol/L [facility] Glucose 144(H) 70 - 100 mg/dL [facility] BUN 33(H) 8 - 23 mg/dL [facility] Creatinine 0.71 0.70 - 1.25 mg/dL [facility] Calcium 8.3(L) 8.8 - 10.2 mg/dL [facility] Sodium 137 135 - 148 mmol/L [facility] Potassium 4.3 3.5 - 5.3 mmol/L [facility] Chloride 100 92 - 108 mmol/L [facility] AnGap 8 8 - 16 mmol/L [facility] eGFR (2020 CKD-EPI) 102 >=60 ml/min/1.7 3m2 [facility] Comment: The estimated glomerular filtration rate (eGFR) was calculated using the CKD-EPI 2020 creatinine equation, which does not include race as a factor. This equation is validated in individuals 18 years of age and older, and eGFR is normalized to a body surface area of 1.73m^2. Blood 11/15/2023 6:31 AM CDT 11/15/2023 6:40 AM CDT Yuriy Wynn MD LABORATORY [facility] [place] [phone] * (ABNORMAL) TRIGLYCERIDE (11/15/2023 6:31 AM CDT) Triglyceride 299(H) <=150 mg/dL [facility] Comment: Interpretive Data <150 Normal 150-199 Borderline high 200-499 High >=500 Very high Blood 11/15/2023 6:31 AM CDT 11/15/2023 6:40 AM CDT Yuriy Wynn MD LABORATORY [facility] [place] [phone] * ICU PHOSPHORUS (11/15/2023 6:31 AM CDT) Phosphorus 3.1 2.5 - 4.5 mg/dL [facility] Blood 11/15/2023 6:31 AM CDT 11/15/2023 6:40 AM CDT Yuriy Wynn MD LABORATORY Performing Organization Address City/[facility]/ZIP Co de Phone Number [facility] [address] [address] * ICU MAGNESIUM (11/15/2023 6:31 AM CDT) Magnesium 2.4 1.6 - 2.4 mg/dL [facility] Blood 11/15/2023 6:31 AM CDT 11/15/2023 6:40 AM CDT Yuriy Wynn MD LABORATORY Performing Organization Address [facility] Co de Phone Number [facility] [address] [address] * (ABNORMAL) ICU CBC WITH PLATELET (11/15/2023 6:31 AM CDT) WBC 15.39(H) 4.00 - 10.00 k/cmm [facility] RBC 3.46(L) 4.60 - 6.00 m/cmm [facility] [facility] Hgb 10.0(L) 13.1 - 17.5 g/dL [facility] Hematocrit 30.9(L) 40.0 - 51.0 % [facility] MCV 89.3 80.0 - 100.0 fL [facility] MCH 28.9 25.0 - 32.0 pg [facility] MCHC 32.4 31.0 - 36.0 g/dL [facility] RDW 13.5 11.5 - 14.5 % [facility] Plt 329 150 - 400 k/cmm [facility] MPV 10.3 6.5 - 12.5 fL [facility] NRBC 0.1(H) 0.0 - 0.0 /100WBC [facility] Blood 11/15/2023 6:31 AM CDT 11/15/2023 6:40 AM CDT Yuriy Wynn MD LABORATORY Performing Organization Address City/[facility] Co de Phone Number [facility] [address] [address] * CT CHEST WITH IV CONTRAST (11/15/2023 [...] POC Glucose 203(H) 70 - 100 mg/dL [facility] Blood 11/15/2023 12:2 2 AM CDT Patrice Marcial MD LABORATORY [facility] [address] [place] [address], * (ABNORMAL) ICU PANEL BASIC METABOLIC (BMP) (11/14/2023 10:36 PM CDT) Sodium 139 135 - 148 mmol/L [facility] Potassium 3.9 3.5 - 5.3 mmol/L [facility] Chloride 102 92 - 108 mmol/L [facility] CO2 28 22 - 30 mmol/L [facility] AnGap 9 8 - 16 mmol/L [facility] Glucose 247(H) 70 - 100 mg/dL [facility] BUN 35(H) 8 - 23 mg/dL [facility] Creatinine 0.87 0.70 - 1.25 mg/dL [facility] Calcium 7.9(L) 8.8 - 10.2 mg/dL [facility] eGFR (2020 CKD-EPI) 96 >=60 ml/min/1.7 3m2 [facility] Comment: The estimated glomerular filtration rate (eGFR) was calculated using the CKD-EPI 2020 creatinine equation, which does not include race as a factor. This equation is validated in individuals 18 years of age and older, and eGFR is normalized to a body surface area of 1.73m^2. Blood 11/14/2023 10:3 6 PM CDT 11/14/2023 10:56 PM CDT Yuriy Wynn MD LABORATORY Performing Organization Address City/[facility]/ZIP Co de Phone Number [facility] [place] [address] * (ABNORMAL) POC GLUCOSE (11/14/2023 5:56 PM CDT) POC Glucose 271(H) 70 - 100 mg/dL [facility] Blood 11/14/2023 5:56 PM CDT Patrice Marcial MD LABORATORY Performing Organization Address [facility] Co de Phone Number [facility] [address] * (ABNORMAL) POC GLUCOSE (11/14/2023 11:03 AM CDT) POC Glucose 237(H) 70 - 100 mg/dL [facility] Blood 11/14/2023 11:0 3 AM CDT Patrice Marcial MD LABORATORY Performing Organization Address [facility] Co de Phone Number [facility] [address] * (ABNORMAL) ICU BLOOD GAS (11/14/2023 4:44 AM CDT) PH Art 7.50(H) 7.35 - 7.45 [facility] PCO2 Art 35 35 - 45 mmHG [facility] PO2 Art 75 75 - 85 mmHG [facility] Bicarb Art 27(H) 22 - 26 mEq/L [facility] O2 Sat Art 97 96 - 99 % [facility] Base Exc Art 3.9(H) -10.0 - 2.0 mmol/L [facility] Blood Arterial 11/14/2023 4: 44 AM CDT 11/14/2023 4:52 AM CDT Carole Montoya APRN, [employer]BR[employer] DERIVATIVES TRADER LABORATORY Performing Organization Address [facility]/ZIP Co de Phone Number [facility] [address] [address] * (ABNORMAL) ICU PANEL BASIC METABOLIC (BMP) (11/14/2023 4:44 AM CDT) CO2 24 22 - 30 mmol/L [facility] Glucose 266(H) 70 - 100 mg/dL [facility] BUN 32(H) 8 - 23 mg/dL [facility] Creatinine 0.85 0.70 - 1.25 mg/dL [facility] Calcium 8.2(L) 8.8 - 10.2 mg/dL [facility] Sodium 132(L) 135 - 148 mmol/L [facility] Potassium 4.5 3.5 - 5.3 mmol/L [facility] Chloride 98 92 - 108 mmol/L [facility] AnGap 10 8 - 16 mmol/L [facility] eGFR (2020 CKD-EPI) 96 >=60 ml/min/1.7 3m2 [facility] Comment: The estimated glomerular filtration [...] Yuriy Wynn MD LABORATORY Performing Organization Address [facility]/ZIP Co de Phone Number [facility] [address] [address] * (ABNORMAL) ICU PHOSPHORUS (11/14/2023 4:44 AM CDT) Phosphorus 2.3(L) 2.5 - 4.5 mg/dL [facility] Blood 11/14/2023 4:44 AM CDT 11/14/2023 5:01 AM CDT Yuriy Wynn MD LABORATORY Performing Organization Address [facility] de Phone Number [facility] [address] [address] * ICU MAGNESIUM (11/14/2023 4:44 AM CDT) Pathologist [facility] Magnesium 2.2 1.6 - 2.4 mg/dL [facility] Blood 11/14/2023 4:44 AM CDT 11/14/2023 5:01 AM CDT Yuriy Wynn MD LABORATORY Performing Organization Address [facility] de Phone Number [facility] [address] [address] * (ABNORMAL) ICU CBC WITH PLATELET (11/14/2023 4:44 AM CDT) Pathologist [facility] WBC 14.34(H) 4.00 - 10.00 k/cmm [facility] RBC 3.50(L) 4.60 - 6.00 m/cmm [facility] Hgb 10.1(L) 13.1 - 17.5 g/dL [facility] Hematocrit 31.8(L) 40.0 - 51.0 % [facility] MCV 90.9 80.0 - 100.0 fL [facility] MCH 28.9 25.0 - 32.0 pg [facility] MCHC 31.8 31.0 - 36.0 g/dL [facility] RDW 13.5 11.5 - 14.5 % [facility] Plt 322 150 - 400 k/cmm [facility] MPV 10.6 6.5 - 12.5 fL [facility] NRBC 0.1(H) 0.0 - 0.0 /100WBC [facility] Blood 11/14/2023 4:44 AM CDT 11/14/2023 5:01 AM CDT Yuriy Wynn MD LABORATORY Performing Organization Address [facility] Co de Phone Number [facility] [address] [address] * ICU CK, TOTAL (11/14/2023 4:44 AM CDT) CK 51 39 - 308 IU/L [facility] Blood 11/14/2023 4:44 AM CDT 11/14/2023 5:01 AM CDT Yuriy Wynn MD LABORATORY Performing Organization Address [facility] Co de Phone Number [facility] [address] [address] * (ABNORMAL) ICU TRIGLYCERIDE (11/14/2023 4:44 AM CDT) Triglyceride 352(H) <=150 mg/dL [facility] Comment: Interpretive Data <150 Normal 150-199 Borderline high 200-499 High >=500 Very high Blood 11/14/2023 4:44 AM CDT 11/14/2023 5:01 AM CDT Yuriy Wynn MD LABORATORY Performing Organization Address [facility] Co de Phone Number [facility] [address] [address] * XR CHEST 1 VIEW AP OR [...] effusion. No pneumothorax. Procedure Note Rudy Cortez, ALLIBS - 11/14/2023 Technique: XR CHEST 1 VIEW [...] POC Glucose 209(H) 70 - 100 mg/dL [facility] Blood 11/13/2023 11:5 7 PM CDT Patrice Marcial MD LABORATORY [facility] [address] [place] [address], * (ABNORMAL) POC GLUCOSE (11/13/2023 5:34 PM CDT) [facility] POC Glucose 244(H) 70 - 100 mg/dL [facility] Blood 11/13/2023 5:34 PM CDT Patrice Marcial MD LABORATORY Performing Organization Address [facility]/ZIP Co de Phone Number [facility] [address] [place] [address] * (ABNORMAL) ICU PANEL BASIC METABOLIC (BMP) (11/13/2023 5:04 PM CDT) [facility] CO2 26 22 - 30 mmol/L [facility] Glucose 255(H) 70 - 100 mg/dL [facility] BUN 33(H) 8 - 23 mg/dL [facility] Creatinine 0.85 0.70 - 1.25 mg/dL [facility] Calcium 7.4(L) 8.8 - 10.2 mg/dL [facility] Sodium 133(L) 135 - 148 mmol/L [facility] Potassium 4.5 3.5 - 5.3 mmol/L [facility] Chloride 100 92 - 108 mmol/L [facility] AnGap 7(L) 8 - 16 mmol/L [facility] eGFR (2020 CKD-EPI) 96 >=60 ml/min/1.7 3m2 [facility] Comment: The estimated glomerular filtration rate (eGFR) was calculated using the CKD-EPI 2020 creatinine equation, which does not include race as a factor. This equation is validated in individuals 18 years of age and older, and eGFR is normalized to a body surface area of 1.73m^2. Blood 11/13/2023 5:04 PM CDT 11/13/2023 5:17 PM CDT Yuriy Wynn MD LABORATORY [facility] [address] [address] * BODY FLUID CELL COUNT/DIFF (11/13/2023 1:08 PM CDT) Fluid Type PF Pleural [facility] Comment:Normal reference ran ges have not been determined; clinical correlation is recommended. Volume PF 2 mL [facility] Appearance PF Cloudy [facility] Color bf Bloody [facility] RBC PF 60,000 cells/ul [facility] Nuc Ct PF 99,130 cells/ul [facility] Neutrophils PF 81 % [facility] MONO/MACS FL 19 % [facility] Pleural fluid 11/13/2023 1:0 8 PM CDT 11/13/2023 2:47 PM CDT Patrice Marcial MD LABORATORY [facility] [address] [place] [id number] * (ABNORMAL) BODY FLUID CULTURE:INCLUDES GRAM STAIN (11/13/2023 1:08 PM CDT) Final Report Positive Culture Few Methicillin sensitive Staphylococcus aureus (MSSA) isolated. Methicillin susceptible by PBP2a. Results electronically reported to and acknowledged by: Naheed Blood MD for SICU @ NOV 14, 2023 8:35 AM by Krissy Portillo [place] (POS) [facility] Organism METHICILLIN SENSITIVE STAPHYLOCOCCUS AUREUS (MSSA)(POS) [facility] Gram Stain Report PMN's seen. No organisms seen. [facility] Pleural fluid 11/13/2023 1:0 8 [...] Wynn MD LAB MICROBIOLOGY Performing Organization Address City/[facility]/ZIP Co de Phone Number [facility] [address] [address] * MISCELLANEOUS BODY FLUID (11/13/2023 1:08 PM CDT) Pathologist [facility] Result [id number] [facility] Units BF U/L [facility] Comment:The reference interv al(s) and other method performance specifications have not been established for this body fluid. The test result must be integrated into the clinical context for interpretation. Fluid 11/13/2023 1:08 PM CDT 11/13/2023 2:15 PM CDT Narrative [facility] - 11/13/2023 3:56 PM CDT Left Chest Pleural Fluid Send out test name: LDH Specimen Source->Other- Please comment Yuriy Wynn MD LABORATORY Performing Organization Address [facility] Co de Phone Number [facility] [address] [address] * MISCELLANEOUS BODY FLUID (11/13/2023 1:08 PM CDT) [facility] Result <2 [facility] Units BF mg/dL [facility] Comment:The reference interv al(s) and other method performance specifications have not been established for this body fluid. The test result must be integrated into the clinical context for interpretation. Fluid 11/13/2023 1:08 PM CDT 11/13/2023 2:15 PM CDT Narrative [facility] - 11/13/2023 3:27 PM CDT Left Chest Pleural Fluid Send out test name: Glucose Specimen Source->Other- Please comment Yuriy Wynn MD LABORATORY Performing Organization Address City/[facility]/ZIP Co de Phone Number [facility] [address] [address] * MISCELLANEOUS BODY FLUID (11/13/2023 1:08 PM CDT) [facility] Result 4.2 [facility] Units BF g/dL [facility] Comment:The reference interv al(s) and other method performance specifications have not been established for this body fluid. The test result must be integrated into the clinical context for interpretation. Fluid 11/13/2023 1:08 PM CDT 11/13/2023 2:15 PM CDT Narrative [facility] - 11/13/2023 3:26 PM CDT Left Chest Pleural Fluid Send out test name: Fluid Protein Specimen Source->Other- Please comment Yuriy Wynn MD LABORATORY [facility] [address] [place] [id number] * XR CHEST 1 VIEW AP OR [...] Pulmonary vascular congestion. Procedure Note Carrington Jalloh, - 11/13/2023 Technique: XR CHEST 1 VIEW [...] POC Glucose 239(H) 70 - 100 mg/dL [facility] Blood 11/13/2023 11:3 2 AM CDT Patrice Marcial MD LABORATORY Performing Organization Address [facility] Co de Phone Number [facility] [address] [place] [address], [place] * (ABNORMAL) POC GLUCOSE (11/13/2023 6:06 AM CDT) POC Glucose 175(H) 70 - 100 mg/dL [facility] Blood 11/13/2023 6:06 AM CDT Patrice Marcial MD LABORATORY Performing Organization Address [facility] de Phone Number [facility] [address] [place] [address], [place] * XR CHEST 1 VIEW AP [...] Remainder of exam stable Procedure Note Carrington Jalloh, - 11/13/2023 Technique: XR CHEST 1 VIEW [...] CDT) LD 261(H) 135 - 225 IU/L [facility] Blood 11/13/2023 4:06 AM CDT 11/13/2023 2:12 PM CDT Yuriy Wynn MD LABORATORY [facility] [address] [address] * (ABNORMAL) PROTEIN, TOTAL SERUM (11/13/2023 4:06 AM CDT) Total Protein 5.7(L) 6.4 - 8.3 g/dL [facility] Blood 11/13/2023 4:06 AM CDT 11/13/2023 2:12 PM CDT Yuriy Wynn MD LABORATORY Performing Organization Address [facility]/ZIP Co de Phone Number [facility] [address] [address] * (ABNORMAL) ICU BLOOD GAS (11/13/2023 4:06 AM CDT) PH Art 7.43 7.35 - 7.45 [facility] PCO2 Art 42 35 - 45 mmHG [facility] PO2 Art 119(H) 75 - 85 mmHG [facility] Bicarb Art 27(H) 22 - 26 mEq/L [facility] O2 Sat Art 99 96 - 99 % [facility] Base Exc Art 2.8(H) -10.0 - 2.0 mmol/L [facility] Blood Arterial 11/13/2023 4: 06 AM CDT 11/13/2023 4:39 AM CDT Carole Montoya APRN, HYBRID DERIVATIVES TRADER LABORATORY Performing Organization Address [facility] Co de Phone Number [facility] [address] [address] * (ABNORMAL) ICU PANEL BASIC METABOLIC (BMP) (11/13/2023 4:06 AM CDT) CO2 25 22 - 30 mmol/L [facility] Glucose 202(H) 70 - 100 mg/dL [facility] BUN 30(H) 8 - 23 mg/dL [facility] Creatinine 0.84 0.70 - 1.25 mg/dL [facility] Calcium 8.0(L) 8.8 - 10.2 mg/dL [facility] Sodium 134(L) 135 - 148 mmol/L [facility] Potassium 4.2 3.5 - 5.3 mmol/L [facility] Chloride 98 92 - 108 mmol/L [facility] AnGap 11 8 - 16 mmol/L [facility] eGFR (2020 CKD-EPI) 97 >=60 ml/min/1.7 3m2 [facility] Comment: The estimated glomerular filtration [...] Yuriy Wynn MD LABORATORY Performing Organization Address [facility] [place] [address] * PROCALCITONIN (11/13/2023 4:06 AM CDT) Procalcitonin 2.05 ng/mL [facility] Comment: Results <0.50 ng/mL represent a low risk of severe sepsis and/or septic shock. Results >2.0 ng/mL represent a high risk of severe sepsis and/or septic shock. Blood 11/13/2023 4:06 AM CDT 11/13/2023 4:41 AM CDT Carole Montoya APRN, [facility] Performing Organization Address [facility] Co de Phone Number [address] [address] * ICU PHOSPHORUS (11/13/2023 4:06 AM CDT) Phosphorus 2.8 2.5 - 4.5 mg/dL [facility] Blood 11/13/2023 4:06 AM CDT 11/13/2023 4:41 AM CDT Yuriy Wynn MD LABORATORY Performing Organization Address [facility] Co de Phone Number [facility] [address] [address] * ICU MAGNESIUM (11/13/2023 4:06 AM CDT) [facility] Magnesium 2.3 1.6 - 2.4 mg/dL [facility] Blood 11/13/2023 4:06 AM CDT 11/13/2023 4:41 AM CDT Yuriy Wynn MD LABORATORY [facility] [address] [address] * (ABNORMAL) ICU CBC WITH PLATELET (11/13/2023 4:06 AM CDT) [facility] WBC 13.60(H) 4.00 - 10.00 k/cmm [facility] RBC 3.21(L) 4.60 - 6.00 m/cmm [facility] Hgb 9.3(L) 13.1 - 17.5 g/dL [facility] Hematocrit 28.2(L) 40.0 - 51.0 % [facility] MCV 87.9 80.0 - 100.0 fL [facility] MCH 29.0 25.0 - 32.0 pg [facility] MCHC 33.0 31.0 - 36.0 g/dL [facility] RDW 13.4 11.5 - 14.5 % [facility] Plt 239 150 - 400 k/cmm [facility] MPV 11.0 6.5 - 12.5 fL [facility] NRBC 0.1(H) 0.0 - 0.0 /100WBC [facility] Blood 11/13/2023 4:06 AM CDT 11/13/2023 4:40 AM CDT Yuriy Wynn MD LABORATORY [facility] [address] [address] * (ABNORMAL) POC GLUCOSE (11/12/2023 11:42 PM CDT) [facility] POC Glucose 207(H) 70 - 100 mg/dL [facility] Blood 11/12/2023 11:4 2 PM CDT Patrice Marcial MD LABORATORY [facility] [address] [place] [address], [place] * XR ABDOMEN 1 VIEW* (11/12/2023 [...] CDT) Phosphorus 2.7 2.5 - 4.5 mg/dL [facility] Blood 11/12/2023 6:40 PM CDT 11/12/2023 7:14 PM CDT Yuriy Wynn MD LABORATORY [facility] [address] [place] [id number] * (ABNORMAL) ICU BLOOD GAS (11/12/2023 6:40 PM CDT) PH Art 7.41 7.35 - 7.45 [facility] PCO2 Art 43 35 - 45 mmHG [facility] PO2 Art 89(H) 75 - 85 mmHG [facility] Bicarb Art 27(H) 22 - 26 mEq/L [facility] O2 Sat Art 97 96 - 99 % [facility] Base Exc Art 2.7(H) -10.0 - 2.0 mmol/L [facility] Blood Arterial 11/12/2023 6: 40 PM CDT 11/12/2023 6:52 PM CDT Carole Montoya APRN, CNP LABORATORY [facility] [address] [address] * (ABNORMAL) ICU PANEL BASIC METABOLIC (BMP) (11/12/2023 6:40 PM CDT) Sodium 134(L) 135 - 148 mmol/L [facility] Potassium 4.2 3.5 - 5.3 mmol/L [facility] Chloride 99 92 - 108 mmol/L [facility] CO2 25 22 - 30 mmol/L [facility] AnGap 10 8 - 16 mmol/L [facility] Glucose 195(H) 70 - 100 mg/dL [facility] BUN 27(H) 8 - 23 mg/dL [facility] Creatinine 0.84 0.70 - 1.25 mg/dL [facility] Calcium 8.3(L) 8.8 - 10.2 mg/dL [facility] eGFR (2020 CKD-EPI) 97 >=60 ml/min/1.7 3m2 [facility] Comment: The estimated glomerular filtration rate (eGFR) was calculated using the CKD-EPI 2020 creatinine equation, which does not include race as a factor. This equation is validated in individuals 18 years of age and older, and eGFR is normalized to a body surface area of 1.73m^2. Blood 11/12/2023 6:40 PM CDT 11/12/2023 6:52 PM CDT Yuriy Wynn MD LABORATORY [facility] [address] [place] [id number] * (ABNORMAL) POC GLUCOSE (11/12/2023 6:11 PM CDT) POC Glucose 188(H) 70 - 100 mg/dL [facility] - POINT OF CARE Blood 11/12/2023 6:11 PM CDT Patrice Marcial MD LABORATORY Performing Organization Address City/[facility] Co de Phone Number [facility] [place] [address], * (ABNORMAL) POC GLUCOSE (11/12/2023 11:35 AM CDT) POC Glucose 192(H) 70 - 100 mg/dL [facility] PO[facility] CARE Blood 11/12/2023 11:3 5 AM CDT Patrice Marcial MD LABORATORY Performing Organization Address [facility] Co de Phone Number [facility] [place] [address], [place] * ECH TRANSTHOR (TTE) COMPLETE WITH [...] HERNANDEZ ??Height ?69.02 Inches C Patient Number ?[id number] ? Weight ?255.74 Pounds Date of ? 1960 ?BSA ? 2.29 m^2 Age ? 63 ?Tape Number Gender ?Male ?Study Date ?11/12/2023 09:13 AM Package Sealer ? RB ?Ordering Provider ?? PRINCESS Maxwell Referring ? Interpreting ?Ahmet Suarez MD Physician ? Physician ? [id number] Type of Study: TTE procedure: 2D echocardiogram, M-Mode, Doppler , Color Doppler, Contrast study, ECH TRANSTHORACIC ECHO (TTE) HR: 84 bpmBP: 106/56 mmHgPatient Status: Routine Study Location: [address] Quality: Adequate visualization Contrast Medium: Optison. [...] HERNANDEZ Height 69.02 Inches Alissa Patient Number [id number] Weight 255.74 Pounds Date of 1960 BSA 2.29 m^2 Age 63 Tape Number Gender Male Study Date 11/12/2023 09:13 AM Package Sealer RB Ordering Provider PRINCESS Maxwell Referring Interpreting Ahmet Suarez MD Physician Physician [id number] Type of Study: TTE procedure: 2D echocardiogram, M-Mode, Doppler , Color Doppler, Contrast study, ECH TRANSTHORACIC ECHO (TTE) HR: 84 bpmBP: 106/56 mmHgPatient Status: Routine Study Location: [address] Quality: Adequate visualization Contrast Medium: Optison. [...] True True Yuriy Wynn MD RAD ECHO [facility] * CT CHEST WITH IV [...] resident/fellow. Reading Radiologist: Yoselin Sellers Reading Resident: Connie Snaon Narrative 11/12/2023 11:50 AM CDT COMPARISON: CT [...] resident/fellow. Reading Radiologist: Yoselin Sellers Reading Resident: Connie Sanon Yuriy Wynn MD RAD CT BODY * (ABNORMAL) ICU PANEL BASIC METABOLIC (BMP) (11/12/2023 5:40 AM CDT) Sodium 132(L) 135 - 148 mmol/L [facility] Potassium 4.2 3.5 - 5.3 mmol/L [facility] Chloride 97 92 - 108 mmol/L [facility] CO2 26 22 - 30 mmol/L [facility] AnGap 9 8 - 16 mmol/L [facility] Glucose 194(H) 70 - 100 mg/dL [facility] BUN 25(H) 8 - 23 mg/dL [facility] Creatinine 0.92 0.70 - 1.25 mg/dL [facility] Calcium 8.1(L) 8.8 - 10.2 mg/dL [facility] eGFR (2020 CKD-EPI) 92 >=60 ml/min/1.7 3m2 [facility] Comment: The estimated glomerular filtration [...] Yuriy Wynn MD LABORATORY Performing Organization Address City/[facility] Co de Phone Number [facility] [address] [address] * PROCALCITONIN (11/12/2023 5:40 AM CDT) Procalcitonin 2.13 ng/mL [facility] Comment: Results <0.50 ng/mL represent a low risk of severe sepsis and/or septic shock. Results >2.0 ng/mL represent a high risk of severe sepsis and/or septic shock. Blood 11/12/2023 5:40 AM CDT 11/12/2023 5:57 AM CDT Carole Montoya APRN, CNP LABORATORY Performing Organization Address [facility] Co de Phone Number [facility] [address] [address] * (ABNORMAL) ICU PHOSPHORUS (11/12/2023 5:40 AM CDT) Phosphorus 2.4(L) 2.5 - 4.5 mg/dL [facility] Blood 11/12/2023 5:40 AM CDT 11/12/2023 5:57 AM CDT Yuriy Wynn MD LABORATORY Performing Organization Address City/[facility]/ZIP Co de Phone Number [facility] [address] [address] * ICU MAGNESIUM (11/12/2023 5:40 AM CDT) [facility] Magnesium 2.2 1.6 - 2.4 mg/dL [facility] Blood 11/12/2023 5:40 AM CDT 11/12/2023 5:57 AM CDT Yuriy Wynn MD LABORATORY Performing Organization Address City/[facility]/ZIP Co de Phone Number [facility] [address] [address] * (ABNORMAL) ICU CBC WITH PLATELET (11/12/2023 5:40 AM CDT) [facility] WBC 13.42(H) 4.00 - 10.00 k/cmm [facility] RBC 3.30(L) 4.60 - 6.00 m/cmm [facility] Hgb 9.6(L) 13.1 - 17.5 g/dL [facility] Hematocrit 29.0(L) 40.0 - 51.0 % [facility] MCV 87.9 80.0 - 100.0 fL [facility] MCH 29.1 25.0 - 32.0 pg [facility] MCHC 33.1 31.0 - 36.0 g/dL [facility] RDW 13.6 11.5 - 14.5 % [facility] Plt 205 150 - 400 k/cmm [facility] MPV 10.8 6.5 - 12.5 fL [facility] NRBC 0.2(H) 0.0 - 0.0 /100WBC [facility] Blood 11/12/2023 5:40 AM CDT 11/12/2023 5:57 AM CDT Yuriy Wynn MD LABORATORY [facility] [address] [address] * (ABNORMAL) POC GLUCOSE (11/12/2023 5:23 AM CDT) [facility] POC Glucose 181(H) 70 - 100 mg/dL [facility] - POINT OF CARE Blood 11/12/2023 5:23 AM CDT Patrice Marcial MD LABORATORY [facility] POINT OF CARE [address] [place] [address], * XR CHEST 1 VIEW AP OR [...] Radiologist: Conrad Oviedo Reading Resident: Vladimir Scott Narrative 11/12/2023 9:07 AM CDT Technique: XR CHEST 1 VIEW AP OR PA* Indication: eval pleural effusion ?? Comparison: X-ray chest 11/11/2023, multiple priors. Findings: Endotracheal tube tip is not definitively visualized, however the lung apices are out of the [id number]. Stable placement right IJ CVC, enteric tube, [...] howeverthe lung apices are out of the [id number]. Stable placement right IJCVC, enteric tube, left [...] Conrad Oviedo Reading Resident: Vladimir Scott Carole Montoya DRAFTING TEACHER, HYBRID DERIVATIVES TRADER RAD XRAY * (ABNORMAL) POC GLUCOSE (11/11/2023 11:47 PM CDT) Pathologist [facility] POC Glucose 161(H) 70 - 100 mg/dL [facility] - POINT [facility] CARE Blood 11/11/2023 11:4 7 PM CDT Patrice Marcial MD LABORATORY [facility] - POINT OF CARE [address] [place] [address], * (ABNORMAL) ICU PANEL BASIC METABOLIC (BMP) (11/11/2023 7:03 PM CDT) Pathologist [facility] Sodium 131(L) 135 - 148 mmol/L [facility] Potassium 4.5 3.5 - 5.3 mmol/L [facility] Chloride 97 92 - 108 mmol/L [facility] CO2 24 22 - 30 mmol/L [facility] AnGap 10 8 - 16 mmol/L [facility] Glucose 152(H) 70 - 100 mg/dL [facility] BUN 25(H) 8 - 23 mg/dL [facility] Creatinine 0.88 0.70 - 1.25 mg/dL [facility] Calcium 8.5(L) 8.8 - 10.2 mg/dL [facility] eGFR (2020 CKD-EPI) 95 >=60 ml/min/1.7 3m2 [facility] Comment: The estimated glomerular filtration rate (eGFR) was calculated using the CKD-EPI 2020 creatinine equation, which does not include race as a factor. This equation is validated in individuals 18 years of age and older, and eGFR is normalized to a body surface area of 1.73m^2. Blood 11/11/2023 7:03 PM CDT 11/11/2023 7:25 PM CDT Yuriy Wynn MD LABORATORY Performing Organization Address [facility] Co de Phone Number [facility] [address] [place] [address] * (ABNORMAL) POC GLUCOSE (11/11/2023 5:38 PM CDT) POC Glucose 134(H) 70 - 100 mg/dL [facility] CARE Blood 11/11/2023 5:38 PM CDT Patrice Marcial MD LABORATORY Performing Organization Address [facility] Co de Phone Number [facility] POINT [place] [address], [place] * (ABNORMAL) POC GLUCOSE (11/11/2023 11:48 AM CDT) POC Glucose 159(H) 70 - 100 mg/dL [facility] POINT [facility] CARE Blood 11/11/2023 11:4 8 AM CDT Patrice Marcial MD LABORATORY Performing Organization Address [facility] de Phone Number [facility] POINT OF [address] [address], [place] * XR ABDOMEN 1 VIEW* (11/11/2023 [...] CDT) PH Art 7.45 7.35 - 7.45 [facility] PCO2 Art 37 35 - 45 mmHG [facility] PO2 Art 109(H) 75 - 85 mmHG [facility] Bicarb Art 25 22 - 26 mEq/L [facility] O2 Sat Art 99 96 - 99 % [facility] Base Exc Art 1.7 -10.0 - 2.0 mmol/L [facility] Blood Arterial 11/11/2023 9: 23 AM CDT 11/11/2023 9:29 AM CDT Carole Montoya APRN, CNP LABORATORY [facility] [address] [address] * PROCALCITONIN (11/11/2023 6:08 AM CDT) Procalcitonin 2.64 ng/mL [facility] Comment: Results <0.50 ng/mL represent a low risk of severe sepsis and/or septic shock. Results >2.0 ng/mL represent a high risk of severe sepsis and/or septic shock. Blood 11/11/2023 6:08 AM CDT 11/11/2023 6:32 AM CDT Carole Montoya APRN, [facility]ERMAN LABORATORY Performing Organization Address City/[facility]/ZIP Co de Phone Number [facility] [address] [address] * (ABNORMAL) ICU PANEL BASIC METABOLIC (BMP) (11/11/2023 5:25 AM CDT) CO2 24 22 - 30 mmol/L [facility] Glucose 129(H) 70 - 100 mg/dL [facility] BUN 23 8 - 23 mg/dL [facility] Creatinine 1.00 0.70 - 1.25 mg/dL [facility] Calcium 8.2(L) 8.8 - 10.2 mg/dL [facility] Sodium 131(L) 135 - 148 mmol/L [facility] Potassium 4.6 3.5 - 5.3 mmol/L [facility] Chloride 97 92 - 108 mmol/L [facility] AnGap 10 8 - 16 mmol/L [facility] eGFR (2020 CKD-EPI) 84 >=60 ml/min/1.7 3m2 [facility] Comment: The estimated glomerular filtration [...] Yuriy Wynn MD LABORATORY Performing Organization Address [facility] Co de Phone Number [facility] [address] [address] * ICU PHOSPHORUS (11/11/2023 5:25 AM CDT) Phosphorus 2.6 2.5 - 4.5 mg/dL [facility] Blood 11/11/2023 5:25 AM CDT 11/11/2023 5:51 AM CDT Yuriy Wynn MD LABORATORY Performing Organization Address City/[facility]/ZIP Co de Phone Number [facility] [address] [place] [address] * ICU MAGNESIUM (11/11/2023 5:25 AM CDT) Pathologist [facility] Magnesium 2.3 1.6 - 2.4 mg/dL [facility] Blood 11/11/2023 5:25 AM CDT 11/11/2023 5:51 AM CDT Yuriy Wynn MD LABORATORY [facility] [address] [address] * (ABNORMAL) ICU CBC WITH PLATELET (11/11/2023 5:25 AM CDT) Pathologist [facility] WBC 13.78(H) 4.00 - 10.00 k/cmm [facility] RBC 3.31(L) 4.60 - 6.00 m/cmm [facility] Hgb 9.6(L) 13.1 - 17.5 g/dL [facility] Hematocrit 29.2(L) 40.0 - 51.0 % [facility] MCV 88.2 80.0 - 100.0 fL [facility] MCH 29.0 25.0 - 32.0 pg [facility] MCHC 32.9 31.0 - 36.0 g/dL [facility] RDW 13.5 11.5 - 14.5 % [facility] Plt 180 150 - 400 k/cmm [facility] MPV 11.1 6.5 - 12.5 fL [facility] NRBC 0.1(H) 0.0 - 0.0 /100WBC [facility] Blood 11/11/2023 5:25 AM CDT 11/11/2023 5:51 AM CDT Yuriy Wynn MD LABORATORY [facility] [address] [address] * ICU CK, TOTAL (11/11/2023 5:25 AM CDT) Pathologist [facility] CK 85 39 - 308 IU/L [facility] Blood 11/11/2023 5:25 AM CDT 11/11/2023 5:51 AM CDT Yuriy Wynn MD LABORATORY Performing Organization Address City/[facility]/ZIP Co de Phone Number [facility] [address] [address] * (ABNORMAL) ICU TRIGLYCERIDE (11/11/2023 5:25 AM CDT) Triglyceride 262(H) <=150 mg/dL [facility] Comment: Interpretive Data <150 Normal 150-199 Borderline high 200-499 High >=500 Very high Blood 11/11/2023 5:25 AM CDT 11/11/2023 5:51 AM CDT Yuriy Wynn MD LABORATORY Performing Organization Address [facility] Co de Phone Number [address] [address] * XR CHEST 1 VIEW AP OR [...] the resident/fellow. Reading Radiologist: Yoselin Sellers Resident: Vladimir Scott Narrative 11/11/2023 7:56 AM [...] Yoselin Sellers Reading Resident: Vladimir Scott Carole Montoya APRN, HYBRID DERIVATIVES TRADER RAD XRAY * Arterial Line Rewire (11/10/2023 [...] to verify the correct patient, procedure, equipment, credit support specialist and site/side marked as required. Preparation: Patient [...] POC Glucose 122(H) 70 - 100 mg/dL [facility] POINT [facility] CARE Blood 11/10/2023 8:55 PM CDT Patrice Marcial MD LABORATORY [facility] POINT [facility] CARE [address] * (ABNORMAL) ICU PANEL BASIC METABOLIC (BMP) (11/10/2023 6:17 PM CDT) Sodium 129(L) 135 - 148 mmol/L [facility] Potassium 4.9 3.5 - 5.3 mmol/L [facility] Chloride 93 92 - 108 mmol/L [facility] CO2 25 22 - 30 mmol/L [facility] AnGap 11 8 - 16 mmol/L [facility] Glucose 141(H) 70 - 100 mg/dL [facility] BUN 26(H) 8 - 23 mg/dL [facility] Creatinine 1.02 0.70 - 1.25 mg/dL [facility] Calcium 8.6(L) 8.8 - 10.2 mg/dL [facility] eGFR (2020 CKD-EPI) 82 >=60 ml/min/1.7 3m2 [facility] Comment: The estimated glomerular filtration [...] Yuriy Wynn MD LABORATORY Performing Organization Address [facility] [place] [address] * (ABNORMAL) POC GLUCOSE (11/10/2023 6:07 PM CDT) POC Glucose 108(H) 70 - 100 mg/dL [facility] POINT OF CARE Blood 11/10/2023 6:07 PM CDT Patrice Marcial MD LABORATORY Performing Organization Address [facility] de Phone Number [facility] CARE [address] [place] [address] * MRSA SURVEILLANCE SCREEN (11/10/2023 4:39 PM CDT) Final Report No MRSA isolated. [facility] Swab NASAL STRUCTURE / Unknown 11/10/2023 4:39 PM CDT 11/10/2023 5:00 PM CDT Yuriy Wynn MD LAB MICROBIOLOGY Performing Organization Address [facility] de Phone Number [facility] [address] [address] * XR ABDOMEN 1 VIEW* (11/10/2023 3:46 [...] radiograph. Reading Radiologist: Royce Smith Carole Montoya APRN, CNP RAD XRAY * MRSA SURVEILLANCE SCREEN (11/10/2023 12:58 PM CDT) Final Report No MRSA isolated. [facility] Swab NASAL STRUCTURE / Unknown 11/10/2023 12:58 PM CDT 11/10/2023 2:26 PM CDT Wendy Mcfarland APRN, CNP LAB MICROBI OLOGY Performing Organization Address [facility]/ZIP Co de Phone Number [address] [address] * (ABNORMAL) BLOOD GASES (11/10/2023 12:58 PM CDT) Pathologist [facility] PH Art 7.42 7.35 - 7.45 [facility] PCO2 Art 44 35 - 45 mmHG [facility] PO2 Art 77 75 - 85 mmHG [facility] Bicarb Art 28(H) 22 - 26 mEq/L [facility] O2 Sat Art 96 96 - 99 % [facility] Base Exc Art 3.9(H) -10.0 - 2.0 mmol/L [facility] Blood Arterial 11/10/2023 12 :58 PM CDT 11/10/2023 1:08 PM CDT Carole Montoya APRN, CNP LABORATORY Performing Organization Address City/[facility]/ZIP Co de Phone Number [address] [address] * PROCALCITONIN (11/10/2023 12:58 PM CDT) Procalcitonin 3.56 ng/mL [facility] Comment: Results <0.50 ng/mL represent a low risk of severe sepsis and/or septic shock. Results >2.0 ng/mL represent a high risk of severe sepsis and/or septic shock. Blood 11/10/2023 12:5 8 PM CDT 11/10/2023 1:08 PM CDT Carole Montoya APRN, CNP LABORATORY Performing Organization Address [facility] Co de Phone Number [facility] [place] [address] * (ABNORMAL) POC GLUCOSE (11/10/2023 11:55 AM CDT) POC Glucose 144(H) 70 - 100 mg/dL [facility] POINT OF CARE Blood 11/10/2023 11:5 5 AM CDT Patrice Marcial MD LABORATORY Performing Organization Address [facility] Co de Phone Number [facility] POINT [facility] CARE [address] [place] [address], * (ABNORMAL) RESPIRATORY CULTURE (11/10/2023 9:19 AM CDT) Final Report Rare Methicillin sensitive Staphylococcus aureus (MSSA) isolated. Methicillin susceptible by PBP2a. Rare normal oral cain. (POS) [facility] Organism METHICILLIN SENSITIVE STAPHYLOCOCCUS AUREUS (MSSA)(POS) [facility] Gram Stain Report PMN's seen. Gram positive cocci Gram negative bacilli [facility] Bronch Wash 11/10/2023 9:19 AM [...] (mssa) Vancomycin VITEK ANIL 1: Sensitive Wendy Beltran Bartolo PRESTON, HYBRID DERIVATIVES TRADER LAB MICROBI OLOGY Performing Organization Address [facility] Co de Phone Number [facility] [address] [address] * (ABNORMAL) PANEL HEPATIC FUNCTION (11/10/2023 6:21 AM CDT) Total Protein 5.6(L) 6.4 - 8.3 g/dL [facility] Albumin 2.9(L) 3.8 - 5.1 g/dL [facility] Bili Total 1.0 <=1.2 mg/dL [facility] Bili Direct 0.7(H) <=0.3 mg/dL [facility] Alk Phos 79 40 - 129 IU/L [facility] Comment:No reference range e stablished for patients <18 years old. ALT (SGPT) 16 <=41 IU/L [facility] AST(SGOT) 17 5 - 40 IU/L [facility] Blood 11/10/2023 6:21 AM CDT 11/10/2023 6:35 AM CDT Yuriy Wynn MD LABORATORY Performing Organization Address [facility] de Phone Number [facility] [address] [address] * (ABNORMAL) ICU PANEL BASIC METABOLIC (BMP) (11/10/2023 6:21 AM CDT) Sodium 130(L) 135 - 148 mmol/L [facility] Potassium 4.9 3.5 - 5.3 mmol/L [facility] Chloride 95 92 - 108 mmol/L [facility] CO2 26 22 - 30 mmol/L [facility] AnGap 9 8 - 16 mmol/L [facility] Glucose 134(H) 70 - 100 mg/dL [facility] BUN 24(H) 8 - 23 mg/dL [facility] Creatinine 1.08 0.70 - 1.25 mg/dL [facility] Calcium 8.7(L) 8.8 - 10.2 mg/dL [facility] eGFR (2020 CKD-EPI) 76 >=60 ml/min/1.7 3m2 [facility] Comment: The estimated glomerular filtration [...] Yuriy Wynn MD LABORATORY Performing Organization Address City/[facility] Co de Phone Number [facility] [address] [address] * ICU PHOSPHORUS (11/10/2023 6:21 AM CDT) Phosphorus 2.6 2.5 - 4.5 mg/dL [facility] Blood 11/10/2023 6:21 AM CDT 11/10/2023 6:35 AM CDT Yuriy Wynn MD LABORATORY Performing Organization Address [facility] Co de Phone Number [facility] [address] [address] * ICU MAGNESIUM (11/10/2023 6:21 AM CDT) Magnesium 2.0 1.6 - 2.4 mg/dL [facility] Blood 11/10/2023 6:21 AM CDT 11/10/2023 6:35 AM CDT Yuriy Wynn MD LABORATORY Performing Organization Address [facility] Co de Phone Number [facility] [address] [address] * (ABNORMAL) ICU CBC WITH PLATELET (11/10/2023 6:21 AM CDT) WBC 13.02(H) 4.00 - 10.00 k/cmm [facility] RBC 3.25(L) 4.60 - 6.00 m/cmm [facility] Hgb 9.6(L) 13.1 - 17.5 g/dL [facility] Hematocrit 28.4(L) 40.0 - 51.0 % [facility] MCV 87.4 80.0 - 100.0 fL [facility] MCH 29.5 25.0 - 32.0 pg [facility] MCHC 33.8 31.0 - 36.0 g/dL [facility] RDW 13.3 11.5 - 14.5 % [facility] [facility] Plt 153 150 - 400 k/cmm [facility] MPV 10.9 6.5 - 12.5 fL [facility] Blood 11/10/2023 6:21 AM CDT 11/10/2023 6:35 AM CDT Yuriy Wynn MD LABORATORY Performing Organization Address City/[facility]/ZIP Co de Phone Number [facility] [place] [address] * POC GLUCOSE (11/10/2023 5:48 AM CDT) Pathologist [facility] POC Glucose 93 70 - 100 mg/dL [facility] Blood 11/10/2023 5:48 AM CDT Patrice Marcial MD LABORATORY Performing Organization Address [facility] Co de Phone Number [facility] [address] [place] [address], * XR CHEST 1 VIEW AP OR [...] mid SVC. Enteric tube tip beyond the mwrvu-pp-siyb. ET tube stable. Left inferior chest tube. [...] over mid SVC.Enteric tube tip beyond the xyqjz-mp-svdv. ET tube stable. Left inferiorchest tube. ACDF [...] XRAY * POTASSIUM (11/10/2023 2:35 AM CDT) Pathologist [facility] Potassium 5.0 3.5 - 5.3 mmol/L [facility] Blood 11/10/2023 2:35 AM CDT 11/10/2023 2:39 AM CDT Yuriy Wynn MD LABORATORY [facility] [address] [address] * (ABNORMAL) POC GLUCOSE (11/09/2023 11:45 PM CDT) Pathologist [facility] POC Glucose 126(H) 70 - 100 mg/dL [facility] Blood 11/09/2023 11:4 5 PM CDT Patrice Marcial MD LABORATORY Performing Organization Address City/[facility]/ZIP Co de Phone Number [facility] [address] [place] [address], [place] * POTASSIUM (11/09/2023 8:59 PM CDT) Potassium 5.2 3.5 - 5.3 mmol/L [facility] Blood 11/09/2023 8:59 PM CDT 11/09/2023 9:09 PM CDT Yuriy Wynn MD LABORATORY Performing Organization Address [facility] Co de Phone Number [facility] [address] [place] [phone] * XR ABDOMEN 1 VIEW* (11/09/2023 8:58 PM CDT) Anatomical Region Laterality Modality Abdomen Computed Radiogr aphy 11/09/2023 9:01 PM CDT Impressions 11/09/2023 9:01 PM CDT impression: Enteric tube tip projecting over pylorus. Stable position of presumed left basilar chest tube. Reading Radiologist: Amador Kwok Narrative 11/09/2023 9:01 PM CDT Technique: XR ABDOMEN [...] SVC. New enteric tube tip beyond the osqpe-uq-jjtj. ET tube again seen. Cardiac silhouette is stable. Lungs are stable. No pneumothorax appreciated. Procedure Note Amador Kwok MD - 11/09/2023 Technique: XR CHEST 1 VIEW AP OR PA* Indication: s/p line placement Comparison: Earlier today Findings: Right IJ central venous catheter tip projecting over mid SVC.New enteric tube tip beyond the grtnq-vd-jqix. ET tube again seen. Cardiacsilhouette is stable. [...] MD Authorized by: Tim Steinberg MD ?? [place] Protocol: ??Required items: Required blood products, implants, devices and special equipment available ?Patient identity confirmed: ??Arm band ??Time out: Immediately prior to the procedure a time out was called to verify the correct patient, procedure, equipment, credit support specialist and sit/side marked as required. ?? Indications: [...] POC Glucose 128(H) 70 - 100 mg/dL [facility] Blood 11/09/2023 6:40 PM CDT Patrice Marcial MD LABORATORY [facility] [address] [place] [address], * (ABNORMAL) BLOOD AEROBIC/ANAEROBIC CULTURE (11/09/2023 6:22 [...] 11/11/2023 08:04:49 by Jaguar Patterson MLS (POS) [facility] Organism METHICILLIN SENSITIVE STAPHYLOCOCCUS AUREUS (MSSA)(POS) [facility] Blood (Peripheral) 11/09/2023 6:22 PM CDT 11/09/2023 7:09 PM CDT Narrative [facility] - 11/12/2023 8:19 AM CDT [...] Vancomycin VITEK ANIL 1: Sensitive Charmaine Anne DRAFTING TEACHER, HYBRID DERIVATIVES TRADER LAB MICROBIOL OGY [facility] [address] [address] * (ABNORMAL) BLOOD AEROBIC/ANAEROBIC CULTURE (11/09/2023 6:05 PM CDT) Pathologist [facility] Final Report Positive Blood Culture Previous positive called. Methicillin sensitive Staphylococcus aureus (MSSA) isolated. Methicillin susceptible by PBP2a. Organism identified 11/11/2023 11:24:37 For susceptibility, see previous report on culture from 11/09/2023 (POS) [facility] Organism METHICILLIN SENSITIVE STAPHYLOCOCCUS AUREUS (MSSA)(POS) [facility] Blood (Peripheral) 11/09/2023 6:05 PM CDT 11/09/2023 7:09 PM CDT Charmaine Anne APRN, HYBRID DERIVATIVES TRADER LAB MICROBIOL OGY Performing Organization Address City/[facility]/ZIP Co de Phone Number [facility] [address] [address] * (ABNORMAL) CBC WITH PLATELET (11/09/2023 3:43 PM CDT) Pathologist [facility] WBC 15.68(H) 4.00 - 10.00 k/cmm [facility] RBC 3.61(L) 4.60 - 6.00 m/cmm [facility] Hgb 10.5(L) 13.1 - 17.5 g/dL [facility] Hematocrit 32.0(L) 40.0 - 51.0 % [facility] MCV 88.6 80.0 - 100.0 fL [facility] MCH 29.1 25.0 - 32.0 pg [facility] MCHC 32.8 31.0 - 36.0 g/dL [facility] RDW 13.0 11.5 - 14.5 % [facility] Plt 169 150 - 400 k/cmm [facility] MPV 11.0 6.5 - 12.5 fL [facility] Blood 11/09/2023 3:43 PM CDT 11/09/2023 4:10 PM CDT Yuriy Wynn MD LABORATORY Performing Organization Address City/[facility]/ZIP Co de Phone Number [facility] [place] [address] * (ABNORMAL) PANEL BASIC METABOLIC (BMP) (11/09/2023 3:43 PM CDT) Calcium 8.9 8.8 - 10.2 mg/dL [facility] Sodium 130(L) 135 - 148 mmol/L [facility] Potassium 5.6(H) 3.5 - 5.3 mmol/L [facility] Chloride 94 92 - 108 mmol/L [facility] CO2 25 22 - 30 mmol/L [facility] AnGap 11 8 - 16 mmol/L [facility] Glucose 140(H) 70 - 100 mg/dL [facility] BUN 28(H) 8 - 23 mg/dL [facility] Creatinine 1.29(H) 0.70 - 1.25 mg/dL [facility] eGFR (2020 CKD-EPI) 62 >=60 ml/min/1.7 3m2 [facility] Comment: The estimated glomerular filtration rate (eGFR) was calculated using the CKD-EPI 2020 creatinine equation, which does not include race as a factor. This equation is validated in individuals 18 years of age and older, and eGFR is normalized to a body surface area of 1.73m^2. Blood 11/09/2023 3:43 PM CDT 11/09/2023 4:10 PM CDT Yuriy Wynn MD LABORATORY [facility] [address] [address] * (ABNORMAL) PROTHROMBIN (PT) & INR (11/09/2023 3:43 PM CDT) PT 15.4(H) 9.0 - 12.5 sec [facility] INR 1.4(H) 0.8 - 1.1 [facility] Comment: Warfarin Therapeutic Range: Standard Intensity: 2.0 - 3.0 High Intensity: 2.5 - 3.5 Blood 11/09/2023 3:43 PM CDT 11/09/2023 4:10 PM CDT Yuriy Wynn MD LABORATORY Performing Organization Address City/[facility]/ZIP Co de Phone Number [facility] [address] [address] * (ABNORMAL) BLOOD GASES (11/09/2023 3:43 PM CDT) PH Art 7.35 7.35 - 7.45 [facility] PCO2 Art 51(H) 35 - 45 mmHG [facility] PO2 Art 102(H) 75 - 85 mmHG [facility] Bicarb Art 27(H) 22 - 26 mEq/L [facility] O2 Sat Art 98 96 - 99 % [facility] Base Exc Art 1.3 -10.0 - 2.0 mmol/L [facility] Blood Arterial 11/09/2023 3: 43 PM CDT 11/09/2023 4:09 PM CDT Yuriy Wynn MD LABORATORY Performing Organization Address [facility] Co de Phone Number [facility] [address] [address] * MAGNESIUM (11/09/2023 3:43 PM CDT) Magnesium 2.0 1.6 - 2.4 mg/dL [facility] Blood 11/09/2023 3:43 PM CDT 11/09/2023 4:10 PM CDT Yuriy Wynn MD LABORATORY Performing Organization Address [facility] Co de Phone Number [facility] [address] [address] * PHOSPHORUS (11/09/2023 3:43 PM CDT) Phosphorus 4.1 2.5 - 4.5 mg/dL [facility] Blood 11/09/2023 3:43 PM CDT 11/09/2023 4:10 PM CDT Yuriy Wynn MD LABORATORY Performing Organization Address City/[facility]/ZIP Co de Phone Number [facility] [address] [address] * LACTATE (LACTIC ACID) (11/09/2023 3:43 PM CDT) Lactate 1.5 0.7 - 2.1 mmol/L [facility] Blood 11/09/2023 3:43 PM CDT 11/09/2023 4:09 PM CDT Narrative [facility] - 11/09/2023 4:17 PM CDT Send specimen on ice! Yuriy Wynn MD LABORATORY [facility] [address] [address] * XR CHEST 1 VIEW AP OR [...] lung volumes. Reading Radiologist: Amador Kwok Yuriy Wynn MD RAD XRAY * XR ABDOMEN 1 VIEW* [...] obstruction. Reading Radiologist: Jimmy García Charmaine Anne APRN, HYBRID DERIVATIVES TRADER RAD XRAY * XR CHEST 1 VIEW [...] Reading Radiologist: Jimmy García Charmaine Anne APRN, HYBRID DERIVATIVES TRADER RAD XRAY * (ABNORMAL) BLOOD GASES (11/09/2023 2:07 PM CDT) PH Alex 7.24(L) 7.32 - 7.42 [facility] PCO2 Alex 75(H) 41 - 51 mmHG [facility] PO2 Alex 31 25 - 40 mmHG [facility] Bicarb Alex 31(H) 24 - 28 mEq/L [facility] O2 Sat Alex 47 % [facility] Base Exc Alex 1.3 -10.0 - 2.0 mmol/L [facility] Blood Venous 11/09/2023 2:07 PM CDT 11/09/2023 2:14 PM CDT Charmaine Anne APRN, CNP LABORATORY Performing Organization Address City/[facility]/ZIP Co de Phone Number [facility] [address] [address] * (ABNORMAL) CBC WITH PLATELET (11/09/2023 2:07 PM CDT) WBC 17.10(H) 4.00 - 10.00 k/cmm [facility] RBC 3.73(L) 4.60 - 6.00 m/cmm [facility] Hgb 11.0(L) 13.1 - 17.5 g/dL [facility] Hematocrit 33.1(L) 40.0 - 51.0 % [facility] MCV 88.7 80.0 - 100.0 fL [facility] MCH 29.5 25.0 - 32.0 pg [facility] MCHC 33.2 31.0 - 36.0 g/dL [facility] RDW 13.2 11.5 - 14.5 % [facility] Plt 170 150 - 400 k/cmm [facility] MPV 10.6 6.5 - 12.5 fL [facility] Blood 11/09/2023 2:07 PM CDT 11/09/2023 2:20 PM CDT Charmaine Anne APRN, CNP LABORATORY [facility] [address] [address] * HS TROPONIN (11/09/2023 2:07 PM CDT) HS Troponin I <3 <=35 ng/L [facility] Blood 11/09/2023 2:07 PM CDT 11/09/2023 2:20 PM CDT Narrative [facility] - 11/09/2023 2:57 PM CDT First Occurrence of the Troponin order is to be drawn Stat by Nursing staff on the unit. Charmaine Anne APRN, CNP LABORATORY Performing Organization Address City/[facility]/ZIP Co de Phone Number [facility] [address] [place] [phone] * EKG ADULT (12-LEAD) (11/09/2023 2:04 PM CDT) 11/09/2023 2:04 PM CDT Impressions [facility] E[facility] ORDERS - 11/09/2023 2:04 PM CDT SINUS TACHYCARDIA WITH OCCASIONAL VENTRICULAR PREMATURE COMPLEXES NONSPECIFIC ST & T-WAVE ABNORMALITY ABNORMAL RHYTHM ECG Compared with: 11/03/2023 3:59 PM P-R Interval 152 ms QRS Interval 99 ms QT Interval 305 ms QTC Interval 369 ms P [place] 0 QRS [place] 37 T Wave [place] 74 Narrative Procedure Note Norm Ro III, MD - 11/09/2023 IMPRESSION SINUS TACHYCARDIA WITH OCCASIONAL VENTRICULAR PREMATURE COMPLEXES NONSPECIFIC ST & T-WAVE ABNORMALITY ABNORMAL RHYTHM ECG Compared with: 11/03/2023 3:59 PM P-R Interval 152 ms QRS Interval 99 ms QT Interval 305 ms QTC Interval 369 ms P [place] 0 QRS [place] 37 T Wave [place] 74 Charmaine Anne APRN, CNP EKG Performing Organization Address [facility] Co de Phone Number [facility] E[facility] ORDERS * IR CHEST TUBE (11/09/2023 1:07 PM CDT) Anatomical Region Laterality Modality Chest X-Ray Angiograph y 11/09/2023 1:11 PM CDT Impressions 11/09/2023 2:18 PM CDT Impression: Successful placement of a 10 greek J-tipped nonlocking pleural catheter into the left [...] made with an 11 blade. A 5 Sri Lankan Yueh centesis needle was advanced into the left pleural space under ultrasound guidance. Once entry into the pleural space was confirmed, the stylet was removed, and a stiff Amplatz guidewire was inserted through the catheter. The catheter was removed over the guidewire. The tract was dilated to 10 Sri [place]ankan. The dilator was removed and an 10 [place]ankan J-tipped nonlocking pleural catheter was advanced over [...] made with an 11 blade. A 5 [place]ankan Yueh centesisneedle was advanced into the left pleural space under ultrasound guidance.Once entry into the pleural space was confirmed, the stylet was removed,and a stiff Amplatz guidewire was inserted through the catheter. Thecatheter was removed over the guidewire. The tract was dilated to 10French. The dilator was removed and an 10 Sri [place]ankan J-tipped nonlockingpleural catheter was advanced over the wire. The wire and dilator removed.The tube was placed to an atrium waterseal chamber. There were noimmediate complications. IMPRESSION Impression: Successful placement of a 10 greek J-tipped nonlocking pleural catheterinto the left pleural [...] Leeanne Montgomery PA-C RAD IR * Generic [facility] (11/09/2023 1:02 PM CDT) Narrative Rudy Cortez MBBS - 11/09/2023 1:02 PM CDT Radha De La Rosa, ? 11/09/2023 ??1:03 PM [facility] Date/Time: 11/09/2023 1:02 PM Performed [...] to verify the correct patient, procedure, equipment, credit support specialist and site/side marked as required. Preparation: Patient [...] loss during this procedure was: 0mL Rudy Irfolgaullah MBBS PROCEDURES * ANTI XA ASSAY LMW HEPARIN (11/09/2023 12:22 PM CDT) Pathologist [facility] Anti XA LMW 0.22 IU/mL [facility] Comment: Anti Xa Assay LMW Heparin Therapeutic Ranges: 0.4-1.1 IU/mL for twice daily 1.0-2.0 IU/mL for once daily Blood 11/09/2023 12:2 2 PM CDT 11/09/2023 12:34 PM CDT Nevaeh EdwardsD LABORATORY [facility] [place] [address] * (ABNORMAL) URINALYSIS,TOTAL (11/09/2023 11:49 AM CDT) Pathologist [facility] Trans Epith 0-5 0 - 5 perHPF [facility] Urinalysis Performed at: [facility] Color YELLOW YELLOW [facility] Appearance CLOUDY(A) CLEAR [facility] Urine Glucose NEGATIVE NEGATIVE mg/dL [facility] Bili UA NEGATIVE NEGATIVE [facility] Ketones NEGATIVE NEGATIVE [facility] Blood Ur LARGE(A) Neg-Trace [facility] PH Urine 5.5 5.0 - 7.0 [facility] Protein Ur 30(A) Neg-Trace [facility] Urobilinogen NORMAL NORMAL EU/dL [facility] Nitrite Ur NEGATIVE NEGATIVE [facility] Leuk Est TRACE Neg-Trace [facility] WBC Ur 21-50(A) 0 - 5 perHPF [facility] RBC Ur >20(A) 0 - 3 perHPF [facility] SQ EPITH 0-5 0 - 5 perHPF [facility] Mucus 1+ perLPF [facility] Hyaline Casts 11-20(A) 0 - 5 perLPF [facility] Cell Cast 0-5(A) perLPF [facility] Specific [place] 1.020 1.003 - 1.030 [facility] Urine 11/09/2023 11:4 9 AM CDT 11/09/2023 12:07 PM CDT Charmaine M Omid DRAFTING TEACHER, HYBRID DERIVATIVES TRADER LABORATORY [facility] [address] [address] * CT CHEST WITH IV CONTRAST (11/09/2023 [...] Radiologist: Sandra Hope Reading Resident: Lucy Patel Narrative 11/09/2023 11:27 AM CDT COMPARISON: Chest radiograph [...] Radiologist: Sandra Hope Reading Resident: Lucy Patel Charmanie Anne DRAFTING TEACHER, HYBRID DERIVATIVES TRADER RAD CT BODY * XR CHEST 1 [...] atelectasis versuspneumonia. Reading Radiologist: Jimmy García Charmaine Beltran Omid DRAFTING TEACHER, HYBRID DERIVATIVES TRADER RAD XRAY * LACTATE (LACTIC ACID) (11/09/2023 8:12 AM CDT) Lactate 1.7 0.7 - 2.1 mmol/L [facility] Blood 11/09/2023 8:12 AM CDT 11/09/2023 8:39 AM CDT Narrative [facility] - 11/09/2023 8:51 AM CDT Send specimen on ice! Chivo Robins MD LABORATORY [facility] [address] [address] * (ABNORMAL) CBC WITH PLTS/AUTO DIFF (11/09/2023 8:12 AM CDT) WBC 19.60(H) 4.00 - 10.00 k/cmm [facility] RBC 3.99(L) 4.60 - 6.00 m/cmm [facility] Hgb 11.5(L) 13.1 - 17.5 g/dL [facility] Hematocrit 35.9(L) 40.0 - 51.0 % [facility] MCV 90.0 80.0 - 100.0 fL [facility] MCH 28.8 25.0 - 32.0 pg [facility] MCHC 32.0 31.0 - 36.0 g/dL [facility] RDW 13.1 11.5 - 14.5 % [facility] Plt 189 150 - 400 k/cmm [facility] MPV 10.5 6.5 - 12.5 fL [facility] Automated Abs Neutrophil 17.47(H) 1.70 - 6.50 k/cmm [facility] Comment:Preliminary ANC, Fin al Result to Follow Abs Immature Granulocyte 0.15(H) 0.00 - 0.09 k/cmm [facility] Comment:The Immature Granulo cyte Absolute count contains metamyelocytes and myelocytes. Abs Neutrophil 17.47(H) 1.70 - 6.50 k/cmm [facility] Abs Lymphocyte 0.47(L) 0.80 - 4.00 k/cmm [facility] Abs Monocyte 1.42(H) 0.20 - 1.00 k/cmm [facility] Abs Eosinophil 0.05 0.00 - 0.60 k/cmm [facility] Abs Basophil 0.04 0.00 - 0.20 k/cmm [facility] Stippling Slight [facility] Polychromasia Slight [facility] Blood 11/09/2023 8:12 AM CDT 11/09/2023 8:34 AM CDT Chivo Robins MD LABORATORY Performing Organization Address City/[facility] Co de Phone Number [facility] [address] [address] * POTASSIUM (11/08/2023 7:20 AM CDT) Potassium 4.4 3.5 - 5.3 mmol/L [facility] Blood 11/08/2023 7:20 AM CDT 11/08/2023 7:38 AM CDT Chivo Robins MD LABORATORY Performing Organization Address [facility] Co de Phone Number [facility] [address] [address] * (ABNORMAL) CBC WITH PLATELET (11/08/2023 7:20 AM CDT) WBC 10.56(H) 4.00 - 10.00 k/cmm [facility] RBC 4.11(L) 4.60 - 6.00 m/cmm [facility] Hgb 12.1(L) 13.1 - 17.5 g/dL [facility] Hematocrit 35.8(L) 40.0 - 51.0 % [facility] MCV 87.1 80.0 - 100.0 fL [facility] MCH 29.4 25.0 - 32.0 pg [facility] MCHC 33.8 31.0 - 36.0 g/dL [facility] RDW 13.2 11.5 - 14.5 % [facility] Plt 182 150 - 400 k/cmm [facility] MPV 10.4 6.5 - 12.5 fL [facility] Blood 11/08/2023 7:20 AM CDT 11/08/2023 7:38 AM CDT Charmaine Anne APRN, CNP LABORATORY Performing Organization Address City/[facility]/ZIP Co de Phone Number [facility] [address] [phone] * ANTI XA ASSAY LMW HEPARIN (11/07/2023 1:17 PM CDT) Pathologist [facility] Anti XA LMW 0.14 IU/mL [facility] Comment: Anti Xa Assay LMW Heparin Therapeutic Ranges: 0.4-1.1 IU/mL for twice daily 1.0-2.0 IU/mL for once daily Blood 11/07/2023 1:17 PM CDT 11/07/2023 1:36 PM CDT [facility] PharmD LABORATORY Performing Organization Address [place]/[facility]/ZIP Co de Phone Number [facility] [address] [phone] * (ABNORMAL) CBC WITH PLATELET (11/07/2023 6:44 AM CDT) Pathologist [facility] WBC 8.13 4.00 - 10.00 k/cmm [facility] RBC 4.13(L) 4.60 - 6.00 m/cmm [facility] Hgb 12.2(L) 13.1 - 17.5 g/dL [facility] Hematocrit 36.2(L) 40.0 - 51.0 % [facility] MCV 87.7 80.0 - 100.0 fL [facility] MCH 29.5 25.0 - 32.0 pg [facility] MCHC 33.7 31.0 - 36.0 g/dL [facility] RDW 13.1 11.5 - 14.5 % [facility] Plt 170 150 - 400 k/cmm [facility] MPV 11.0 6.5 - 12.5 fL [facility] Blood 11/07/2023 6:44 AM CDT 11/07/2023 7:20 AM CDT Charmaine Anne DRAFTING TEACHER, HYBRID DERIVATIVES TRADER LABORATORY [facility] [address] [place] [address] * ULT SCROTUM WITH DUPLEX (11/06/2023 7:19 [...] (11/06/2023 3:59 PM CDT) Color YELLOW YELLOW [facility] Appearance CLEAR CLEAR [facility] Urine Glucose 100(A) NEGATIVE mg/dL [facility] Bili UA NEGATIVE NEGATIVE [facility] Ketones TRACE(A) NEGATIVE [facility] Specific [place] 1.031(A) 1.003 - 1.030 [facility] Blood Ur LARGE(A) Neg-Trace [facility] PH Urine 5.5 5.0 - 7.0 [facility] Protein Ur 30(A) Neg-Trace [facility] Urobilinogen NORMAL NORMAL EU/dL [facility] Nitrite Ur NEGATIVE NEGATIVE [facility] Leuk Est MODERATE(A) Neg-Trace [facility] WBC Ur 11-20(A) 0 - 5 perHPF [facility] RBC Ur >20(A) 0 - 3 perHPF [facility] Urinalysis Performed at: [facility] Urine 11/06/2023 3:59 PM CDT 11/06/2023 4:02 PM CDT Chivo Robins MD LABORATORY [facility] [address] [address] * ULT VENOUS UPPER EXTREMITY LEFT (11/06/2023 [...] Radiologist: Robert Tamayo Reading Resident: Robert Matute 11/06/2023 2:52 PM CDT Indication: role out [...] ULT * POTASSIUM (11/06/2023 6:52 AM CDT) Pathologist [facility] Potassium 4.1 3.5 - 5.3 mmol/L [facility] Blood 11/06/2023 6:52 AM CDT 11/06/2023 7:22 AM CDT Chivo Robins MD LABORATORY [facility] [address] [address] * (ABNORMAL) CBC WITH PLATELET (11/06/2023 6:52 AM CDT) WBC 7.72 4.00 - 10.00 k/cmm [facility] RBC 4.10(L) 4.60 - 6.00 m/cmm [facility] Hgb 12.0(L) 13.1 - 17.5 g/dL [facility] Hematocrit 35.4(L) 40.0 - 51.0 % [facility] MCV 86.3 80.0 - 100.0 fL [facility] MCH 29.3 25.0 - 32.0 pg [facility] MCHC 33.9 31.0 - 36.0 g/dL [facility] RDW 12.8 11.5 - 14.5 % [facility] Plt 171 150 - 400 k/cmm [facility] MPV 10.8 6.5 - 12.5 fL [facility] Blood 11/06/2023 6:52 AM CDT 11/06/2023 7:22 AM CDT Charmaine Anne DRAFTING TEACHER, HYBRID DERIVATIVES TRADER LABORATORY [facility] [address] [address] * MR ABDOMEN W/O + W/CONTRAST (11/05/2023 [...] minutes. 3-D reconstructions were created by the clinical lab technologist on the MRI scanner and reviewed [...] 5 minutes. 3-Dreconstructions were created by the clinical lab technologist on the MRI scannerand reviewed by [...] (ABNORMAL) POC GLUCOSE (11/05/2023 4:27 PM CDT) [facility] POC Glucose 103(H) 70 - 100 mg/dL [facility] Blood 11/05/2023 4:27 PM CDT Patrice Marcial MD LABORATORY Performing Organization Address [facility] Co de Phone Number [facility] [address] [place] [address] * PHOSPHORUS (11/05/2023 6:18 AM CDT) [facility] Phosphorus 3.8 2.5 - 4.5 mg/dL [facility] Blood 11/05/2023 6:18 AM CDT 11/05/2023 7:38 AM CDT Chivo Robins MD LABORATORY Performing Organization Address [facility] de Phone Number [facility] [place] [address] * MAGNESIUM (11/05/2023 6:18 AM CDT) [facility] Magnesium 1.9 1.6 - 2.4 mg/dL [facility] Blood 11/05/2023 6:18 AM CDT 11/05/2023 7:38 AM CDT Chivo Robins MD LABORATORY Performing Organization Address [facility] de Phone Number [facility] [place] [address] * (ABNORMAL) PANEL BASIC METABOLIC (BMP) (11/05/2023 6:18 AM CDT) [facility] Sodium 136 135 - 148 mmol/L [facility] Potassium 3.9 3.5 - 5.3 mmol/L [facility] Chloride 100 92 - 108 mmol/L [facility] CO2 28 22 - 30 mmol/L [facility] Glucose 124(H) 70 - 100 mg/dL [facility] BUN 15 8 - 23 mg/dL [facility] Creatinine 0.72 0.70 - 1.25 mg/dL [facility] Calcium 8.7(L) 8.8 - 10.2 mg/dL [facility] AnGap 8 8 - 16 mmol/L [facility] eGFR (2020 CKD-EPI) 101 >=60 ml/min/1.7 3m2 [facility] Comment: The estimated glomerular filtration rate (eGFR) was calculated using the CKD-EPI 2020 creatinine equation, which does not include race as a factor. This equation is validated in individuals 18 years of age and older, and eGFR is normalized to a body surface area of 1.73m^2. Blood 11/05/2023 6:18 AM CDT 11/05/2023 7:38 AM CDT Chivo Robins MD LABORATORY [facility] [address] [address] * (ABNORMAL) CBC WITH PLTS/AUTO DIFF (11/05/2023 6:18 AM CDT) WBC 6.13 4.00 - 10.00 k/cmm [facility] RBC 4.04(L) 4.60 - 6.00 m/cmm [facility] Hgb 12.0(L) 13.1 - 17.5 g/dL [facility] Hematocrit 36.1(L) 40.0 - 51.0 % [facility] MCV 89.4 80.0 - 100.0 fL [facility] MCH 29.7 25.0 - 32.0 pg [facility] MCHC 33.2 31.0 - 36.0 g/dL [facility] RDW 13.0 11.5 - 14.5 % [facility] Plt 118(L) 150 - 400 k/cmm [facility] MPV 11.6 6.5 - 12.5 fL [facility] Automated Abs Neutrophil 4.07 1.70 - 6.50 k/cmm [facility] Comment:Preliminary ANC, Fin al Result to Follow Abs Immature Granulocyte 0.09 0.00 - 0.09 k/cmm [facility] Comment:The Immature Granulo cyte Absolute count contains metamyelocytes and myelocytes. Abs Neutrophil 4.07 1.70 - 6.50 k/cmm [facility] Abs Lymphocyte 0.93 0.80 - 4.00 k/cmm [facility] Abs Monocyte 0.77 0.20 - 1.00 k/cmm [facility] Abs Eosinophil 0.23 0.00 - 0.60 k/cmm [facility] Abs Basophil 0.04 0.00 - 0.20 k/cmm [facility] Blood 11/05/2023 6:18 AM CDT 11/05/2023 7:38 AM CDT Chivo Robins MD LABORATORY Performing Organization Address City/[facility]/ZIP Co de Phone Number [facility] [address] [place] [address] * (ABNORMAL) POC GLUCOSE (11/05/2023 6:11 AM CDT) POC Glucose 134(H) 70 - 100 mg/dL [facility] Blood 11/05/2023 6:11 AM CDT Patrice Marcial MD LABORATORY Performing Organization Address [facility] Co de Phone Number [facility] [address] [place] [address], * (ABNORMAL) POC GLUCOSE (11/04/2023 10:06 PM CDT) POC Glucose 144(H) 70 - 100 mg/dL [facility] Blood 11/04/2023 10:0 6 PM CDT Patrice Marcial MD LABORATORY Performing Organization Address [facility] Co de Phone Number [facility] [address] [place] [address], * XR CHEST 1 VIEW AP OR [...] tube. Reading Radiologist: Robert Tamayo Charmaine Anne APRN, HYBRID DERIVATIVES TRADER RAD XRAY * (ABNORMAL) POC GLUCOSE (11/04/2023 3:30 PM CDT) POC Glucose 160(H) 70 - 100 mg/dL [facility] Blood 11/04/2023 3:30 PM CDT Patrice Marcial MD LABORATORY Performing Organization Address City/[facility]/ZIP Co de Phone Number [facility] [address] [place] [address], * (ABNORMAL) POC GLUCOSE (11/04/2023 11:13 AM CDT) POC Glucose 158(H) 70 - 100 mg/dL [facility] Blood 11/04/2023 11:1 3 AM CDT Patrice Marcial MD LABORATORY Performing Organization Address City/[facility]/ZIP Co de Phone Number [facility] [address] [place] [address], * PHOSPHORUS (11/04/2023 8:14 AM CDT) Phosphorus 2.6 2.5 - 4.5 mg/dL [facility] Blood 11/04/2023 8:14 AM CDT 11/04/2023 8:31 AM CDT Chivo Robins MD LABORATORY Performing Organization Address City/[facility] Co de Phone Number [facility] [address] [address] * MAGNESIUM (11/04/2023 8:14 AM CDT) Magnesium 1.7 1.6 - 2.4 mg/dL [facility] Blood 11/04/2023 8:14 AM CDT 11/04/2023 8:31 AM CDT Chivo Robins MD LABORATORY Performing Organization Address [facility] de Phone Number [facility] [address] [address] * (ABNORMAL) PANEL BASIC METABOLIC (BMP) (11/04/2023 8:14 AM CDT) Sodium 138 135 - 148 mmol/L [facility] Potassium 4.2 3.5 - 5.3 mmol/L [facility] Chloride 100 92 - 108 mmol/L [facility] CO2 30 22 - 30 mmol/L [facility] AnGap 8 8 - 16 mmol/L [facility] Glucose 151(H) 70 - 100 mg/dL [facility] BUN 12 8 - 23 mg/dL [facility] Creatinine 0.77 0.70 - 1.25 mg/dL [facility] Calcium 8.8 8.8 - 10.2 mg/dL [facility] eGFR (2020 CKD-EPI) 99 >=60 ml/min/1.7 3m2 [facility] Comment: The estimated glomerular filtration [...] Chivo Robins MD LABORATORY Performing Organization Address City/[facility] Co de Phone Number [facility] [address] [address] * (ABNORMAL) CBC WITH PLTS/AUTO DIFF (11/04/2023 8:14 AM CDT) WBC 7.37 4.00 - 10.00 k/cmm [facility] RBC 4.13(L) 4.60 - 6.00 m/cmm [facility] Hgb 12.2(L) 13.1 - 17.5 g/dL [facility] Hematocrit 37.0(L) 40.0 - 51.0 % [facility] MCV 89.6 80.0 - 100.0 fL [facility] MCH 29.5 25.0 - 32.0 pg [facility] MCHC 33.0 31.0 - 36.0 g/dL [facility] RDW 12.7 11.5 - 14.5 % [facility] Plt 128(L) 150 - 400 k/cmm [facility] MPV 11.1 6.5 - 12.5 fL [facility] Automated Abs Neutrophil 5.69 1.70 - 6.50 k/cmm [facility] Comment:Preliminary ANC, Fin al Result to Follow Abs Immature Granulocyte 0.04 0.00 - 0.09 k/cmm [facility] Comment:The Immature Granulo cyte Absolute count contains metamyelocytes and myelocytes. Abs Neutrophil 5.69 1.70 - 6.50 k/cmm [facility] Abs Lymphocyte 0.82 0.80 - 4.00 k/cmm [facility] Abs Monocyte 0.49 0.20 - 1.00 k/cmm [facility] Abs Eosinophil 0.30 0.00 - 0.60 k/cmm [facility] Abs Basophil 0.03 0.00 - 0.20 k/cmm [facility] Blood 11/04/2023 8:14 AM CDT 11/04/2023 8:31 AM CDT Chivo Robins MD LABORATORY Performing Organization Address [facility] Co de Phone Number [facility] [address] [address] * XR CHEST 1 VIEW AP OR [...] changes in the cervical spine. Procedure Note [place] Jalloh DO - 11/04/2023 Indication: chest tube [...] Jalloh Reading Resident: Cole Delgado Charmaine Anne DRAFTING TEACHER, HYBRID DERIVATIVES TRADER RAD XRAY * (ABNORMAL) POC GLUCOSE (11/04/2023 6:08 AM CDT) POC Glucose 124(H) 70 - 100 mg/dL [facility] Blood 11/04/2023 6:08 AM CDT Patrice Marcial MD LABORATORY [facility] [address] [place] [address], * (ABNORMAL) PANEL BASIC METABOLIC (BMP) (11/03/2023 9:30 PM CDT) [facility] AnGap 13 8 - 16 mmol/L [facility] Calcium 9.0 8.8 - 10.2 mg/dL [facility] Chloride 102 92 - 108 mmol/L [facility] CO2 22 22 - 30 mmol/L [facility] Glucose 163(H) 70 - 100 mg/dL [facility] Creatinine 0.88 0.70 - 1.25 mg/dL [facility] eGFR (2020 CKD-EPI) 95 >=60 ml/min/1.7 3m2 [facility] Comment: The estimated glomerular filtration rate (eGFR) was calculated using the CKD-EPI 2020 creatinine equation, which does not include race as a factor. This equation is validated in individuals 18 years of age and older, and eGFR is normalized to a body surface area of 1.73m^2. BUN 19 8 - 23 mg/dL [facility] Sodium 137 135 - 148 mmol/L [facility] Potassium na 3.5 - 5.3 [facility] Comment:K = 5.1. Accuracy of result suspect due to hemolysis. Blood 11/03/2023 9:30 PM CDT 11/03/2023 9:35 PM CDT Chivo Robins MD LABORATORY Performing Organization Address City/[facility]/ZIP Co de Phone Number [facility] [place] [address] * (ABNORMAL) POC GLUCOSE (11/03/2023 9:22 PM CDT) [facility] POC Glucose 186(H) 70 - 100 mg/dL [facility] Blood 11/03/2023 9:22 PM CDT Patrice Marcial MD LABORATORY [facility] [address] [place] [address], * (ABNORMAL) POC GLUCOSE (11/03/2023 4:45 PM CDT) POC Glucose 133(H) 70 - 100 mg/dL [facility] Blood 11/03/2023 4:45 PM CDT Patrice Marcial MD LABORATORY [facility] [address] [place] [address], [place] * XR CHEST 1 VIEW AP [...] PM CDT) 11/03/2023 3:59 PM CDT Impressions [facility] EKG ORDERS - 11/03/2023 3:59 PM CDT SINUS RHYTHM NONSPECIFIC T-WAVE ABNORMALITY BORDERLINE ECG P-R Interval 186 ms QRS Interval 102 ms QT Interval 391 ms QTC Interval 400 ms P [place] 24 QRS [place] 46 T Wave [place] 89 Narrative Procedure Note Kishore Solorio MD - 11/03/2023 IMPRESSION SINUS RHYTHM NONSPECIFIC T-WAVE ABNORMALITY BORDERLINE ECG P-R Interval 186 ms QRS Interval 102 ms QT Interval 391 ms QTC Interval 400 ms P [place] 24 QRS [place] 46 T Wave [place] 89 Chivo Robins MD EKG Performing Organization Address [facility] Co de Phone Number [facility] EKG ORDERS * (ABNORMAL) POC GLUCOSE (11/03/2023 11:10 AM CDT) POC Glucose 161(H) 70 - 100 mg/dL [facility] Blood 11/03/2023 11:1 0 AM CDT Patrice Marcial MD LABORATORY Performing Organization Address City/[facility] Co de Phone Number [facility] [address] [place] [address] * POTASSIUM (11/03/2023 9:16 AM CDT) Potassium 4.3 3.5 - 5.3 mmol/L [facility] Blood 11/03/2023 9:16 AM CDT 11/03/2023 9:39 AM CDT Chivo Robins MD LABORATORY Performing Organization Address City/[facility] Co de Phone Number [facility] [place] [address] * (ABNORMAL) POC GLUCOSE (11/03/2023 7:50 AM CDT) POC Glucose 163(H) 70 - 100 mg/dL [facility] Blood 11/03/2023 7:50 AM CDT Patrice Marcial MD LABORATORY [facility] [address] [place] [address], [place] * XR CHEST 1 VIEW AP [...] CDT) Phosphorus 3.1 2.5 - 4.5 mg/dL [facility] Blood 11/03/2023 5:09 AM CDT 11/03/2023 5:15 AM CDT Chivo Robins MD LABORATORY Performing Organization Address City/[facility]/ZIP Co de Phone Number [facility] [address] [address] * MAGNESIUM (11/03/2023 5:09 AM CDT) Pathologist [facility] Magnesium 1.8 1.6 - 2.4 mg/dL [facility] Blood 11/03/2023 5:09 AM CDT 11/03/2023 5:15 AM CDT Chivo Robins MD LABORATORY Performing Organization Address City/[facility]/ZIP Co de Phone Number [facility] [address] [address] * (ABNORMAL) PANEL BASIC METABOLIC (BMP) (11/03/2023 5:09 AM CDT) [facility] Sodium 135 135 - 148 mmol/L [facility] Potassium 4.1 3.5 - 5.3 mmol/L [facility] Chloride 101 92 - 108 mmol/L [facility] CO2 27 22 - 30 mmol/L [facility] AnGap 7(L) 8 - 16 mmol/L [facility] Glucose 144(H) 70 - 100 mg/dL [facility] BUN 14 8 - 23 mg/dL [facility] Creatinine 0.89 0.70 - 1.25 mg/dL [facility] Calcium 8.7(L) 8.8 - 10.2 mg/dL [facility] eGFR (2020 CKD-EPI) 95 >=60 ml/min/1.7 3m2 [facility] Comment: The estimated glomerular filtration rate (eGFR) was calculated using the CKD-EPI 2020 creatinine equation, which does not include race as a factor. This equation is validated in individuals 18 years of age and older, and eGFR is normalized to a body surface area of 1.73m^2. Blood 11/03/2023 5:09 AM CDT 11/03/2023 5:15 AM CDT Chivo Robins MD LABORATORY Performing Organization Address City/[facility]/ZIP Co de Phone Number [facility] [address] [address] * (ABNORMAL) CBC WITH PLTS/AUTO DIFF (11/03/2023 5:09 AM CDT) [facility] WBC 8.62 4.00 - 10.00 k/cmm [facility] RBC 4.07(L) 4.60 - 6.00 m/cmm [facility] Hgb 11.9(L) 13.1 - 17.5 g/dL [facility] Hematocrit 36.6(L) 40.0 - 51.0 % [facility] MCV 89.9 80.0 - 100.0 fL [facility] MCH 29.2 25.0 - 32.0 pg [facility] MCHC 32.5 31.0 - 36.0 g/dL [facility] RDW 13.1 11.5 - 14.5 % [facility] Plt 116(L) 150 - 400 k/cmm [facility] MPV 11.0 6.5 - 12.5 fL [facility] Automated Abs Neutrophil 6.28 1.70 - 6.50 k/cmm [facility] Comment:Preliminary ANC, Fin al Result to Follow Abs Immature Granulocyte 0.06 0.00 - 0.09 k/cmm [facility] Comment:The Immature Granulo cyte Absolute count contains metamyelocytes and myelocytes. Abs Neutrophil 6.28 1.70 - 6.50 k/cmm [facility] Abs Lymphocyte 1.18 0.80 - 4.00 k/cmm [facility] Abs Monocyte 0.84 0.20 - 1.00 k/cmm [facility] Abs Eosinophil 0.22 0.00 - 0.60 k/cmm [facility] Abs Basophil 0.04 0.00 - 0.20 k/cmm [facility] Blood 11/03/2023 5:09 AM CDT 11/03/2023 5:15 AM CDT Chivo Robins MD LABORATORY [facility] [address] [place] [id number] * (ABNORMAL) POC GLUCOSE (11/02/2023 8:41 PM CDT) Pathologist [facility] POC Glucose 147(H) 70 - 100 mg/dL [facility] - [facility] Blood 11/02/2023 8:41 PM CDT Patrice Marcial MD LABORATORY [facility] [address] [place] [address], [place] * (ABNORMAL) POC GLUCOSE (11/02/2023 5:42 PM CDT) POC Glucose 165(H) 70 - 100 mg/dL [facility] - [facility]INT [facility]ARE Blood 11/02/2023 5:42 PM CDT Patrice Marcial MD LABORATORY Performing Organization Address City/[facility]/ZIP Co de Phone Number [facility] [address] [place] [id number], [place] * (ABNORMAL) POC GLUCOSE (11/02/2023 11:56 AM CDT) POC Glucose 199(H) 70 - 100 mg/dL [facility] - POINT [facility] CARE Blood 11/02/2023 11:5 6 AM CDT Patrice Marcial MD LABORATORY Performing Organization Address City/[facility]/ZIP Co de Phone Number [facility] [address] [place] [address], [place] * (ABNORMAL) POC GLUCOSE (11/02/2023 7:24 AM CDT) POC Glucose 134(H) 70 - 100 mg/dL [facility] Blood 11/02/2023 7:24 AM CDT Patrice Marcial MD LABORATORY [facility] [address] [place] [address], [place] * ICU MAGNESIUM (11/02/2023 7:20 AM CDT) Magnesium 1.9 1.6 - 2.4 mg/dL [facility] Blood 11/02/2023 7:20 AM CDT 11/02/2023 7:35 AM CDT Chivo Robins MD LABORATORY Performing Organization Address City/[facility]/ZIP Co de Phone Number [facility] [address] [address] * (ABNORMAL) ICU PHOSPHORUS (11/02/2023 7:20 AM CDT) Phosphorus 2.1(L) 2.5 - 4.5 mg/dL [facility] Blood 11/02/2023 7:20 AM CDT 11/02/2023 7:35 AM CDT Chivo Robins MD LABORATORY Performing Organization Address [facility] Co de Phone Number [facility] [address] [address] * (ABNORMAL) ICU PANEL BASIC METABOLIC (BMP) (11/02/2023 7:20 AM CDT) Sodium 136 135 - 148 mmol/L [facility] Potassium 4.3 3.5 - 5.3 mmol/L [facility] Chloride 104 92 - 108 mmol/L [facility] CO2 23 22 - 30 mmol/L [facility] AnGap 9 8 - 16 mmol/L [facility] Glucose 147(H) 70 - 100 mg/dL [facility] BUN 18 8 - 23 mg/dL [facility] Creatinine 0.87 0.70 - 1.25 mg/dL [facility] Calcium 8.6(L) 8.8 - 10.2 mg/dL [facility] eGFR (2020 CKD-EPI) 96 >=60 ml/min/1.7 3m2 [facility] Comment: The estimated glomerular filtration [...] Chivo Robins MD LABORATORY Performing Organization Address City/[facility]/ZIP Co de Phone Number [facility] [address] [address] * (ABNORMAL) ICU CBC WITH PLATELET (11/02/2023 7:20 AM CDT) WBC 9.67 4.00 - 10.00 k/cmm [facility] RBC 4.06(L) 4.60 - 6.00 m/cmm [facility] Hgb 12.0(L) 13.1 - 17.5 g/dL [facility] Hematocrit 36.4(L) 40.0 - 51.0 % [facility] MCV 89.7 80.0 - 100.0 fL [facility] MCH 29.6 25.0 - 32.0 pg [facility] MCHC 33.0 31.0 - 36.0 g/dL [facility] RDW 13.2 11.5 - 14.5 % [facility] Plt 120(L) 150 - 400 k/cmm [facility] MPV 11.7 6.5 - 12.5 fL [facility] Blood 11/02/2023 7:20 AM CDT 11/02/2023 7:35 AM CDT Chivo Robins MD LABORATORY Performing Organization Address City/[facility] Co de Phone Number [facility] [address] [address] * MRSA SURVEILLANCE SCREEN (11/02/2023 5:51 AM CDT) Final Report No MRSA isolated. [facility] Swab NASAL STRUCTURE / Unknown 11/02/2023 5:51 AM CDT 11/02/2023 6:04 AM CDT Narrative [facility] - 11/04/2023 7:51 AM CDT Post Admission Screening on day 3 of admission to ICU - Discontinue MRSA order if patient becomes positive or is no longer in ICU. Patrice Marcial MD LAB MICROBIOLOGY Performing Organization Address City/[facility]/ZIP Co de Phone Number [facility] [address] [address] * XR CHEST 1 VIEW AP OR [...] POC Glucose 158(H) 70 - 100 mg/dL [facility] Blood 11/01/2023 8:12 PM CDT Patrice Marcial MD LABORATORY [facility] [address] [place] [address], [place] * ULT VENOUS LOWER EXTREMITY BILAT [...] on grayscale imaging. Procedure Note Main Feliz, - 11/01/2023 Indication: trauma screening Comparison: None. [...] POC Glucose 152(H) 70 - 100 mg/dL [facility] Blood 11/01/2023 4:49 PM CDT Patrice Marcial MD LABORATORY Performing Organization Address [facility] Co de Phone Number [facility] [address] [place] [address], [place] * (ABNORMAL) POC GLUCOSE (11/01/2023 3:27 PM CDT) POC Glucose 165(H) 70 - 100 mg/dL [facility] Blood 11/01/2023 3:27 PM CDT Patrice Marcial MD LABORATORY Performing Organization Address [facility] Co de Phone Number [facility] [address] [place] [address], [place] * (ABNORMAL) POC GLUCOSE (11/01/2023 11:39 AM CDT) POC Glucose 166(H) 70 - 100 mg/dL [facility] Blood 11/01/2023 11:3 9 AM CDT Patrice Marcial MD LABORATORY Performing Organization Address [facility] Co de Phone Number [facility] [address] [place] [address], [place] * CT RECONSTRUCT MULTIPLANAR-3D (11/01/2023 6:12 [...] the rib cage were created by the radiology ct technologist on the CT scanner and reviewed [...] POC Glucose 171(H) 70 - 100 mg/dL [facility] Blood 11/01/2023 6:09 AM CDT Patrice Marcial MD LABORATORY [facility] [address] [place] [address], * (ABNORMAL) LACTATE (LACTIC ACID) (11/01/2023 5:49 AM CDT) Pathologist [facility] Lactate 2.6(H) 0.7 - 2.1 mmol/L [facility] Blood 11/01/2023 5:49 AM CDT 11/01/2023 5:58 AM CDT Narrative [facility] - 11/01/2023 6:20 AM CDT Send specimen on ice! Chivo Robins MD LABORATORY [facility] [address] [address] * ICU MAGNESIUM (11/01/2023 5:49 AM CDT) [facility] Magnesium 1.8 1.6 - 2.4 mg/dL [facility] Blood 11/01/2023 5:49 AM CDT 11/01/2023 5:58 AM CDT Chivo Robins MD LABORATORY Performing Organization Address City/[facility] Co de Phone Number [facility] [address] [address] * ICU PHOSPHORUS (11/01/2023 5:49 AM CDT) Pathologist [facility] Phosphorus 3.7 2.5 - 4.5 mg/dL [facility] Blood 11/01/2023 5:49 AM CDT 11/01/2023 5:58 AM CDT Chivo Robins MD LABORATORY Performing Organization Address City/[facility]/ZIP Co de Phone Number [facility] [address] [address] * (ABNORMAL) ICU PANEL BASIC METABOLIC (BMP) (11/01/2023 5:49 AM CDT) Pathologist [facility] Sodium 135 135 - 148 mmol/L [facility] Potassium 4.7 3.5 - 5.3 mmol/L [facility] Chloride 105 92 - 108 mmol/L [facility] CO2 20(L) 22 - 30 mmol/L [facility] AnGap 10 8 - 16 mmol/L [facility] Glucose 177(H) 70 - 100 mg/dL [facility] BUN 19 8 - 23 mg/dL [facility] Creatinine 0.90 0.70 - 1.25 mg/dL [facility] Calcium 8.0(L) 8.8 - 10.2 mg/dL [facility] eGFR (2020 CKD-EPI) 95 >=60 ml/min/1.7 3m2 [facility] Comment: The estimated glomerular filtration rate (eGFR) was calculated using the CKD-EPI 2020 creatinine equation, which does not include race as a factor. This equation is validated in individuals 18 years of age and older, and eGFR is normalized to a body surface area of 1.73m^2. Blood 11/01/2023 5:49 AM CDT 11/01/2023 5:58 AM CDT Chivo Robins MD LABORATORY [facility] [address] [address] * (ABNORMAL) ICU CBC WITH PLATELET (11/01/2023 5:48 AM CDT) WBC 12.17(H) 4.00 - 10.00 k/cmm [facility] RBC 4.15(L) 4.60 - 6.00 m/cmm [facility] Hgb 12.2(L) 13.1 - 17.5 g/dL [facility] Hematocrit 36.2(L) 40.0 - 51.0 % [facility] MCV 87.2 80.0 - 100.0 fL [facility] MCH 29.4 25.0 - 32.0 pg [facility] MCHC 33.7 31.0 - 36.0 g/dL [facility] RDW 13.1 11.5 - 14.5 % [facility] Plt 151 150 - 400 k/cmm [facility] MPV 11.5 6.5 - 12.5 fL [facility] Blood 11/01/2023 5:48 AM CDT 11/01/2023 5:58 AM CDT Chivo Robins MD LABORATORY [facility] [address] [place] [address] * XR CHEST 1 VIEW AP OR [...] POC Glucose 200(H) 70 - 100 mg/dL [facility] Blood 11/01/2023 12:1 0 AM CDT Patrice Marcial MD LABORATORY [facility] [address] [place] [address], * (ABNORMAL) POC GLUCOSE (10/31/2023 5:58 PM CDT) [facility] POC Glucose 160(H) 70 - 100 mg/dL [facility] Blood 10/31/2023 5:58 PM CDT Patrice Marcial MD LABORATORY Performing Organization Address City/[facility]/ZIP Co de Phone Number [facility] [address] [place] [address], * (ABNORMAL) CBC WITH PLATELET (10/31/2023 5:42 PM CDT) [facility] WBC 17.56(H) 4.00 - 10.00 k/cmm [facility] RBC 4.62 4.60 - 6.00 m/cmm [facility] Hgb 13.6 13.1 - 17.5 g/dL [facility] Hematocrit 40.2 40.0 - 51.0 % [facility] MCV 87.0 80.0 - 100.0 fL [facility] MCH 29.4 25.0 - 32.0 pg [facility] MCHC 33.8 31.0 - 36.0 g/dL [facility] RDW 12.9 11.5 - 14.5 % [facility] Plt 147(L) 150 - 400 k/cmm [facility] MPV 11.1 6.5 - 12.5 fL [facility] Blood 10/31/2023 5:42 PM CDT 10/31/2023 5:53 PM CDT Chivo Robins MD LABORATORY [facility] [address] [place] [phone] * (ABNORMAL) PANEL BASIC METABOLIC (BMP) (10/31/2023 5:42 PM CDT) Pathologist [facility] Sodium 139 135 - 148 mmol/L [facility] Potassium 5.3 3.5 - 5.3 mmol/L [facility] Chloride 108 92 - 108 mmol/L [facility] CO2 22 22 - 30 mmol/L [facility] AnGap 9 8 - 16 mmol/L [facility] Glucose 188(H) 70 - 100 mg/dL [facility] BUN 16 8 - 23 mg/dL [facility] Creatinine 0.76 0.70 - 1.25 mg/dL [facility] Calcium 8.2(L) 8.8 - 10.2 mg/dL [facility] eGFR (2020 CKD-EPI) 100 >=60 ml/min/1.7 3m2 [facility] Comment: The estimated glomerular filtration rate (eGFR) was calculated using the CKD-EPI 2020 creatinine equation, which does not include race as a factor. This equation is validated in individuals 18 years of age and older, and eGFR is normalized to a body surface area of 1.73m^2. Blood 10/31/2023 5:42 PM CDT 10/31/2023 6:00 PM CDT Chivo Robins MD LABORATORY [address] [address] * PROTHROMBIN (PT) & INR (10/31/2023 5:42 PM CDT) [facility] PT 11.8 9.0 - 12.5 sec [facility] INR 1.1 0.8 - 1.1 [facility] Comment: Warfarin Therapeutic Range: Standard Intensity: 2.0 - 3.0 High Intensity: 2.5 - 3.5 Blood 10/31/2023 5:42 PM CDT 10/31/2023 5:53 PM CDT Chivo Robins MD LABORATORY [address] [address] * MAGNESIUM (10/31/2023 5:42 PM CDT) Pathologist [facility] Magnesium 1.6 1.6 - 2.4 mg/dL [facility] Blood 10/31/2023 5:42 PM CDT 10/31/2023 6:00 PM CDT Chivo Robins MD LABORATORY Performing Organization Address [facility] Co de Phone Number [facility] [address] [address] * PHOSPHORUS (10/31/2023 5:42 PM CDT) Phosphorus 3.3 2.5 - 4.5 mg/dL [facility] Blood 10/31/2023 5:42 PM CDT 10/31/2023 6:00 PM CDT Chivo Robins MD LABORATORY Performing Organization Address [facility] de Phone Number [facility] [address] [address] * (ABNORMAL) LACTATE (LACTIC ACID) (10/31/2023 5:42 PM CDT) Pathologist [facility] Lactate 2.7(H) 0.7 - 2.1 mmol/L [facility] Blood 10/31/2023 5:42 PM CDT 10/31/2023 5:54 PM CDT Narrative [facility] - 10/31/2023 6:10 PM CDT Send specimen on ice! Chivo Robins MD LABORATORY Performing Organization Address [facility] Co de Phone Number [facility] [address] [address] * TROP 4H (10/31/2023 5:42 PM CDT) 4H Trop 17 <=35 ng/L [facility] 4H Delta na Not Significant [facility] Comment:Unable to calculate delta. Blood 10/31/2023 5:42 PM CDT 10/31/2023 5:53 PM CDT Patrice Marcial MD LABORATORY [facility] [address] [address] * CT CHEST/ABD/PELVIS W/IV CONT (10/31/2023 4:30 [...] slightly increased from prior. Procedure Note Main Feliz, DO - 10/31/2023 Comparison: Earlier same day [...] No pneumothorax identified. Reading Radiologist: Main Feliz Narrative 10/31/2023 4:04 PM CDT Technique: XR CHEST [...] seen. Procedure Note Main Feliz DO - 05/26/2024 Technique: XR ELBOW LEFT 2 VIEWS Indication: [...] are grossly unremarkable. Procedure Note Main Feliz, DO - 10/31/2023 Technique: XR HAND RIGHT [...] in the base. Reading Radiologist: Main Feliz Narrative 10/31/2023 3:13 PM CDT Technique: XR CHEST 1 VIEW AP OR PA* Indication: chest tube placement ?? Comparison: Earlier today Findings: Interval placement of a left chest tube directed towards the apex. Small pneumothorax, specifically in the lung base. Air in the lateral left chest soft tissues, slightly increased. Low lung volumes is secondary vascular crowding and basilar atelectasis. Procedure Note Main Feliz, - 10/31/2023 Technique: XR CHEST 1 VIEW [...] PM CDT) 10/31/2023 2:54 PM CDT Impressions [facility] EKG ORDERS - 10/31/2023 2:54 PM CDT SINUS RHYTHM NONSPECIFIC T-WAVE ABNORMALITY BORDERLINE ECG P-R Interval 191 ms QRS Interval 85 ms QT Interval 351 ms QTC Interval 395 ms P [place] 52 QRS [place] 34 T Wave [place] 91 Narrative Procedure Note Patrice Marcial MD - 10/31/2023 IMPRESSION SINUS RHYTHM NONSPECIFIC T-WAVE ABNORMALITY BORDERLINE ECG P-R Interval 191 ms QRS Interval 85 ms QT Interval 351 ms QTC Interval 395 ms P [place] 52 QRS [place] 34 T Wave [place] 91 Patrice Marcial MD EKG Performing Organization Address [facility] de Phone Number [facility] EKG ORDERS * EXTRA TUBE - SST (10/31/2023 2:01 PM CDT) SST TUBE Stored [facility] Comment:SST tubes (Serum Sep arator) are stored in the lab for 3 days from the collection date. Blood 10/31/2023 2:01 PM CDT 10/31/2023 2:03 PM CDT Patrice Marcial MD LABORATORY Performing Organization Address [facility] de Phone Number [address] [address] * EXTRA TUBE - LIGHT GREEN (10/31/2023 2:01 PM CDT) LIGHT GREEN TUBE Stored [facility] Comment:Green tubes ([place] Heparin) are stored in the lab for 3 days from the collection date. Blood 10/31/2023 2:01 PM CDT 10/31/2023 2:03 PM CDT Patrice Marcial MD LABORATORY Performing Organization Address [facility] de Phone Number [facility] [address] [address] * ETHANOL (ETOH) LEVEL, BLOOD (10/31/2023 2:00 PM CDT) Ethanol Negative Negative g/dL [facility] Blood 10/31/2023 2:00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 Wed11/09/23 at 1503, Agitation Given 11/09/2023 3:03 PM CDT 2 mg midazolam (PF) (VERSED) injection 2 mg 2 mg, IV Push, ONE TIME, 1 dose, On Wed11/09/23 at 1600 Given 11/09/2023 3:39 PM CDT 2 mg midazolam (PF) (VERSED) injection 2 mg 2 mg, IV Push, ONE TIME, 1 dose, On Wed11/10/23 at 1415 Given 11/10/2023 2:11 PM CDT 2 mg midazolam (PF) (VERSED) injection 4 mg 4 mg, IV Push, ONE TIME, 1 dose, On Wed11/09/23 at 2005 Given 11/09/2023 8:21 PM CDT 4 mg midazolam (PF) (VERSED) injection 1 dose, Starting on Wed11/09/23 at 1500, Until Wed11/09/23 at 1503 morphine ER (MS CONTIN) tablet 30 mg 30 mg, Oral, BID, 19 doses, First dose on Wed11/06/23 at 2000, Last dose on Wed11/15/23 at 1999 Given 11/09/2023 8:10 AM CDT 30 mg Given 11/08/2023 8:49 PM CDT 30 mg Given 11/08/2023 7:46 AM CDT 30 mg NaCl 0.9% 1,000 mL bolus Intravenous, Administer over 60 Minutes, IV BOLUS, 1 dose, On Wed11/01/23 at 0925 New Bag 11/01/2023 10:48 AM CDT 1000 mL/hr NaCl 0.9% 1,000 mL bolus Intravenous, Administer over 60 Minutes, IV BOLUS, 1 dose, On Wed11/03/23 at 1550 New Bag 11/03/2023 4:26 PM CDT 1000 mL/hr NaCl 0.9% infusion at 100 mL/hr, Intravenous, CONTINUOUS, Starting on Wed10/31/23 at 1645, Until Wed10/31/23 at 2208 Infusing 10/31/2023 10:00 PM CDT 100 mL/hr Infusing 10/31/2023 9:00 PM CDT 100 mL/hr Infusing 10/31/2023 8:00 PM CDT 100 mL/hr NaCl 0.9% infusion at 100 mL/hr, Intravenous, CONTINUOUS, Starting on Wed11/03/23 at 1550, Until Wed11/04/23 at 1054 Infusing 11/04/2023 10:00 AM CDT 100 mL/hr Infusing 11/04/2023 9:00 AM CDT 100 mL/hr Infusing 11/04/2023 8:26 AM CDT 100 mL/hr naloxone (NARCAN) 1 mg/mL oral suspension 4 mg 4 mg, Feeding Tube, Once, 1 dose, On Wed11/12/23 at 0630 Given 11/12/2023 7:46 AM CDT 4 mg naloxone (NARCAN) 1 mg/mL oral suspension 4 mg 4 mg, Feeding Tube, BID, 2 doses, First dose on Wed11/12/23 at 2000, Last dose on Wed11/13/23 at 0800 Given 11/13/2023 8:36 AM CDT 4 mg Given 11/12/2023 8:29 PM CDT 4 mg norepinephrine 8 mg in 250 mL D5W (LEVOPHED) 250 mL infusion solution 0.01-1 mcg/kg/min ? 116 kg (2.175-217.5 mL/hr, rounded to 2.2-217.5 mL/hr), Start infusion at (mcg/kg/min): 0.1, Titrate to: MAP (mmHg), of: 65, Intravenous, CONTINUOUS, Starting on Wed10/31/23 at 1550, Until Wed10/31/23 at 1810 New Bag 10/31/2023 3:49 PM CDT 0.1 mcg/kg/min 21.8 mL/hr norepinephrine 8 mg in 250 mL D5W (LEVOPHED) 250 mL infusion solution 0.01-1 mcg/kg/min ? 116 kg (2.175-217.5 mL/hr, rounded to 2.2-217.5 mL/hr), Start infusion at (mcg/kg/min): 0.02, Titrate to: MAP (mmHg), of: 65, Intravenous, CONTINUOUS, Starting on Wed11/09/23 at 1515, Until Wed11/09/23 at 1742 Rate changed 11/09/2023 5:59 PM CDT 0.04 mcg/kg/min 8.7 mL/hr Rate changed 11/09/2023 5:57 PM CDT 0.02 mcg/kg/min 4.4 mL /hr Rate changed 11/09/2023 5:51 PM CDT 0.02 mcg/kg/min 4.4 mL /hr norepinephrine 8 mg in 250 mL D5W (LEVOPHED) 250 mL infusion solution 0.01-0.3 mcg/kg/min ? 116 kg (2.175-65.25 mL/hr, rounded to 2.2-65.3 mL/hr), Start infusion at (mcg/kg/min): 0.02, Titrate to: MAP (mmHg), of: 65, Intravenous, CONTINUOUS, Starting on Wed11/09/23 at 1805, Until Wed11/10/23 at 0507 Rate changed 11/09/2023 11:23 PM CDT 0.02 mcg/kg/min 4.4 mL/hr Infusing 11/09/2023 11:00 PM CDT 0.03 mcg/kg/min 6.5 mL/ hr Rate changed 11/09/2023 10:00 PM CDT 0.03 mcg/kg/min 6.5 m L/hr oxyCODONE (ROXICODONE) tablet 10-15 mg 10-15 mg, Oral, Q3H PRN, Starting on 11/06/23 at 1020, Until Wed11/07/23 at 0731, Moderate Pain (Use First) Given 11/07/2023 6:41 AM CDT 15 mg Given 11/07/2023 3:44 AM CDT 15 mg Given 11/06/2023 5:32 PM CDT 15 mg oxyCODONE (ROXICODONE) tablet 5-10 mg 5-10 mg, Oral, Q4H PRN, Starting on Wed10/31/23 at 1647, Until Wed11/05/23 at 0939, Moderate Pain (Use First) Given 11/05/2023 7:42 AM CDT 10 mg Given 11/04/2023 8:05 PM CDT 10 mg Given 11/04/2023 3:31 PM CDT 10 mg oxyCODONE (ROXICODONE) tablet 5-10 mg 5-10 mg, Oral, Q3H PRN, Starting on Wed11/05/23 at 0938, Until 11/06/23 at 1020, Moderate Pain (Use First) Given 11/06/2023 6:30 AM CDT 10 mg Given 11/06/2023 12:26 AM CDT 10 mg Given 11/05/2023 8:03 PM CDT 10 mg oxyCODONE (ROXICODONE) tablet 5-10 mg 5-10 mg, Oral, Q4H PRN, Starting on Wed11/07/23 at 0731, Until Wed11/09/23 at 2011, Moderate Pain (Use First) Given 11/09/2023 11:54 AM CDT 10 mg Given 11/09/2023 6:06 AM CDT 10 mg Given 11/08/2023 10:19 PM CDT 10 mg perflutren protein A microsphere (OPTISON) IV 0.5 mL 0.5 mL, IV Push, RAD ONE TIME AUTO ACKNOWLEDGE, 1 dose, On Wed11/12/23 at 0855 Given 11/12/2023 11:09 AM C DT 0.5 mL phosphate oral solution - ICU 30 mL 30 mL, Feeding Tube, Once, 1 dose, On Wed11/12/23 at 0925 Given 11/12/2023 9:52 AM CDT 30 mL polyethylene glycol 3350 (MIRALAX;GLYCOLAX) packet 17 g 17 g, Oral, DAILY, First dose on Wed11/01/23 at 0800, Until Discontinued Given 11/08/2023 7:46 AM CDT 17 g Given 11/07/2023 8:13 AM CDT 17 g Given 11/06/2023 8:42 AM CDT 17 g polyethylene glycol 3350 (MIRALAX;GLYCOLAX) packet 17 g 17 g, Oral, BID, First dose (after last modification) on Wed11/08/23 at 2000, Until Discontinued Given 11/09/2023 8:11 AM CDT 17 g Given 11/08/2023 8:49 PM CDT 17 g ropivacaine (NAROPIN) 2 mg/mL epidural at 6 mL/hr, Epidural, CONTINUOUS, Starting on Wed11/02/23 at 1325, Until Wed11/05/23 at 0925 New Bag 11/05/2023 8:15 AM CDT 6 mL/hr Infusing 11/05/2023 7:44 AM CDT 6 mL/hr Infusing 11/05/2023 5:18 AM CDT 6 mL/hr sennosides (SENOKOT) tablet 8.6 mg 8.6 mg, Oral, BID, First dose on Wed11/01/23 at 0800, Until Discontinued Given 11/01/2023 7:57 PM CDT 8.6 mg Given 11/01/2023 7:42 AM CDT 8.6 mg sennosides-docusate sodium (STOOL SOFTENER/LAXATIVE) 8.6-50 mg tablet 2 tablet 2 tablet, Oral, BID, First dose on Wed11/02/23 at 0800, Until Discontinued Given 11/09/2023 8:09 AM CDT 2 tablet s Given 11/08/2023 8:49 PM CDT 2 tablets Given 11/08/2023 7:46 AM CDT 2 tablets sodium chloride 0.9% bolus 1,000 mL 1,000 mL, Intravenous, Administer over 30 Minutes, IV BOLUS, 1 dose, On Wed10/31/23 at 1545 New Bag 10/31/2023 3:33 PM CDT 1,000 mL 2000 mL/hr sodium chloride 0.9% bolus 2,000 mL 2,000 mL, Intravenous, Administer over 30 Minutes, IV BOLUS, 1 dose, On Wed10/31/23 at 1555 New Bag 10/31/2023 3:52 PM CDT 2,000 mL 4000 mL/hr sodium chloride tablet 2 g 2 g, Feeding Tube, QID, First dose on Wed11/14/23 at 1200, Until Discontinued Given 11/15/2023 9:14 AM CDT 2 g Given 11/14/2023 8:02 PM CDT 2 g Given 11/14/2023 5:58 PM CDT 2 g sodium phosphate 15 mmol in dextrose 5% IVPB 15 mmol, Intravenous, ONE TIME, On Wed11/14/23 at 0930 New Bag 11/14/2023 12:44 PM CDT 15 mmol tamsulosin (FLOMAX) capsule 0.4 mg 0.4 mg, Oral, DAILY PC, First dose on Wed11/02/23 at 1040, Until Discontinued Given 11/09/2023 8:10 AM CDT 0.4 mg Given 11/08/2023 7:46 AM CDT 0.4 mg Given 11/07/2023 8:12 AM CDT 0.4 mg vancomycin (VANCOCIN) 1,750 mg in NaCl 0.9% 500 mL IVPB 1,750 mg (rounded from 1,776 mg = 20 mg/kg ? 88.8 kg Adjusted weight), Indication (Select One): Infection - Suspected, SITE (Select all that apply): Lower Respiratory, Cultures Ordered? Yes, Dose By? Phamacist to Dose, Intravenous, Q24H, First dose on Leatha 11/11/23 at 0000, Until Discontinued New Bag 11/11/2023 1:25 AM CDT 1,750 mg 258.8 mL/hr documented in this encounter Active and Recently Administered Medications Times are shown in CDT. Scheduled Medication Order 11/13/2023 11/14/2023 11/15/2023 acetaminophen (TYLENOL) tablet 975 mg 975 mg, Feeding Tube, TID, First dose (after last modification) on Wed11/10/23 at 0800, Until Discontinued 0837 (Given - Provider: Yanci Blake, RN)0838 (Canceled Entry - Provider: Yanci Blake, RN)143 (Given - Provider: Yanci Blake RN)2010 (Given - Provider: Bud Roque RN) 0832 (Given - Provider: Yanci Blake RN)1420 (Given - Provider: Yanci Blake, RN)2000 (Given - Provider: Tyrel Wilson RN) 0913 (Given - Provider: Bud Loya RN)1343 (Given - Provider: Elza Miramontes RN)203 (Given - Provider: Hannah Vera, DANILO) acetylcysteine inhalation (MUCOMYST) 20% inhalation solution 800 mg, Nebulization, QID, First dose (after last modification) on Wed11/10/23 at 1200, Until Discontinued 0800 (Given - Provider: Verito Victoria RT)1116 (Given - Provider: Yocasta Minor RT)1629 (Given - Provider: Verito Victoria RT)1955 (Given - Provider: Noemy Soria RT) 0823 (Given - Provider: Yocasta Minor RT)1238 (Given - Provider: Yocasta Minor RT)1614 (Given - Provider: Yocasta Minor RT)2011 (Given - Provider: Noemy Soria RT) 0845 (Given - Provider: Noemy Slade RT)1200 (Canceled Entry - Provider: Mahi Lees RT - Comment: unkn if given)1627 (Given - Provider: Noemy Slade RT)2120 (Given - Provider: Mahi M Dahling, RT) alteplase (CATHFLO ACTIVASE) 10 mg in NaCl 0.9% 30 mL intrapleural injection (COMPLETED) 10 mg, Intrapleural, ONE TIME, 1 dose, On Wed11/13/23 at 1100 1445 (Given - Provider: Yanci Blake, DANILO) alteplase (CATHFLO ACTIVASE) 10 mg in NaCl [...] Blake RN) 0914 (Given - Provider: Bud Loya RN) bacitracin 500 unit/g external ointment Topical, DAILY, First dose on Wed11/09/23 at 0900, Until Discontinued 1240 (Given - Provider: Yanci Blake RN) 0832 (Given - Provider: Yanci Blake RN) 0913 (Given - Provider: Bud Loya RN) bisacodyl (DULCOLAX) suppository 10 mg 10 mg, Rectal, DAILY, First dose (after last modification) on Wed11/12/23 at 0800, Until Discontinued 0836 (Given - Provider: Yanci Blake RN) 0832 (Not Given (removes Due time) - Provider: Yanci Blake RN - Reason: Held per nurse - Comment: Liquid BM) 0913 (Given - Provider: Bud Loya RN) ceFAZolin (ANCEF) IVPB 2 g 2 g, Indication (Select One): Infection - Confirmed, SITE (Select all that apply): Lower Respiratory, Cultures Ordered? Yes, Intravenous, Q 8H, First dose on Wed11/15/23 at 1400, Until Discontinued 1355 (New Bag - Provider: Elza Miramontes RN)1425 (Due: Infusion completed - Provider: Elza Miramontes RN)2200 (Due) cefEPIME (MAXIPIME) 2,000 mg in NaCl 0.9% IVPB (COMPLETED) 2,000 mg (2 g), Indication (Select One): Infection - Suspected, SITE (Select all that apply): Lower Respiratory, Cultures Ordered? Yes, Intravenous, Q 8H, 15 doses, First dose on Wed11/10/23 at 1300, Last dose on Wed11/15/23 at 0600 0532 (New Bag - Provider: Pernell Tate, DANILO)0610 (Infusion completed - Provider: Pernell Tate, DANILO)1439 (New Bag - Provider: Yanci Blake, DANILO)1509 (Infusion completed - Provider: Yanci Blake RN)2154 (New Bag - Provider: Bud Roque RN)2224 (Infusion completed - Provider: Bud Roque RN) 0544 (New Bag - Provider: Mikal Paige, DANILO)0634 (Infusion completed - Provider: Mikal Paige RN)1420 (New Bag - Provider: Yanci Blake RN)1450 (Infusion completed - Provider: Cortney Smith RN)2226 (New Bag - Provider: Tyrel Wilson RN)2249 (Infusion completed - Provider: Tyrel Wilson RN) 0636 (New Bag - Provider: Tyrel Wilson RN)0706 (Infusion completed - Provider: Bud Loya RN) cyclobenzaprine (FLEXERIL) tablet 10 mg 10 mg, Feeding Tube, TID, First dose (after last modification) on Wed11/10/23 at 0800, Until Discontinued 0836 (Given - Provider: Yanci Blake RN)1437 (Given - Provider: Yanci Blake, DANILO)2010 (Given - Provider: Bud Roque RN) 0832 (Given - Provider: Yanci Blake RN)1420 (Given - Provider: Yanci Blake RN)2000 (Given - Provider: Tyrel Wilson RN) 0913 (Given - Provider: Bud Loya, DANILO)1343 (Given - Provider: Elza Miramontes RN)2032 (Given - Provider: Hannah Vera RN) dornase dio (PULMOZYME) 5 mg intrapleural injection (COMPLETED) 5 mg, Intrapleural, ONE TIME, 1 dose, On 11/13/23 at 1140 1445 (Given - Provider: Yanci Blake RN) dornase dio (PULMOZYME) 5 mg intrapleural injection (COMPLETED) 5 mg, Intrapleural, ONE TIME, 1 dose, On 11/14/23 at 0850 0940 (Given - Provider: Yanci Blake RN) enoxaparin (LOVENOX) 40 mg/0.4 mL injection 40 mg (CANCELED) 40 mg, Subcutaneous, Q12H, First dose (after last reorder) on 11/07/23 at 2000, Until Discontinued 0836 (Given - Provider: Yanci Blake RN)2009 (Given - Provider: Bud Roque RN) 08 (Given - Provider: Yanci Blake RN)2001 (Given - Provider: Tyrel Wilson RN) enoxaparin (LOVENOX) 40 mg/0.4 mL injection 40 mg 40 mg, Subcutaneous, Q12H, First dose on Wed11/15/23 at 1225, Until Discontinued 1343 (Given - Provider: Elza Miramontes RN)2033 (Given - Provider: Hannah Vera RN) famotidine (PEPCID) tablet 20 mg 20 mg, Feeding Tube, BID, First dose on Wed11/10/23 at 0800, Until Discontinued 0837 (Given - Provider: Yanci Blake RN)2009 (Given - Provider: Bud Roque RN) 0832 (Given - Provider: Yanci Blake RN)2000 (Given - Provider: Tyrel Wilson RN) 912 (Given - Provider: Bud Loya RN)2035 (Given - Provider: Hannah Vera RN) furosemide (LASIX) injection 40 mg (COMPLETED) 40 mg, IV Push, Once, 1 dose, On 11/13/23 at 1135 1239 (Given - Provider: Yanci Blake RN) furosemide (LASIX) injection 40 mg (COMPLETED) 40 mg, IV Push, Once, 1 dose, On 11/14/23 at 0935 0943 (Given - Provider: Yanci Blake, DANILO) furosemide (LASIX) injection 40 mg (COMPLETED) 40 mg, IV Push, ONE TIME, 1 dose, On 11/15/23 at 0610 0632 (Given - Provider: Tyrel Wilson RN) GABApentin (NEURONTIN) 250 mg/5 mL oral solution 600 mg 600 mg, Feeding Tube, TID, First dose on Tu11/09/23 at 2015, Until Discontinued 0836 (Given - Provider: Yanci Blake RN)1437 (Given - Provider: Yanci Blake, DANILO)2009 (Given - Provider: Bud Roque, DANILO) 0832 (Given - Provider: Yanci Blake RN)1420 (Given - Provider: Yanci Blake RN)2003 (Given - Provider: Tyrel Wilson RN) 0913 (Given - Provider: Bud Loya, DANILO)1342 (Given - Provider: Elza Miramontes RN)2033 (Given - Provider: Hannah Vera RN) hydrALAZINE [...] Bud Roque RN)2358 (Given - Provider: Mikal Paige RN - Comment: 209) 0544 (Given - Provider: [...] dose on Wed11/11/23 at 0840, Until Discontinued 0838 (Given - Provider: Yanci Blake RN)2010 (Given - Provider: Bud Roque RN) 0832 (Given - Provider: Yanci Blake RN)2000 (Given - Provider: Tyrel Wilson RN) 913 (Given - Provider: Bud Loya RN)2033 (Given - Provider: Hannah Vera, DANILO) naloxone (NARCAN) 1 mg/mL oral suspension 4 [...] dose on Wed11/11/23 at 0800, Until Discontinued 36 (Given - [...] Discontinued 1244 (Given - Provider: Bud Loya RN)170 (Given - Provider: Hannah Vera RN)2032 (Given - Provider: Hannah Vera RN) sodium chloride tablet 2 g (CANCELED) 2 g, Feeding Tube, QID, First dose on Wed11/14/23 at 1200, Until Discontinued 1244 (Given - Provider: Yanci Blake RN)1758 (Given - Provider: Cortney Smith RN)2001 (Given - Provider: Tyrel Wilson RN) 0914 (Given - Provider: Bud Loya RN) sodium [...] dose on Wed11/11/23 at 0600, Until Discontinued 0200 (Given - Provider: Pernell Tate, DANILO)0600 (Given - Provider: Pernell Tate, DANILO)1000 (Given - Provider: Yanci Blake RN)1400 (Given - Provider: Yanci Blake RN)1800 (Given - Provider: Bud Roque RN)2200 (Given - Provider: Bud Roque RN) 0200 (Given - Provider: Mikal Paige, RN)0600 (Given - Provider: Mikal Paige, RN)1000 (Given - Provider: Yanci Blake RN)1400 (Given - Provider: Yanci Blake, DANILO)1759 (Given - Provider: Cortney Smith, DANILO)2226 (Given - Provider: Tyrel Wilson RN) 0213 (Given - Provider: Tyrel Wilson RN)0650 (Given - Provider: Tyrel Wilson RN)1000 (Given - Provider: Bud Loya RN)1400 (Given - Provider: Elza Miramontes RN)1800 (Given [...] Blake RN)1234 (Infusing - Provider: Yanci Blake, RN)1241 (Rate changed - Provider: Yanci Blake RN)1437 (New Bag - Provider: Yanci Blake RN)1500 (Infusing - Provider: Bud Roque RN)1600 (Infusing - Provider: Bud Roque RN)1700 (Infusing - Provider: Bud Roque, RN)1800 (Infusing - Provider: Bud Roque, RN)1900 (Infusing - Provider: Bud Roque RN)2000 (Infusing - Provider: Bud Roque RN)2100 (Infusing - Provider: Bud Roque, DANILO)2200 (Infusing - Provider: Bud Roque, DANILO)2300 (Infusing - Provider: Bud Roque RN) 0000 (Infusing - Provider: Mikal Paige RN)0100 (Infusing - Provider: Mikal Paige RN)0200 (Infusing - Provider: Mikal Paige RN)0300 (Infusing - Provider: Mikal Paige RN - Comment: [Action automatically changed])0400 (Infusing - Provider: Mikal Paige RN)0500 (Infusing - Provider: Mikal Paige RN)0600 (Infusing - Provider: Mikal Paige RN)0700 (Infusing - Provider: Yanci Blake RN)0800 (Infusing - Provider: Yanci Blake RN)0900 (Infusing - Provider: Yanci Blake RN)1000 (Infusing - Provider: Yanci Blake RN)1100 (Infusing - Provider: Yanci Blake RN)1200 (Infusing - Provider: Yanci Blake, DANILO)1300 (Infusing - Provider: Yanci Blake, RN)1400 (Infusing - Provider: Yanci Blake RN)1453 (New Bag - Provider: Yanci Blake RN)1500 (Infusing - Provider: Cortney Smith RN)1600 (Infusing - Provider: Cortney Smith RN)1700 (Infusing - Provider: Cortney Smith RN)1800 (Infusing - Provider: Cortney Smith RN)1900 (Infusing - Provider: Cortney Smith RN)2000 (Infusing - Provider: Tyrel Wilson RN)2100 (Infusing - Provider: Tyrel Wilson RN)2200 (Infusing - Provider: Tyrel Wilson RN)2300 (Infusing - Provider: Tyrel Wilson, RN) 0000 (Infusing - Provider: Tyrel Wilson, RN)0100 (Infusing - Provider: Tyrel Wilson RN)0200 (Infusing - Provider: Tyrel Wilson RN)0300 [...] Hannah Vera RN)1700 (Infusing - Provider: Hannah Vera, DANILO)1800 (Infusing - Provider: Hannah Vera RN - Comment: [Action automatically changed])1832 (Rate changed - Provider: Hannah Vera RN)1900 (Infusing - Provider: Hannah Vera RN)1913 (Rate changed - Provider: Hannah Vera RN)2000 (Infusing - Provider: Hannah Vera RN)2100 (Infusing - Provider: Hannah Vera, DANILO)2121 (Rate changed - Provider: Hannah Vera RN)2200 [...] Blake RN)1000 (Rate changed - Provider: Yanci Blake RN)1100 (Infusing - Provider: Yanci Blake RN)1239 (New Bag - Provider: Yanci Blake, DANILO)1600 (Infusing - Provider: Bud Roque, DANILO)1638 (New Bag - Provider: Bud Roque, DANILO)1700 (Infusing - Provider: Bud Roque, RN)1800 (Infusing - Provider: Bud Roque, RN)1900 (Infusing - Provider: Bud Roque, DANILO)2000 (Infusing - Provider: Bud Roque, DANILO)2100 (Infusing - Provider: Bud Dasel, RN)2154 (New Bag - Provider: Bud Roque, RN)2200 (Infusing - Provider: Bud Roque, RN)2300 (Infusing - Provider: Bud Roque, RN) 0000 (Infusing - Provider: Mikal Paige, RN)0034 [...] Yanci Blake RN)1300 (Infusing - Provider: Yanci Blake, DANILO)1400 (Infusing - Provider: Yanci Blake RN)1500 (Infusing - Provider: Cortney Smith RN)1600 (Infusing - Provider: Cortney Smith, DANILO)1705 (New Bag - Provider: Cortney Smith, DANILO)1800 (Infusing - Provider: Cortney Smith, DANILO)1900 (Infusing - Provider: Cortney Smith, DANILO)2000 (Infusing - Provider: Tyrel Wilson RN)2043 (New Bag - Provider: Tyrel Wilson RN)2100 (Infusing - Provider: Tyrel Wilson, RN)2200 (Infusing - Provider: Tyrel Wilson, RN)2300 (Infusing - Provider: Tyrel Wilson RN) 0000 (Infusing - Provider: Tyrel Wilson RN - Comment: [Action automatically changed])0030 (New Bag - Provider: Tyrel Wilson RN)0100 (Infusing - Provider: Tyrel Wilson RN)0200 (Infusing - Provider: Tyrel Wilson, RN)0309 (New Bag - Provider: Tyrel Wilson RN)0400 (Infusing - Provider: Tyrel Wilson, RN)0500 [...] Elza Miramontes RN)1600 (Infusing - Provider: Hannah Vera RN)1700 (Infusing - Provider: Hannah Vera RN)1706 (New Bag - Provider: Hannah Vera RN)1730 (Rate changed - Provider: Hannah Vera RN)1800 (Infusing - Provider: Hannah Vera RN)1831 (Rate changed - Provider: Hannah Vera RN)1900 (Rate changed - Provider: Hannah Vera RN)1913 (Rate changed - Provider: Hannah Vera RN)2000 (Infusing - Provider: Hannah Vera RN)2100 (Infusing - Provider: Hannah Vera RN)2121 (Stopped - Provider: Hannah Vera, DANILO)220 (Stopped - Provider: Hannah Vera, DANILO) Richter Agitation Sedation Scale (RASS) Goal Choose [...] Verito Victoria, RT)1116 (Given - Provider: Yocasta Minor RT)1629 (Given - Provider: Verito Victoria, RT)1955 (Given - Provider: Noemy Soria, RT) 0823 (Given - Provider: Yocasta Minor RT)1238 (Given - Provider: Yocasta Minor RT)1614 (Given - Provider: Yocasta Minor RT)2011 (Given - Provider: Noemy Soria RT) 0845 (Given - Provider: Noemy Slade, RT)1627 (Given - Provider: Noemy Slade RT)212 (Given - Provider: Mahi Lees, RT) fentaNYL CADD (SUBLIMAZE) 50 mcg/mL clinician activated bolus for ICU sedation 25 mcg, Intravenous, Q1H PRN, Starting on Wed11/09/23 at 1453, Until Discontinued, Other (specify), CPOT over 3 0930 (Clinician Bolus - Provider: Yanci Blake, DANILO)1406 (Clinician Bolus - Provider: Yanci Blake RN) 1243 (Bolus from Infusion - Provider: Bud Loya RN)1715 (Bolus from Infusion - Provider: Hannah Vera, DANILO) hydrALAZINE (APRESOLINE) 20 mg/mL injection 10-20 mg [...] (Use First) 0205 (Given - Provider: Pernell Tate, RN)0609 (Given - Provider: Pernell Tate, RN)1111 (Given - Provider: Yanci Blake, RN)2009 (Given - Provider: Bud Roque, RN) 0913 (Given - Provider: Bud Loya, DANILO)1343 (Given - Provider: Elza Miramontes, DANILO)203 (Given [...] 0930 (Bolus from Infusion - Provider: Yanci Blake RN)1614 (Bolus from Infusion - Provider: Cortney Smith RN) 0727 (Bolus from Infusion - Provider: Elza [...]
--- OUTSIDE RECORDS SUMMARY | 2023-11-15 22:26 | XMS_ITS | Clinical Summary ---
Author Organization [facility] Address [place], [place] [address] Care Team Providers Care Barge Engineer Name Role Phone DavidThierryJune NP Primary Care Provider Allergies Active Allergy Reactions Criticality Noted Date [...] but verbally identified his , Jessica Menendez [phone] as his primary health care agent. Patient has Advance Care Plan Documents (Health Care Directive, POLST): No. Patient has identified Specific Treatment Preferences: No Specific limits to treatment preferences NOT identified: ASSUME FULL TREATMENT. Radha Gregory, PHOTOSTAT OPERATOR [phone] or [phone] Hypertension 09/27/2010 Overview: Was started on lisinopril [...] Type Department Care Team Description 09/14/[address] [phone] Caryn Baliey AuD Hearing Aid (DOMES) 08/28/2023 Orders Only [address] [phone] June Hernandez NP <No scans attached> 08/24/2023 7:30 AM CDT Office Visit [address] [phone] June Hernandez NP Physical (annual) 08/24/2023 Travel from Last 3 Months Immunizations Name Administration Dates Next Due COVID-19 Vaccine Spikevax (M oderna 50mcg/0.5mL) 12YO+ [id number] Formula PF 05/12/2023 COVID-19 vaccine (Moderna 100mcg/0.5mL) [...] Sex Assigned at Male 05/14/2020 9:58 PM HEAVY MACHINERY OPERATOR Gender Identity Male 05/14/2020 9:58 PM HEAVY MACHINERY OPERATOR Sexual Orientation Straight 05/14/2020 9: 58 PM HEAVY MACHINERY OPERATOR Obstetrics History Last Filed Vital Signs Vital Sign Reading Time Taken Comments Blood Pressure 140/86 08/24/2023 7:29 AM CDT Pulse 84 08/24/2023 7:29 AM CDT Temperature 34.4 ??C (93.9 ??F) 07/20/2023 12:[address] Respiratory Rate 16 07/20/2023 2:15 PM HEAVY MACHINERY OPERATOR Oxygen Saturation 96% 08/24/2023 7:29 AM CDT Inhaled Oxygen Concentration - - Weight 108.4 kg (239 lb) 08/24/2023 7:29 AM CDT Height 167.6 cm (5' 6) 08/24/2023 7:29 AM CDT Body Mass Index 38.58 08/24/2023 7:29 AM CDT Plan of Treatment Health Maintenance Due Date Last Done Comments HIV for age 15-65 1975 COVID-19 vaccine series (2022- season) 2023 05/12/2023, 03/03/2022, 04/29/2021, Additional history exists Depression screening for age 12+ 12/23/2023 12/22/2022, [...] series for age 65+ Completed 3, 03/22/2012 Medical Devices Implanted Type Area Radio Antenna Installer Device Identifier Shelf Expiration Date Model / Serial / Lot [id number] - [id number] Implanted:Qty: 2 on 06/29/2014 by Dyllan Méndez MD at [facility] Right: Shoulder [employer] 01/06/2016 [id number] / [id number] / Description:Suture [place], S wivelLock Procedures Procedure Name Priority Date/Time [...] anemia, deficiency, iron COLONOSCOPY 07/20/2023 12:10 PM HEAVY MACHINERY OPERATOR ANTI HCV Routine 06/21/2018 8:22 AM HEAVY MACHINERY OPERATOR Need for hepatitis C screening test from Last 3 Months or Most Recently Relevant to Health Maintenance Results * (ABNORMAL) UA W/ SEDIMENT EXAM REFLEXED PER CRITERIA (08/24/2023 8:04 AM CDT) COLOR Yellow Yellow Color 08/24/2023 8:25 AM [facility] CLARITY Clear Clear Clarity 08/24/2023 8:25 AM [facility] SPECIFIC GRAVITY,URINE >=1.030(A) 1.010, 1.015, 1.020, 1.025 08/24/2023 8:25 AM [facility] PH,URINE 6.0 6.0, 7.0, 8.0, 5.5, 6.5, 7.5, 8.5 08/24/2023 8:25 AM [facility] UROBILINOGEN, QUALITATIVE Normal Normal EU/dl 08/24/2023 8:25 AM [facility] PROTEIN, URINE Negative Negative mg/dL 08/24/2023 8:25 AM [facility] GLUCOSE, URINE Negative Negative mg/dL 08/24/2023 8:25 AM [facility] KETONES,URINE Negative Negative mg/dL 08/24/2023 8:25 AM [facility] BILIRUBIN,URI NE Negative Negative 08/24/2023 8:25 AM [facility] OCCULT BLOOD,URINE Negative Negative 08/24/2023 8:25 AM [facility] NITRITE Negative Negative 08/24/2023 8:25 AM [facility] LEUKOCYTE ESTERASE Negative Negative 08/24/2023 8:25 AM [facility] Urine URINE SPECIMEN / Unknown Non-Blood / Unknown 08/24/2023 8:04 AM CDT 08/24/2023 8:04 AM T June Arendt PERSONNEL MANAGER URINE [facility] [address] [place] [address] * (ABNORMAL) CBC WITH AUTO DIFFERENTIAL (08/24/2023 7:58 AM CDT) WHITE BLOOD COUNT 6.4 4.5 - 11.0 thou/cu mm 08/24/2023 8:17 AM T [facility] RED BLOOD COUNT 5.15 4.30 - 5.90 mil/cu mm 08/24/2023 8:17 AM [facility] HEMOGLOBIN 15.3 13.5 - 17.5 g/dL 08/24/2023 8:17 AM [facility] HEMATOCRIT 44.7 37.0 - 53.0 % 08/24/2023 8:17 AM [facility] MCV 87 80 - 100 fL 08/24/2023 8:17 AM [facility] MCH 29.7 26.0 - 34.0 pg 08/24/2023 8:17 AM [facility] MCHC 34.2 32.0 - 36.0 g/dL 08/24/2023 8:17 AM [facility] RDW 13.3 11.5 - 15.5 % 08/24/2023 8:17 AM [facility] PLATELET COUNT 155 140 - 440 thou/cu mm 08/24/2023 8:17 AM [facility] MPV 11.2(H) 6.5 - 11.0 fL 08/24/2023 8:17 AM [facility] % NEUT 64.6 % 08/24/2023 8:17 AM [facility] % LYMPH 22.9 % 08/24/2023 8:17 AM [facility] % MONO 8.3 % 08/24/2023 8:17 AM [facility] % EOS 3.9 % 08/24/2023 8:17 AM [facility] % BASO 0.3 % 08/24/2023 8:17 AM [facility] ABSOLUTE NEUTROPHILS 4.2 1.7 - 7.0 thou/cu mm 08/24/2023 8:17 AM CDT [facility] ABSOLUTE LYMPHOCYTES 1.5 0.9 - 2.9 thou/cu mm 08/24/2023 8:17 AM CDT [facility] ABSOLUTE MONOCYTES 0.5 <0.9 thou/cu mm 08/24/2023 8:17 AM CDT [facility] ABSOLUTE EOSINOPHILS 0.3 <0.5 thou/cu mm 08/24/2023 8:17 AM CDT [facility] ABSOLUTE BASOPHILS 0.0 <0.3 thou/cu mm 08/24/2023 8:17 AM CDT [facility] Blood BLOOD SPECIMEN / Unknown Venipuncture / Unknown 08/24/2023 7:58 AM CDT 08/24/2023 7:58 AM CDT June Hernandez NP HEMATOLOGY Performing Organization Address City/State/[facility] Co de Phone Number [facility] [address] [place] [address] * HEMOGLOBIN A1C SCREENING (08/24/2023 7:58 AM CDT) HEMOGLOBIN A1C SCREENING 6.2 <=6.4 % 08/24/2023 8:12 AM CDT [facility] Blood BLOOD SPECIMEN / Unknown Venipuncture / Unknown 08/24/2023 7:58 AM CDT 08/24/2023 7:58 AM CDT Narrative [facility] - 08/24/2023 8:12 AM CDT ? (<5.7%) ?Normal ? (5.7% to 6.4%) ? Indicates prediabetes ? (>=6.5%) ? Confirms diabetes Falsely low levels may be seen with: Recent Transfusion, Recent Significant Blood Loss, Hemolytic Diseases, or Falsely elevated levels may be seen with: Untreated Anemias, Splenectomy June Hernandez PERSONNEL MANAGER CHEMISTRY [facility] [address] [place] [address] * (ABNORMAL) LIPID PANEL W REFLEX MEASURED LDL (08/24/2023 7:58 AM CDT) CHOLESTEROL,TOTAL 185 100 - 199 mg/dL 08/24/2023 8:36 AM T [facility] Comment: Cholesterol, Total Reference Ranges Desirable <200 mg/dL Borderline 200-239 mg/dL High >=240 mg/dL TRIGLYCERIDES 263(H) <150 mg/dL 08/24/2023 8:36 AM T [facility] HDL CHOLESTEROL 37(L) >40 mg/dL 8:36 AM [facility] NON-HDL CHOLESTEROL 148(H) <145 mg/dl 08/24/2023 8:36 AM T [facility] CHOL/HDL RATIO 5.00(H) <4.50 08/24/2023 8:36 AM [facility] LDL CHOLESTEROL 95 <=130 mg/dL 08/24/2023 8:36 AM [facility] VLDL CHOLESTEROL 53(H) <=30 mg/dL 08/24/2023 8:36 AM [facility] PROVIDER ORDERED STATUS RANDOM 08/24/2023 8:36 AM [facility] Blood BLOOD SPECIMEN / Unknown Venipuncture / Unknown 08/24/2023 7:58 AM CDT 08/24/2023 7:58 AM CDT June Hernandez PERSONNEL MANAGER CHEMISTRY [facility] [address] [place] [address] * TSH (08/24/2023 7:58 AM CDT) TSH 3.02 0.27 - 4.20 uIU/mL 08/24/2023 8:36 AM [facility] Blood BLOOD SPECIMEN / Unknown Venipuncture / Unknown 08/24/2023 7:58 AM CDT 08/24/2023 7:[address] [facility] - 08/24/2023 8:36 AM CDT In Adults, TSH values between 5.00 and 10.00 uIU/ml do not necessarily indicate the presence of Hypothyroidism. Correlation with clinical findings such as presence of goiter and/or Thyroperoxidase (TPO) Antibody may be helpful. For more information please refer to MANINDER 2004; 291: 228-238. June Hernandez NP CHEMISTRY [facility] [address] [place], [place] [id number] * (ABNORMAL) COMP METABOLIC PANEL (08/24/2023 7:58 AM CDT) SODIUM 141 136 - 145 mmol/L 08/24/2023 8:36 AM [facility] POTASSIUM 4.1 3.5 - 5.1 mmol/L 08/24/2023 8:36 AM [facility] CHLORIDE 105 98 - 107 mmol/L 08/24/2023 8:36 AM [facility] CO2,TOTAL 26 22 - 29 mmol/L 08/24/2023 8:36 AM [facility] ANION GAP 10 5 - 18 08/24/2023 8:36 AM [facility] GLUCOSE 147(H) 70 - 99 mg/dL 08/24/2023 8:36 AM [facility] CALCIUM 9.7 8.8 - 10.2 mg/dL 08/24/2023 8:36 AM [facility] BUN 19 8 - 23 mg/dL 08/24/2023 8:36 AM [facility] CREATININE 1.03 0.70 - 1.20 mg/dL 08/24/2023 8:36 AM [facility] BUN/CREAT RATIO 18 10 - 20 8:36 AM [facility] eGFR 81(L) >90 mL/min/1.7 3m2 08/24/2023 8:36 AM CDT [facility] Comment:As of 2021, eG FR is calculated by the CKD-EPI creatinine equation without race adjustment. ??eGFR can be influenced by muscle mass, exercise, and diet. ??The reported eGFR is an estimation only and is only applicable if the renal function is stable. ALBUMIN 4.3 4.0 - 4.9 g/dL 08/24/2023 8:36 AM CDT [facility] PROTEIN,TOTAL 6.9 6.0 - 8.0 g/dL 08/24/2023 8:36 AM T [facility] BILIRUBIN,TOTAL 1.1 0.0 - 1.2 mg/dL 08/24/2023 8:36 AM T [facility] ALK PHOSPHATASE 71 40 - 129 IU/L 08/24/2023 8:36 AM [facility] ALT (SGPT) 36 10 - 50 IU/L 08/24/2023 8:36 AM CDT [facility] AST (SGOT) 33 10 - 50 IU/L 08/24/2023 8:36 AM T [facility] Blood BLOOD SPECIMEN / Unknown Venipuncture / Unknown 08/24/2023 7:58 AM CDT 08/24/2023 7:58 AM CDT June Hernandez NP CHEMISTRY [facility] [address] [place] [address] * (ABNORMAL) PSA TOTAL SCREEN - Dx Auto-associated (08/24/2023 7:58 AM CDT) PSA TOTAL (SCREEN) 4.04(H) <4.00 ng/mL 08/24/2023 9:14 PM CDT [facility] Blood BLOOD SPECIMEN / Unknown Venipuncture / Unknown 08/24/2023 7:58 AM CDT 08/24/2023 7:58 AM CDT Narrative [facility] - 08/24/2023 9:14 PM CDT The [...] be used interchangeably. June Hernandez NP LABORATORY [facility] [address] [place] [address], [place] * COLONOSCOPY (07/20/2023 12:10 PM HEAVY MACHINERY OPERATOR) 07/20/2023 12:1 0 PM HEAVY MACHINERY OPERATOR Narrative Transcriptions Anika Calderon DO - 07/21/2023 [...] adequate candidate for conscious sedation. The endoscope -[id number] was passed through the anus andadvanced to [...] ORD * ANTI HCV (06/21/2018 8:22 AM HEAVY MACHINERY OPERATOR) HEPATITIS C ANTIBODY Non-React feliz Non-React feliz 06/21/2018 6:09 PM HEAVY MACHINERY OPERATOR [facility] Comment:Antibodies to HCV no t detected; does not exclude the possibility of exposure to HCV. Blood BLOOD SPECIMEN / Unknown Venipuncture / Unknown 06/21/2018 8:22 AM HEAVY MACHINERY OPERATOR 06/21/2018 8:22 AM HEAVY MACHINERY OPERATOR Greg Burtoncarlos Bergeron DO SEND OUTS [facility] [address] [place] [address], from Last 3 Months or Most Recently [...] 8:16 AM 03/01/2015 4:05 PM Care Teams Barge Engineer Relationship Specialty Start Date End Date June Hernandez NP [address] [place] [address] PCP - General Nurse Practitioner - Family 08/24/23
--- OUTSIDE RECORDS SUMMARY | 2023-11-15 22:27 | XMS_ITS | Continuity of Care Document ---
Author Name [facility] Organization [facility] Care Team Providers Care Train Conductor Name Role Phone [facility] Unavailable Unavailable Social History Combined list of available smoking, tobacco, and other social history from Department of Defense and Veterans Affairs facilities. Social History Type Response Date Comment Sourc e This section is an empty social history section. [facility]
== END 2023-10-31 11:25 | disposition home or self-care (01) ==
LOC: AMB 11-15 22:17
PROVIDERS: Visit Provider Family Medicine
DX: S29.9XXA Unspecified injury of thorax, initial encounter (principal); V29.39XA Other motorcycle (driver) (passenger) injured in unspecified nontraffic accident, initial encounter; Y92.410 Unspecified street and highway as the place of occurrence of the external cause
CPT/HCPCS: A0425; A0427

== ENCOUNTER 2023-10-31 11:58 | Emergency (ER) | payer OTHER, SELFPAY ==
[2023-10-31 12:00] VITALS: BP 132/86; PULSE 70; RESP 28; TEMP 35.3; O2SAT 91
[2023-10-31 12:05] VITALS: O2SAT 92
--- NOTE | 2023-10-31 12:07 | CRLHL7_ITS ---
For Patients: As a result of the Century Cures Act, medical imaging exams and procedure reports are released immediately into your electronic medical record. You may view this report before your referring provider. If you have questions, please contact your health care provider. Indication: Trauma, chest pain Comparison: None available. Technique: Single AP view chest Findings: Low lung volumes with basilar atelectasis. Mild central bronchial thickening without evidence of pneumothorax. The cardiac silhouette is mildly prominent. The bony thorax is grossly intact. Impression: Low lung volumes with bronchovascular crowding and needs basilar atelectasis. No evidence of pneumothorax. Dictated by Iban Ireland MD @ 10/31/2023 5:44:06 PM (Electronically Signed)
--- OUTSIDE RECORDS SUMMARY | 2023-10-31 12:29 | XMS_ITS | Clinical Summary ---
Author Organization [facility] Address [place], [place] [address] Care Team Providers Care Brass Cutter Name Role Phone DavidThierryJune NP Primary Care Provider [phone] Allergies Active Allergy Reactions Criticality Noted Date Comments Lisinopril Angioedema 09/29/2010 Upper airway obstruction; intubation - also taking penicillin Penicillins 09/29/2010 Upper airway obstruction; intubation - also recently started lisinopril Medications Medication Sig Dispensed Refills Start Date End Date Status Cholecalciferol, Vitamin D3, (VITAMIN D3) 2,000 unit capsuleIndications:V itamin D deficiency Take 1 capsule by mouth once daily. 06/21/2018 Active CPAPIndications:BENJY on CPAP CPAP machine for home use at pressure: 4-15 CM H20 autotitrate, Heated humidifier x 1 q 5 years , Humidifier chamber x 1 q 6 months, Nasal mask with cushion x 1 q 3 months, Heated tubing x 1 q 3 months, Headgear x 1q 6 months, Filters: Disposable x 2 q month & Reusable x 1q 6 months, Length of Need: 99 months, Frequency of use: Daily 1 Each 09/18/2021 Active NebulizerIndications :Viral upper respiratory infection Nebulizer, disposable neb kit x 4, reuseable neb kit x 1, mask x 1, filters x 1. Frequency of use: daily; Medication: DuoNeb length of need: 120 months 1 Each 03/26/2022 Active budesonide (Pulmicort) 1 mg/2 mL neb suspension Inhale 1 mg via a nebulizer 2 times daily if needed. Active propylene glycol/peg 400 (DRY EYE RELIEF, PG-PEG 400, OPHT) Place 1 Drop into both eyes 4 times daily if needed. Active albuterol-ipratropiu m (DUONEB) (2.5-0.5 mg) in 3 mL NEBULIZATION solutionIndications: Reactive airway disease, mild intermittent, with acute exacerbation Inhale 3 mL via a nebulizer 4 times daily if needed for Shortness Of Breath. 90 mL 1 08/24/2023 Active amLODIPine (NORVASC) 5 mg tabletIndications:Hy pertension, unspecified type Take 1 Tablet (5 mg) by mouth once daily. 90 Tablet 3 08/24/2023 Active metoprolol succinate (TOPROL XL) 50 mg sustained-release tabletIndications:Hy pertension, unspecified type Take 1 Tablet (50 mg) by mouth once daily. 90 Tablet 3 08/24/2023 Active albuterol HFA (PRO-AIR; VENTOLIN; PROVENTIL) 90 mcg/actuation inhalerIndications:R eactive airway disease, mild intermittent, with acute exacerbation Inhale 2 Puffs by mouth every 4 hours if needed for Shortness Of Breath. 8.5 g 11 08/24/2023 Active Active Problems Problem Noted Date Diagnosed Date Colitis 05/07/2023 Pancreatitis 05/05/2023 SIRS (systemic inflammatory response syndrome) 1 07/05/2022 GERD (gastroesophageal reflux disease) 3 Class 2 obesity 12/16/2022 Chest pain 12/15/2022 SBO (small bowel obstruction) 05/08/2020 Calcium oxalate kidney stones 05/14/2017 Tinnitus 10/10/2014 Sensorineural hearing loss, bilateral 10/10/2014 Vitamin D deficiency 06/28/2014 Erectile dysfunction 05/10/2013 History of colon polyps 05/10/2013 Reactive airway disease 03/22/2012 Mixed hyperlipidemia 02/06/2011 High risk medication use 02/06/2011 ACP (advance care planning) 09/29/2010 Overview: Patient has identified Health Care Agent(s): Yes--pt does not have a HCD but verbally identified his , Jessica Menendez [phone] as his primary health care agent. Patient has Advance Care Plan Documents (Health Care Directive, POLST): No. Patient has identified Specific Treatment Preferences: No Specific limits to treatment preferences NOT identified: ASSUME FULL TREATMENT. Radha Gregory, CHEESE PACKER [phone] or [phone] Hypertension 09/27/2010 Overview: Was started on lisinopril in 01/2009 but stopped taking the medication Diverticulitis of colon (without mention of hemo rrhage) 09/27/2010 Overview: With perforation s/p sigmoidectomy in 2008 BENJY (obstructive sleep apnea) Overview: AHI 28.3, 48.2 REM Resolved Problems Problem Noted Date Diagnosed Date Resolved Date Status post bilateral knee replacements 06/30/2014 06/30/2014 Vitamin D deficiency 05/16/2013 015 Angioedema or anaphylaxis 09/30/2010 Overview: 09/2010 patient was admitted with acute respiratory failure requiring intubation - had recently started taking both penicillin and lisinopril. ENT felt presentation was most likely due to angioedema from lisinopril. Encounters Date Type Department Care Team Description 09/14/[address] [phone] Caryn Bailey AuD Hearing Aid (DOMES) 08/28/2023 Orders Only [address] [phone] June Hernandez NP <No scans attached> 08/24/2023 7:30 AM CDT Office Visit [address] [phone] June Hernandez NP Physical (annual) 08/24/2023 Travel from Last 3 Months Immunizations Name Administration Dates Next Due COVID-19 Vaccine Spikevax (M oderna 50mcg/0.5mL) 12YO+ [id number] Formula PF 05/12/2023 COVID-19 vaccine (Moderna 100mcg/0.5mL) PF, MDV 09/24/2020,08/27/2020 COVID-19 vaccine (Pfizer-Bio NTech 30mcg/0.3mL) 12YO+ BIVALENT PF, MDV 03/03/2022 DTaP 01/15/2009 Influenza A (H1N1), Inactiva praveen (Age >=3 Years) 03/29/2010 Influenza Virus, Unspecified 03/07/2009 Influenza, IIV3 (Age 6-35 mos) 03/07/2009 Influenza, IIV3 (Age >=3 years) 03/22/20 14,03/29/2013,03/22/2012,2010,03/13/2010 Influenza, IIV4 05/12/2023, 2,03/06/2021,2019,06/21/2018,05/14/2017,04/08/2015 Influenza, IIV4 (=>6mos) MDV 03/21/2015 Pneumococcal Conj 20-valent (Prevnar 20) 12/22/2022 Pneumococcal Poly,23-Valent (Pneumovax) 03/22/2012 Td (Age >=7 Years) 06/07/1998 Tdap 06/21/2018,01/15/2009 Zoster (Shingrix-RZV, recombinant) 05/15/2020, Family History Medical History Relation Name Comments Diabetes Father Nephrolithiasis Father Cancer Mother Gretta Ford lung with met s Heart Disease Mother Gretta Ford pacemaker Relation Name Status Comments Brother Alive Father Alive Maternal Grandfather Maternal Grandmother Mother Gretta Ford Alive Paternal Grandfather Paternal Grandmother Sister 1 Alive Sister 2 Alive Son Alive x3 Social History Tobacco Use Types Packs/Day Years Used Date Smoking Tobacco: Never Passive Smoke Exposure: Never Smokeless Tobacco: Former Chew Quit: 11/08/2012 Tobacco Cessation:Counseling Given: Not Answered Comments:Pt. is quitting 01/13/12 Alcohol Use Standard Drinks/Week Comments Yes 2 (1 standard drink = 0.6 oz pur e alcohol) social/month PHQ-2 Answer Date Recorded PHQ-2 TOTAL SCORE 0 12/22/2022 Social Connections Answer Date Recorded Frequency of Communication with Friends and Fami ly 0 12/21/2022 Financial Resource Strain Answer Date R ecorded Difficulty of Paying Living Expenses 3 12/21/2022 Difficulty of Paying Living Expenses Not on file 12/21/2022 Food Insecurity Answer Date Recorded Worried About Running Out of Food in the Last Ye ar 1 12/21/2022 Transportation Needs Answer Date Record ed Lack of Transportation (Medical) 1 12/21/2022 Housing Stability Answer Date Recorded Unable to Pay for Housing in the Last Year 1 12/21/2022 Sex and Gender Information Value Date Recorded Sex Assigned at Male 05/14/2020 9:58 PM LOADING DOCK HELPER Gender Identity Male 05/14/2020 9:58 PM LOADING DOCK HELPER Sexual Orientation Straight 05/14/2020 9: 58 PM LOADING DOCK HELPER Obstetrics History Last Filed Vital Signs Vital Sign Reading Time Taken Comments Blood Pressure 140/86 08/24/2023 7:29 AM CDT Pulse 84 08/24/2023 7:29 AM CDT Temperature 34.4 ??C (93.9 ??F) 07/20/2023 12:[address] Respiratory Rate 16 07/20/2023 2:15 PM LOADING DOCK HELPER Oxygen Saturation 96% 08/24/2023 7:29 AM CDT Inhaled Oxygen Concentration - - Weight 108.4 kg (239 lb) 08/24/2023 7:29 AM CDT Height 167.6 cm (5' 6) 08/24/2023 7:29 AM CDT Body Mass Index 38.58 08/24/2023 7:29 AM CDT Plan of Treatment Health Maintenance Due Date Last Done Comments HIV for age 15-65 1973 Depression screening for age 12+ 12/23/2023 12/22/2022, 07/14/2021, 02/09/2020, Additional history exists Influenza for age 65+ 02/06/2024 05/12/2023 , 03/03/2022, 03/06/2021, Additional history exists BMI (ht and wt on same day) for age 18+ 08/23/2024 08/24/2023, 05/12/2023, 05/07/2022, Additional history exists Tetanus booster 06/21/2028 06/21/2018, 01/05, 06/07/1998 Colonoscopy through age 75 07/20/202807/20, 07/14/2018, 08/28/2013, Additional history exists Lipids for age 45-75 08/23/2028 08/24/2023, 12/16/2022, 09/18/2021, Additional history exists Hepatitis C screening for ag e 18-79 Completed 06/21/2018 Tdap Completed 06/21/2018, 01/15/2009 Zoster (shingles) series for age 50+ Completed 05/15/2020, 02/09/2020 Pneumococcal series for age 65+ Completed 3, 03/22/2012 COVID-19 vaccine series Completed 05/12/20 23, 03/03/2022, 04/29/2021, Additional history exists Medical Devices Implanted Type Area Doughnut Icer Machine Device Identifier Shelf Expiration Date Model / Serial / Lot [id number] - [id number] Implanted:Qty: 2 on 06/29/2014 by Dyllan Méndez MD at [facility] Right: Shoulder [employer] 01/06/2016 [id number] / [id number] / Description:Suture [place], S wivelLock Procedures Procedure Name Priority Date/Time Associated Diagnosis Comments UA W/ SEDIMENT EXAM REFLEXED PER CRITERIA Routine 08/24/2023 8:04 AM CDT Hypertension CBC WITH AUTO DIFFERENTIAL Routine 08/24/2023 7:58 AM CDT Screening, anemia, deficiency, iron TSH Routine 08/24/2023 7:58 AM CDT Screening for thyroid disorder HEMOGLOBIN A1C SCREENING Routine 08/24/2023 7:58 AM CDT Diabetes mellitus screening PSA TOTAL SCREEN Routine 08/24/2023 7:58 AM CDT Prostate cancer screening Screening PSA (prostate specific antigen) LIPID PANEL W REFLEX MEASURED LDL Routine 08/24/2023 7:58 AM CDT Mixed hyperlipidemia COMP METABOLIC PANEL Routine 08/24/2023 7:58 AM CDT Diabetes mellitus screening CBC WITH AUTO DIFFERENTIAL Routine 08/24/2023 7:58 AM CDT Screening, anemia, deficiency, iron COLONOSCOPY 07/20/2023 12:10 PM LOADING DOCK HELPER ANTI HCV Routine 06/21/2018 8:22 AM LOADING DOCK HELPER Need for hepatitis C screening test from Last 3 Months or Most Recently Relevant to Health Maintenance Results * (ABNORMAL) UA W/ SEDIMENT EXAM REFLEXED PER CRITERIA (08/24/2023 8:04 AM CDT) COLOR Yellow Yellow Color 08/24/2023 8:25 AM [facility] CLARITY Clear Clear Clarity 08/24/2023 8:25 AM [facility] SPECIFIC GRAVITY,URINE >=1.030(A) 1.010, 1.015, 1.020, 1.025 08/24/2023 8:25 AM [facility] PH,URINE 6.0 6.0, 7.0, 8.0, 5.5, 6.5, 7.5, 8.5 08/24/2023 8:25 AM [facility] UROBILINOGEN, QUALITATIVE Normal Normal EU/dl 08/24/2023 8:25 AM [facility] PROTEIN, URINE Negative Negative mg/dL 08/24/2023 8:25 AM [facility] GLUCOSE, URINE Negative Negative mg/dL 08/24/2023 8:25 AM [facility] KETONES,URINE Negative Negative mg/dL 08/24/2023 8:25 AM [facility] BILIRUBIN,URI NE Negative Negative 08/24/2023 8:25 AM [facility] OCCULT BLOOD,URINE Negative Negative 08/24/2023 8:25 AM [facility] NITRITE Negative Negative 08/24/2023 8:25 AM [facility] LEUKOCYTE ESTERASE Negative Negative 08/24/2023 8:25 AM [facility] Urine URINE SPECIMEN / Unknown Non-Blood / Unknown 08/24/2023 8:04 AM CDT 08/24/2023 8:04 AM T June Hernandez NP URINE [facility] [address] [facility] [place] [address] * (ABNORMAL) CBC WITH AUTO DIFFERENTIAL (08/24/2023 7:58 AM T) WHITE BLOOD COUNT 6.4 4.5 - 11.0 thou/cu mm 08/24/2023 8:17 AM [facility] RED BLOOD COUNT 5.15 4.30 - 5.90 mil/cu mm 08/24/2023 8:17 AM [facility] HEMOGLOBIN 15.3 13.5 - 17.5 g/dL 08/24/2023 8:17 AM [facility] HEMATOCRIT 44.7 37.0 - 53.0 % 08/24/2023 8:17 AM [facility] MCV 87 80 - 100 fL 08/24/2023 8:17 AM [facility] MCH 29.7 26.0 - 34.0 pg 08/24/2023 8:17 AM [facility] MCHC 34.2 32.0 - 36.0 g/dL 08/24/2023 8:17 AM [facility] RDW 13.3 11.5 - 15.5 % 08/24/2023 8:17 AM [facility] PLATELET COUNT 155 140 - 440 thou/cu mm 08/24/2023 8:17 AM [facility] MPV 11.2(H) 6.5 - 11.0 fL 08/24/2023 8:17 AM [facility] % NEUT 64.6 % 08/24/2023 8:17 AM [facility] % LYMPH 22.9 % 08/24/2023 8:17 AM [facility] % MONO 8.3 % 08/24/2023 8:17 AM [facility] % EOS 3.9 % 08/24/2023 8:17 AM [facility] % BASO 0.3 % 08/24/2023 8:17 AM [facility] ABSOLUTE NEUTROPHILS 4.2 1.7 - 7.0 thou/cu mm 08/24/2023 8:17 AM CDT [facility] ABSOLUTE LYMPHOCYTES 1.5 0.9 - 2.9 thou/cu mm 08/24/2023 8:17 AM CDT [facility] ABSOLUTE MONOCYTES 0.5 <0.9 thou/cu mm 08/24/2023 8:17 AM CDT [facility] ABSOLUTE EOSINOPHILS 0.3 <0.5 thou/cu mm 08/24/2023 8:17 AM CDT [facility] ABSOLUTE BASOPHILS 0.0 <0.3 thou/cu mm 08/24/2023 8:17 AM CDT [facility] Blood BLOOD SPECIMEN / Unknown Venipuncture / Unknown 08/24/2023 7:58 AM CDT 08/24/2023 7:58 AM CDT June Hernandez NP HEMATOLOGY Performing Organization Address City/State/[facility] Co de Phone Number [facility] [address] [place] [address] * HEMOGLOBIN A1C SCREENING (08/24/2023 7:58 AM CDT) HEMOGLOBIN A1C SCREENING 6.2 <=6.4 % 08/24/2023 8:12 AM CDT [facility] Blood BLOOD SPECIMEN / Unknown Venipuncture / Unknown 08/24/2023 7:58 AM CDT 08/24/2023 7:58 AM CDT Narrative [facility] - 08/24/2023 8:12 AM CDT ? (<5.7%) ?Normal ? (5.7% to 6.4%) ? Indicates prediabetes ? (>=6.5%) ? Confirms diabetes Falsely low levels may be seen with: Recent Transfusion, Recent Significant Blood Loss, Hemolytic Diseases, or Falsely elevated levels may be seen with: Untreated Anemias, Splenectomy June Hernandez NP CHEMISTRY [facility] [address] [place] [address] * (ABNORMAL) LIPID PANEL W REFLEX MEASURED LDL (08/24/2023 7:58 AM CDT) CHOLESTEROL,TOTAL 185 100 - 199 mg/dL 08/24/2023 8:36 AM T [facility] Comment: Cholesterol, Total Reference Ranges Desirable <200 mg/dL Borderline 200-239 mg/dL High >=240 mg/dL TRIGLYCERIDES 263(H) <150 mg/dL 08/24/2023 8:36 AM T [facility] HDL CHOLESTEROL 37(L) >40 mg/dL 8:36 AM [facility] NON-HDL CHOLESTEROL 148(H) <145 mg/dl 08/24/2023 8:36 AM T [facility] CHOL/HDL RATIO 5.00(H) <4.50 08/24/2023 8:36 AM [facility] LDL CHOLESTEROL 95 <=130 mg/dL 08/24/2023 8:36 AM [facility] VLDL CHOLESTEROL 53(H) <=30 mg/dL 08/24/2023 8:36 AM [facility] PROVIDER ORDERED STATUS RANDOM 08/24/2023 8:36 AM [facility] Blood BLOOD SPECIMEN / Unknown Venipuncture / Unknown 08/24/2023 7:58 AM CDT 08/24/2023 7:58 AM CDT June Hernandez SUPERVISOR ENROBING CHEMISTRY [facility] [address] [place] [address] * TSH (08/24/2023 7:58 AM CDT) TSH 3.02 0.27 - 4.20 uIU/mL 08/24/2023 8:36 AM T [facility] Blood BLOOD SPECIMEN / Unknown Venipuncture / Unknown 08/24/2023 7:58 AM CDT 08/24/2023 7:58 AM CDT [facility] - 08/24/2023 8:36 AM CDT In Adults, TSH values between 5.00 and 10.00 uIU/ml do not necessarily indicate the presence of Hypothyroidism. Correlation with clinical findings such as presence of goiter and/or Thyroperoxidase (TPO) Antibody may be helpful. For more information please refer to MANINDER 2004; 291: 228-238. June Hernandez NP CHEMISTRY [facility] [address] [place] [address] * (ABNORMAL) COMP METABOLIC PANEL (08/24/2023 7:58 AM CDT) SODIUM 141 136 - 145 mmol/L 08/24/2023 8:36 AM [facility] POTASSIUM 4.1 3.5 - 5.1 mmol/L 08/24/2023 8:36 AM [facility] CHLORIDE 105 98 - 107 mmol/L 08/24/2023 8:36 AM [facility] CO2,TOTAL 26 22 - 29 mmol/L 08/24/2023 8:36 AM [facility] ANION GAP 10 5 - 18 08/24/2023 8:36 AM [facility] GLUCOSE 147(H) 70 - 99 mg/dL 08/24/2023 8:36 AM [facility] CALCIUM 9.7 8.8 - 10.2 mg/dL 08/24/2023 8:36 AM [facility] BUN 19 8 - 23 mg/dL 08/24/2023 8:36 AM [facility] CREATININE 1.03 0.70 - 1.20 mg/dL 08/24/2023 8:36 AM [facility] BUN/CREAT RATIO 18 10 - 20 8:36 AM [facility] eGFR 81(L) >90 mL/min/1.7 3m2 08/24/2023 8:36 AM CDT [facility] Comment:As of 2021, eG FR is calculated by the CKD-EPI creatinine equation without race adjustment. ??eGFR can be influenced by muscle mass, exercise, and diet. ??The reported eGFR is an estimation only and is only applicable if the renal function is stable. ALBUMIN 4.3 4.0 - 4.9 g/dL 08/24/2023 8:36 AM CDT [facility] PROTEIN,TOTAL 6.9 6.0 - 8.0 g/dL 08/24/2023 8:36 AM T [facility] BILIRUBIN,TOTAL 1.1 0.0 - 1.2 mg/dL 08/24/2023 8:36 AM T [facility] ALK PHOSPHATASE 71 40 - 129 IU/L 08/24/2023 8:36 AM T [facility] ALT (SGPT) 36 10 - 50 IU/L 08/24/2023 8:36 AM CDT [facility] AST (SGOT) 33 10 - 50 IU/L 08/24/2023 8:36 AM CDT [facility] Blood BLOOD SPECIMEN / Unknown Venipuncture / Unknown 08/24/2023 7:58 AM CDT 08/24/2023 7:58 AM CDT June Hernandez NP CHEMISTRY [facility] [address] [place], [place] [id number] * (ABNORMAL) PSA TOTAL SCREEN - Dx Auto-associated (08/24/2023 7:58 AM CDT) PSA TOTAL (SCREEN) 4.04(H) <4.00 ng/mL 08/24/2023 9:14 PM CDT [facility] Blood BLOOD SPECIMEN / Unknown Venipuncture / Unknown 08/24/2023 7:58 AM CDT 08/24/2023 7:58 AM CDT Narrative [facility] - 08/24/2023 9:14 PM CDT The test method changed on 12/01/2022. If this test has been used for serial monitoring, rebaselining is recommended. Rebaselining consists of 2 measurements, collected 3-6 weeks apart. The Angella Elecsys total PSA assay is an electrochemiluminescence immunoassay ECLIA performed on the Angella Bennett e immunoassay analyzers. Values obtained with different assay methods may be different and cannot be used interchangeably. June Hernandez NP LABORATORY [facility] [address] [place] [address], [place] * COLONOSCOPY (07/20/2023 12:10 PM LOADING DOCK HELPER) 07/20/2023 12:1 0 PM LOADING DOCK HELPER Narrative Transcriptions Anika Calderon DO - 07/21/2023 7:33 AM CST Patient Name: Leo Menendez Procedure Date: 07/20/2023 Gender: Male Date of : 1960 Admit Type: Ambulatory Procedure: Colonoscopy Proceduralist: Anika Calderon MD Referring MD: Greg Bergeron DO Indications/Pre-Op Diagnosis: Follow-up of diverticulitis Medications: Propofol per Anesthesia, MonitoredAnesthesia Care Procedure Description: The patient had risks, benefits and alternatives explained to andgave informed consent. The patient had a stable cardiopulmonary status and judged an adequate candidate for conscious sedation. The endoscope -[id number] was passed through the anus andadvanced to the cecum, identified by appendiceal orifice and ileocecal valve.The colonoscopy was performed without difficulty. The patient toleratedthe procedure well. The quality of the bowel preparation was good. The ileocecal valve, appendiceal orifice, and rectum were photographed. Complications: No immediate complications. Estimated Blood Loss & Specimen: Estimated blood loss: none. Specimen collected - None Findings: The perianal and digital rectal examinations were normal. Pertinent negatives include normal sphincter tone, no palpable rectal lesions, normal prostate (size, shape, and consistency), no anal lesion or abnormality and normal stool Hemoccult. Non-bleeding internal hemorrhoids were found during retroflexion. The hemorrhoids were mild, small and Grade I (internal hemorrhoids thatdo not prolapse). Scattered medium-mouthed and small-mouthed diverticula were found inthe descending colon and ascending colon. The exam was otherwise without abnormality on direct and retroflexion views. Impressions/Post-Op Diagnosis: - Non-bleeding internal hemorrhoids. - Diverticulosis in the descending colon and in the ascendingcolon. - The examination was otherwise normal on direct and retroflexionviews. - No specimens collected. Recommendation: - Patient has a contact number available for emergencies. The signsand symptoms of potential delayed complications were discussed with the patient. Return to normal activities tomorrow. Written discharge instructions were provided to the patient. - Discharge patient to home (ambulatory). - Resume previous diet. - Continue present medications. - Repeat colonoscopy in 10 years for screening purposes. Anika Calderon MD 07/21/2023 7:32:59 AM This report has been signed electronically. Note Initiated On: 07/20/2023 12:10 PM Anika Calderon DO PROCEDURE ORD * ANTI HCV (06/21/2018 8:22 AM LOADING DOCK HELPER) HEPATITIS C ANTIBODY Non-React feliz Non-React feliz 06/21/2018 6:09 PM LOADING DOCK HELPER [facility] Comment:Antibodies to HCV no t detected; does not exclude the possibility of exposure to HCV. Blood BLOOD SPECIMEN / Unknown Venipuncture / Unknown 06/21/2018 8:22 AM LOADING DOCK HELPER 06/21/2018 8:22 AM LOADING DOCK HELPER Greg Smithlidiajordan DO SEND OUTS [facility] [address] [place] [address], from Last 3 Months or Most Recently Relevant to Health Maintenance Advance Directives * Full Code (Latest Code Status on File) Date Activated Date Inactivated Comments 07/20/2023 12:16 PM 07/20/2023 4:53 PM Question Answer Comments Code Status Discussion: Discussed * Full Code Date Activated Date Inactivated Comments 05/05/2023 1:54 AM 05/09/2023 2:53 PM Question Answer Comments Code Status Discussion: Reviewed Preferences * Full Code Date Activated Date Inactivated Comments 12/15/2022 5:22 PM 12/16/2022 10:36 PM Question Answer Comments Code Status Discussion: Reviewed Preferences * Full Code Date Activated Date Inactivated Comments 05/08/2020 11:16 PM 05/11/2020 11:09 AM Question Answer Comments Code Status Discussion: Not Discussed * Full Code Date Activated Date Inactivated Comments 03/01/2015 8:16 AM 03/01/2015 4:05 PM Care Teams Brass Cutter Relationship Specialty Start Date End Date June Hernandez NP [address] [place] [address] PCP - General Nurse Practitioner - Family 08/24/23
--- OUTSIDE RECORDS SUMMARY | 2023-10-31 12:29 | XMS_ITS | Continuity of Care Document ---
Author Name [facility] Organization [facility] Care Team Providers Care Turner Machine Name Role Phone [facility] Unavailable Unavailable Social History Combined list of available smoking, tobacco, and other social history from [facility] and [facility] facilities. Social History Type Response Date Comment Sourc e This section is an empty social history section. [facility]
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
== END 2023-10-31 12:54 | disposition other institution (70) ==
PROVIDERS: Emergency Provider Family Medicine
DX: S22.42XA Multiple fractures of ribs, left side, initial encounter for closed fracture (principal); R07.9 Chest pain, unspecified; V28.49XA Other motorcycle driver injured in noncollision transport accident in traffic accident, initial encounter
CPT/HCPCS: 71045; 94761; 99284; 99285; 99291; G0390

== ENCOUNTER 2023-10-31 12:18 | Outpatient (CLI) | payer OTHER, MEDICARE, SELFPAY ==
--- OUTSIDE RECORDS SUMMARY | 2023-11-15 22:31 | XMS_ITS | Continuity of Care Document ---
Author Name [facility] Organization [facility] Care Team Providers Care Assistant Prosecuting Attorney Name Role Phone [facility] Unavailable Unavailable Social History Combined list of available smoking, tobacco, and other social history from Department of Defense and Veterans Affairs facilities. Social History Type Response Date Comment Sourc e This section is an empty social history section. [facility]
== END 2023-10-31 12:19 | disposition home or self-care (01) ==
LOC: AMB 11-15 22:21
PROVIDERS: Visit Provider Family Medicine
DX: S22.49XS Multiple fractures of ribs, unspecified side, sequela (principal)
CPT/HCPCS: A0425; A0427